=== PATIENT | female | born 1940 | race Caucasian/White ===

== ENCOUNTER → 2017-05-31 09:49 | Outpatient (CLI) | payer MEDICARE, BC, SELFPAY ==
[2017-05-31 12:21] LABS: Absolute Lymphocyte Count 1.14 X10^3/ul (0.83-4.51); Absolute Neutrophil Count 4.5 X10^3/uL (2.0-7.7); Basophil# 0.04 X10^3/uL; Basophil% 0.6 % (0-1); Eosinophils% 1.6 % (0-5); Hematocrit 43.3 % (37-47); Hemoglobin 13.5 g/dl (12.0-15.0); Lymphocyte # 1.14 X10^3/ul (4.0); Lymphocyte % 18.1 % (19-41); Mean Corp Hgb Conc 31.2 g/gl (32-36); Mean Corpuscular Hgb 29.3 pg (27.0-32.0); Mean Corpuscular Volume 93.9 fL (81-99); Mean Platelet Vol. 11.3 fl (6.2-12.0); Monocyte# 0.55 X10^3/uL; Monocyte% 8.7 % (0-10); Neutrophil # 4.47 X10^3/uL (2.7-7.7); Platelet Count 214 K/mm3 (150-450); RBC Distribution Width SD 50.8 fl (35.1-43.9); Red Blood Count 4.61 M/mm3 (4.2-5.4); White Blood Count 6.3 K/mm3 (4.4-11.0)
[2017-05-31 12:23] LABS: POSITIVE COUNT NO; POSITIVE DIFFERENTIAL NO; POSITIVE MORPHOLOGY NO
[2017-05-31 12:27] LABS: ALB/GLOB Ratio 1.2 RATIO (0.9-2.4); AST(SGOT) 18 U/L (15-37); Alanine Aminotransfer ALT/SGPT 10 U/L (13-56); Alkaline Phosphatase 93 U/L (45-117); Anion Gap 8 (5-15); BUN 23 mg/dL (7-18); BUN/Creat Ratio 25.4 RATIO (10-20); Calcium,Total 8.6 mg/dL (8.5-10.1); Chloride 104 mmol/L (98-107); Creatinine, Serum 0.91 mg/dL (0.55-1.02); EST Glomerular Filtration Rate 64 mL/min (>60); Est Glom Filt Rate - Afr Amer 77 mL/min (>60); Globulin 3.2 g/dL (2.2-4.2); Glucose 78 mg/dL (74-106); Potassium 3.5 mmol/L (3.5-5.1); Protein, Total 7.2 g/dL (6.4-8.2); Sodium Level 141 mmol/L (136-145)
== END ==
PROVIDERS: Family Provider Internal Medicine; PCP Internal Medicine; Visit Provider Internal Medicine Rheumatology
DX: M17.0 Bilateral primary osteoarthritis of knee (principal); M81.0 Age-related osteoporosis without current pathological fracture; N18.9 Chronic kidney disease, unspecified; J45.909 Unspecified asthma, uncomplicated
CPT/HCPCS: 36415; 80053; 85025

== ENCOUNTER → 2017-06-21 13:18 | Outpatient (CLI) | payer MEDICARE, BC, SELFPAY ==
--- NOTE | 2017-06-21 13:30 | SP.MBSS_ITS ---
PRIMARY / SECONDARY DIAGNOSIS: dysphagia (R13.10) REFERRING PHYSICIAN: DANA Kraus CURRENT DIET: regular textures, thin liquids DENTITION: WFL MENTAL STATUS: WNL RESPIRATORY STATUS: O2 via room air PREVIOUS MODIFIED BARIUM SWALLOW STUDY: 10/16/2013 MBS revealed swallow function grossly within functional limits REASON FOR REFERRAL: Patient is a 77 year old female referred for a modified barium swallow (MBS) study to objectively assess the Patients oropharyngeal swallow function under fluoroscopy secondary to the diagnosis of Parkinson's disease, with further neurological etiologies (cerebrovascular accident involving the terell, dementia) with known deleterious effects on deglutition. Patients present, reports tachyphagia with occasional substernal burning sensation, both deny any significant coughing episodes, prior knowledge of association between Parkinson' s disease and dysphagia reported following education via medical staff. 2013 MBS revealed swallow function grossly within functional limits 01/27/2017 MRI revealed advanced atrophy and periventricular white matter ischemic changes without evidence for acute infarct; chronic ischemic changes within the terell and cerebellum MEDICAL HISTORY: Parkinsons disease, prior cerebral vascular accident, dementia / Alzheimer's disease, gastroesophageal reflux disease, neuropathic pain, rheumatoid arthritis , osteoarthritis, debility, severe malnutrition, chronic pain, asthma, anxiety and depression, hypokalemia, osteoporosis, pelvic fracture, allergic rhinitis, stage III chronic kidney disease, stage II chronic renal failure, hypertension, history of thrombotic thrombocytopenic purpura, inferior pubic ramus fracture, neurogenic bladder, normochromic normocytic anemia STUDY FINDINGS: Patient participated in a Modified Barium Swallow (MBS) study on 06/21/2017. Dr. Landry was the radiologist present for this evaluation. This study was recorded in the lateral view and images were sent to PACs for storage. The following consistencies were presented to this patient for analysis of oropharyngeal swallow function: thin liquids, pudding, and a regular textured, Paulina Doone cookie. Results of the MBS are as follows: PENETRATION / ASPIRATION SCALE (BAI): 1 = does not enter airway 2 = enters airway/above vocal folds/ejected 3 = enters airway/above vocal folds/not ejected 4 = enters airway/contacts vocal folds/ejected 5 = enters airway/contacts vocal folds/not ejected 6 = enters airway/below vocal folds/ejected 7 = enters airway/below vocal folds/not ejected despite effort 8 = enters airway/below vocal folds/no effort PENETRATION / ASPIRATION SCALE (SCORE): Thin liquid - 5 mL tsp.: 1 Thin liquids via cup (single sip): 1 Thin liquids via cup (single sip): 1 Thin liquids via cup (single sip): 1 Thin liquids via cup (single sip): 1 Pudding via spoon: 1 Regular textured cookie: 1 Thin liquids via straw (single sip): 1 Thin liquids via straw (single sip): 1 IMPRESSION: DIAGNOSIS: mild oral dysphagia (R13.11) ORAL PHASE CHARACTERIZED BY: LABIAL SEAL: no labial escape TONGUE CONTROL DURING BOLUS MANIPULATION: cohesive bolus between tongue to palatal seal BOLUS PREPARATION / MASTICATION: timely and efficient chewing and mashing BOLUS TRANSPORT / LINGUAL MOTION: trace intermittent repetitive/disorganized tongue motion; inconsistent (x1) delayed initiation of tongue motion (3-4 seconds) ORAL RESIDUE: trace residue lining oral structures PHARYNGEAL PHASE CHARACTERIZED BY: INITIATION OF PHARYNGEAL SWALLOW: bolus head in valleculae at first hyoid excursion (improved) SOFT PALATE ELEVATION: no bolus between soft palate and pharyngeal wall LARYNGEAL ELEVATION: complete superior movement of thyroid cartilage with complete approximation of arytenoids cartilage to epiglottic petiole ANTERIOR HYOID EXCURSION: partial anterior movement EPIGLOTTIC MOVEMENT: complete epiglottic inversion LARYNGEAL VESTIBULE CLOSURE AT HEIGHT OF SWALLOW: complete laryngeal vestibule closure with no air/contrast in laryngeal vestibule PHARYNGEAL STRIPPING WAVE: pharyngeal stripping wave present / complete PHARYNGOESOPHAGEAL SEGMENT OPENING: complete distension and complete duration with no obstruction of flow TONGUE BASE RETRACTION: no contrast between tongue base and posterior pharyngeal wall PHARYNGEAL RESIDUE: trace residue within or on pharyngeal structures ESOPHAGEAL PHASE CHARACTERIZED BY: ESOPHAGEAL BOLUS CLEARANCE IN THE UPRIGHT POSITION: minimal intermittent esophageal retention at / below the PES with retrograde flow through PES ( functionally insignificant) EFFECTS OF TREATMENT STRATEGIES ATTEMPTED: Reduced bolus size = effective DIET TEXTURE RECOMMENDATIONS: Will recommend a regular textured, thin liquid diet. COMPENSATORY STRATEGIES RECOMMENDED: Reduced bolus volume, reduced rate of intake, seated upright at 90 degrees during PO intake, remain upright for 30-60 minutes post meal (GERD precaution) INTERPRETATION OF RESULTS: Patient presents with mild oral dysphagia (R13.11) secondary to the diagnosis of Parkinsons disease. Oral phase primarily marked by suboptimal lingual control with noted trace intermittent lingual festinations / lingual rolling pattern; and mild impairment during oral transit attributed to intermittent delayed oral swallow onset (3-4 seconds); neither identified during prior MBS suggesting mild oral phase coordination alterations, though all with minimal impact on deglutition during current study. Family reporting tachyphagia (rapid rate of intake) with occasional substernal burning sensation, symptoms may correlate with each other, with no findings associated with reported symptoms identified throughout study. No aspiration appreciated throughout trials, unable to definitively rule out silent aspiration (though not suspected). RECOMMENDATIONS: Patient able to comprehend and express recommended intake precautions detailed above with sufficient detail to suggest high likelihood of compliance. Provided brief overview of signs and symptoms of aspiration, with recommendations for the Patient to further discuss symptoms with PCP. No further skilled speech- language services warranted at this time targeting dysphagia. 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 Would consider annual repeat objective assessment of the oropharyngeal swallow function under fluoroscopy to identify changes in the oropharyngeal swallow function associated with Parkinsons disease due to the progressive nature of the disease and higher proclivity for silent aspiration. ADDITIONAL COMMENTS/RECOMMENDATIONS: Results and recommendations were discussed with the Patient immediately following MBS completion, with the Patient verbalizing understanding and agreement with all recommendations and education provided. IMAGE COUNT: [id number] G-CODES: SWALLOWING [id number] Current Status: CI SWALLOWING [id number] Goal Status: CI SWALLOWING [id number] Discharge Status: CI
--- NOTE | 2017-06-21 13:50 | RAD_ITS ---
STUDY: SWALLOWING STUDY REASON FOR EXAM: Female, 77 years old. Dysphagia. TECHNIQUE: The examination was performed with Speech Pathology in attendance. Under fluoroscopic observation, the patient ingested thin barium, thick barium, barium pudding, and barium coated cracker. FLUOROSCOPY TIME: 1:24 minutes/seconds. 1380 spot images are obtained. RADIOLOGIST INVOLVEMENT: Radiologist was present and providing direct supervision. COMPARISON: None. FINDINGS: The following was observed during swallowing of the various mixtures of barium: Thin Barium: There was no evidence of aspiration or laryngeal penetration. Barium Pudding: There was no evidence of aspiration or laryngeal penetration. Barium Coated Cracker: There was no evidence of aspiration or laryngeal penetration. RAD/Swallowing Function w/Video IMPRESSION: Normal tailored barium swallow study. No evidence of increased risk for aspiration. The swallow study findings were discussed with the patient by the speech pathologist at the conclusion of the examination. Please see speech pathology report for more information and recommendations. Electronically Signed: Lenny Landry MD at 14:35 EDT Tel [phone], Service support ,
== END ==
PROVIDERS: Family Provider Internal Medicine; PCP Internal Medicine; Visit Provider Nurse Practitioner Acute Care
DX: R13.11 Dysphagia, oral phase (principal); R05 Cough
CPT/HCPCS: 74230; 92611

== ENCOUNTER 2017-07-12 11:30 | Outpatient (RCR) | payer MEDICARE, BC, SELFPAY ==
--- NOTE | 2017-04-26 13:02 | HP.PTEVAL ---
Patient's Visit Information ALESHIA WHEELER is a 77 year old F referred to Physical Therapy by MD YA Eason with a diagnosis of PARKINSON'S DZ, PULOMONARY EMBOLISM, FRACTURE OF SACRUM. Date of Evaluation: 04/26/17 Physical Therapist: Angela Patrick - Visit Plan Frequency: 2-3x /Week Duration: 4-6 Weeks Plan: POSTURE CORRECTION/STRENGTHENING, INSTRUCTION IN APPROPRIATE BODY MECHANICS AND ACTIVITY MODIFICATIONS. DLS STARTING WITH A NEUTRAL SPINE PROGRESSING ROM TOLERATED. RADHA LE ROM, STRETCHING AND STRENGTHENING. HEP INSTRUCTION. GAIT AND BALANCE TRAINING. ENDURANCE TRAINING. - Subjective Subjective: Work/Leisure: RETIRED. Disability: NO. Present symptoms: PATIENT DENIES PAIN CURRENTLY BUT REPORTS SHE HAD A LOT OF PAIN IN HER BACK AND LEGS BACK IN OCT AND NOV AFTER SHE BROKE HER PELVIS. PATIENT REPORTS SHE IS HAVING TROUBLE WALKING AND WITH HER BALANCE. SHE REPORTS THAT SHE WAS NOT USING A WALKER UNTIL OCT 2016. SHE HAD MULTIPLE FALLS OVER A TWO YEAR PERIOD AND SHE IS NOT SURE WHICH FALL BROKE HER PELVIS. SHE ALSO BROKE HER RIGHT FOOT BUT AGAIN DOESN'T HAVE PAIN IN IT NOW. Present since: OCT 2016. Pain Scale: N/A. Currently: N/A. Commenced as a result of: FALLS. Symptoms at onset: LOW BACK PAIN. Recent major surgery: RADHA TKR'S APPROX 2009, PULMONARY EMBOLISM, PARKINSON'S DZ. ON BLOOD THINNER. OTHER: RECENTLY DIAGNOSED WITH PARKINSON'S ABOUT A MONTH AGO. PATIENT REPORTS SHE ENDED UP GOING TO THE HOSPITAL [facility] DUE TO SEVERE BACK AND RIGHT LE PAIN LAST OCTOBER. SHE HAS BEEN PRETTY MUCH IN THE HOSPITAL OR REHAB FOR THE LAST 5 MONTHS OR SO WHICH ENDED WITH HOME PT THE END OF FEBRUARY. REPORTS SHE HAS DONE SOME OF THE HOME EX'S BUT HASN'T REALLY DONE THEM FOR A FEW DAYS. SITTING A LOT AT HOME. NOT ON A WALKING PROGRAM. SHE REPORTS SHE HAD ONE REILLY IN THE HOSPITAL BY DR. HUGHES THAT DIDN'T SEEM TO HELP. SHE EVENTUALLY GOT OVER THE PAIN WITH MEDICINE AND THERAPY. STATES PARKINSON'S MEDICINE HAS MADE A BIG DIFFERENCE. ABLE TO GET UP AND AROUND AT HOME NOW, SHOWER AND DRESS HERSELF WITH SUPERVISION ONLY. *SHE HATES THE NUSTEP* - Objective THIS PATIENT AMBULATES INDEP'LY INTO PT WITH A FWW INDEP'LY. HER IS WITH HER AND HELPFUL WITH HER MEDICAL HISTORY. SHE WALKS WITH INCREASED TRUNK FLEXION, INCREASED RADHA KNEE FLEXION AND SLOW BUT STEADY CADANCE. HER SITTING POSTURE IS POOR. HER STANDING POSTURE IS POOR. SHE DID NOT USE PROPER SAFETY WITH WALKER WHEN TRANSFERING FROM STAND TO SIT. SHE WAS OBSERVED TRANSFERRING INDEP'LY FROM SIT TO DRY KILN OPERATOR THE LOBBY BUT THE CHAIR IS LOWER IN THE TREATMENT ROOM AND SHE REQUIRED +1 MIN TO MOD ASSIST TO TRANSFER OUT OF THE CHAIR. SHE WAS ABLE TO WALK THE ENTIRE WAY BACK TO THE TREATMENT ROOM (ABOUT 300 FEET) AND BACK OUT AGAIN WITHOUT STOPPING TO REST. SHE IS ONLY PARTIALLY ABLE TO CORRECT HER POSTURE WITH CUEING. SHE IS DEPENDENT ON THE WALKER FOR GAIT AND UNABLE TO SLS ON EITHER LE WITHOUT UE ASSIST. SHE DEMONSTRATES WEAKNESS THROUGHT HER UE'S, LE'S AND TRUNK. HER SHOULDER ELEVATION IS LIMITED BY APPROX 30%. SHE HAS TIGHT TRUNK FLEXORS, HIP FLEXORS, HS'S AND GASTROC SOLEUS COMPLEX'S. GROSS STRENGTH IS 3+/5. SHE IS ABLE TO FOLLOW ALL COMMANDS WELL AND IS A GOOD HISTORIAN OVER-ALL. SHE IS PLEASANT AND COOPERATIVE TO WORK WITH. HER SITTING BALANCE IS GOOD BUT HER STANDING STATIC BALANCE IS FAIR MINUS AND DYNAMIC BALANCE WITH THE WALKER IS FAIR MINUS. PATIENT WOULD BENEFIT FROM PT FOR GENERAL STRENGTHEING, ENDURANCE TRAINING AND BALANCE ACTIVITIES ALONG WITH GAIT TRAINING TO TRY TO MEET THE GOAL OF NOT BEING DEPENDENT ON THE WALKER. - Goals Goal 1:: PATIENT WILL HAVE GOOD DYNAMIC BALANCE WITH THE WALKER TO BE A COMMUNITY AMBULATOR. Goal Time Frame: 4-6 Weeks Goal 2:: INDEP AND SAFE GAIT ON ALL SURFACES WITH LEAST AD Goal Time Frame: 4-6 Weeks Goal 3:: INCREASE FUNCTIONAL ROM OF RADHA UE'S, TRUNK AND LE'S TO IMPROVE ADL FUNCTION. Goal Time Frame: 4-6 Weeks Goal 4:: INCREASE FUNCTIONAL STRENGHT FOR RADHA UE'S, TRUNK AND LE'S TO EASE ADL'S. Goal Time Frame: 4-6 Weeks Goal 5:: INDEP WITH HEP WITH WRITTEN INSTRUCTIONS AND THE HELP OF CAREGIVER. Goal Time Frame: 4-6 Weeks - Rehabilitation Potential Rehabilitation Potential: Fair - Anticipated Interventions Patient/Client Instruction: Educate patient on: Condition, Plan of Care, Risk Factors, Benefits of Fitness Program For the Purpose of:: To improve self management Therapeutic Exercise to Include: Strength training, Balance training, Body mechanics, Postural training, Gait and locomotor training, Dynamic Lumbar Stabilization For the Purpose of:: To improve muscle performance and motor function, To improve performance and independence with ADL's, To improve ability of physical actions for home/community/work/leisure, To improve gait and locomotor functions Thank you for the opportunity to evaluate your patient. For Medicare and Medicare HMO plans, please review the plan of care and approve it. It will need to be FAXED BACK to us at [phone] for Medicare purposes. Please let me know if there are questions or concerns regarding this plan of care. Physician Signature: Date:
--- NOTE | 2017-05-17 13:31 | HP.PTREVAL_ITS ---
Bethel Perez MD, It has been my pleasure to treat ALESHIA WHEELER over the last 10 visits for PARKINSON'S DZ, PULOMONARY EMBOLISM, FRACTURE OF SACRUM. Please see the progress note below for an update on the physical therapy plan of care! Subjective: UPON ENTERANCE TO PT PATIENTS REPORTS PATIENT INSISTED ON BRINGING THE CANE INSTEAD OF WALKER TODAY. PATIENT REPORTS SHE IS TIRED OF THE WALKER. PATIENT REPORTS HER WALKING IS BETTER. SHE STATES SHE CAN GO FURTHER WITH THE WALKER NOW AND EVEN GO WITHOUT THE WALKER LIKE TODAY WITH WALKING WITH THE CANE. SHE STATES SHE CAN OPEN JARS, GET POTS AND PANS OUT AND SHE ISN'T AFRAID TO COOK NOW BECAUSE SHE CAN STAND LONGER. SHOWERING IS GOING MUCH BETTER TOO. STATES SHE ISN'T AFRAID OF SHOWERING NOW AND DOES IT ALMOST EVERY DAY. REPORTS HE DOES NOT HAVE TO SUPERVISE HER CLOSELY NOW AND HE EVEN LEFT HER A LONE TO GO OUT. SHE REPORTS SHE STILL WANTS TO BE ABLE TO WALK BETTER. 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 PATIENT IS HAPPY THAT SHE HAS MORE STAMINA TO BE ABLE TO DO HER MAKE UP AFTER SHOWERING WHICH SHE COULDN'T DO BEFORE. SHE REPORTS SHE CAN ONLY DO A LITTLE BIT WITH THE MACHINES BEFORE HER BACK AND LEFT KNEE START BOTHERING HER. SHE REPORTS SHE FEELS THE THERAPY IS VERY BENEFICIAL AND SHE WANTS TO KEEP COMING FOR PT AT LEAST UNTIL SHE CAN EXERCISE MORE ON HER OWN. Objective/Function: PATIENT IS MAKING PROGRESS TOWARD ALL PT GOALS. UPON EXAM, SHE DEMONSTRATES INDEP SIT TO STAND WITH UE ASSIST. SHE DEOMONSTRATED INDEP GAIT WITH A STRAIGHT CANE BACK TO PT X APPROX 350 FEET WITH MINOR LOSS'S OF BALANCE WITH BALANCE REGAINED INDEP'LY. SHE IS NOT SAFE INDEP'LY WITH THE CANE. SHE IS UNABLE TO SLS ON EITHER LEG MORE THAN A SECOND OR TWO WITHOUT UE ASSIST. HER GROSS STRENGTH HAS IMPROVED TO 4-/5 IN HER RADHA UE'S AND LE'S WITH MMT'ING. SHE IS REPORTING IMPROVED STAMINA AND FUNCTION AT HOME AND HER IS REPORTING SHE IS MORE INDEP. I WOULD RECOMMEND CONTINUED PT AT THIS TIME WORKING TOWARD SAME GOALS DUE TO FURTHER ROOM FOR IMPROVEMENT. Plan Plan: CONT PT 3 TIMES A WEEK X 10 VISITS FOR *WRITTEN HEP ADVANCES*, POSTURE CORRECTION/STRENGTHENING, INSTRUCTION IN APPROPRIATE BODY MECHANICS AND ACTIVITY MODIFICATIONS. DLS STARTING WITH A NEUTRAL SPINE PROGRESSING ROM TOLERATED. RADHA LE ROM, STRETCHING AND STRENGTHENING. HEP INSTRUCTION. GAIT AND BALANCE TRAINING. ENDURANCE TRAINING. THE PATIENT AND HER ARE AGREEABLE TO THIS POC. Goals Goal 1:: PATIENT WILL HAVE GOOD DYNAMIC BALANCE WITH THE WALKER TO BE A COMMUNITY AMBULATOR. Goal Time Frame: 4-6 Weeks Goal Progress: Progressing Goal 2:: INDEP AND SAFE GAIT ON ALL SURFACES WITH LEAST AD Goal Time Frame: 4-6 Weeks Goal Progress: Progressing Goal 3:: INCREASE FUNCTIONAL ROM OF RADHA UE'S, TRUNK AND LE'S TO IMPROVE ADL FUNCTION. Goal Time Frame: 4-6 Weeks Goal Progress: Progressing Goal 4:: INCREASE FUNCTIONAL STRENGHT FOR RADHA UE'S, TRUNK AND LE'S TO EASE ADL' S. Goal Time Frame: 4-6 Weeks Goal Progress: Progressing Goal 5:: INDEP WITH HEP WITH WRITTEN INSTRUCTIONS AND THE HELP OF CAREGIVER. Goal Time Frame: 4-6 Weeks Goal Progress: Progressing Anticipated Interventions Patient/Client Instruction: Educate patient on: Condition, Plan of Care, Risk Factors, Benefits of Fitness Program For the Purpose of:: To improve self management Therapeutic Exercise to Include: Strength training, Balance training, Body mechanics, Postural training, Gait and locomotor training, Dynamic Lumbar Stabilization For the Purpose of:: To improve muscle performance and motor function, To improve performance and independence with ADL's, To improve ability of physical actions for home/community/work/leisure, To improve gait and locomotor functions Please do not hesitate to contact me at [phone] by phone or Fax: if you have questions or concerns regarding this new plan of care! Sincerely, Angela Patrick
--- NOTE | 2017-06-05 12:56 | HP.PTREVAL ---
Bethel Perez MD, It has been my pleasure to treat ALESHIA WHEELER over the last 18 visits for PARKINSON'S DZ, PULOMONARY EMBOLISM, FRACTURE OF SACRUM. Please see the progress note below for an update on the physical therapy plan of care! 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 PATIENT REPORTS SHE DID OK AFTER TRYING SOME OF THE MACHINES AGAIN LAST VISIT. PATIENT REPORTS SHE HAS A LOT MORE CONFIDENCE IN HER WALKING, GETTING DRESSED, BATHING AND GETTING IN AND OUT OF THE CAR. FOLLOW UP WITH DR. PORTER TOMORROW. PATIENT REPORTS SHE HAS NOT FALLEN FOR QUITE AWHILE NOW BUT SHE IS STILL AFRAID OF FALLING. PATIENT REPORTS SHE PLANS TO GET A MEMBERSHIP HERE TO CONTINUE EXERCISINIG WHEN PT IS OVER. ALSO CONSIDERING TRYING TREADMILL AT HOME. STATES SHE HAS ONLY DONE HER EX'S IN LYING A COUPLE OF TIMES BECAUSE SHE IS NOT LYING DOWN DURING THE DAY DISCUSSED. STATES SHE FEELS LIKE SHE COULD CONTINUE ON HER OWN AT THIS POINT WITH A CLASS IF SHE NEEDS TO. PATIENT REPORTS SHE LIKES IT HERE. Objective/Function: RECOMMEND CONTINUED PT BASED ON TESTING TODAY. PATIENT IS AGREEABLE. WOULD RECOMMEND TAPERING THERAPY SHE SLOWLY TRANSITIONS TO [facility]&W MEMBERSHIP. PATIENT IS MAKING PROGRESS TOWARD ALL PT GOALS. UPON EXAM, SHE DEMONSTRATES INDEP SIT TO STAND WITH UE ASSIST EASILY TODAY BUT SHE IS UNABLE TO TRANSITION TO STAND WITHOUT UE'S. SHE IS ABLE TO AMBULATE SAFELY WITH A STRAIGHT CANE NOW ON LEVEL SURFACES BUT ONLY WITH SUPERVISION AND CUEING. SHE IS NOT SAFE INDEP'LY WITH THE CANE. SHE TENDS TO PLANTAR FLEX AND INVERT BOTH FEET RIGHT > LEFT BUT ABLE TO DORIFLEX TO NEUTRAL AND HAS GOOD STRENGTH IN THE AVAILABLE ROM. SHE TENDS TO SHUFFLE HER GAIT WITHOUT CUEING AND WITH FATIGUE. SHE IS NOW ABLE TO SLS ON EACH LEG X APPROX 4-5 SECONDS WITHOUT UE ASSIST. STATIC STANDING BALANCE IS GOOD AND ABLE TO MAINTAIN BALANCE WITH PERTEBATIONS FROM ALL FOUR DIRECTIONS HOWEVER HER DYNAMIC BALANCE IS UNSAFE INDEP'LY WITHOUT THE WALKER. HER GROSS STRENGTH HAS IMPROVED TO 4/5 IN HER RADHA UE'S AND LE'S WITH MMT'ING. SHE IS STARTING TO LEARN A HEP AND HAS STARTED TO BECOME CONSISTENT WITH SOME OF THE EX'S. NEEDS ENCOURAGEMENT WITH HOME EX'S. SHE IS REPORTING IMPROVED STAMINA AND FUNCTION AT HOME AND HER IS REPORTING SHE IS MORE INDEP. HER LEFS SCORE HAS IMPROVED FROM 20 TO 35. I WOULD RECOMMEND CONTINUED PT AT THIS TIME WORKING TOWARD SAME GOALS DUE TO FURTHER ROOM FOR IMPROVEMENT. THE PATIENT AND HER COMMUNICATED A GOOD UNDERSTANDING OF INSTRUCTIONS AND RECOMMENDATIONS AFTER GIVEN TODAY. Plan Plan: CONTINUE PT 3 TIMES A WEEK X 2 WEEKS DECREASING TO 2X'S A WEEK X 2 WEEKS PATIENT BEGINS TO TRANSITION TO H&W CLASSES INDICATED. *WRITTEN HEP ADVANCES*, POSTURE CORRECTION/STRENGTHENING, INSTRUCTION IN APPROPRIATE BODY MECHANICS AND ACTIVITY MODIFICATIONS. DLS PROGRESSING ROM TOLERATED. RADHA LE ROM, STRETCHING AND STRENGTHENING. GAIT AND BALANCE TRAINING. ENDURANCE TRAINING. GAIT TRAINING IN CLINIC WITH CANE APPROPRIATE. THE PATIENT AND HER ARE AGREEABLE WITH THIS POC. Goals Goal 1:: PATIENT WILL HAVE GOOD DYNAMIC BALANCE WITH THE WALKER TO BE A COMMUNITY AMBULATOR. Goal Time Frame: 4-6 Weeks Goal Progress: Progressing Goal 2:: INDEP AND SAFE GAIT ON ALL SURFACES WITH LEAST AD Goal Time Frame: 4-6 Weeks Goal Progress: Progressing Goal 3:: INCREASE FUNCTIONAL ROM OF RADHA UE'S, TRUNK AND LE'S TO IMPROVE ADL FUNCTION. Goal Time Frame: 4-6 Weeks Goal Progress: Progressing Goal 4:: INCREASE FUNCTIONAL STRENGHT FOR RADHA UE'S, TRUNK AND LE'S TO EASE ADL'S. Goal Time Frame: 4-6 Weeks Goal Progress: Progressing Goal 5:: INDEP WITH HEP WITH WRITTEN INSTRUCTIONS AND THE HELP OF CAREGIVER. Goal Time Frame: 4-6 Weeks Goal Progress: Progressing Anticipated Interventions Patient/Client Instruction: Educate patient on: Condition, Plan of Care, Risk Factors, Benefits of Fitness Program For the Purpose of:: To improve self management Therapeutic Exercise to Include: Strength training, Balance training, Body mechanics, Postural training, Gait and locomotor training, Dynamic Lumbar Stabilization For the Purpose of:: To improve muscle performance and motor function, To improve performance and independence with ADL's, To improve ability of physical actions for home/community/work/leisure, To improve gait and locomotor functions Please do not hesitate to contact me at [phone] by phone or if you have questions or concerns regarding this new plan of care! Sincerely, Angela Patrick
--- NOTE | 2017-07-12 13:36 | HP.PTDCSUM_ITS ---
HP - PT D/C Summary It has been my pleasure to treat ALESHIA WHEELER under orders from Bethel Perez MD, for the diagnosis of PARKINSON'S DZ, PULOMONARY EMBOLISM, FRACTURE OF SACRUM for a total of 27 visit(s). Discharge Date: 07/12/17 Please see the following information for a summary of their discharge status. - Subjective Subjective: PATIENT REPORTS SHE IS DOING GOOD. STATES SHE IS GETTING OVER BEING SICK AND REALLY HATED TO MISS HER EX SESSIONS. STILL PLANNING TO JOIN [facility] TO CONTINUE INDEP EX. STATES SHE MOSTLY USES THE WALKER INSTEAD OF THE CANE BECAUSE THAT IS WHAT SHE IS COMFORTABLE WITH. - Pain BLAT knee Pain Intensity (Out of 10): N/A - Overall Improvement % Improvement: 80 - Objective Objective/Function: THIS PATIENT AMUBLATES INDEP'LY INTO PT WITH A FWW WITH GOOD ARCHIE AND BALANCE AND VERY MINIMAL DEPENDENCE ON WALKER. SHE IS NOW ABLE TO INDEP'LY TRANSFER FROM SIT TO STAND WITHOUT UE ASSIST BUT IT IS DIFFICULT FOR HER. THIS IS A BIG ACCOMPLISHMENT FOR HER. SHE KNOWS HOW TO USE HER CANE BUT PREFERS THE WALKER. RECOMMENDED ROLLATOR AND DISCUSSED POSSIBLE BENEFITS. PATIENT AND HER CONCUR AND PLAN TO PURSUE. RADHA LE STRENGTH IS 5/5 WITH MMT'ING EXCEPT HIPS GRADED 4/5. LEFS HAS IMPROVED FROM 35 TO 48. SHE IS STILL ONLY ABLE TO SLS ON EACH LEG FOR A FEW SECONDS EACH WITHOUT UE ASSIST. SHE IS INDEP WITH A HOME EX PROGRAM AND A GYM EX PROGRAM. - Goals Goal 1:: PATIENT WILL HAVE GOOD DYNAMIC BALANCE WITH THE WALKER TO BE A COMMUNITY AMBULATOR. Goal Progress: Goal Met Goal 2:: INDEP AND SAFE GAIT ON ALL SURFACES WITH LEAST AD Goal Progress: Goal Met Goal 3:: INCREASE FUNCTIONAL ROM OF RADHA UE'S, TRUNK AND LE'S TO IMPROVE ADL FUNCTION. Goal Progress: Goal Met Goal 4:: INCREASE FUNCTIONAL STRENGHT FOR RADHA UE'S, TRUNK AND LE'S TO EASE ADL' S. Goal Progress: Goal Met Goal 5:: INDEP WITH HEP WITH WRITTEN INSTRUCTIONS AND THE HELP OF CAREGIVER. Goal Progress: Goal Met - Plan Plan: D/C TO INDEP EX. PATIENT IS AGREEABLE TO D/C. - D/C Information If there are questions or concerns regarding this patient's physical therapy, please feel free to call me at [phone]. Thank you for the referral of this patient. Sincerely, Angela Patrick
== END 2017-07-12 19:00 | disposition home or self-care (01) ==
LOC: PT 11:30
PROVIDERS: Family Provider Internal Medicine; PCP Internal Medicine; Visit Provider Psychiatry & Neurology Neurology
DX: G20 Parkinson's disease (principal); Z86.711 Personal history of pulmonary embolism; S32.10XD Unspecified fracture of sacrum, subsequent encounter for fracture with routine healing; M17.0 Bilateral primary osteoarthritis of knee; M81.0 Age-related osteoporosis without current pathological fracture; N18.9 Chronic kidney disease, unspecified; J45.909 Unspecified asthma, uncomplicated; R49.9 Unspecified voice and resonance disorder
CPT/HCPCS: 36415; 74230; 80053; 85025; 92611; 97110; 97116; 97162; 97164; 97530; G8996; G8997; G8998

== ENCOUNTER → 2017-11-20 16:20 | Outpatient (CLI) | payer MEDICARE, BC, SELFPAY ==
[2017-11-20 18:01] LABS: ALB/GLOB Ratio 1.2 RATIO (0.9-2.4); AST(SGOT) 27 U/L (15-37); Alanine Aminotransfer ALT/SGPT 14 U/L (13-56); Albumin, Serum 3.8 g/dL (3.2-5.0); Alkaline Phosphatase 65 U/L (45-117); Anion Gap 11 (5-15); BUN 35 mg/dL (7-18); BUN/Creat Ratio 29.2 RATIO (10-20); Calcium,Total 8.9 mg/dL (8.5-10.1); Chloride 101 mmol/L (98-107); EST Glomerular Filtration Rate 46 mL/min (>60); Est Glom Filt Rate - Afr Amer 56 mL/min (>60); Globulin 3.1 g/dL (2.2-4.2); Glucose 84 mg/dL (74-106); Potassium 3.4 mmol/L (3.5-5.1); Protein, Total 6.9 g/dL (6.4-8.2); Sodium Level 141 mmol/L (136-145)
[2017-11-20 19:39] LABS: Absolute Lymphocyte Count 1.36 X10^3/ul (0.83-4.51); Absolute Neutrophil Count 3.5 X10^3/uL (2.0-7.7); Basophil# 0.04 X10^3/uL; Basophil% 0.7 % (0-1); Eosinophil# 0.22 X10^3/uL; Eosinophils% 3.7 % (0-5); Hematocrit 37.8 % (37-47); Hemoglobin 12.5 g/dl (12.0-15.0); Lymphocyte # 1.36 X10^3/ul (4.0); Lymphocyte % 22.9 % (19-41); Mean Corp Hgb Conc 33.1 g/gl (32-36); Mean Corpuscular Hgb 31.2 pg (27.0-32.0); Mean Corpuscular Volume 94.3 fL (81-99); Mean Platelet Vol. 11.3 fl (6.2-12.0); Monocyte# 0.77 X10^3/uL; Neutrophil # 3.54 X10^3/uL (2.7-7.7); Neutrophil % 59.5 % (47-70); Platelet Count 216 K/mm3 (150-450); RBC Distribution Width CV 13.4 % (11.6-14.6); Red Blood Count 4.01 M/mm3 (4.2-5.4); White Blood Count 5.9 K/mm3 (4.4-11.0)
[2017-11-20 19:49] LABS: POSITIVE COUNT NO; POSITIVE DIFFERENTIAL NO; POSITIVE MORPHOLOGY NO
== END ==
PROVIDERS: Family Provider Internal Medicine; PCP Internal Medicine; Visit Provider Internal Medicine Rheumatology
DX: M17.0 Bilateral primary osteoarthritis of knee (principal); M81.0 Age-related osteoporosis without current pathological fracture; J45.909 Unspecified asthma, uncomplicated; G20 Parkinson's disease; N18.9 Chronic kidney disease, unspecified
CPT/HCPCS: 36415; 80053; 85025

== ENCOUNTER → 2018-05-12 12:27 | Outpatient (CLI) | payer MEDICARE, BC, SELFPAY ==
[2017-02-07 14:18] VITALS: BMI 24.1
[2018-05-12 14:02] LABS: Absolute Lymphocyte Count 1.18 X10^3/ul (0.83-4.51); Absolute Neutrophil Count 4.9 X10^3/uL (2.0-7.7); Basophil# 0.04 X10^3/uL; Basophil% 0.6 % (0-1); Eosinophil# 0.19 X10^3/uL; Eosinophils% 2.7 % (0-5); Hematocrit 39.8 % (37-47); Hemoglobin 12.7 g/dl (12.0-15.0); Lymphocyte # 1.18 X10^3/ul (4.0); Lymphocyte % 16.6 % (19-41); Mean Corp Hgb Conc 31.9 g/gl (32-36); Mean Corpuscular Hgb 28.9 pg (27.0-32.0); Mean Corpuscular Volume 90.7 fL (81-99); Mean Platelet Vol. 11.5 fl (6.2-12.0); Monocyte# 0.77 X10^3/uL; Monocyte% 10.8 % (0-10); Neutrophil # 4.92 X10^3/uL (2.7-7.7); Neutrophil % 69.2 % (47-70); Platelet Count 204 K/mm3 (150-450); RBC Distribution Width CV 15.7 % (11.6-14.6); RBC Distribution Width SD 51.1 fl (35.1-43.9); Red Blood Count 4.39 M/mm3 (4.2-5.4); White Blood Count 7.1 K/mm3 (4.4-11.0)
[2018-05-12 14:03] LABS: POSITIVE COUNT NO; POSITIVE DIFFERENTIAL NO; POSITIVE MORPHOLOGY NO
[2018-05-12 14:13] LABS: ALB/GLOB Ratio 1.1 RATIO (0.9-2.4); AST(SGOT) 30 U/L (15-37); Alanine Aminotransfer ALT/SGPT 19 U/L (13-56); Albumin, Serum 3.9 g/dL (3.2-5.0); Alkaline Phosphatase 74 U/L (45-117); Anion Gap 8 (5-15); BUN 31 mg/dL (7-18); BUN/Creat Ratio 28.4 RATIO (10-20); Calcium,Total 8.5 mg/dL (8.5-10.1); Chloride 105 mmol/L (98-107); Creatinine, Serum 1.09 mg/dL (0.55-1.02); EST Glomerular Filtration Rate 52 mL/min (>60); Est Glom Filt Rate - Afr Amer 62 mL/min (>60); Globulin 3.4 g/dL (2.2-4.2); Glucose 104 mg/dL (74-106); Potassium 3.9 mmol/L (3.5-5.1); Protein, Total 7.3 g/dL (6.4-8.2); Sodium Level 142 mmol/L (136-145)
== END ==
PROVIDERS: Family Provider Internal Medicine; PCP Internal Medicine; Referring Provider Internal Medicine Rheumatology; Visit Provider Internal Medicine Rheumatology
DX: M17.0 Bilateral primary osteoarthritis of knee (principal); M81.0 Age-related osteoporosis without current pathological fracture; N18.9 Chronic kidney disease, unspecified; J45.909 Unspecified asthma, uncomplicated; G30.9 Alzheimer's disease, unspecified; G20 Parkinson's disease; I26.99 Other pulmonary embolism without acute cor pulmonale; I82.509 Chronic embolism and thrombosis of unspecified deep veins of unspecified lower extremity; F41.9 Anxiety disorder, unspecified
CPT/HCPCS: 36415; 80053; 85025

== ENCOUNTER 2018-06-10 10:00 | Outpatient (RCR) | payer MEDICARE, BC, SELFPAY ==
--- NOTE | 2018-05-07 18:13 | HP.PTEVAL ---
Patient's Visit Information ALESHIA WHEELER is a 78 year old F referred to Physical Therapy by DANA Kraus with a diagnosis of PD. Date of Evaluation: 05/07/18 Physical Therapist: MARVA Andujar - Visit Plan Frequency: 2x /Week Duration: 3 Weeks Plan: Test pt on the NeuroCOm. See pt 2X/ week for 3 weeks for LE strengthening, high level balance, and mind/ big movment exercises with HEP - Subjective Findings: Dr wanted pt to have an evaluation to see how she was doing. She was in therapy for about a year.... she was here last spring and then she is doing machines and things in the gym through [employer]. She reports that she is walking along at home ok and she is not lifting anything. SHe wants to be more sure of herself balance sharp. She has not fallen. She only uses the can when she goes out. watches that she does not trip. SHe notices that she is slumping a lot to the L and not standing up as straight as she was... she occ uses a back brace for the last 3-4 months. She likes to read and feels that she leans to the Right with reading. reports that she likes to slouch. No freezing. No stiffness in the morning. 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 Last fall was 2 years ago. No trouble in and out of a car and no trouble in and out of bed and she does it slowly and carfully. She has a stair lift at home and does not do the stairs. Sit to stand.... she has to use her arms. She was sleeping well up until 2 weeks ago....started with nightmares. She was sure that something had fallen onto the bed......but there wasn't. - Objective Gait: Walks with a cane with short strides and leans to the R. Sitting posture: she leans to the R sitting in a chair and neck is SB to the R as well with R shoulders lower than the L. FGA: 13. LE MMT: B hip flex 4/5, B hip abd 4-/5, Pt is able to do 1/2 normal ROM bridge, B knee flex and ext 4/5. Sit to stand: Pt needs ue strength to be able to get out of a chair. Bed mobility: Pt finds it hard to roll to the L than to the R with bed mobility - Balance Scores Functional Gait Assessment Score: 13 % Disability: 56.6700 - Goals Goal 1:: I HEP Goal Time Frame: 4-6 Weeks Goal 2:: Test pt on the Neurocom Goal Time Frame: 4-6 Weeks Goal 3:: Increase LE strength by 1/2 muscle grade ( at time of eval: LE MMT: B hip flex 4/5, B hip abd 4-/5, Pt is able to do 1/2 normal ROM bridge, B knee flex and ext 4/5). Goal Time Frame: 4-6 Weeks - Rehabilitation Potential Rehabilitation Potential: Good - Anticipated Interventions Thank you for the opportunity to evaluate your patient. For Medicare and Medicare HMO plans, please review the plan of care and approve it. It will need to be FAXED BACK to us at [phone] for Medicare purposes. For Medicare only, by signing this I certify the plan of care. Please let me know if there are questions or concerns regarding this plan of care. Physician Signature: Date:
--- NOTE | 2018-06-10 11:40 | HP.PTDCSUM ---
HP - PT D/C Summary It has been my pleasure to treat ALESHIA WHEELER under orders from ROBERTA KrausC, for the diagnosis of PD for a total of 9 visit(s). Discharge Date: 06/10/18 Please see the following information for a summary of their discharge status. - Subjective Subjective: Pt reports that she feels that her walking is better and she is not using the cane all the time. She is back to cooking again. No falls. She feels that she needs to get her legs and back stronger and has a membership here. She is finding Delay the Diseas class challenging. Pt reports that she has been working on her posture at home. - Overall Improvement % Improvement: 50 - Objective Objective/Function: Walks with less lean to the R. LE MMT: B hip flex 4/5, B hip abd 4/5, Pt is able to do 3/4 normal ROM bridge, B knee flex and ext 4/5. Pt needed min A on and off the machines in the gym - Goals Goal 1:: I HEP Goal Progress: Goal Met Goal 2:: Test pt on the Neurocom Goal Progress: Goal Met Goal 3:: Increase LE strength by 1/2 muscle grade ( at time of eval: LE MMT: B hip flex 4/5, B hip abd 4-/5, Pt is able to do 1/2 normal ROM bridge, B knee flex and ext 4/5). Goal Progress: Goal Met Goal 4:: Improve posture to not lean and weight shift to the R as much and more neutral. Goal Progress: Goal Met - Plan Plan: DC PT to HEP and continue with Delay the Disease classes. - D/C Information Discharge Comments: DC PT to HEP and DTD If there are questions or concerns regarding this patient's physical therapy, please feel free to call me at [phone]. Thank you for the referral of this patient. Sincerely, Valencia Maldonado, MPT
--- NOTE | 2018-06-10 11:45 | HP.PTDCSUM_ITS ---
HP - PT D/C Summary It has been my pleasure to treat ALESHIA WHEELER under orders from ROBERTA Kraus C, for the diagnosis of PD for a total of 9 visit(s). Discharge Date: 06/10/18 Please see the following information for a summary of their discharge status. - Subjective Subjective: Pt reports that she feels that her walking is better and she is not using the cane all the time. She is back to cooking again. No falls. She feels that she needs to get her legs and back stronger and has a membership here. She is finding Delay the Diseas class challenging. Pt reports that she has been working on her posture at home. - Overall Improvement % Improvement: 50 - Objective Objective/Function: Walks with less lean to the R. LE MMT: B hip flex 4/5, B hip abd 4/5, Pt is able to do 3/4 normal ROM bridge, B knee flex and ext 4/5. Pt needed min A on and off the machines in the gym - Goals Goal 1:: I HEP Goal Progress: Goal Met Goal 2:: Test pt on the Neurocom Goal Progress: Goal Met Goal 3:: Increase LE strength by 1/2 muscle grade ( at time of eval: LE MMT: B hip flex 4/5, B hip abd 4-/5, Pt is able to do 1/2 normal ROM bridge, B knee flex and ext 4/5). Goal Progress: Goal Met Goal 4:: Improve posture to not lean and weight shift to the R as much and more neutral. Goal Progress: Goal Met - Plan Plan: DC PT to HEP and continue with Delay the Disease classes. - D/C Information Discharge Comments: DC PT to HEP and DTD If there are questions or concerns regarding this patient's physical therapy, please feel free to call me at [phone]. Thank you for the referral of this patient. Sincerely, Valencia Maldonado, MPT
== END 2018-06-10 19:00 | disposition home or self-care (01) ==
LOC: PT 10:00
PROVIDERS: Family Provider Internal Medicine; PCP Internal Medicine; Visit Provider Nurse Practitioner Acute Care
DX: G20 Parkinson's disease (principal)
CPT/HCPCS: 97110; 97161; 97530; 97750

== ENCOUNTER 2018-07-28 09:52 | Emergency (ER) | payer MEDICARE, BC, SELFPAY ==
[2018-07-28 09:52] VITALS: BP 141/78; PULSE 78; RESP 16; TEMP 36.2; O2SAT 93; BMI 23.1
--- NOTE | 2018-07-28 10:10 | CT_ITS ---
STUDY: CT BRAIN WITHOUT CONTRAST REASON FOR EXAM: Female, 78 years old. Head injury following a fall. The patient is on anticoagulants. RADIATION DOSAGE (If Supplied By Facility): CTDIvol = ( 60.81 ) mGy, DLP = ( 1021.47 ) mGycm TECHNIQUE: Transaxial CT imaging of the brain was performed without administration of intravenous contrast material. Individualized dose optimization techniques were used for this CT. COMPARISON: No relevant priors. FINDINGS: Normal soft tissue structures. Normal calvarium. There is mild cerebral atrophy with widening of the extra-axial spaces and ventricular dilatation. There are areas of decreased attenuation within the white matter tracts of the supratentorial brain, consistent with microvascular disease changes. Small lacunae in the left basal ganglion. Normal brainstem. Normal cerebellum. There is no intracranial hemorrhage. There are no findings of an acute ischemic infarction. Atherosclerotic calcification of the cavernous portions of the internal carotid arteries bilaterally. Normal visualized paranasal sinuses. CT/Brain/Head without Contrast IMPRESSION: Chronic involutional changes of the brain. Small lacunar in the left basal ganglion. Electronically Signed: Lenny Landry, at 10:39 EDT , Service support ,
--- NOTE | 2018-07-28 10:22 | ED.DCSUM_ITS ---
History of Present Illness Chief Complaint: Fall Informant: Patient Onset: Days - Injury occurred July 25 Context: Sudden Onset Timing: Continuous Quality: Occipital head pain and tailbone pain Location: head and pelvis Current Severity: Mild Maximum Severity: Moderate Worsened by: Pelvis pain is worse with standing Relieved by: Nothing Associated Symptoms: Nothing other than pain Narrative: Patient is an elderly woman who fell on Saturday. She struck the back of her head. She states she landed on her buttocks and then fell backwards. She is presently taking Eliquis because of multiple pulmonary embolus. She reports headache. She denies double vision, blurred vision loss of vision. She denies neck pain. She has chronic neuropathic pain. There is no new numbness, tingling and she denies weakness of her upper lower externally. She denies cardiac restaurant symptoms. She denies nausea vomiting. She denies black or maroon stool. She denies urinary symptoms. When asked to point where her tailbone hurts she points over the right issue tuberosity. She has no other complaints. Prior similar symptoms: No Recent Illness/Hospitalization: No - Past Medical History (1) Bilateral pulmonary embolism Status: Acute (2) Chronic anticoagulation Status: Acute Comment: started on Eliquis 02/05/17 (3) Cor pulmonale, acute Status: Acute Comment: tensive pulmonary emboli (4) DVT, bilateral lower limbs Status: Acute (5) Paroxysmal SVT (supraventricular tachycardia) Status: Acute (6) Allergic rhinitis Status: Chronic (7) Anxiety and depression Status: Chronic (8) CKD (chronic kidney disease) stage 2, GFR 60-89 ml/min Status: Chronic (9) GERD (gastroesophageal reflux disease) Status: Chronic (10) HTN (hypertension) Status: Chronic (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 BARBARA is negative. She is on no rheumatoid medications. Past Medical History - Allergies and Home Meds Allergies/Adverse Reactions: Allergies amlodipine [From Norvasc] Allergy (Verified 07/28/18 09:55) Unknown amoxicillin Allergy (Verified 07/28/18 09:55) Unknown duloxetine [From Cymbalta] Allergy (Verified 07/28/18 09:55) Unknown iodine Allergy (Verified 07/28/18 09:55) Unknown nabumetone [From Relafen] Allergy (Verified 07/28/18 09:55) Unknown sulfabenzamide Allergy (Verified 07/28/18 09:55) Unknown adhesive tape Adverse Reaction (Verified 07/28/18 09:55) Rash celecoxib [From Celebrex] Adverse Reaction (Verified 07/28/18 09:55) Nausea/Vom/Diarrhea Primary Care Physician: Corbin Bai MD [Primary Care Provider] - Prior records reviewed: Yes Surgical History: noncontributory, total knee arthroplasty - Bilateral., - - Bunionectomy. Lives: Spouse/ Significant Other Smoking Status: Former smoker Alcohol: None - Family History Maternal Family History: Reports: Hypertension Paternal Family History: Reports: Cancer - Lung CA, tobacco user. Sibling Family History: Reports: Cancer Review of Systems General: Denies: Chills, Fever, Sweats Eyes: Denies: Visual changes - bilaterally, Diplopia ENT: Denies: Rhinorrhea, Sore throat Cardiovascular: Denies: Chest pain, Palpitations Respiratory: Denies: Dyspnea, Cough, Dyspnea on exertion Gastrointestinal: Denies: Abdominal pain, Nausea, Vomiting, Diarrhea, Constipation, Melena, Hematochezia, -, - Genitourinary: Denies: Dysuria, Hematuria, Frequency Musculoskeletal: Denies: Back pain, Extremity Pain Skin: Denies: Rash, Wounds Neurological: Reports: Headache. Denies: Weakness, Parasthesia, Numbness, -, - Psych: Reports: Depression, Anxiety Hematologic: Reports: Easy bruising Allergy: Denies: Uticaria, Swelling of the mouth Physical Exam Vital Signs/Narrative: Vital Signs Temp Pulse Resp BP Pulse Ox 07/28/18 09:52 97.1 F L 78 16 141/78 H 93 Inital Vital Signs reviewed: Yes General: Well nourished, Well developed, No Acute Distress Head: Normocephalic, Tenderness - Tenderness over the occiput. No palpable depression. No findings to suggest basilar skull fracture. Eyes: Perrl, EOMI. Negative for: Pale conjunctiva, Scleral icterus, - - Is no subconjunctival hemorrhage noted. ENT: Moist mucous membranes, No rhinorrhea, TM's clear Neck: Supple, Nontender Cardiovascular: Regular rate, Regular rhythm, No murmurs Respiratory: No distress, CTA bilaterally, Chest nontender Abdomen: Soft, Nontender, Nondistended, Normal bowel sounds, No masses Back: Nontender, Normal Inspection, - - His pain outpatient in the proximity of the right issue tuberosity. There is no pain the patient over the pubic symphysis or right and left iliac wing. Extremities: Nontender, No edema Skin: Normal color, No rash Neurological: Alert, Oriented x3, Cranial nerves II-XII grossly intact, Normal Strength, Normal Sensation, Normal DTR, Normal Gait, - - GCS is 15. Psychological: Normal affect, Normal Mood Diagnostic/Tx/Re-eval Chest X-Ray - ED: 1 View, Read by ED Physician, - - View x-ray of the pelvis reveals prior superior and inferior pubic rami fracture. There is no evidence of acute fracture. CT of the head was interpreted by radiologist reviewed by me. There is no evidence of intracranial bleed. Impressions Brain CT 07/28/18 10:10 IMPRESSION: Chronic involutional changes of the brain. Small lacunar in the left basal ganglion. Electronically Signed: Lenny Landry, at 10:39 EDT , Service support , 07/28/18 10:10 Brain/Head without Contrast [CT] Stat 07/28/18 10:28 Pelvis 1 or 2 Views [RAD] Stat - Medical Decision Making Since patient complains of headache and on Eliquis with history of head trauma will obtain CT of the head to rule out intracranial bleed. Because there is pain to the pelvis we will obtain x-ray to evaluate for fracture. Since incident occurred 3 days ago and CAT scan is negative will discharge to home with appropriate analgesia. 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
--- NOTE | 2018-07-28 10:28 | RAD_ITS ---
STUDY: X-RAY - PELVIS REASON FOR EXAM: Female, 78 years old. Posterior pelvic pain following a recent fall. TECHNIQUE: One view of the pelvis was obtained. COMPARISON: Comparison is made with prior examination dated November 19, 2016. FINDINGS: There is a non-specific bowel gas pattern. Normal visualized soft tissue structures. Normal bilateral iliac wings, sacroiliac joints and visualized sacrum. Healed right superior and inferior pubic rami fractures. Normal pubic symphysis. Normal ischial tuberosities. Normal visualized right femoral head. Normal right acetabulum. Normal right hip joint. Normal visualized left femoral head. Normal left acetabulum. Normal left hip joint. RAD/Pelvis 1 or 2 Views IMPRESSION: Healed right superior and inferior pubic rami fractures. No acute abnormality is seen. Electronically Signed: Lenny Landry, at 11:10 EDT , Service support ,
[2018-07-28 11:17] VITALS: BP 131/84
== END 2018-07-28 11:18 | disposition home or self-care (01) ==
PROVIDERS: Emergency Provider Emergency Medicine; Family Provider Internal Medicine; PCP Internal Medicine
DX: S06.0X9A Concussion with loss of consciousness of unspecified duration, initial encounter (principal); S30.0XXA Contusion of lower back and pelvis, initial encounter; W19.XXXA Unspecified fall, initial encounter; Y93.9 Activity, unspecified; Y92.9 Unspecified place or not applicable; I12.9 Hypertensive chronic kidney disease with stage 1 through stage 4 chronic kidney disease, or unspecified chronic kidney disease; N18.2 Chronic kidney disease, stage 2 (mild); I47.1 Supraventricular tachycardia; K21.9 Gastro-esophageal reflux disease without esophagitis; G20 Parkinson's disease; M06.9 Rheumatoid arthritis, unspecified; M19.90 Unspecified osteoarthritis, unspecified site; F32.9 Major depressive disorder, single episode, unspecified; F41.9 Anxiety disorder, unspecified; Z86.718 Personal history of other venous thrombosis and embolism; Z86.711 Personal history of pulmonary embolism; Z79.01 Long term (current) use of anticoagulants; Z79.82 Long term (current) use of aspirin; Z79.899 Other long term (current) drug therapy; Z87.891 Personal history of nicotine dependence
CPT/HCPCS: 70450; 72170; 99282

== ENCOUNTER → 2018-11-10 08:53 | Outpatient (CLI) | payer MEDICARE, BC, SELFPAY ==
[2018-11-10 10:08] LABS: Absolute Lymphocyte Count 0.91 X10^3/uL (0.83-4.51); Absolute Neutrophil Count 3.8 X10^3/uL (2.0-7.7); Basophil# 0.06 X10^3/uL; Basophil% 1.1 % (0-1); Eosinophil# 0.19 X10^3/uL; Eosinophils% 3.5 % (0-5); Hematocrit 38.3 % (37-47); Lymphocyte # 0.91 X10^3/ul (4.0); Lymphocyte % 16.6 % (19-41); Mean Corp Hgb Conc 31.3 g/dL (32-36); Mean Corpuscular Hgb 27.9 pg (27.0-32.0); Mean Corpuscular Volume 89.1 fL (81-99); Mean Platelet Vol. 11.4 fl (6.2-12.0); Monocyte# 0.51 X10^3/uL; Monocyte% 9.3 % (0-10); NRBC Flagged by Analyzer 0 % (0-5); Neutrophil % 69.3 % (47-70); Platelet Count 187 K/mm3 (150-450); RBC Distribution Width CV 15.1 % (11.6-14.6); RBC Distribution Width SD 48.8 fl (35.1-43.9); White Blood Count 5.5 K/mm3 (4.4-11.0)
[2018-11-10 10:32] LABS: ALB/GLOB Ratio 1.1 RATIO (0.9-2.4); AST(SGOT) 17 U/L (15-37); Alanine Aminotransfer ALT/SGPT 10 U/L (13-56); Albumin, Serum 3.6 g/dL (3.2-5.0); Alkaline Phosphatase 60 U/L (45-117); Anion Gap 7 (5-15); BUN 28 mg/dL (7-18); BUN/Creat Ratio 27.5 RATIO (10-20); Calcium,Total 8.3 mg/dL (8.5-10.1); Chloride 107 mmol/L (98-107); Creatinine, Serum 1.02 mg/dL (0.55-1.02); EST Glomerular Filtration Rate 56 mL/min (>60); Est Glom Filt Rate - Afr Amer 67 mL/min (>60); Globulin 3.4 g/dL (2.2-4.2); Glucose 93 mg/dL (74-106); Potassium 3.6 mmol/L (3.5-5.1); Sodium Level 143 mmol/L (136-145)
== END ==
PROVIDERS: Family Provider Internal Medicine; PCP Internal Medicine; Referring Provider Internal Medicine Rheumatology; Visit Provider Internal Medicine Rheumatology
DX: M15.9 Polyosteoarthritis, unspecified (principal); M17.0 Bilateral primary osteoarthritis of knee; M81.0 Age-related osteoporosis without current pathological fracture; N18.9 Chronic kidney disease, unspecified; J45.909 Unspecified asthma, uncomplicated; G20 Parkinson's disease; I26.99 Other pulmonary embolism without acute cor pulmonale; I82.509 Chronic embolism and thrombosis of unspecified deep veins of unspecified lower extremity; G30.9 Alzheimer's disease, unspecified; F41.9 Anxiety disorder, unspecified
CPT/HCPCS: 36415; 80053; 85025

== ENCOUNTER 2019-04-20 10:39 | Day surgery (SDC) | payer MEDICARE, BC, SELFPAY ==
[2019-04-20 11:11] VITALS: BP 153/86; PULSE 76; RESP 18; TEMP 37.6; O2SAT 95; BMI 24.3
[2019-04-20] MEDS: Lactated Ringers 1,000 ML 100 ML IV (11:19)
--- NOTE | 2019-04-20 11:48 | PCM.HP.BLA ---
History and Physical Date of Admission: 04/20/19 Dominique Garza 1940 ? ? REFERRING PHYSICIAN: Ricardo Ulloa DO ? CHIEF COMPLAINT: Consult ? HPI: The patient is a 78 year old female is referred by Dr. Ulloa for consideration of EGD for anemia. Denies melena, denies blood in stools. Had PUD in college. Denies abdominal pain Denies heartburn or acid indigestion Had colonoscopy a few months ago. Has had multiple hospitalizations recently for multiple medical problems. ? ? PAST MEDICAL HISTORY ? Acute, but ill-defined, cerebrovascular disease 08/06/2005 ? TIA; ? Anxiety state 05/28/2006 ? ANXIETY STATE NOS 05/28/2006 ? Arrhythmia ? ? Asthma, moderate persistent, well-controlled 12/04/2013 ? Benign neoplasm of colon ? ? CKD (chronic kidney disease) stage 3, GFR 30-59 ml/min ([facility]) 08/14/2016 ? Closed fracture of right foot 08/05/2015 ? Closed nondisplaced fracture of pelvis ([facility]) 01/14/2017 ? Depressive disorder, not elsewhere classified ? ? Esophageal reflux with hoarseness. 11/10/2011 ? Laryngoscopy by ENT 2011. ? Essential hypertension 12/05/2013 ? Hypertension 12/05/2013 ? Hypokalemia 12/01/2008 ? 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 Dr. Allen Suárez, rheumatology. ? INSOMNIA NOS 05/28/2006 ? Knee pain 10/04/2009 ? NEUTROPENIA NOS 03/01/2006 ? Osteoarthritis 10/04/2009 ? Osteoporosis, unspecified ? ? Parkinson disease (HCC) 03/01/2017 ? Patient diagnosed during hospital admission 03/10/17. Started on Sinemet. Will be managed by Dr. Perez with [facility] neurology. ? Paroxysmal SVT (supraventricular tachycardia) ([facility]) 04/18/2017 ? Personal history of colonic polyps ? ? Pulmonary embolism, bilateral ([facility]) 02/03/2017 ? Stress incontinence in female 06/06/2015 ? Stroke ([facility]) ? ? 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 Unspecified constipation ? ? Urge incontinence 05/03/2010 ? PAST SURGICAL HISTORY ? COLONOSCOP W/ OR W/O [facility] SPEC ? 06/07/2006 ? Colonoscopy ? COLONOSCOP W/ OR W/O [facility] SPEC ? 04/06/10 ? COLONOSCOP W/ OR W/O [facility] SPEC ? 12/17/2017 ? adenomatous polyps, large sessile polyp, tattooed-repeat in 1 year ? COLONOSCOP W/ OR W/O [facility] SPEC ? 12/23/2018 ? Colonoscopy ? EGD W/O OR W/BRUSH/WASH ? 11/19 ? EGD ? TOTAL KNEE REPLACEMENT ? 12/04/09 ? bilateral total ? ? Current Outpatient Medications ? busPIRone (BUSPAR) 5 mg tablet Take 1 tablet by mouth twice daily. ? alendronate (FOSAMAX) 70 mg tablet Take 1 tablet by mouth one time a week. Take with a full glass of water, on an empty stomach; do NOT lie down for 30minutes. ? LORazepam (ATIVAN) 0.5 mg tab Take 1 tablet by mouth twice daily as needed (anxiety). ? mirabegron (MYRBETRIQ) 50 mg Tb24 Take 1 tablet by mouth once daily. ? lansoprazole (PREVACID) 30 mg capsule Take 1 capsule by mouth once daily. For acid indigestion. ? solifenacin (VESICARE) 5 mg tablet TAKE 1 TABLET BY MOUTH ONCE DAILY NEEDED ? triamterene-hydrochlorothiazide (MAXZIDE-25MG) 37.5-25 mg per tablet Take 1 tablet by mouth once daily. ? verapamil SR (CALAN SR, ISOPTIN SR) 120 mg CR tablet Take 1 tablet by mouth daily at bedtime. ? mirtazapine (REMERON) 30 mg tablet Take 1 tablet by mouth daily at bedtime. For appetite and sleep. ? fluticasone (FLOVENT HFA) 220 mcg/actuation inhaler Inhale 1 Puff as instructed twice daily. ? hydroxychloroquine (PLAQUENIL 200 mg tablet Take 200 mg by mouth once daily. ? carbidopa-levodopa (SINEMET) 25-100 mg per tablet Take 1 tablet by mouth three times daily. ? calcium carbonate 600 mg-cholecalciferol 200 units (CALCIUM 600 + D,3,) 600 mg(1,500mg) -200 unit tab Take 1 tablet by mouth twice daily. ? senna-docusate (SENNA LAXATIVE-STOOL SOFTENER) 8.6-50 mg per tablet Take 2 tablets by mouth twice daily. Constipation. ? albuterol HFA (PROVENTIL HFA, VENTOLIN HFA) 90 mcg/actuation inhaler Inhale 2 Puffs as instructed four times daily as needed. FOR WHEEZING AND SOB ? fluticasone (FLONASE) 50 mcg/actuation nasal spray Use 1 [place] in each nostril once daily. ? Biotin 400 mcg ORAL Tab Take 1 tablet by mouth once daily. ? MIRALAX 100 % ORAL POWDER 1 capful in 8 oz fluid daily ? ? ALLERGIES: Amoxicillin; Celebrex [Celecoxib]; Relafen [Nabumetone]; Adhesive Tape (Rosins); Cymbalta [Duloxetine]; Iodine; Norvasc [Amlodipine]; Sulfabenzamide ? PERSONAL HISTORY: Social History ?Tobacco Use ? Smoking status: Former Smoker ? ? Packs/day: 1.00 ? ? Years: 30.00 ? ? Pack years: 30.00 ? ? Types: Cigarettes ? ? Last attempt to quit: 04/09/2005 ? ? Years since quittin.9 ? Smokeless tobacco: Never Used Substance Use Topics ? Alcohol use: Yes ? ? Alcohol/week: 17.5 standard drinks ? ? Types: 7 Glasses of Wine (5oz) per week ? ? Comment: glass of wine daily ? Drug use: No ? FAMILY HISTORY ? other (CHF) Mother ? ? other (Lung Ca) Father ? ? Breast Cancer Maternal Aunt ? ? Breast Cancer Paternal Aunt ? ? Coronary Artery Disease Brother ? ? Cancer Brother ? ? lung ? ? Nursing Notes: Miriam Suero LPN 04/02/2019 2:30 PM Signed REVIEW OF SYSTEMS: General: The patient denies fatigue, denies weight loss, denies weight gain, denies feeling hot, and NOTES feelings of cold. Eyes: The patient denies glaucoma, denies eye injury/surgery, wears glasses or contacts. Ear/Nose/Throat: The patient denies allergies, NOTES hayfever, denies ear infections, and denies bloody noses. Cardiovascular: The patient denies chest pain, denies heart disease, denies high blood pressure,denies cardiac stent, denies prior heart attack, denies irregular heart beat, denies high cholesterol, denies poor circulation, denies heart failure, other cardiac issues, denies claudication, denies cold feet, denies peripheral arterial stent. Respiratory: The patient denies tuberculosis, denies pneumonia, denies frequent cough, NOTES pulmonary embolism, NOTES shortness of breath, and denies coughing up blood. Gastrointestinal: The patient denies difficulty swallowing, NOTES acid reflux, denies ulcers, denies vomiting, denies jaundice/hepatitis, denies gallbladder problems, denies black or tarry stools, denies hemorrhoids, denies bleeding from rectum, denies diverticulitis, NOTES constipation, NOTES diarrhea, NOTES loss of stool control, and denies hernias. Kidney/Bladder: The patient denies kidney stones, NOTES urine infections, and denies bloody urine. Skin: The patient denies a history of skin cancer, denies bleeding/changing moles, and denies a history of skin rash. Neurologic: The patient denies a history of epilepsy/convulsions, denies headaches, denies head/spinal injuries, and NOTES stroke/TIA. Psychiatric: The patient denies psychiatric medications, denies depression, and denies voices, denies substance abuse. Endocrine: The patient denies thyroid disorders, denies diabetes, and denies hormonal problems. Hematologic: The patient denies a history of bruising, denies bleeding, and denies anemia, denies blood clots. Infections: The patient NOTES a history of measles and mumps, denies rheumatic fever, and denies sexually transmitted diseases. Musculoskeletal: The patient denies back pain/injury, denies back problems, denies sciatica, denies knee/foot trouble, NOTES arthritis, or denies gout. ? ? PHYSICAL EXAMINATION: General: The patient is 78 year old female, well nourished, well hydrated in no acute distress. The patient is oriented to time, place, and person. VITALS: Blood pressure 160/76, pulse 92, temperature 36.1 ?C (97 ?F), temperature source Temporal Artery, weight 73 kg (161 lb), SpO2 97 %. Body mass index is 24.48 kg/m?. Head ? Normocephalic. EOM intact with sclera clear and no icterus noted. Mouth with mucus membranes moist. Neck - supple with no jugular venous distention noted. Trachea is midline. Lungs ? clear to auscultation. Normal breath sounds. No rales/rhonchi/wheezing noted. No labored breathing noted, such as retractions. No cough heard. Heart ? normal S1 and S2 auscultated. No rubs/clicks/murmurs noted. Regular rate. Abdomen ? soft and benign. Normal bowel sounds. Extremities ? no calf tenderness noted. No pitting edema noted. Skin ? normal skin integrity. Neurological ? gait normal, no focal deficits noted. Psych ? calm and appropriate ? ? IMPRESSION: anemia ? PLAN: I have discussed the above with the patient and her who is present with her I have offered EGD, possible biopsies I have explained the procedure to the patient. I have counseled the patient as to the risks of the procedure, including but not limited to: infection, bleeding, perforation of the GI tract, injury to any intraabdominal organs such as the liver/spleen, inability to complete the procedure, complications of anesthesia, etc. ? the patient understands. The patient wishes to proceed. I have answered all questions to the patient?s satisfaction and the patient has no further questions. . Diagnoses: (D50.0) Iron deficiency anemia due to chronic blood loss (primary encounter diagnosis) Return to Clinic: The patient is instructed to follow-up with me after the procedure ? Bita Red MD
--- NOTE | 2019-04-20 12:00 | EGD_PTH ---
PATIENT: Boy WHEELER LOC: [facility] U#:[id number] AGE/SX: 79/F ROOM: RE04/20/[address]: Dr. Bita Red MD : 1940 BED: DIS: 04/20/2019 SPEC #: [id number] RECD: 04/20/19 13:13 STATUS: RAY JOHN #: [id number] ANNALEE: 04/20/19 12:[address]: Bita Red DEPT: SURGICAL PATHOLOGY RECD BY: Tyler Coleman ENTERED: 04/20/19 13:37 SP TYPE: EGD BIOPSY OTHR DR: Dr. Corbin Bai MD Tissues: A - Gastric mucous membrane B - Gastric mucous membrane Procedures: Special Stain Group II Surgery Specimen Level IV Alcian Blue/PAS (control) HEADER OPERATION: EGD ([facility]) PRE-OP DIAGNOSIS: Anemia TISSUE SUBMITTED: A - Antrum biopsy for histo and H. pylori, B - GE junction biopsy MICROSCOPIC DIAGNOSIS A. Gastric antrum, biopsy: Minimal chronic inflammation. See comment. B. Gastroesophageal junction, biopsy: Fibrinopurulent material. Rare detached squamoid cells. See comment. AM:alireza 04/21/19 COMMENT A. The results of immunohistochemistry for Helicobacter pylori will be reported separately ([id number]). B. Glandular epithelium is not represented in the biopsy. Clinical correlation is suggested. Alcian blue/PAS stain with matched control supports the above diagnosis. MICROSCOPIC DESCRIPTION Slides are reviewed. GROSS DESCRIPTION A - Received in fixative is one container labeled with the patient's name and designated antrum biopsy. The specimen consists of multiple irregular fragments of light cuevas soft tissue that in aggregate measure 0.3 x 0.3 x 0.1 cm. The specimen is totally submitted in one cassette. B - Received in fixative is one container labeled with the patient's name and designated GE junction biopsy. The specimen consists of one irregular fragment of light cuevas soft tissue that measures 0.2 x 0.2 x 0.1 cm. The specimen is totally submitted in one cassette. / SJ:alireza 04/20/19 TC:2 CPT: 92130 x2, 74686
--- NOTE | 2019-04-20 12:00 | IMM_PTH ---
PATIENT: Boy WHEELER LOC: [facility] U#:[id number] AGE/SX: 79/F ROOM: RE04/20/[address]: Dr. Bita Red MD : 1940 BED: DIS: 04/20/2019 SPEC #: [id number] RECD: 04/20/19 14:36 STATUS: RAY REQ #: [id number] ANNALEE: 04/20/19 12:[address]: Bita Red DEPT: IMMUNOHISTOCHEMISTRY RECD BY: Danika Cihnchilla ENTERED: 04/20/19 14:36 SP TYPE: IMMUNO OTHR DR: Dr. Corbin Bai MD Tissues: A - Stomach, NOS Procedures: H Pylori (initial) PHYSICIAN & INSTITUTION [place] [id number] SPECIMEN INFORMATION: Tissue Source: A - Antrum biopsy Clinical Info: Anemia Specimen Number: [id number] CPT code: 47323 METHODOLOGY: Deparaffinized sections of prefer/formalin-fixed tissue or PAP/DQ stained slides are incubated with monoclonal/polyclonal antibodies/oligonucleotide probes. Localization is made via biotin free immunoperoxidase method. Appropriate controls are performed and reacted as expected. Results on target cell population are indicated in the following table: RESULTS: ANTIBODY / CLONE RESULT Block A H Pylori (polyclonal) negative These tests were developed and their performance characteristics determined by [facility]. They may not have been cleared or approved by the U.S. Food and Drug Administration. The FDA has determined that such clearance or approval is not necessary. INTERPRETATION: A. Antrum biopsy: Negative for Helicobacter pylori organisms. AM:alireza 04/21/19
--- NOTE | 2019-04-20 12:21 | OP.EGD_ITS ---
Patient Name: Boy Garza Procedure Date: 04/20/2019 11:54 AM Date of : 1940 Age: 79 Procedure: Upper GI endoscopy Indications: Iron deficiency anemia Providers: Bita Red MD Referring MD: Bita Red MD Medicines: See the Anesthesia note for documentation of the administered medications Patient Profile: Refer to note in patient chart for documentation of history and physical. Complications: No immediate complications. Procedure: Pre-Anesthesia Assessment: - see anesthesia note After obtaining informed consent, the endoscope was passed under direct vision. Throughout the procedure, the patient's blood pressure, pulse, and oxygen saturations were monitored continuously. The gastroscope was introduced through the mouth, and advanced to the second part of duodenum. The upper GI endoscopy was accomplished without difficulty. The patient tolerated the procedure well. Scope In: 12:08:14 PM Scope Out: 12:14:19 PM Total Procedure Duration Time 0 hours 6 minutes 5 seconds Findings: The first portion of the duodenum and second portion of the duodenum were normal. The entire examined stomach was normal. Biopsies were taken with a cold forceps for histology. Estimated blood loss was minimal. The Z-line was irregular. Biopsies were taken with a cold forceps for histology. Estimated blood loss was minimal. A small hiatal hernia was present. Impression: - Normal first portion of the duodenum and second portion of the duodenum. - Normal stomach. Biopsied. - Z-line irregular. Biopsied. - Small hiatal hernia. Recommendation: - Discharge patient to home (ambulatory). - Resume previous diet. - Continue present medications. - Await pathology results. - My office will telephone with pathology results in 1-2 weeks Procedure Code(s): --- Professional --- 64671, Esophagogastroduodenoscopy, flexible, transoral; with biopsy, single or multiple Diagnosis Code(s): --- Professional --- K22.8, Other specified diseases of esophagus K44.9, Diaphragmatic hernia without obstruction or gangrene D50.9, Iron deficiency anemia, unspecified CPT copyright 2017 [employer]. All rights reserved. The codes documented in this report are preliminary and upon gauger chief delivery review may be revised to meet current compliance requirements. MD Bita Burk MD 04/20/2019 12:20:52 PM This report has been signed electronically. Number of Addenda: 0 Note Initiated On: 04/20/2019 11:54 AM
--- NOTE | 2019-04-20 12:21 | OP.CCLET_ITS ---
04/20/2019 Corbin Bai [address] [place] [address] Re : Upper GI endoscopy procedure for Boy Garza Dear Dr. Bai This procedure was performed on Saturday, April 20, 2019. My impressions and recommendations are as follows: Impressions : - Normal first portion of the duodenum and second portion of the duodenum. - Normal stomach. Biopsied. - Z-line irregular. Biopsied. - Small hiatal hernia. Recommendations : - Discharge patient to home (ambulatory). - Resume previous diet. - Continue present medications. - Await pathology results. - My office will telephone with pathology results in 1-2 weeks My findings are described in the full procedure note, which is enclosed. If I can be of further assistance, please feel free to contact me at Doctor phone number(s): , Work: . Sincerely, MD Bita Burk MD 04/20/2019 12:20:52 PM This report has been signed electronically.
[2019-04-20 12:24] VITALS: BP 114/65; BP 153/86; PULSE 70; RESP 16; TEMP 36.1; O2SAT 94
[2019-04-20 12:30] VITALS: BP 129/71; BP 153/86; PULSE 70; RESP 16; O2SAT 94
[2019-04-20 12:35] VITALS: BP 153/86; BP 155/79; PULSE 71; RESP 16; O2SAT 94
[2019-04-20 12:41] VITALS: BP 153/86; BP 157/75; PULSE 72; RESP 16; TEMP 36.3; O2SAT 94
[2019-04-20 13:09] VITALS: BP 153/86
== END 2019-04-20 13:12 | disposition home or self-care (01) ==
LOC: EN 10:44 → AC 10:44
PROVIDERS: PCP Internal Medicine; Referring Provider Surgery; Visit Provider Surgery
PROC: 0DJ08ZZ Inspection of Upper Intestinal Tract, Via Natural or Artificial Opening Endoscopic (ICD-10-PCS; CPT 43235; principal; 2019-04-20 11:55)
DX: D50.0 Iron deficiency anemia secondary to blood loss (chronic) (principal); J45.40 Moderate persistent asthma, uncomplicated; K44.9 Diaphragmatic hernia without obstruction or gangrene; K22.8 Other specified diseases of esophagus; G20 Parkinson's disease; N39.46 Mixed incontinence; I47.1 Supraventricular tachycardia; I11.0 Hypertensive heart disease with heart failure; N18.3 Chronic kidney disease, stage 3 (moderate); K21.9 Gastro-esophageal reflux disease without esophagitis; F32.9 Major depressive disorder, single episode, unspecified; F41.9 Anxiety disorder, unspecified; Z87.891 Personal history of nicotine dependence; Z79.899 Other long term (current) drug therapy; Z79.01 Long term (current) use of anticoagulants; Z79.82 Long term (current) use of aspirin
CPT/HCPCS: 43239; 88305; 88313; 88342; J7050; J7120

== ENCOUNTER → 2019-05-26 14:31 | Outpatient (CLI) | payer MEDICARE, BC, SELFPAY ==
[2019-05-26 17:42] LABS: Absolute Lymphocyte Count 1.05 X10^3/uL (0.83-4.51); Absolute Neutrophil Count 3.8 X10^3/uL (2.0-7.7); Basophil# 0.04 X10^3/uL; Basophil% 0.7 % (0-1); Eosinophil# 0.16 X10^3/uL; Eosinophils% 2.9 % (0-5); Hematocrit 41.6 % (37-47); Hemoglobin 13.3 g/dL (12.0-15.0); Lymphocyte # 1.05 X10^3/ul (4.0); Lymphocyte % 18.7 % (19-41); Mean Corpuscular Hgb 27.6 pg (27.0-32.0); Mean Corpuscular Volume 86.3 fL (81-99); Mean Platelet Vol. 11.4 fl (6.2-12.0); Monocyte# 0.57 X10^3/uL; Monocyte% 10.2 % (0-10); NRBC Flagged by Analyzer 0 % (0-5); Neutrophil # 3.79 X10^3/uL (2.7-7.7); Neutrophil % 67.5 % (47-70); POSITIVE MORPHOLOGY YES; Platelet Count 174 K/mm3 (150-450); Red Blood Count 4.82 M/mm3 (4.2-5.4); White Blood Count 5.6 K/mm3 (4.4-11.0)
[2019-05-26 17:51] LABS: Differential Indicated SCAN CRITERIA MET
[2019-05-26 18:00] LABS: ALB/GLOB Ratio 1.3 RATIO (0.9-2.4); AST(SGOT) 24 U/L (15-37); Alanine Aminotransfer ALT/SGPT 15 U/L (13-56); Albumin, Serum 3.9 g/dL (3.2-5.0); Alkaline Phosphatase 70 U/L (45-117); Anion Gap 6 (5-15); BUN 26 mg/dL (7-18); BUN/Creat Ratio 25.2 RATIO (10-20); Calcium,Total 8.4 mg/dL (8.5-10.1); Chloride 107 mmol/L (98-107); Creatinine, Serum 1.03 mg/dL (0.55-1.02); EST Glomerular Filtration Rate 55 mL/min (>60); Est Glom Filt Rate - Afr Amer 66 mL/min (>60); Glucose 116 mg/dL (74-106); Potassium 3.7 mmol/L (3.5-5.1); Protein, Total 6.9 g/dL (6.4-8.2); Sodium Level 140 mmol/L (136-145)
[2019-05-26 18:08] LABS: Platelet Estimate ADEQUATE (ADEQ); Red Cell Morphology NORM C+C NORMAL (NORM C&C)
== END ==
PROVIDERS: PCP Internal Medicine; Referring Provider Internal Medicine Rheumatology; Visit Provider Internal Medicine Rheumatology
DX: M15.9 Polyosteoarthritis, unspecified (principal); M17.0 Bilateral primary osteoarthritis of knee; M81.0 Age-related osteoporosis without current pathological fracture; N18.9 Chronic kidney disease, unspecified; J45.909 Unspecified asthma, uncomplicated; G20 Parkinson's disease; I26.99 Other pulmonary embolism without acute cor pulmonale; I82.509 Chronic embolism and thrombosis of unspecified deep veins of unspecified lower extremity; G30.9 Alzheimer's disease, unspecified; F41.9 Anxiety disorder, unspecified
CPT/HCPCS: 36415; 80053; 85025

== ENCOUNTER → 2019-11-24 11:02 | Outpatient (CLI) | payer MEDICARE, BC, SELFPAY ==
[2019-11-24 12:24] LABS: Absolute Lymphocyte Count 1.03 X10^3/uL (0.83-4.51); Absolute Neutrophil Count 3.5 X10^3/uL (2.0-7.7); Basophil# 0.04 X10^3/uL; Basophil% 0.8 % (0-1); Eosinophil# 0.13 X10^3/uL; Eosinophils% 2.5 % (0-5); Hematocrit 42.4 % (37-47); Hemoglobin 14.2 g/dL (12.0-15.0); Lymphocyte # 1.03 X10^3/ul (4.0); Lymphocyte % 19.5 % (19-41); Mean Corp Hgb Conc 33.5 g/dL (32-36); Mean Corpuscular Hgb 32.1 pg (27.0-32.0); Mean Corpuscular Volume 95.9 fL (81-99); Mean Platelet Vol. 11.2 fl (6.2-12.0); Monocyte# 0.56 X10^3/uL; Monocyte% 10.6 % (0-10); NRBC Flagged by Analyzer 0 % (0-5); Neutrophil # 3.51 X10^3/uL (2.7-7.7); Neutrophil % 66.2 % (47-70); Platelet Count 199 K/mm3 (150-450); RBC Distribution Width CV 12.6 % (11.6-14.6); RBC Distribution Width SD 45.1 fl (35.1-43.9); Red Blood Count 4.42 M/mm3 (4.2-5.4); White Blood Count 5.3 K/mm3 (4.4-11.0)
[2019-11-24 12:55] LABS: ALB/GLOB Ratio 1.1 RATIO (0.9-2.4); AST(SGOT) 22 U/L (15-37); Alanine Aminotransfer ALT/SGPT 9 U/L (13-56); Albumin, Serum 3.8 g/dL (3.2-5.0); Alkaline Phosphatase 61 U/L (45-117); Anion Gap 5 (5-15); BUN 33 mg/dL (7-18); Calcium,Total 8.8 mg/dL (8.5-10.1); Chloride 103 mmol/L (98-107); EST Glomerular Filtration Rate 51 mL/min (>60); Est Glom Filt Rate - Afr Amer 61 mL/min (>60); Globulin 3.5 g/dL (2.2-4.2); Glucose 85 mg/dL (74-106); Potassium 3.5 mmol/L (3.5-5.1); Protein, Total 7.3 g/dL (6.4-8.2); Sodium Level 139 mmol/L (136-145)
== END ==
PROVIDERS: PCP Internal Medicine; Referring Provider Internal Medicine Rheumatology; Visit Provider Internal Medicine Rheumatology
DX: M17.0 Bilateral primary osteoarthritis of knee (principal); M81.0 Age-related osteoporosis without current pathological fracture; N18.9 Chronic kidney disease, unspecified; J45.909 Unspecified asthma, uncomplicated; G20 Parkinson's disease; I26.99 Other pulmonary embolism without acute cor pulmonale; I82.509 Chronic embolism and thrombosis of unspecified deep veins of unspecified lower extremity; G30.9 Alzheimer's disease, unspecified; F41.9 Anxiety disorder, unspecified
CPT/HCPCS: 36415; 80053; 85025

== ENCOUNTER → 2020-05-20 09:18 | Outpatient (CLI) | payer MEDICARE, BC, SELFPAY ==
[2020-05-20 12:16] LABS: Absolute Lymphocyte Count 0.74 X10^3/uL (0.83-4.51); Absolute Neutrophil Count 4.3 X10^3/uL (2.0-7.7); Basophil# 0.05 X10^3/uL; Basophil% 0.9 % (0-1); Eosinophil# 0.07 X10^3/uL; Eosinophils% 1.2 % (0-5); Hematocrit 45.2 % (37-47); Hemoglobin 14.5 g/dL (12.0-15.0); Lymphocyte # 0.74 X10^3/ul (4.0); Lymphocyte % 13.1 % (19-41); Mean Corp Hgb Conc 32.1 g/dL (32-36); Mean Corpuscular Volume 93.6 fL (81-99); Mean Platelet Vol. 11.2 fl (6.2-12.0); Monocyte# 0.51 X10^3/uL; NRBC Flagged by Analyzer 0 % (0-5); Neutrophil % 75.8 % (47-70); Platelet Count 188 K/mm3 (150-450); RBC Distribution Width CV 13.2 % (11.6-14.6); RBC Distribution Width SD 45.6 fl (35.1-43.9); Red Blood Count 4.83 M/mm3 (4.2-5.4); White Blood Count 5.7 K/mm3 (4.4-11.0)
[2020-05-20 12:34] LABS: ALB/GLOB Ratio 1.2 RATIO (0.9-2.4); AST(SGOT) 23 U/L (15-37); Alanine Aminotransfer ALT/SGPT 23 U/L (13-56); Albumin, Serum 3.9 g/dL (3.2-5.0); Alkaline Phosphatase 61 U/L (45-117); Anion Gap 6 (5-15); BUN 21 mg/dL (7-18); BUN/Creat Ratio 21.3 RATIO (10-20); Calcium,Total 8.6 mg/dL (8.5-10.1); Chloride 104 mmol/L (98-107); Creatinine, Serum 0.98 mg/dL (0.55-1.02); EST Glomerular Filtration Rate 58 mL/min (>60); Est Glom Filt Rate - Afr Amer 70 mL/min (>60); Globulin 3.2 g/dL (2.2-4.2); Glucose 111 mg/dL (74-106); Potassium 3.6 mmol/L (3.5-5.1); Protein, Total 7.1 g/dL (6.4-8.2); Sodium Level 140 mmol/L (136-145)
== END ==
PROVIDERS: PCP Internal Medicine; Referring Provider Internal Medicine Rheumatology; Visit Provider Internal Medicine Rheumatology
DX: M17.0 Bilateral primary osteoarthritis of knee (principal); M81.0 Age-related osteoporosis without current pathological fracture; N18.9 Chronic kidney disease, unspecified; J45.909 Unspecified asthma, uncomplicated; G20 Parkinson's disease; I26.99 Other pulmonary embolism without acute cor pulmonale; I82.509 Chronic embolism and thrombosis of unspecified deep veins of unspecified lower extremity; G30.9 Alzheimer's disease, unspecified; F41.9 Anxiety disorder, unspecified
CPT/HCPCS: 36415; 80053; 85025

== ENCOUNTER → 2020-06-21 09:31 | Outpatient (CLI) | payer MEDICARE, BC, SELFPAY ==
--- NOTE | 2020-06-21 09:50 | RAD_ITS ---
STUDY: AIR-CONTRAST BARIUM SWALLOW REASON FOR EXAM: Female, 80 years old. ESOPHAGEAL DYSPHAGIA/GERD RADIATION DOSAGE (If Supplied By Facility): CTDIvol = ( ) mGy, DLP = ( ) mGycm. Individualized dose optimization techniques were used for this CT.? FLUOROSCOPY TIME (if supplied): ( 1 minute 9 seconds 6 overhead fluoroscopic films obtained TECHNIQUE: Air-contrast COMPARISON: None. FINDINGS: Swallowing was initiated normally. No nasopharyngeal reflux or aspiration. No Zenker''s diverticulum noted on the lateral view. There is abnormal peristaltic activity throughout the esophagus with mild dilatation of the distal half of the esophagus. There are tertiary contractions with evidence of intraesophageal and GE reflux. There is a small retrocardiac hiatal hernia. No evidence of stricture, mucosal lesion or diverticulum. A 13 mm barium pill passed through the esophagus without difficulty. RAD/Esophagus Dual Contrast IMPRESSION: Presbyesophagus with intraesophageal reflux Patulous GE junction allows significant GE reflux, there is also a small hiatal hernia No nasopharyngeal reflux or aspiration Electronically Signed: Justino Jimenez MD at 10:37 EDT , Service support ,
== END ==
PROVIDERS: PCP Internal Medicine; Referring Provider Nurse Practitioner Adult Health; Visit Provider Nurse Practitioner Adult Health
DX: R13.10 Dysphagia, unspecified (principal); K21.9 Gastro-esophageal reflux disease without esophagitis
CPT/HCPCS: 74220; 74221

== ENCOUNTER → 2020-09-07 11:08 | Outpatient (CLI) | payer MEDICARE, BC, SELFPAY ==
[2020-09-07 12:26] LABS: Absolute Lymphocyte Count 0.99 X10^3/uL (0.83-4.51); Absolute Neutrophil Count 3.6 X10^3/uL (2.0-7.7); Basophil# 0.03 X10^3/uL; Basophil% 0.5 % (0-1); Eosinophils% 3.7 % (0-5); Hematocrit 43.3 % (37-47); Lymphocyte # 0.99 X10^3/ul (0.83-4.51); Lymphocyte % 18.1 % (19-41); Mean Corp Hgb Conc 32.3 g/dL (32-36); Mean Corpuscular Volume 95.8 fL (81-99); Mean Platelet Vol. 11.1 fl (6.2-12.0); Monocyte# 0.64 X10^3/uL; Monocyte% 11.7 % (0-10); NRBC Flagged by Analyzer 0 % (0-5); Neutrophil # 3.59 X10^3/uL (2.7-7.7); Neutrophil % 65.6 % (47-70); Platelet Count 207 K/mm3 (150-450); RBC Distribution Width CV 13.4 % (11.6-14.6); RBC Distribution Width SD 47.8 fl (35.1-43.9); Red Blood Count 4.52 M/mm3 (4.2-5.4); White Blood Count 5.5 K/mm3 (4.4-11.0)
[2020-09-07 13:12] LABS: ALB/GLOB Ratio 1.1 RATIO (0.9-2.4); AST(SGOT) 19 U/L (15-37); Alanine Aminotransfer ALT/SGPT 7 U/L (13-56); Albumin, Serum 3.8 g/dL (3.2-5.0); Alkaline Phosphatase 66 U/L (45-117); Anion Gap 7 (5-15); BUN 30 mg/dL (7-18); BUN/Creat Ratio 27.8 RATIO (10-20); Calcium,Total 8.9 mg/dL (8.5-10.1); Chloride 103 mmol/L (98-107); Creatinine, Serum 1.08 mg/dL (0.55-1.02); EST Glomerular Filtration Rate 52 mL/min (>60); Est Glom Filt Rate - Afr Amer 63 mL/min (>60); Globulin 3.4 g/dL (2.2-4.2); Glucose 80 mg/dL (74-106); Potassium 3.6 mmol/L (3.5-5.1); Protein, Total 7.2 g/dL (6.4-8.2); Sodium Level 141 mmol/L (136-145)
== END ==
PROVIDERS: PCP Internal Medicine; Referring Provider Internal Medicine Rheumatology; Visit Provider Internal Medicine Rheumatology
DX: M17.0 Bilateral primary osteoarthritis of knee (principal); M81.0 Age-related osteoporosis without current pathological fracture; N18.9 Chronic kidney disease, unspecified; J45.909 Unspecified asthma, uncomplicated; G20 Parkinson's disease; I26.99 Other pulmonary embolism without acute cor pulmonale; I82.509 Chronic embolism and thrombosis of unspecified deep veins of unspecified lower extremity; G30.9 Alzheimer's disease, unspecified; F41.9 Anxiety disorder, unspecified
CPT/HCPCS: 36415; 80053; 85025

== ENCOUNTER 2020-11-22 09:30 | Outpatient (RCR) | payer MEDICARE, BC, SELFPAY ==
--- NOTE | 2020-09-22 12:24 | HP.PTEVAL_ITS ---
Patient's Visit Information Boy WHEELER is a 80 year old F referred to Physical Therapy by Dr. Yuli Suárez MD with a diagnosis of PD. Date of Evaluation: 09/22/20 Physical Therapist: Aldo Morrell, DPT, OCS, CSCS - Visit Plan Frequency: 2x /Week Duration: 2 Months Plan: 2x/week for 4-8 weeks for. 1. Teach gym based strength and progress to I for core and LE. 2. Teach Parkinsons Big movement ex for weight hsift and balance and progress to I. 3. Teach stretch of HS and hip flexors adn progress to I. - Subjective Balance is bad again and knees are bad again and I am out of shape. I haven't been doing much lately. Don't have much to do. Has Parkinson's and it makes problems, no med changes lately. Sees neurologist next week. Uses cane nearly all the time and has for a couple years. Getting harder. Has wh walker that she keeps out if she needs it. No recent falls. Activity is ow, does not reach for things, times visits to basement with washer and dryer and uses stairlift. Has neuropathy in feet. No spinning. No regular exercises. Spends day reading and cooking.Enjoys hooking rugs. Dresses,bathes and showers I, Has walk in shower and does not use it. Not employed. Sees Dr. Knox for arthritis and she is on plaquenil. Has grab bars all over in the shower. Uses walker for paved walk around house but has not felt safe doign that recently. Has chairlift to get to lower level of raised [place]. - Objective Walks with cane mod I on firm flat surface. Is safe but slow without cane. Avoids FW weight shift and very short steps. Trasnfers I chair with UE, bed I. Steps require two railings and pulling with UE and reciprocal. No freezing noted today. reflexes patella and achilles 2/3. Sensation LE grossly diminished in feet and ankles to gross lgiht touch B. Strength LE 3+/5 in ankles and aknees and 3 in hip abd and ext, 3+ hip flexion. Mod tight in HS and hip flexors. coordination to reciprocal toe and heel tap is at mod deficit. aROM LE WFL to gross movements but rotations of B hips ext rotation 30 and IR 10 and very tight. - Balance Scores Functional Gait Assessment Score: 17 % Disability: 43.3400 - Goals Goal 1:: FGA to limit fall risk. 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 Rehabilitation Potential: Fair - Anticipated Interventions Patient/Client Instruction: Educate patient on: Condition, Plan of Care For the Purpose of:: To improve muscle performance and motor function, To i ncrease tolerance to activity/condition/position, To improve health of tissue, To improve balance, To improve safety with gait Therapeutic Exercise to Include: Strength training, Balance training, Postural training, Flexibilty training, Gait and locomotor training, Neuromotor development For the Purpose of:: To improve gait and locomotor functions, To improve health of tissue, To improve balance, To improve safety with gait Thank you for the opportunity to evaluate your patient. For Medicare and Medicare HMO plans, please review the plan of care and approve it. It will need to be FAXED BACK to us at [phone] for Medicare purposes. For Medicare only, by signing this I certify the plan of care. Please let me know if there are questions or concerns regarding this plan of care. Physician Signature: Date:
--- NOTE | 2020-10-25 11:32 | HP.PTREVAL ---
Dr. Yuli Suáerz MD, It has been my pleasure to treat Boy WHEELER over the last 9 visits for PD. Please see the progress note below for an update on the physical therapy plan of care! Subjective: Walking better with bigger steps. Taking the rollator to walk with bigger steps when she gets out. Not as much as shuufling. Using cane to get around most places. Muscle soreness after last visit. Ready to try machines in gym . L leg weaker than R. Objective/Function: FGA is +4 from initial and pt feeling 40% better. 15 point improved LEFFS. Steps with railing reciprocally weaker on L. Hesitant with SLS in stepping over and weight shifting FW at steps and walking. Better step length than a montha go but still room to improve. Overall slow improvement and appropriate to continue therapy n conjunctionw tih I gym progra,(with ). Fair prognosis. Plan Plan: 2x/week for 4 weeks, pt to join and do I gym with . Please focus in therapy on BIG movement ex, weight shifts, gait training steps, turns, bends, step over adn progress to I program for these ex as safety allows. recommended continue use of cane and walker. Balance/Gait/Functional tests - Balance/Special Test Scores Functional Gait Assessment Score: 21 % Disability: 30.0000 Lower Extremity Functional Score: 33 Goals Goal 1:: FGA to limit fall risk. Goal Time Frame: 4-6 Weeks Goal Progress: Progressing approp Goal 2:: I approp gym based ex for strength, balance and stretching Goal Time Frame: 4-6 Weeks Goal Progress: gym, needs balance Goal 3:: Pt feel 50% more active and easy with activities of ADL Goal Time Frame: 4-6 Weeks Goal Progress: 40%,a ppropirate Goal 4:: Patient start walking program on path at home safely Goal Time Frame: 6-8 Weeks Goal Progress: not consistently. Anticipated Interventions Patient/Client Instruction: Educate patient on: Condition, Plan of Care For the Purpose of:: To improve muscle performance and motor function, To increase tolerance to activity/condition/position, To improve health of tissue, To improve balance, To improve safety with gait Therapeutic Exercise to Include: Strength training, Balance training, Postural training, Flexibilty training, Gait and locomotor training, Neuromotor development For the Purpose of:: To improve gait and locomotor functions, To improve health of tissue, To improve balance, To improve safety with gait Please do not hesitate to contact me at [phone] by phone or if you have questions or concerns regarding this new plan of care! Sincerely, Aldo Morrell, DPT, OCS, CSCS
--- NOTE | 2020-11-22 10:27 | HP.PTDCSUM ---
It has been my pleasure to treat Boy WHEELER referred by Dr. Yuli Suárez MD, with the diagnosis of PD for a total of 17 visit(s). Discharge Date: 11/22/20 Please see the following information for a summary of their discharge status. Subjective: Getting better. Getting stronger. Using cane much of time at home but goes some places without it. No falls lately. Feels like balance is slowly better. Sleeps well. No pain outside of estephanie horse in left leg. Activities pretty normal at home incluing quicking and basic ADLs on her own. R knee Pain Intensity (Out of 10): 0 % Improvement: 50 Objective/Function: FGA is -1 and seems to have plateaud in its progress. Pt uses cane mod I in and out of PT. Trasnfers to stand without UE but poor confidence with large steps, steps and weight shifting. Seems to have plateaud in progress and is I in HEP/gym ex and will continue on her own. Goal 1:: FGA to limit fall risk. Goal Progress: Not Progressing Goal 2:: I approp gym based ex for strength, balance and stretching Goal Progress: Goal Met Goal 3:: Pt feel 50% more active and easy with activities of ADL Goal Progress: Goal Met Goal 4:: Patient start walking program on path at home safely Goal Progress: not consistently. Plan: d/c to HEP Discharge Comments: d/c to HEP. If there are questions or concerns regarding this patient's physical therapy, please feel free to call me at [phone]. Thank you for the referral of this patient. Sincerely, Aldo Morrell, DPT, OCS, CSCS Balance/Gait/Functional tests - Balance/Special Test Scores Functional Gait Assessment Score: 20 % Disability: 33.3400 Lower Extremity Functional Score: 33
== END 2020-11-22 10:44 | disposition home or self-care (01) ==
LOC: PT 09:30
PROVIDERS: PCP Internal Medicine; Referring Provider Internal Medicine Rheumatology; Visit Provider Internal Medicine Rheumatology
DX: M15.9 Polyosteoarthritis, unspecified (principal); M17.0 Bilateral primary osteoarthritis of knee; M81.0 Age-related osteoporosis without current pathological fracture; N18.9 Chronic kidney disease, unspecified; J45.909 Unspecified asthma, uncomplicated; G20 Parkinson's disease; Z86.711 Personal history of pulmonary embolism; Z86.718 Personal history of other venous thrombosis and embolism; G30.9 Alzheimer's disease, unspecified; F41.9 Anxiety disorder, unspecified; H35.3190 Nonexudative age-related macular degeneration, unspecified eye, stage unspecified
CPT/HCPCS: 97110; 97163; 97164

== ENCOUNTER 2021-11-02 16:28 | Emergency (ER) | payer MEDICARE, BC, SELFPAY ==
[2021-11-02 16:30] VITALS: BP 133/79; PULSE 81; RESP 16; TEMP 36.6; O2SAT 94; BMI 24.3
[2021-11-02 16:36] VITALS: BP 133/79; PULSE 81; RESP 16; TEMP 36.6; O2SAT 94
--- NOTE | 2021-11-02 17:15 | EKG12_ITS ---
Test Reason : STROKE Blood Pressure : / mmHG Vent. Rate : 073 BPM Atrial Rate : 073 BPM P-R Int : 112 ms QRS Dur : 118 ms QT Int : 440 ms P-R-T Axes : 095 -46 006 degrees QTc Int : 484 ms Normal sinus rhythm Right bundle branch block Left anterior fascicular block Bifascicular block Possible Inferior infarct , age undetermined Abnormal ECG Confirmed by BRIT ALBA, NICKIE ([id number]), state editor ZAHEER WAYNE ([id number]) on 11/03/2021 9:46:32 AM Referred By: RONINE Confirmed By:NCIKIE PEREA MD
--- NOTE | 2021-11-02 17:15 | CT_ITS ---
INDICATION: vertigo EXAMINATION: CT BRAIN - CT Head or Brain W/O Contrast Injection TECHNIQUE: Multiple axial images were obtained of the head without intravenous contrast. A radiation dose optimization technique was used for this scan. IV Contrast dosage and agent: None. RADIATION DOSAGE (If Supplied By Facility): CTDIvol = ( 44.99 ) mGy, DLP = ( 829.85 ) mGycm COMPARISON: 07/28/2018 FINDINGS: HEMISPHERES: 1. The cerebral parenchyma, ventricular system and gyral pattern have normal configuration. There is an area of encephalomalacic change, volume loss, and mild dilatation of the LEFT lateral ventricle the level of the LEFT parietal lobe. Findings are stable. Chronic deep white matter disease is present.. 2. No intraparenchymal mass, hemorrhage, or acute territorial infarct. CEREBELLUM - BRAINSTEM: The cerebellum, brainstem, basilar and suprasellar cisterns have normal appearance. No Chiari malformation. PITUITARY: Infundibulum and pituitary have normal configuration. Midline structures appear normal. CSF SPACES: Appropriate for age. No hydrocephalus. Basal cisterns are patent. VESSELS: 1. Moderate calcifications noted at the cavernous carotid vessels. 2. No hyperdense vascular signs noted.. ORBITS AND PARANASAL SINUSES: 1. Normal appearance of the bony orbits. Normal appearance of the globes and retrobulbar soft tissues.. 2. Paranasal sinuses are clear. BONY ELEMENTS: Bony elements of the cranial vault, facial skeleton and skull base have normal appearance. SCALP AND SOFT TISSUES: Normal appearance of the soft tissues of the scalp and the visualized face OTHER: None ASPECTS Score for Acute Strokes: 10 CT/Brain/Head without Contrast IMPRESSION: 1. Stable exam. 2. Mild involutional change, moderate chronic microvascular deep white matter disease and stable area of encephalomalacic in volume loss in the LEFT parietal lobe. 3. No intracranial mass, hemorrhage or acute territorial infarct. 4. No radiographically significant sinus disease.. Electronically Signed: Rick Baez MD at 18:12 EDT ,
--- NOTE | 2021-11-02 17:16 | EDS_ITS ---
HPI History of Present Illness Chief Complaint: Dizziness Informant: patient and spouse/S.O. Narrative Narrative: Presents with spouse progressive dizzy sensation with spinning since awakening this morning. Also states off balance. Worsening around noon. No headache or visual changes no speech changes no hemiparesis no paresthesias. No history of similar. Reported had a stroke over 20 years ago when she was hospitalized for TTP. History of Parkinson's. She is on Eliquis for history of pulmonary emboli. No dysrhythmia history. Symptoms are currently well sitting. However currently asymptomatic. Denies urinary symptoms. Denies recent vomiting or diarrhea. Denies cough. Prior similar symptoms: No PFSH PFSH Medical History Alcohol abuse Anxiety Asthma Former smoker Parkinson's disease Seizures Stroke/cerebrovascular accident Home Medications Fluticasone 220 Mcg [Flovent 220 Mcg] 1 puff inhalation BID PRN Asthma 07/28/18 [History Last Taken Unknown] albuterol sulfate 90 mcg/actuation aerosol inhaler (ProAir HFA) 2 puff inhalation Q4H PRN PRN SOB/COUGH 07/28/18 [History Last Taken Unknown] alendronate 70 mg tablet (Fosamax) 70 mg PO QWEEK 07/28/18 [History Last Taken Unknown] apixaban 5 mg tablet (Eliquis) 5 mg PO BID 07/28/18 [History Last Taken 04/07/19] aspirin 81 mg tablet,delayed release 81 mg PO DAILY@0800 07/28/18 [History Last Taken 04/07/19] biotin 800 mcg tablet 5,000 mcg PO DAILY 07/28/18 [History Last Taken Unknown] buspirone 5 mg tablet 5 mg PO BID anxiety 07/28/18 [History Last Taken Unknown] calcium carbonate 600 mg-vitamin D3 5 mcg (200 unit) tablet 1 ea PO BID 07/28/18 [History Last Taken Unknown] carbidopa 25 mg-levodopa 100 mg tablet 1 tab PO TIDAC parkinsons 07/28/18 [History Last Taken 04/20/19 08:45] escitalopram oxalate 20 mg tablet 20 mg PO DAILY 07/28/18 [History Last Taken Unknown] hydroxychloroquine 200 mg tablet 200 mg PO DAILYCM arthritis 07/28/18 [History Last Taken Unknown] lansoprazole 30 mg capsule,delayed release (Prevacid) 30 mg PO DAILY 07/28/18 [History Last Taken 04/20/19 08:45] mirabegron 50 mg tablet,extended release 24 hr (Myrbetriq) 50 mg PO DAILY PRN Bladder Spasm 07/28/18 [History Last Taken 04/20/19 08:45] mirtazapine 30 mg tablet 30 mg PO QHS 07/28/18 [History Last Taken Unknown] polyethylene glycol 3350 17 gram oral powder packet 17 g PO DAILY 07/28/18 [History Last Taken Unknown] triamterene 37.5 mg-hydrochlorothiazide 25 mg tablet (Maxzide-25mg) 1 tab PO DAILY 07/28/18 [History Last Taken Unknown] Allergy/AdvReac Type Severity Reaction Status Date / Time amlodipine [From Norvasc] Allergy Unknown Verified 04/20/19 11:04 amoxicillin Allergy Unknown Verified 04/20/19 11:04 duloxetine [From Cymbalta] Allergy Unknown Verified 04/20/19 11:04 iodine Allergy Unknown Verified 04/20/19 11:04 nabumetone [From Relafen] Allergy Unknown Verified 04/20/19 11:04 sulfabenzamide Allergy Unknown Verified 04/20/19 11:04 adhesive tape AdvReac Rash Verified 04/20/19 11:04 celecoxib [From Celebrex] AdvReac Nausea/Vom/ Verified 04/20/19 11:04 Diarrhea Surgical History History of bilateral knee replacement Social History Smoking Status: Former smoker ROS ROS ED Constitutional Constitutional ED: Denies chills, fever(s) or sweats Eyes Eyes: Denies change in vision ENT ENT ED: Denies dysphagia or sore throat Cardiovascular Cardiovascular: Denies chest pain, leg edema, palpitations or racing heartbeat Respiratory/Chest Respiratory/Chest: Denies cough, dyspnea or dyspnea on exertion Gastrointestinal Gastrointestinal: Denies abdominal pain, diarrhea, nausea or vomiting Genitourinary Genitourinary ED: Denies dysuria, hematuria or urinary frequency Musculoskeletal Musculoskeletal: Denies back pain, extremity pain or neck pain Integumentary Denies rash or wounds Neurologic Neurologic: Reports other Details: dizzy ; Denies headache(s), paresthesias or weakness EXAM Physical Exam Const Vital Signs: 11/02/21 16:30 11/02/21 16:36 11/02/21 16:41 Temperature 97.9 F 97.9 F Temperature Source Temporal Temporal Pulse Rate 81 81 Respiratory Rate 16 16 Respiratory Pattern Normal Blood Pressure 133/79 H 133/79 H Blood Pressure Mean 97 97 Pulse Ox 94 94 Oxygen Delivery Method Room Air Room Air 11/02/21 17:46 11/02/21 18:16 11/02/21 19:02 Temperature Temperature Source Pulse Rate 71 72 70 Respiratory Rate 17 16 Respiratory Pattern Blood Pressure 111/73 138/84 H 121/91 H Blood Pressure Mean 85 102 Pulse Ox 94 96 98 Oxygen Delivery Method Room Air Room Air Positive well nourished and well developed General Appearance ED: well developed and NAD HEENT Reports moist mucous membranes normocephalic and atraumatic Eyes PERRL, EOMs intact bilaterally and conjunctivae normal Eyes Narrative: No nystagmus. General Eye ED: Yes normal appearance of both eyes Neck no lymphadenopathy and supple General: Negative for tenderness Chest Wall Chest: Negative for tenderness Resp normal respiratory effort and normal air movement Effort and Inspection: symmetric chest movement; Negative for respiratory distress Cardio regular rate, regular rhythm and no murmurs Peripheral Pulses: pulses 2+ throughout GI normal to inspection, nondistended, normoactive bowel sounds and non-tender Palpation: Negative for guarding or rebound tenderness present Back/Spine no CVA tenderness and no thoracic nor lumbar tenderness Extremity normal to inspection General Extremety ED: Negative for edema or tenderness General Extremity: Negative for edema Neuro oriented x3, CN's II-XII intact bilaterally and no sensory deficits noted Neuro Narrative: NIH = 0. ma[place]-hallpike neg bilaterally. Sensorium / Orientation: awake and alert Skin no rashes or lesions noted and no wounds MDM MDM MDM Narrative Medical decision making narrative: Patient presents with transient dizziness. NIH is 0. Normal cerebellar testing. [place]-Hallpike negative. No focal deficits. CT brain negative, stable changes from previous. Labs stable with slight renal insufficiency creatinine 1.3. Last creatinine in August 2020 was 1.08 she declined any recent vomiting or diarrhea. Order for fluids in urine, she is unable to urinate and wished to go home. She ambulated to the restroom with no return of symptoms. She is unable to provide urine at that time. She is drinking oral fluids at home she will follow with her PCP to recheck labs. Return precautions. All questions were answered. Lab Data Attestation: I reviewed the patient's lab results. Labs: Laboratory Results - last 24 hr 11/02/21 11/02/21 11/02/21 16:49 16:49 16:49 WBC 7.2 RBC 4.21 Hgb 13.1 Hct 39.5 MCV 93.8 MCH 31.1 MCHC 33.2 RDW Std Deviation 46.6 H RDW Coeff of Yodit 13.5 Plt Count 176 MPV 10.9 Immature Gran % (Auto) 0.400 Neut % (Auto) 72.4 H Lymph % (Auto) 14.2 L [place] % (Auto) 9.2 Eos % (Auto) 3.1 Baso % (Auto) 0.7 Absolute Neuts (auto) 5.2 Absolute Lymphs (auto) 1.02 Nucleated RBC % 0 PT 14.2 INR 1.1 APTT 30.1 Sodium 140 Potassium 3.5 Chloride 106 Carbon Dioxide 27.0 Anion Gap 7 BUN 31 H Creatinine 1.30 H Estim Creat Clear Calc 33.66 Est GFR (MDRD) Af Amer 50 L Est GFR (MDRD) Non-Af 42 L BUN/Creatinine Ratio 23.8 H Glucose 110 H Calcium 8.3 L Radiography Diagnostic Testing: Clinical Impression(s) from Imaging Studies Brain CT 11/02/21 17:15 IMPRESSION: 1. Stable exam. 2. Mild involutional change, moderate chronic microvascular deep white matter disease and stable area of encephalomalacic in volume loss in the LEFT parietal lobe. 3. No intracranial mass, hemorrhage or acute territorial infarct. 4. No radiographically significant sinus disease.. Electronically Signed: Rick Baez MD at 18:12 EDT , EKG Initial EKG: Attestation: I personally reviewed and interpreted this EKG as follows: Comments: Sinus rate of 73, right bundle branch block with left anterior fascicular block. No ST or T wave changes. Discharge Plan Triage Chief Complaint: Dizziness ED Provider: Le,Pramod Dx/Rx/DC Orders Clinical Impression: Dizziness, Parkinson disease, Alzheimers disease, Acute renal insufficiency Instructions: ED Dizziness, Uncertain Cause, ED Renal Insufficiency Prescriptions: No Action buspirone 5 MG tablet 5 mg PO BID biotin 800 MCG tablet 5,000 mcg PO DAILY polyethylene glycol 3350 17 GM Packet 17 g PO DAILY alendronate [Fosamax] 70 MG tablet 70 mg PO QWEEK calcium carbonate-vitamin D3 1 EACH tablet 1 ea PO BID aspirin 81 MG tablet 81 mg PO DAILY@0800 Label Comments: stopped for procedure mirtazapine 30 MG tablet 30 mg PO QHS lansoprazole [Prevacid] 30 MG capsule 30 mg PO DAILY triamterene-hydrochlorothiazid [Maxzide-25mg] 1 EACH tablet 1 tab PO DAILY hydroxychloroquine 200 MG tablet 200 mg PO DAILYCM albuterol sulfate [ProAir HFA] 1 PUFF inhaler 2 puff inhalation Q4H PRN PRN (Reason: SOB/COUGH) carbidopa-levodopa 1 TABLET tablet 1 tab PO TIDAC escitalopram oxalate 20 MG tablet 20 mg PO DAILY mirabegron [Myrbetriq] 50 MG Tab.Er.24h 50 mg PO DAILY PRN (Reason: Bladder Spasm) apixaban [Eliquis] 5 MG tablet 5 mg PO BID Label Comments: stopped for procedure Fluticasone 220 Mcg [Flovent 220 Mcg] 1 INHALER inhaler 1 puff inhalation BID PRN (Reason: Asthma) Primary Care Provider: Corbin Bai Referrals: Corbin Bai MD [Primary Care Provider] - 3-5 Days Activity Restrictions/Additional Instructions: Your CT brain negative. Your symptoms resolved. Your creatinine 1.3 up from 1.08 from a year ago. Drink fluids at home. Follow-up with your doctor for recheck labs as outpatient. Disposition Disposition: Home, Self Care Discharge Date/Time: 11/02/21 19:02
[2021-11-02 17:26] LABS: Absolute Lymphocyte Count 1.02 X10^3/uL (0.83-4.51); Absolute Neutrophil Count 5.2 X10^3/uL (2.0-7.7); Basophil# 0.05 X10^3/uL; Basophil% 0.7 % (0-1); Eosinophil# 0.22 X10^3/uL; Eosinophils% 3.1 % (0-5); Hematocrit 39.5 % (37-47); Hemoglobin 13.1 g/dL (12.0-15.0); Lymphocyte # 1.02 X10^3/ul (0.83-4.51); Lymphocyte % 14.2 % (19-41); Mean Corp Hgb Conc 33.2 g/dL (32-36); Mean Corpuscular Hgb 31.1 pg (27.0-32.0); Mean Corpuscular Volume 93.8 fL (81-99); Mean Platelet Vol. 10.9 fl (6.2-12.0); Monocyte# 0.66 X10^3/uL; Monocyte% 9.2 % (0-10); NRBC Flagged by Analyzer 0 % (0-5); Neutrophil # 5.22 X10^3/uL (2.7-7.7); Neutrophil % 72.4 % (47-70); Platelet Count 176 K/mm3 (150-450); RBC Distribution Width CV 13.5 % (11.6-14.6); RBC Distribution Width SD 46.6 fl (35.1-43.9); Red Blood Count 4.21 M/mm3 (4.2-5.4); White Blood Count 7.2 K/mm3 (4.4-11.0)
[2021-11-02 17:43] LABS: Anion Gap 7 (5-15); BUN 31 mg/dL (7-18); BUN/Creat Ratio 23.8 RATIO (10-20); Calcium,Total 8.3 mg/dL (8.5-10.1); Chloride 106 mmol/L (98-107); EST Glomerular Filtration Rate 42 mL/min (>60); Est Glom Filt Rate - Afr Amer 50 mL/min (>60); Estimated Creatinine Clearance 33.66 ml/min; Glucose 110 mg/dL (74-106); Potassium 3.5 mmol/L (3.5-5.1); Sodium Level 140 mmol/L (136-145)
[2021-11-02 17:46] VITALS: BP 111/73; PULSE 71; RESP 17; O2SAT 94
[2021-11-02 17:50] LABS: International Normalized Ratio 1.1; Prothrombin Time (Protime)PT. 14.2 SECONDS (11.7-14.9)
[2021-11-02 17:51] LABS: Partial Thromboplast Time 30.1 Seconds (24.1-36.2)
[2021-11-02 18:16] VITALS: BP 138/84; PULSE 72; RESP 16; O2SAT 96
[2021-11-02 19:02] VITALS: BP 121/91; PULSE 70; O2SAT 98
== END 2021-11-02 19:02 | disposition home or self-care (01) ==
PROVIDERS: Emergency Provider Emergency Medicine; PCP Internal Medicine; Visit Provider Emergency Medicine
DX: R42 Dizziness and giddiness (principal); G20 Parkinson's disease; G30.9 Alzheimer's disease, unspecified; F02.80 Dementia in other diseases classified elsewhere, unspecified severity, without behavioral disturbance, psychotic disturbance, mood disturbance, and anxiety; F32.A Depression, unspecified; F41.9 Anxiety disorder, unspecified; N28.9 Disorder of kidney and ureter, unspecified; J45.909 Unspecified asthma, uncomplicated; Z87.891 Personal history of nicotine dependence; Z86.711 Personal history of pulmonary embolism; Z79.01 Long term (current) use of anticoagulants; Z86.73 Personal history of transient ischemic attack (TIA), and cerebral infarction without residual deficits; Z79.82 Long term (current) use of aspirin; Z79.899 Other long term (current) drug therapy
CPT/HCPCS: 70450; 80048; 85025; 85610; 85730; 93005; 99285; A4216

== ENCOUNTER 2022-12-24 13:00 | Outpatient (RCR) | payer MEDICARE, BC, SELFPAY ==
--- NOTE | 2022-07-23 09:55 | HP.PTEVAL_ITS ---
Patient's Visit Information Boy WHEELER is a 82 year old F referred to Physical Therapy by Dr. Danilo Guido MD with a diagnosis of PD. Date of Evaluation: 07/23/22 Physical Therapist: MARVA Andujar - Visit Plan Frequency: 2x /Week Duration: 2 Months Plan: 2X/ week for 8 weeks for balance (both dynamic and static), dual tasking, Gait training (taking bigger steps to clear opposite foot), functional strength, endurance with HEP. Suggested pt use her rollator to work on her endurance when walking at home. - Subjective Pt reports that Dr Guido thinks that the pt needed PT. She is struggling with walking and balance. She uses the cane almost all the time. She has had no falls. She is not having any freezing episodes. She has to use the arms of the chair to get up. She has stairs at home but she uses a stair lift. They do have hand rails on B sides of the stairs. She would like to be able be steadier when she is walking and more sure footed when walking. She does not feel like her legs are weak. She is not able to stand for long periods of time.. showering makes her feel weak. - Objective Gait: walks with decrease stride length (swing foot does not pass the stance leg). walks with straight cane with flexed trunk. LE MMT: R hip flex 9.4 and L 9.1. R knee ext 23.3 and L 16.5. R knee flex 12.1 and L 11.4. Standing heel and toe raises: able to heel and toe raise approx 1/2 normal ROM using B hands for balance support. Sit to stand: able to get up but does so slowly with the use of B arms. TU:31. FGA: 9. Dual tasking: Sitting opp arm and leg... able to do X 20 in a row. Standing: opp arm and leg X 4 on each side and then has LOB. Pt is SOB with walking or doing too much standing activities. - Balance/Special Test Scores Functional Gait Assessment Score: 9 % Disability: 70.0000 Lower Extremity Functional Score: 36 - Goals Goal 1:: I HEP Goal Time Frame: 6-8 Weeks Goal 2:: Be able to walk 360 feet with a straight cane with longer strides with CGA and min SOB Goal Time Frame: 6-8 Weeks Goal 3:: Increase balance by increasing FGA score (score at eval was a 9) Goal Time Frame: 6-8 Weeks Goal 4:: Be able to complete X 20 standing opp arm and leg without LOB or fatigue or messing up. Goal Time Frame: 6-8 Weeks - Rehabilitation Potential Rehabilitation Potential: Good - Anticipated Interventions Patient/Client Instruction: Educate patient on: Condition, Plan of Care For the Purpose of:: To improve nutrient delivery to tissue, To improve muscle performance and motor function, To improve ability to perform ADL's, To increase tolerance to activity/condition/position, To improve performance and independence with ADL's, To decrease level of supervision to perform tasks, To improve ability of physical actions for home/community/work/leisure, To improve gait and locomotor functions, To improve health of tissue, To decrease soft tissue restriction, To increase flexibility/ROM, To improve endurance, To improve balance, To improve safety with gait Therapeutic Exercise to Include: Strength training, Endurance training, Balance training, Postural training, Flexibilty training, Gait and locomotor training, Neuromotor development For the Purpose of:: To improve muscle performance and motor function, To improve ability to perform ADL's, To increase tolerance to activity/condition/position, To improve performance and independence with ADL's, To decrease level of supervision to perform tasks, To improve ability of physical actions for home/community/work/leisure, To improve gait and locomotor functions, To improve health of tissue, To decrease soft tissue restriction, To increase flexibility/ROM, To improve endurance, To improve balance, To improve safety with gait Functional Training to Include: Gait training For the Purpose of:: To improve gait and locomotor functions, To improve safety with gait Thank you for the opportunity to evaluate your patient. For Medicare and Medicare HMO plans, please review the plan of care and approve it. It will need to be FAXED BACK to us at [phone] for Medicare purposes. For Medicare only, by signing this I certify the plan of care. Please let me know if there are questions or concerns regarding this plan of care. Physician Signature: Date:
--- NOTE | 2022-08-22 12:37 | HP.PTREVAL ---
Dr. Danilo Guido MD, It has been my pleasure to treat Boy WHEELER over the last 9 visits for PD. Please see the progress note below for an update on the physical therapy plan of care! Subjective: Pt wanting to know where we go from here. She feels not as stiff and she feels that walking from room to room she is less stiff. Her balance is bad. Her back is bad and she is wearing a back brace and that helps her back and help her stand up straighter. She is doing Objective/Function: Pt is able to take longer more fluent steps on cue but does revert back to smaller steps when not sure or therapist not there. Pt very fatigued. Pt unable to do more than 4 opp arm and leg in a row and then she reverts back to same side. Discussed using a rollator for now due to her fatigue to help with balance and endurance Plan Plan: HOLD PT as pt is very weak from gastro issues and is waiting for a gastro appt. She feels that this is contributing to her not having energy to walk or for PT. Pt to go to Dr office today and see when she can see a gastro Dr. Pt will walk with rollator to keep endurance up and do HEP. 2X/ week for 8 weeks for balance (both dynamic and static), dual tasking, Gait training (taking bigger steps to clear opposite foot), functional strength, endurance with HEP. Suggested pt use her rollator to work on her endurance when walking at home. Balance/Gait/Functional tests - Balance/Special Test Scores Functional Gait Assessment Score: 9 % Disability: 70.0000 Lower Extremity Functional Score: 31 Goals Goal 1:: I HEP Goal Time Frame: 6-8 Weeks Goal Progress: Goal Met Goal 2:: Be able to walk 360 feet with a straight cane with longer strides with CGA and min SOB Goal Time Frame: 6-8 Weeks Goal Progress: Progressing Goal 3:: Increase balance by increasing FGA score (score at eval was a 9) Goal Time Frame: 6-8 Weeks Goal 4:: Be able to complete X 20 standing opp arm and leg without LOB or fatigue or messing up. Goal Time Frame: 6-8 Weeks Goal Progress: Progressing Anticipated Interventions Patient/Client Instruction: Educate patient on: Condition, Plan of Care For the Purpose of:: To improve nutrient delivery to tissue, To improve muscle performance and motor function, To improve ability to perform ADL's, To increase tolerance to activity/condition/position, To improve performance and independence with ADL's, To decrease level of supervision to perform tasks, To improve ability of physical actions for home/community/work/leisure, To improve gait and locomotor functions, To improve health of tissue, To decrease soft tissue restriction, To increase flexibility/ROM, To improve endurance, To improve balance, To improve safety with gait Therapeutic Exercise to Include: Strength training, Endurance training, Balance training, Postural training, Flexibilty training, Gait and locomotor training, Neuromotor development For the Purpose of:: To improve muscle performance and motor function, To improve ability to perform ADL's, To increase tolerance to activity/condition/position, To improve performance and independence with ADL's, To decrease level of supervision to perform tasks, To improve ability of physical actions for home/community/work/leisure, To improve gait and locomotor functions, To improve health of tissue, To decrease soft tissue restriction, To increase flexibility/ROM, To improve endurance, To improve balance, To improve safety with gait Functional Training to Include: Gait training For the Purpose of:: To improve gait and locomotor functions, To improve safety with gait Please do not hesitate to contact me at [phone] by phone or if you have questions or concerns regarding this new plan of care! Sincerely, MARVA Andujar
--- NOTE | 2022-10-23 10:44 | HP.PTREVAL ---
Re-Evaluation Intro: Dr. Danilo Guido MD, It has been my pleasure to treat Boy WHEELER over the last 10 visits for PD. Please see the progress note below for an update on the physical therapy plan of care! Subjective Subjective: Gastro issues are better. She does not have any energy. She reports no falls but her balance is about the same. Not sleeping well. Her Dr knows about that. SOB still. Pt has not been doing much at home as far as exercises. Dr thinks that she is walking better than last time she saw him...this was Dr Guido. He said to go back to PT. Objective Objective/Function: FGA: 9 Standing opp arm and leg: Pt was able to do X4 in a row very slowly prior to reverting back to same hand same side leg. Plan Plan Plan: 2X/ week for 8 weeks for balance (both dynamic and static), dual tasking, Gait training (taking bigger steps to clear opposite foot), functional strength, endurance with HEP. Pt is thinking about doing a PD class/gym membership Suggested pt use her rollator to work on her endurance when walking at home X 5 min a day and do X 20 seated opp arm and leg in the chair daily. Balance/Gait/Functional tests Balance/Special Test Scores Functional Gait Assessment Score: 9 % Disability: 70.0000 Lower Extremity Functional Score: 31 Goals Goals Goal 1:: I HEP Goal Time Frame: 6-8 Weeks Goal Progress: Goal Met Goal 2:: Be able to walk 360 feet with a straight cane with longer strides with CGA and min SOB Goal Time Frame: 6-8 Weeks Goal Progress: Progressing Goal 3:: Increase balance by increasing FGA score (score at eval was a 9) Goal Time Frame: 6-8 Weeks Goal 4:: Be able to complete X 20 standing opp arm and leg without LOB or fatigue or messing up. Goal Time Frame: 6-8 Weeks Goal Progress: Progressing Anticipated Interventions Anticipated Interventions Patient/Client Instruction: Educate patient on: Condition and Plan of Care For the Purpose of:: To improve nutrient delivery to tissue, To improve muscle performance and motor function, To improve ability to perform ADL's, To increase tolerance to activity/condition/position, To improve performance and independence with ADL's, To decrease level of supervision to perform tasks, To improve ability of physical actions for home/community/work/leisure, To improve gait and locomotor functions, To improve health of tissue, To decrease soft tissue restriction, To increase flexibility/ROM, To improve endurance, To improve balance and To improve safety with gait Therapeutic Exercise to Include: Strength training, Endurance training, Balance training, Postural training, Flexibilty training, Gait and locomotor training and Neuromotor development For the Purpose of:: To improve muscle performance and motor function, To improve ability to perform ADL's, To increase tolerance to activity/condition/position, To improve performance and independence with ADL's, To decrease level of supervision to perform tasks, To improve ability of physical actions for home/community/work/leisure, To improve gait and locomotor functions, To improve health of tissue, To decrease soft tissue restriction, To increase flexibility/ROM, To improve endurance, To improve balance and To improve safety with gait Functional Training to Include: Gait training For the Purpose of:: To improve gait and locomotor functions and To improve safety with gait Re-Evaluation Ending Re-evaluation ending: Please do not hesitate to contact me at [phone] by phone or if you have questions or concerns regarding this new plan of care! Sincerely, Valencia Maldonado MPT
--- NOTE | 2022-12-03 14:30 | HP.PTREVAL ---
Re-Evaluation Intro: Dr. Danilo Guido MD, It has been my pleasure to treat Boy WHEELER over the last 20 visits for PD. Please see the progress note below for an update on the physical therapy plan of care! Subjective Subjective: Pt reports that she is tired today. Her back really hurts today Objective Objective/Function: Standing opp arm and leg.. pt is not able to do more than 2 in a row in standing.... Did step ups alternating feet today to add some brainwork and pt struggled with that Plan Plan Plan: 2X/ week for 8 weeks for balance (both dynamic and static), dual tasking, Gait training (taking bigger steps to clear opposite foot), functional strength, endurance with HEP. Pt is thinking about doing a PD class/gym membership Suggested pt use her rollator to work on her endurance when walking at home X 5 min a day and do X 20 seated opp arm and leg in the chair daily. Balance/Gait/Functional tests Balance/Special Test Scores Functional Gait Assessment Score: 9 % Disability: 70.0000 Lower Extremity Functional Score: 40 Goals Goals Goal 1:: I HEP Goal Time Frame: 6-8 Weeks Goal Progress: Goal Met Goal 2:: Be able to walk 360 feet with a straight cane with longer strides with CGA and min SOB Goal Time Frame: 6-8 Weeks Goal Progress: Progressing Goal 3:: Increase balance by increasing FGA score (score at eval was a 9) Goal Time Frame: 6-8 Weeks Goal 4:: Be able to complete X 20 standing opp arm and leg without LOB or fatigue or messing up. Goal Time Frame: 6-8 Weeks Goal Progress: Progressing Goal 5:: Increased walking endurance: Gait with rollator 2 laps around the entire [facility] and [facility] area/PT dept.... (Time on second attempt was 2minutes :58 seconds) Walking with straight cane: 3 min and 16 seconds same distance from [place] through [facility] and back to [facility] with straight cane. Pt was more SOB and tired and back started to hurt a little bit. Goal Time Frame: 2-4 Weeks Anticipated Interventions Anticipated Interventions Patient/Client Instruction: Educate patient on: Condition and Plan of Care For the Purpose of:: To improve nutrient delivery to tissue, To improve muscle performance and motor function, To improve ability to perform ADL's, To increase tolerance to activity/condition/position, To improve performance and independence with ADL's, To decrease level of supervision to perform tasks, To improve ability of physical actions for home/community/work/leisure, To improve gait and locomotor functions, To improve health of tissue, To decrease soft tissue restriction, To increase flexibility/ROM, To improve endurance, To improve balance and To improve safety with gait Therapeutic Exercise to Include: Strength training, Endurance training, Balance training, Postural training, Flexibilty training, Gait and locomotor training and Neuromotor development For the Purpose of:: To improve muscle performance and motor function, To improve ability to perform ADL's, To increase tolerance to activity/condition/position, To improve performance and independence with ADL's, To decrease level of supervision to perform tasks, To improve ability of physical actions for home/community/work/leisure, To improve gait and locomotor functions, To improve health of tissue, To decrease soft tissue restriction, To increase flexibility/ROM, To improve endurance, To improve balance and To improve safety with gait Functional Training to Include: Gait training For the Purpose of:: To improve gait and locomotor functions and To improve safety with gait Re-Evaluation Ending Re-evaluation ending: Please do not hesitate to contact me at [phone] by phone or if you have questions or concerns regarding this new plan of care! Sincerely, Valencia Maldonado MPT
--- NOTE | 2022-12-24 13:39 | HP.PTDCSUM_ITS ---
Discharge Summary D/C summary: It has been my pleasure to treat Boy WHEELER referred by Dr. Danilo Guido MD, with the diagnosis of PD for a total of 26 visit(s). Discharge Date: 12/24/22 Please see the following information for a summary of their discharge status. Subjective Subjective: She has no fallen. Still SOB. Still uses the can for the times when she is unsteady. Pain back: Pain Intensity (Out of 10): 0 Overall Improvement % Improvement: 45 Objective Objective/Function: Walking with rollator 4:06...SOB Still struggles with standing opp arm and leg...gets to about 13 and reverts back to same side at a slow pace FGA:9 Goals Goal 1:: I HEP Goal Progress: Goal Met Goal 2:: Be able to walk 360 feet with a straight cane with longer strides with CGA and min SOB Goal Progress: Progressing Goal 3:: Increase balance by increasing FGA score (score at eval was a 9) Goal Progress: Not Progressing Goal 4:: Be able to complete X 20 standing opp arm and leg without LOB or fatigue or messing up. Goal Progress: Progressing Goal 5:: Increased walking endurance: Gait with rollator 2 laps around the entire [facility] and [facility] area/PT dept.... (Time on second attempt was 2minutes :58 seconds) Walking with straight cane: 3 min and 16 seconds same distance from [place] through [facility] and back to [facility] with straight cane. Pt was more SOB and tired and back started to hurt a little bit. Goal Progress: Not Progressing Plan Plan: DC PT to [facility] gym routine and PD class D/C Information Discharge Comments: DC PT to HEP d/c sentence: If there are questions or concerns regarding this patient's physical therapy, please feel free to call me at [phone]. Thank you for the referral of this patient. Sincerely, Valencia Maldonado, MPT Balance/Gait/Functional tests Balance/Special Test Scores Functional Gait Assessment Score: 9 % Disability: 70.0000 Lower Extremity Functional Score: 31 Improvement % Improvement: 45
== END 2022-12-24 19:00 | disposition home or self-care (01) ==
LOC: PT 13:00
PROVIDERS: PCP Internal Medicine; Referring Provider Psychiatry & Neurology Sleep Medicine; Visit Provider Psychiatry & Neurology Sleep Medicine
DX: G20 Parkinson's disease (principal); R26.81 Unsteadiness on feet
CPT/HCPCS: 97110; 97161; 97530

== ENCOUNTER 2023-03-12 10:21 | Inpatient (IN) | payer MEDICARE, BC, SELFPAY ==
[2023-03-12] VITALS (25 sets, daily range): BP systolic 111–153; BP diastolic 67–94; PULSE 77–92; RESP 16–27; TEMP 36.3–38.5; O2SAT 90–99; BMI 23.1; BMI 22.8
--- NOTE | 2023-03-12 10:45 | EKG12_ITS ---
Test Reason : DYSPNEA Blood Pressure : / mmHG Vent. Rate : 084 BPM Atrial Rate : 084 BPM P-R Int : 108 ms QRS Dur : 120 ms QT Int : 424 ms P-R-T Axes : 065 -32 013 degrees QTc Int : 501 ms Sinus rhythm with short GA with Premature atrial complexes Left axis deviation Right bundle branch block Abnormal ECG Confirmed by HERMILA LABA, CHRIS ([id number]), photographic editor JOHN MAJOR ([id number]) on 03/19/2023 8:15:19 AM Referred By: GAURANG Confirmed By:CHRIS CLEANING MD
--- NOTE | 2023-03-12 10:51 | EX.ED.DYSGE1 ---
HPI History of Present Illness Chief Complaint: Shortness of Breath Informant: patient and spouse/S.O. Onset/Context/Timing Onset: Days Context: Gradual Onset Narrative Narrative: Patient presents with 5 to 6-day history of shortness of breath and leg swelling. Patient states she cannot walk, but this is more so because she is too weak as opposed to her legs being too swollen. states her temperature was 99.6 on Saturday but no fever since. [facility] Medical History (Updated 03/12/23 @ 14:[address] Tierney Simon MD) Alcohol abuse Alzheimers disease Anxiety Asthma Bilateral pulmonary embolism Chronic anticoagulation DVT, bilateral lower limbs Former smoker GERD (gastroesophageal reflux disease) HTN (hypertension) Parkinson's disease Rheumatoid arthritis Seizures Stroke/cerebrovascular accident SVT (supraventricular tachycardia) Home Medications Fluticasone 220 Mcg [Flovent 220 Mcg] 1 puff inhalation BID PRN Asthma 07/28/18 [History Last Taken Unknown] albuterol sulfate 90 mcg/actuation aerosol inhaler (ProAir HFA) 2 puff inhalation Q4H PRN PRN SOB/COUGH 07/28/18 [History Last Taken Unknown] alendronate 70 mg tablet (Fosamax) 70 mg PO QWEEK 07/28/18 [History Last Taken Unknown] apixaban 5 mg tablet (Eliquis) 5 mg PO BID 07/28/18 [History Last Taken 04/07/19] aspirin 81 mg tablet,delayed release 81 mg PO DAILY@0800 07/28/18 [History Last Taken 04/07/19] biotin 800 mcg tablet 5,000 mcg PO DAILY 07/28/18 [History Last Taken Unknown] buspirone 5 mg tablet 5 mg PO BID anxiety 07/28/18 [History Last Taken Unknown] calcium carbonate 600 mg-vitamin D3 5 mcg (200 unit) tablet 1 ea PO BID 07/28/18 [History Last Taken Unknown] carbidopa 25 mg-levodopa 100 mg tablet 1 tab PO TIDAC parkinsons 07/28/18 [History Last Taken 04/20/19 08:45] escitalopram oxalate 20 mg tablet 20 mg PO DAILY 07/28/18 [History Last Taken Unknown] hydroxychloroquine 200 mg tablet 200 mg PO DAILYCM arthritis 07/28/18 [History Last Taken Unknown] lansoprazole 30 mg capsule,delayed release (Prevacid) 30 mg PO DAILY 07/28/18 [History Last Taken 04/20/19 08:45] mirabegron 50 mg tablet,extended release 24 hr (Myrbetriq) 50 mg PO DAILY PRN Bladder Spasm 07/28/18 [History Last Taken 04/20/19 08:45] mirtazapine 30 mg tablet 30 mg PO QHS 07/28/18 [History Last Taken Unknown] polyethylene glycol 3350 17 gram oral powder packet 17 g PO DAILY 07/28/18 [History Last Taken Unknown] triamterene 37.5 mg-hydrochlorothiazide 25 mg tablet (Maxzide-25mg) 1 tab PO DAILY 07/28/18 [History Last Taken Unknown] Allergy/AdvReac Type Severity Reaction Status Date / Time amlodipine [From Norvasc] Allergy Unknown Verified 03/12/23 10:22 amoxicillin Allergy Unknown Verified 03/12/23 10:22 duloxetine [From Cymbalta] Allergy Unknown Verified 03/12/23 10:22 iodine Allergy Unknown Verified 03/12/23 10:22 nabumetone [From Relafen] Allergy Unknown Verified 03/12/23 10:22 sulfabenzamide Allergy Unknown Verified 03/12/23 10:22 adhesive tape AdvReac Rash Verified 03/12/23 10:22 celecoxib [From Celebrex] AdvReac Nausea/Vom/ Verified 03/12/23 10:22 Diarrhea Surgical History History of bilateral knee replacement Social History Smoking Status: Former smoker ROS ROS ED Constitutional Constitutional ED: Denies chills or fever(s) Eyes Eyes: Denies change in vision or discharge from eye(s) ENT ENT ED: Denies discharge from eye(s), rhinorrhea or sore throat Cardiovascular Cardiovascular: Denies chest pain or palpitations Respiratory/Chest Respiratory/Chest: Reports cough and dyspnea Gastrointestinal Gastrointestinal: Denies abdominal pain, diarrhea, nausea or vomiting Genitourinary Genitourinary ED: Denies dysuria Musculoskeletal Musculoskeletal: Denies back pain or extremity pain Integumentary Denies Abrasions or rash Neurologic Neurologic: Reports weakness; Denies headache(s) Psychiatric Psychiatric: Denies anxiety or depression Allergic/Immunologic Allergic/Immunologic ED: Denies lip swelling or urticaria EXAM Physical Exam Const Vital Signs: 03/12/23 10:22 03/12/23 10:46 03/12/23 10:47 Temperature 97.3 F L 98.4 F 98.6 F Temperature Source Temporal Oral Oral Pulse Rate 85 84 84 Respiratory Rate 18 18 24 H Respiratory Effort Respiratory Depth Respiratory Pattern Blood Pressure 132/67 H 131/68 H 131/68 H Blood Pressure Mean 88 89 89 Blood Pressure Source Blood Pressure Position Blood Pressure Location Pulse Ox 98 92 98 Oxygen Delivery Method Room Air Room Air Room Air 03/12/23 10:59 03/12/23 11:56 03/12/23 12:46 Temperature 98.6 F 98.4 F Temperature Source Oral Oral Pulse Rate 82 84 Respiratory Rate 23 H 21 H Respiratory Effort Short of Breath Respiratory Depth Normal Respiratory Pattern Normal Blood Pressure 111/70 136/85 H Blood Pressure Mean 83 102 Blood Pressure Source Monitor Blood Pressure Position Semi-Fowlers Blood Pressure Location Right Arm Pulse Ox 96 90 Oxygen Delivery Method Room Air Room Air Room Air 03/12/23 13:01 03/12/23 14:01 03/12/23 14:02 Temperature 99.8 F H 98.8 F 98.8 F Temperature Source Oral Oral Oral Pulse Rate 81 80 80 Respiratory Rate 24 H 20 H 23 H Respiratory Effort Respiratory Depth Respiratory Pattern Blood Pressure 141/73 H 133/75 H 133/75 H Blood Pressure Mean 95 94 94 Blood Pressure Source Monitor Monitor Blood Pressure Position Semi-Fowlers Semi-Fowlers Blood Pressure Location Right Arm Right Arm Pulse Ox 93 96 93 Oxygen Delivery Method Room Air Room Air Room Air 03/12/23 14:02 Temperature 98.8 F Temperature Source Oral Pulse Rate 86 Respiratory Rate 23 H Respiratory Effort Respiratory Depth Respiratory Pattern Blood Pressure 133/75 H Blood Pressure Mean 94 Blood Pressure Source Blood Pressure Position Blood Pressure Location Pulse Ox 93 Oxygen Delivery Method Room Air Positive well nourished and well developed General Appearance ED: well developed HEENT Reports moist mucous membranes HEENT Narrative: Chronic left facial droop from prior stroke. Eyes EOMs intact bilaterally Chest Wall inspection of chest normal and palpation of chest normal Resp normal respiratory effort and clear to auscultation bilaterally Cardio regular rate and regular rhythm GI non-tender Palpation: soft Extremity Extremity Narrative: Minimal lower extremity edema. Good distal pulses. No calf tenderness. Neuro oriented x3 Psych mental status grossly normal Skin no rashes or lesions noted MDM MDM MDM Narrative Medical decision making narrative: Patient placed on monitoring and evaluation advisor. IV line established. EKG obtained to evaluate for cardiac arrhythmia/ischemia. Chest x-ray obtained to evaluate for acute lung pathology, cardiac size, or mediastinal abnormality. Labwork obtained to evaluate for leukocytosis, anemia, and electrolyte derangement. Swab for COVID and influenza obtained. History & Record Review Discussion w/independent historian: Patient and Significant other Additional record(s) reviewed:: Prior labs Lab Data Attestation: I reviewed the patient's lab results. Labs: Laboratory Results - last 24 hr 03/12/23 03/12/23 10:45 11:20 WBC 6.2 RBC 3.03 L Hgb 5.1 L* Hct 19.6 L MCV 64.7 L MCH 16.8 L MCHC 26.0 L RDW Std Deviation 47.9 H RDW Coeff of Yodit 20.8 H Plt Count 231 MPV 10.2 Immature Gran % (Auto) 0.300 Neut % (Auto) 73.7 H Lymph % (Auto) 9.3 L Bland % (Auto) 15.9 H Eos % (Auto) 0.3 Baso % (Auto) 0.5 Absolute Neuts (auto) 4.6 Absolute Lymphs (auto) 0.58 L Nucleated RBC % 0.5 Differential Comment SCANNED Diff Path Review May foll Hypochromasia 1+ Anisocytosis 2+ Microcytosis 2+ D-Dimer Quant (PE/DVT) 0.50 H Sodium 139 Potassium 3.0 L Chloride 104 Carbon Dioxide 28.0 Anion Gap 7 BUN 22 H Creatinine 1.34 H Estim Creat Clear Calc 32.09 Est GFR (MDRD) Af Amer 49 L Est GFR (MDRD) Non-Af 40 L BUN/Creatinine Ratio 16.4 Glucose 108 H Calcium 8.9 Troponin I High Sens 13 B-Natriuretic Peptide 172.1 H Blood Type A POSITIVE Antibody Screen NEGATIVE Crossmatch See Detail Radiography Chest X-Ray - ED: 1 View, Read by ED Physician, Chronic Changes and Right Infiltrate (Questionable early right-sided infiltrate.) Diagnostic Testing: Clinical Impression(s) from Imaging Studies Chest X-Ray 03/12/23 11:00 IMPRESSION: Vague opacity within the right midlung may be secondary to pneumonia, and sitter chest CT for further characterization or short interval follow-up chest radiograph in 8-10 weeks to assess for resolution. COPD. Cardiomegaly. Electronically Signed: Danii Bauman MD at 11:29 EST , EKG Initial EKG: Attestation: I personally reviewed and interpreted this EKG as follows: Interpretation: Sinus Rhythm (Sinus 84 with no acute ischemia.) Treatment and Re-Evaluation :: CBC was normal white count 6.2 with a hemoglobin of 5.1. 16 months ago her hemoglobin was 13.1. Chemistry studies significant for potassium of 3.0. This is replaced IV. BUN is 22 and creatinine is 1.34. This is near her baseline. Troponin is normal at 13 and BNP is slightly elevated at 172. Portable chest x-ray per my interpretation was chronic changes with questionable early right-sided infiltrate. Influenza test is negative but COVID test is positive. Patient was typed and crossed and ordered for 3 units of packed RBCs has been placed. Patient does state that she is been having dark stools for the past several months. She thinks she went to a doctor and may have been scoped. She does have some underlying dementia and is not sure of the history. I was able to find records in the computer that the patient did have a colonoscopy and an upper scope in July of this year. She had some polyps removed from the colon and many small and large mouth diverticula were noted in the colon. The EGD revealed mildly severe esophagitis with no bleeding. It does not appear on [facility] that the patient had any repeat labs obtained since May. On May 17 her hemoglobin was 11.8. Her stool wet today does return positive. I will speak with both GI as well as hospitalist for admission. Discharge Plan Triage Chief Complaint: Shortness of Breath ED Provider: Tierney Simon Dx/Rx/DC Orders Clinical Impression: COVID-19, GI bleed, Anemia Prescriptions: No Action buspirone 5 MG tablet 5 mg PO BID biotin 800 MCG tablet 5,000 mcg PO DAILY polyethylene glycol 3350 17 GM powder in packet 17 g PO DAILY alendronate [Fosamax] 70 MG tablet 70 mg PO QWEEK calcium carbonate-vitamin D3 1 EACH tablet 1 ea PO BID aspirin 81 MG tablet 81 mg PO DAILY@0800 Patient Comments: stopped for procedure mirtazapine 30 MG tablet 30 mg PO QHS lansoprazole [Prevacid] 30 MG capsule 30 mg PO DAILY triamterene-hydrochlorothiazid [Maxzide-25mg] 1 EACH tablet 1 tab PO DAILY hydroxychloroquine 200 MG tablet 200 mg PO DAILYCM albuterol sulfate [ProAir HFA] 1 PUFF inhaler 2 puff inhalation Q4H PRN PRN (Reason: SOB/COUGH) carbidopa-levodopa 1 TABLET tablet 1 tab PO TIDAC escitalopram oxalate 20 MG tablet 20 mg PO DAILY mirabegron [Myrbetriq] 50 MG tablet extended release 24 hr 50 mg PO DAILY PRN (Reason: Bladder Spasm) apixaban [Eliquis] 5 MG tablet 5 mg PO BID Patient Comments: stopped for procedure Fluticasone 220 Mcg [Flovent 220 Mcg] 1 INHALER inhaler 1 puff inhalation BID PRN (Reason: Asthma) Primary Care Provider: Corbin Bai Referrals: Corbin Bai MD [Primary Care Provider] - Disposition Disposition: Acute Care Hospital [facility]
--- NOTE | 2023-03-12 11:00 | RAD_ITS ---
INDICATION: Shortness of breath EXAMINATION/TECHNIQUE: X-RAY - XR Chest 1 View COMPARISON: January 24, 2017 FINDINGS: LINES/DEVICES: None. LUNGS: The lungs are hyperinflated. There is a vague opacity within the right mid lung. No pneumothorax. MEDIASTINUM AND CARDIOVASCULAR STRUCTURES: There is cardiomegaly. Central airways and mediastinal contour are unremarkable. BONES AND SOFT TISSUES: Unremarkable. RAD/Chest 1 View (Portable) IMPRESSION: Vague opacity within the right midlung may be secondary to pneumonia, and sitter chest CT for further characterization or short interval follow-up chest radiograph in 8-10 weeks to assess for resolution. COPD. Cardiomegaly. Electronically Signed: Danii Bauman MD at 11:29 EST ,
[2023-03-12 11:11] LABS: Absolute Lymphocyte Count 0.58 X10^3/uL (0.83-4.51); Absolute Neutrophil Count 4.6 X10^3/uL (2.0-7.7); Basophil# 0.03 X10^3/uL; Basophil% 0.5 % (0-1); Eosinophil# 0.02 X10^3/uL; Eosinophils% 0.3 % (0-5); Hematocrit 19.6 % (37-47); Lymphocyte # 0.58 X10^3/ul (0.83-4.51); Lymphocyte % 9.3 % (19-41); Mean Corpuscular Hgb 16.8 pg (27.0-32.0); Mean Corpuscular Volume 64.7 fL (81-99); Mean Platelet Vol. 10.2 fl (6.2-12.0); Monocyte# 0.99 X10^3/uL; Monocyte% 15.9 % (0-10); NRBC Flagged by Analyzer 0.5 % (0-5); Neutrophil # 4.57 X10^3/uL (2.7-7.7); Neutrophil % 73.7 % (47-70); POSITIVE COUNT YES; POSITIVE DIFFERENTIAL YES; POSITIVE MORPHOLOGY YES; Platelet Count 231 K/mm3 (150-450); RBC Distribution Width CV 20.8 % (11.6-14.6); RBC Distribution Width SD 47.9 fl (35.1-43.9); Red Blood Count 3.03 M/mm3 (4.2-5.4); White Blood Count 6.2 K/mm3 (4.4-11.0)
[2023-03-12 11:13] LABS: Differential Indicated SCAN CRITERIA MET; Hemoglobin 5.1 g/dL (12.0-15.0)
[2023-03-12 11:23] LABS: Anion Gap 7 (5-15); BUN 22 mg/dL (7-18); BUN/Creat Ratio 16.4 RATIO (10-20); Calcium,Total 8.9 mg/dL (8.5-10.1); Chloride 104 mmol/L (98-107); Creatinine, Serum 1.34 mg/dL (0.55-1.02); EST Glomerular Filtration Rate 40 mL/min (>60); Est Glom Filt Rate - Afr Amer 49 mL/min (>60); Estimated Creatinine Clearance 32.09 ml/min; Glucose 108 mg/dL (74-106); Sodium Level 139 mmol/L (136-145); Troponin-I HS 13 pg/mL (3.0-54.0)
[2023-03-12 11:31] LABS: Anisocytosis 2+; Differential Comment SCANNED; Hypochromasia 1+; Microcytosis 2+
[2023-03-12 11:35] LABS: BNP,B-Type NATRIURETIC PEPTIDE 172.1 pg/mL (0-100)
[2023-03-12] MEDS: Potassium Chloride 10mEq/100mL 10 MEQ/100 ML IV.SOLN. 100 MEQ IV BOLUS ×4 (11:53→15:31)
--- NOTE | 2023-03-12 15:13 | PCM.HP.STD ---
HPI - General General Date of Admission: 03/12/23 Date of Service: 03/12/23 Chief Complaint: Fatigue and shortness of breath HPI Narrative Boy WHEELER, is a 82 F who presented to [facility] ED on 03/12/2023 with worsening fatigue and shortness of breath. Patient seen at bedside in the ED, present. Patient was resting comfortably in bed, conversing normally, no acute distress. Patient does appear pale on exam and appears moderately fatigued. Patient states that she has had worsening fatigue over the last few months, and particularly worse over the past few weeks. She then developed shortness of breath exertion over the past several days. Patient reports intermittent dark stools over the last several months. She notably had an EGD and colonoscopy done in July 2022, was found to have esophagitis without any noted source of bleeding, as well as multiple colonic diverticuli noted. She has been taking her home Eliquis as prescribed for history of DVT. Patient denies any recent fevers or chills, chest pain, abdominal pain or distention. Denies any acid reflux recently. Patient lives at home with her , previously had no issues with doing things around the home for self. No other acute concerns this time. [facility] Medical History (Updated 03/12/23 @ 16:[address] Garcia Friend, DO) Alcohol abuse Alzheimers disease Anxiety Asthma Bilateral pulmonary embolism Chronic anticoagulation DVT, bilateral lower limbs Former smoker GERD (gastroesophageal reflux disease) HTN (hypertension) Parkinson's disease Rheumatoid arthritis Seizures Stroke/cerebrovascular accident SVT (supraventricular tachycardia) Home Medications Fluticasone 220 Mcg [Flovent 220 Mcg] 1 puff inhalation BID PRN Asthma 07/28/18 [History Last Taken Unknown] albuterol sulfate 90 mcg/actuation aerosol inhaler (ProAir HFA) 2 puff inhalation Q4H PRN PRN SOB/COUGH 07/28/18 [History Last Taken Unknown] alendronate 70 mg tablet (Fosamax) 70 mg PO QWEEK bones 07/28/18 [History Last Taken Unknown] apixaban 5 mg tablet (Eliquis) 5 mg PO DAILY thinner 07/28/18 [History Last Taken 04/07/19] aspirin 81 mg tablet,delayed release 81 mg PO DAILY@0800 supplement 07/28/18 [History Last Taken 04/07/19] biotin 800 mcg tablet 5,000 mcg PO DAILY supplement 07/28/18 [History Last Taken Unknown] buspirone 5 mg tablet 5 mg PO BID anxiety 07/28/18 [History Last Taken Unknown] calcium carbonate 600 mg-vitamin D3 5 mcg (200 unit) tablet 1 ea PO BID supp 07/28/18 [History Last Taken Unknown] carbidopa 25 mg-levodopa 100 mg tablet 2 tab PO TIDAC parkinsons 07/28/18 [History Last Taken 04/20/19 08:45] escitalopram oxalate 20 mg tablet 20 mg PO DAILY depression 07/28/18 [History Last Taken Unknown] hydroxychloroquine 200 mg tablet 200 mg PO DAILYCM arthritis 07/28/18 [History Last Taken Unknown] lansoprazole 30 mg capsule,delayed release (Prevacid) 30 mg PO DAILY gerd 07/28/18 [History Last Taken 04/20/19 08:45] mirabegron 50 mg tablet,extended release 24 hr (Myrbetriq) 50 mg PO DAILY PRN Bladder Spasm 07/28/18 [History Last Taken 04/20/19 08:45] mirtazapine 30 mg tablet 30 mg PO QHS bladde 07/28/18 [History Last Taken Unknown] polyethylene glycol 3350 17 gram oral powder packet 17 g PO DAILY constipation 07/28/18 [History Last Taken Unknown] triamterene 37.5 mg-hydrochlorothiazide 25 mg tablet (Maxzide-25mg) 1 tab PO DAILY bp 07/28/18 [History Last Taken Unknown] Allergy/AdvReac Type Severity Reaction Status Date / Time amlodipine [From Norvasc] Allergy Unknown Verified 03/12/23 10:22 amoxicillin Allergy Unknown Verified 03/12/23 10:22 duloxetine [From Cymbalta] Allergy Unknown Verified 03/12/23 10:22 iodine Allergy Unknown Verified 03/12/23 10:22 nabumetone [From Relafen] Allergy Unknown Verified 03/12/23 10:22 sulfabenzamide Allergy Unknown Verified 03/12/23 10:22 adhesive tape AdvReac Rash Verified 03/12/23 10:22 celecoxib [From Celebrex] AdvReac Nausea/Vom/ Verified 03/12/23 10:22 Diarrhea Surgical History History of bilateral knee replacement Social History Smoking Status: Former smoker ROS Constitutional Constitutional: Reports fatigue, malaise and weakness; Denies chills or fever(s) Eyes Eyes: Denies change in vision Cardiovascular Cardiovascular: Reports dyspnea on exertion and edema; Denies chest pain, lightheadedness, orthopnea, rapid heart rate or syncope Respiratory/Chest Respiratory/Chest: Denies cough, shortness of breath at rest or wheezing Gastrointestinal Gastrointestinal: Reports melena; Denies abdominal pain, constipation, diarrhea, nausea or vomiting Genitourinary Genitourinary: Denies dysuria Musculoskeletal Musculoskeletal: Denies arthralgias or back pain Neurologic Neurologic: Denies dizziness, focal weakness or headache(s) Vital Signs Vital Signs Vital Signs: 03/12/23 10:22 03/12/23 10:46 03/12/23 10:47 Temperature 97.3 F L 98.4 F 98.6 F Temperature Source Temporal Oral Oral Pulse Rate 85 84 84 Respiratory Rate 18 18 24 H Respiratory Effort Respiratory Depth Respiratory Pattern Blood Pressure 132/67 H 131/68 H 131/68 H Blood Pressure Mean 88 89 89 Blood Pressure Source Blood Pressure Position Blood Pressure Location Pulse Ox 98 92 98 Oxygen Delivery Method Room Air Room Air Room Air 03/12/23 10:59 03/12/23 11:56 03/12/23 12:46 Temperature 98.6 F 98.4 F Temperature Source Oral Oral Pulse Rate 82 84 Respiratory Rate 23 H 21 H Respiratory Effort Short of Breath Respiratory Depth Normal Respiratory Pattern Normal Blood Pressure 111/70 136/85 H Blood Pressure Mean 83 102 Blood Pressure Source Monitor Blood Pressure Position Semi-Fowlers Blood Pressure Location Right Arm Pulse Ox 96 90 Oxygen Delivery Method Room Air Room Air Room Air 03/12/23 13:01 03/12/23 14:01 03/12/23 14:02 Temperature 99.8 F H 98.8 F 98.8 F Temperature Source Oral Oral Oral Pulse Rate 81 80 80 Respiratory Rate 24 H 20 H 23 H Respiratory Effort Respiratory Depth Respiratory Pattern Blood Pressure 141/73 H 133/75 H 133/75 H Blood Pressure Mean 95 94 94 Blood Pressure Source Monitor Monitor Blood Pressure Position Semi-Fowlers Semi-Fowlers Blood Pressure Location Right Arm Right Arm Pulse Ox 93 96 93 Oxygen Delivery Method Room Air Room Air Room Air 03/12/23 14:02 Temperature 98.8 F Temperature Source Oral Pulse Rate 86 Respiratory Rate 23 H Respiratory Effort Respiratory Depth Respiratory Pattern Blood Pressure 133/75 H Blood Pressure Mean 94 Blood Pressure Source Blood Pressure Position Blood Pressure Location Pulse Ox 93 Oxygen Delivery Method Room Air Weight Weight: 68.8 kg Body Mass Index (BMI) 23.1 Physical Exam Const alert, oriented x3 and no apparent distress Constitutional Narrative: Pleasant elderly female, pale and fatigued appearing, otherwise laying comfortably in bed, conversing normally, no acute distress. General Appearance: cooperative and comfortable HEENT normocephalic, head/scalp atraumatic, hearing grossly normal bilaterally, nasal mucous membranes and turbinates normal and moist oral mucous membranes Eyes PERRL, EOMs intact bilaterally and conjunctivae normal Neck full ROM, no lymphadenopathy and supple Lymph Lymphatic: no lymphadenopathy noted Chest inspection of chest normal Resp normal respiratory effort, normal air movement, no use of accessory muscles and clear to auscultation bilaterally Cardio regular rate, regular rhythm, no murmurs and peripheral pulses 2+ throughout GI normal to inspection, nondistended, normoactive bowel sounds, soft to palpation, non-tender and non-distended Back/Spine normal ROM Extremity normal to inspection, full ROM and no pedal edema Skin no rashes or lesions noted Neuro moves all extremities and no focal motor deficits Speech: speech normal Psych mental status grossly normal Results Lab / Micro Data 03/12/23 10:45 03/12/23 10:45 Labs: Laboratory Results - last 24 hr 03/12/23 10:45: WBC 6.2, RBC 3.03 L, Hgb 5.1 L*, Hct 19.6 L, MCV 64.7 L, MCH 16.8 L, MCHC 26.0 L, RDW Std Deviation 47.9 H, RDW Coeff of Yodit 20.8 H, Plt Count 231, MPV 10.2, Immature Gran % (Auto) 0.300, Neut % (Auto) 73.7 H, Lymph % (Auto) 9.3 L, [place] % (Auto) 15.9 H, Eos % (Auto) 0.3, Baso % (Auto) 0.5, Absolute Neuts (auto) 4.6, Absolute Lymphs (auto) 0.58 L, Nucleated RBC % 0.5, Differential Comment SCANNED, Diff Path Review May foll, Hypochromasia 1+, Anisocytosis 2+, Microcytosis 2+, D-Dimer Quant (PE/DVT) 0.50 H, Sodium 139, Potassium 3.0 L, Chloride 104, Carbon Dioxide 28.0, Anion Gap 7, BUN 22 H, Creatinine 1.34 H, Estim Creat Clear Calc 32.09, Est GFR (MDRD) Af Amer 49 L, Est GFR (MDRD) Non-Af 40 L, BUN/Creatinine Ratio 16.4, Glucose 108 H, Calcium 8.9, Troponin I High Sens 13, B-Natriuretic Peptide 172.1 H 03/12/23 11:20: Blood Type A POSITIVE, Antibody Screen NEGATIVE, Crossmatch See Detail Micro: Microbiology 03/12/23 14:20 Stool Stool Occult Blood (ALANA) - Final Occult Blood Positive 03/12/23 11:04 Nasal Secretion SARS-CoV-2 & FLU Antigen (Rapid) - Final SARS-CoV-2 (COVID 19) Imagaing Radiology Impression Chest X-Ray 03/12/23 11:00 IMPRESSION: Vague opacity within the right midlung may be secondary to pneumonia, and sitter chest CT for further characterization or short interval follow-up chest radiograph in 8-10 weeks to assess for resolution. COPD. Cardiomegaly. Electronically Signed: Danii Bauman MD at 11:29 EST , Assessment & Plan Assessment/Plan (1) Anemia: QUALIFIERS: Anemia type: iron deficiency Iron deficiency anemia type: other iron deficiency Qualified Code(s): D50.8 - Other iron deficiency anemias (2) GI bleed: QUALIFIERS: GI bleed type/associated pathology: unspecified gastrointestinal hemorrhage type Qualified Code(s): K92.2 - Gastrointestinal hemorrhage, unspecified (3) COVID-19: PLAN: Plan Patient is an 82-year-old female who presented to [facility] ED on 03/12/2023 with worsening shortness of breath and fatigue. 1. Acute microcytic anemia, suspected GI bleed Hemoglobin 5.1, MCV 64 on admit. Hemoglobin was 11 about 6 months ago. Suspect most likely secondary to slow upper GI bleed. Notably had EGD and colonoscopy in July 2022, EGD showed severe esophagitis, colonoscopy showed multiple sigmoid diverticuli. Reports compliance with home PPI. ? Admit under inpatient status to PCU. GI consulted. S/p 3 units of packed red blood cells on admission, repeat hemoglobin pending. Iron studies, B12 and folate pending. N.p.o. at midnight with plan for EGD tomorrow. IV PPI twice daily for now. 2. Weakness ? Likely secondary to anemia with COVID infection possibly contributing. PT/OT/case management consulted. 3. COVID-19 infection ? COVID-positive in the ED. Chest x-ray with vague opacity noted in right midlung possibly concerning for pneumonia, COPD changes, cardiomegaly. Patient satting in mid 90s on room air. Isolation precautions placed. Will hold on COVID-specific treatments as patient is stable on room air. Sputum culture ordered. 4. Hypokalemia ? Potassium 3.0 on admit, repleted in the ED. Magnesium level pending. Follow-up daily BMP, replete potassium as needed. 5. History of DVT/bilateral PE ? Patient hospitalized in 2017 for bilateral lower extremity DVT with bilateral PE. Unclear on suspected etiology for these clots. Patient is on home Eliquis, was told in the past that she would be on lifelong anticoagulation. Holding Eliquis for now, will need to discuss risks/benefits of restarting anticoagulation prior to discharge. 6. History of CAD ? Holding home aspirin for now. Chronic medical conditions: ? Hypertension: Continue home triamterene?hydrochlorothiazide, as pressure has been moderately elevated since admission. ? Anxiety/depression: Continue home BuSpar, escitalopram, mirtazapine at night. ? Parkinson disease: Continue home Sinemet. ? Rheumatoid arthritis: Continue home hydroxychloroquine. ? Mild cognitive impairment DVT prophylaxis: SCDs CODE STATUS: DNR CCA, DO NOT INTUBATE. Confirmed with patient and on admission. Expected disposition: Home, 2 to 3 days Total clinical time spent by myself addressing the patient's medical issues, reviewing all the data, and collaborating with patient's care team: 55 minutes. Charges/Coding Visit Charges Inpatient E&M: 42828 Init Hosp L2
--- NOTE | 2023-03-12 15:27 | NURSING ---
PCU SOFIA GI BLEED, ANEMIA, COVID
[2023-03-12] MEDS: Benzonatate 100 MG Capsule 200 MG PO (15:35)
--- NOTE | 2023-03-12 15:59 | CON.PCM.GI_ITS ---
HPI Consult Data Date of Consult: 03/12/23 HPI Narrative Reason for Consultation: GI bleed HPI Narrative: Boy WHEELER, is a 82 F who presents with 5 to 6-day history of shortness of breath and leg swelling. Patient states she cannot walk, but this is more so because she is too weak as opposed to her legs being too swollen. Her states her temperature was 99.6 on Saturday but no fever since. She has a history of iron deficiency anemia from unknown cause. She also has a history of multiple bilateral pulmonary embolisms and is on Eliquis. She also has a history of coronary artery disease and takes aspirin 81 mg on daily basis. She had EGD and colonoscopy in July 2022. Her upper endoscopy displayed severe esophagitis. She is on Prevacid 30 mg a day. Her colonoscopy had a fair prep and it displayed multiple sigmoid diverticuli. 6 months ago her hemoglobin was 11 at that time ). Iron studies , B12, folate are pending. However by her lab work she has a very low MCV consistent with a microcytic anemia. [facility] Medical History (Updated 03/12/23 @ 16:[address] Garcia Friend, DO) Alcohol abuse Alzheimers disease Anxiety Asthma Bilateral pulmonary embolism Chronic anticoagulation DVT, bilateral lower limbs Former smoker GERD (gastroesophageal reflux disease) HTN (hypertension) Parkinson's disease Rheumatoid arthritis Seizures Stroke/cerebrovascular accident SVT (supraventricular tachycardia) Home Medications Fluticasone 220 Mcg [Flovent 220 Mcg] 1 puff inhalation BID PRN Asthma 07/28/18 [History Last Taken Unknown] albuterol sulfate 90 mcg/actuation aerosol inhaler (ProAir HFA) 2 puff inhalation Q4H PRN PRN SOB/COUGH 07/28/18 [History Last Taken Unknown] alendronate 70 mg tablet (Fosamax) 70 mg PO QWEEK 07/28/18 [History Last Taken Unknown] apixaban 5 mg tablet (Eliquis) 5 mg PO BID 07/28/18 [History Last Taken 04/07/19] aspirin 81 mg tablet,delayed release 81 mg PO DAILY@0800 07/28/18 [History Last Taken 04/07/19] biotin 800 mcg tablet 5,000 mcg PO DAILY 07/28/18 [History Last Taken Unknown] buspirone 5 mg tablet 5 mg PO BID anxiety 07/28/18 [History Last Taken Unknown] calcium carbonate 600 mg-vitamin D3 5 mcg (200 unit) tablet 1 ea PO BID 07/28/18 [History Last Taken Unknown] carbidopa 25 mg-levodopa 100 mg tablet 1 tab PO TIDAC parkinsons 07/28/18 [History Last Taken 04/20/19 08:45] escitalopram oxalate 20 mg tablet 20 mg PO DAILY 07/28/18 [History Last Taken Unknown] hydroxychloroquine 200 mg tablet 200 mg PO DAILYCM arthritis 07/28/18 [History Last Taken Unknown] lansoprazole 30 mg capsule,delayed release (Prevacid) 30 mg PO DAILY 07/28/18 [History Last Taken 04/20/19 08:45] mirabegron 50 mg tablet,extended release 24 hr (Myrbetriq) 50 mg PO DAILY PRN Bladder Spasm 07/28/18 [History Last Taken 04/20/19 08:45] mirtazapine 30 mg tablet 30 mg PO QHS 07/28/18 [History Last Taken Unknown] polyethylene glycol 3350 17 gram oral powder packet 17 g PO DAILY 07/28/18 [History Last Taken Unknown] triamterene 37.5 mg-hydrochlorothiazide 25 mg tablet (Maxzide-25mg) 1 tab PO DAILY 07/28/18 [History Last Taken Unknown] Allergy/AdvReac Type Severity Reaction Status Date / Time amlodipine [From Norvasc] Allergy Unknown Verified 03/12/23 10:22 amoxicillin Allergy Unknown Verified 03/12/23 10:22 duloxetine [From Cymbalta] Allergy Unknown Verified 03/12/23 10:22 iodine Allergy Unknown Verified 03/12/23 10:22 nabumetone [From Relafen] Allergy Unknown Verified 03/12/23 10:22 sulfabenzamide Allergy Unknown Verified 03/12/23 10:22 adhesive tape AdvReac Rash Verified 03/12/23 10:22 celecoxib [From Celebrex] AdvReac Nausea/Vom/ Verified 03/12/23 10:22 Diarrhea Surgical History History of bilateral knee replacement Social History Smoking Status: Former smoker ROS Review of Systems ROS Unobtainable: other Constitutional Constitutional: Denies fatigue, fever(s), poor appetite, weight gain or weight loss ENT HEENT: Denies mouth lesions Cardiovascular Cardiovascular: Denies abdominal bloating, abdominal edema or abdominal pain Respiratory/Chest Respiratory/Chest: Denies change in mental status, change in phlegm color, chest congestion or chest tightness Gastrointestinal Gastrointestinal: Denies belching, bloating, change in bowel habits, change in stool character, chewing difficulty, coffee ground emesis, constipation, cramping, diarrhea, dyspepsia, dysphagia, early satiety, excessive flatus, fecal incontinence, heartburn, hematemesis, hematochezia, hemorrhoids, loose stools, melena, nausea, odynophagia, rectal bleeding, tenesmus, vomiting or weight changes Genitourinary Genitourinary: Denies abdominal discomfort, burning urination or itching Musculoskeletal Musculoskeletal: Reports as per HPI; Denies muscle weakness or myalgias Integumentary Integumentary: Denies jaundice Neurologic Neurologic: Denies lack of coordination or weakness Psychiatric Psychiatric: Denies confusion, depression, memory loss, mood swings, paranoia or suicidal ideation Endocrine Endocrinology: Denies systems reviewed and no addt'l complaints, except as documented Hematologic/Lymphatic Hematologic/Lymphatic: Denies anemia, easy bleeding, easy bruising or lymphadenopathy Allergic/Immunologic Allergic/Immunologic: Denies systems reviewed and no addt'l complaints, except as documented Physical Exam Const alert General Appearance: cooperative Orientation / Consciousness: oriented to person HEENT hearing grossly normal bilaterally Head and Scalp: normal to inspection Face and Sinus: face symmetric Nose: external nose normal Mouth: oral and palatal mucosa normal Eyes conjunctivae normal General Eye: normal appearance of both eyes Neck full ROM General: normal visual inspection Lymph Lymphatic: no lymphadenopathy noted Chest inspection of chest normal and palpation of chest normal Chest: symmetrical chest wall rise Resp normal respiratory effort Effort and Inspection: able to speak in complete sentences Cardio regular rate GI non-distended Percussion: normal to percussion Rectal Exam: deferred Neuro Speech: speech normal Gait (Neuro): normal gait Lab / Micro Data 03/12/23 10:45 03/12/23 10:45 Labs: Laboratory Results - last 24 hr 03/12/23 10:45: WBC 6.2, RBC 3.03 L, Hgb 5.1 L*, Hct 19.6 L, MCV 64.7 L, MCH 16.8 L, MCHC 26.0 L, RDW Std Deviation 47.9 H, RDW Coeff of Yodit 20.8 H, Plt Count 231, MPV 10.2, Immature Gran % (Auto) 0.300, Neut % (Auto) 73.7 H, Lymph % (Auto) 9.3 L, [place] % (Auto) 15.9 H, Eos % (Auto) 0.3, Baso % (Auto) 0.5, Absolute Neuts (auto) 4.6, Absolute Lymphs (auto) 0.58 L, Nucleated RBC % 0.5, Differential Comment SCANNED, Diff Path Review May foll, Hypochromasia 1+, Anisocytosis 2+, Microcytosis 2+, D-Dimer Quant (PE/DVT) 0.50 H, Sodium 139, Potassium 3.0 L, Chloride 104, Carbon Dioxide 28.0, Anion Gap 7, BUN 22 H, Cr eatinine 1.34 H, Estim Creat Clear Calc 32.09, Est GFR (MDRD) Af Amer 49 L, Est GFR (MDRD) Non-Af 40 L, BUN/Creatinine Ratio 16.4, Glucose 108 H, Calcium 8.9, Troponin I High Sens 13, B-Natriuretic Peptide 172.1 H 03/12/23 11:20: Blood Type A POSITIVE, Antibody Screen NEGATIVE, Crossmatch See Detail Micro: Microbiology 03/12/23 14:20 Stool Stool Occult Blood (ALANA) - Final Occult Blood Positive 03/12/23 11:04 Nasal Secretion SARS-CoV-2 & FLU Antigen (Rapid) - Final SARS-CoV-2 (COVID 19) Imagaing Radiology Impression Chest X-Ray 03/12/23 11:00 IMPRESSION: Vague opacity within the right midlung may be secondary to pneumonia, and sitter chest CT for further characterization or short interval follow-up chest radiograph in 8-10 weeks to assess for resolution. COPD. Cardiomegaly. Electronically Signed: Danii Bauman MD at 11:29 EST , Assessment & Plan Assessment/Plan (1) Anemia: QUALIFIERS: Anemia type: iron deficiency Iron deficiency anemia type: other iron deficiency Qualified Code(s): D50.8 - Other iron deficiency anemias (2) GI bleed: QUALIFIERS: GI bleed type/associated pathology: unspecified gastrointestinal hemorrhage type Qualified Code(s): K92.2 - Gastrointestinal hemorrhage, unspecified PLAN: Plan Differential diagnosis for severe anemia in the setting of elderly patient would be atrophic gastritis (resulting in iron deficiency anemia), unhealed erosive esophagitis secondary to alendronate therapy, H. pylori associated gastritis, celiac disease, angiodysplasia, gastric antral vascular ectasia, Enrique's erosions. She will undergo an upper endoscopy. She may need a capsule endoscopy and possibly repeat colonoscopy. She was explained and her and explained alternatives, risk, benefits including outstanding bleeding, infection, sepsis, perforation, need for emergent urgent . She will have an ASA of 3. Charges/Coding Visit Charges Inpatient E&M: 58735 Init Hosp L3
[2023-03-12 16:58] LABS: Ferritin 5 ng/mL (8-252); Iron 8 ug/dL (50-170); Iron Binding Capacity,Total 388 ug/dL (250-450); PERCENT IRON SATURATION 2.1 % (15.0-55.0)
[2023-03-12] MEDS: Carbidopa/Levodopa 25/100 Tablet PO (18:47)
[2023-03-12 21:24] LABS: Vitamin B12 834 pg/mL (211-911)
[2023-03-12] MEDS: busPIRone 5 MG Tablet PO (21:31)
[2023-03-12] MEDS: Mirtazapine 30 MG Tablet PO (21:31)
[2023-03-12] MEDS: Pantoprazole Sodium 40 MG in 0.9% Normal Saline (100mL MB+) 100 ML 330 MG IV (21:31)
[2023-03-12] MEDS: Acetaminophen 325 MG Tablet 650 MG PO (21:48)
[2023-03-13] VITALS (11 sets, daily range): BP systolic 117–147; BP diastolic 66–83; PULSE 70–90; RESP 15–18; TEMP 36.5–37.3; O2SAT 94–100; BMI 22.8
--- NOTE | 2023-03-13 00:55 | NURSING ---
attempted to educated pt on importance of IS and pep, pt refused stating I dont need a lecture. educated as well.
[2023-03-13 05:16] LABS: Hematocrit 26.3 % (37-47); Hemoglobin 7.6 g/dL (12.0-15.0); Mean Corp Hgb Conc 28.9 g/dL (32-36); Mean Corpuscular Volume 72.7 fL (81-99); Mean Platelet Vol. 10.3 fl (6.2-12.0); POSITIVE MORPHOLOGY YES; Platelet Count 174 K/mm3 (150-450); RBC Distribution Width CV 25.4 % (11.6-14.6); RBC Distribution Width SD 65.9 fl (35.1-43.9); Red Blood Count 3.62 M/mm3 (4.2-5.4); White Blood Count 4.3 K/mm3 (4.4-11.0)
[2023-03-13 05:32] LABS: International Normalized Ratio 1.5; Partial Thromboplast Time 35.9 Seconds (24.1-36.2); Prothrombin Time (Protime)PT. 17.8 SECONDS (11.7-14.9)
[2023-03-13] MEDS: Acetaminophen 325 MG Tablet 650 MG PO (05:37)
[2023-03-13 05:58] LABS: Scan Indicated on CBC? Y/N YES- FLAGS NOTED
[2023-03-13 06:08] LABS: Anion Gap 7 (5-15); BUN 18 mg/dL (7-18); BUN/Creat Ratio 22.2 RATIO (10-20); Calcium,Total 7.6 mg/dL (8.5-10.1); Chloride 110 mmol/L (98-107); Creatinine, Serum 0.81 mg/dL (0.55-1.02); EST Glomerular Filtration Rate 72 mL/min (>60); Est Glom Filt Rate - Afr Amer 87 mL/min (>60); Estimated Creatinine Clearance 53.09 ml/min; Glucose 94 mg/dL (74-106); Potassium 3.4 mmol/L (3.5-5.1); Sodium Level 142 mmol/L (136-145)
[2023-03-13] MEDS: Carbidopa/Levodopa 25/100 Tablet PO ×3 (08:27→17:13)
[2023-03-13] MEDS: Pantoprazole Sodium 40 MG in 0.9% Normal Saline (100mL MB+) 100 ML 330 MG IV ×2 (08:28→21:20)
--- NOTE | 2023-03-13 12:53 | OP.EGD_ITS ---
Patient Name: Boy Garza Procedure Date: 03/13/2023 12:15 PM Date of : 1940 Age: 82 Procedure: Upper GI endoscopy Indications: Iron deficiency anemia, Melena Providers: Jose Eaton DO Medicines: Monitored Anesthesia Care Patient Profile: This is an 82 year old female. Refer to note in patient chart for documentation of history and physical. Patient has symptoms of acute nausea. Complications: No immediate complications. Procedure: Pre-Anesthesia Assessment: - Prior to the procedure, a History and Physical was performed, and patient medications and allergies were reviewed. The patient is competent. The risks and benefits of the procedure and the sedation options and risks were discussed with the patient. All questions were answered and informed consent was obtained. Patient identification and proposed procedure were verified by the physician in the pre-procedure area. Mental Status Examination: alert and oriented. Airway Examination: normal oropharyngeal airway and neck mobility. Respiratory Examination: clear to auscultation. CV Examination: normal. Prophylactic Antibiotics: The patient does not require prophylactic antibiotics. Prior Anticoagulants: The patient has taken no anticoagulant or antiplatelet agents. ASA Grade Assessment: III - A patient with severe systemic disease. After reviewing the risks and benefits, the patient was deemed in satisfactory condition to undergo the procedure. The anesthesia plan was to use monitored anesthesia care (MAC). Immediately prior to administration of medications, the patient was re-assessed for adequacy to receive sedatives. The heart rate, respiratory rate, oxygen saturations, blood pressure, adequacy of pulmonary ventilation, and response to care were monitored throughout the procedure. The physical status of the patient was re-assessed after the procedure. After obtaining informed consent, the endoscope was passed under direct vision. Throughout the procedure, the patient's blood pressure, pulse, and oxygen saturations were monitored continuously. The Colonoscope was introduced through the mouth, and advanced to the second part of duodenum. The upper GI endoscopy was accomplished without difficulty. The patient tolerated the procedure well. Scope In: 12:26:57 PM Scope Out: 12:44:47 PM Total Procedure Duration Time 0 hours 17 minutes 50 seconds Findings: LA Grade A (one or more mucosal breaks less than 5 mm, not extending between tops of 2 mucosal folds) esophagitis with no bleeding was found 35 to 38 cm from the incisors. A medium-sized hiatal hernia was present. A few 5 mm hyperplastic polyps with no bleeding and no stigmata of recent bleeding were found in the gastric fundus. No gross lesions were noted in the fourth portion of the duodenum. Two 8 mm angioectasias with bleeding were found in the jejunum. Area was successfully injected with 5 mL of a 0.1 mg/mL solution of epinephrine for drug delivery. To prevent bleeding post-maneuver, three hemostatic clips were successfully placed. Clip fire regulator: [employer]. There was no bleeding at the end of the procedure. Coagulation for hemostasis using heater probe was successful. Estimated blood loss was minimal. Impression: - LA Grade A chronic esophagitis with no bleeding. - Medium-sized hiatal hernia. - A few gastric polyps. - No gross lesions in the fourth portion of the duodenum. 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 Injected. Clips were placed. Clip fire regulator: [employer]. Treated with a heater probe. - No specimens collected. Recommendation: - Return patient to [facility] for [facility] care. - Resume previous diet. - Continue present medications. Procedure Code(s): --- Professional --- 30550, Esophagogastroduodenoscopy, flexible, transoral; with control of bleeding, any method 95326, 59, Esophagogastroduodenoscopy, flexible, transoral; with directed submucosal injection(s), any substance CPT copyright 202 [employer]. All rights reserved. The codes documented in this report are preliminary and upon lamps tester and inspector review may be revised to meet current compliance requirements. Jose Eaton DO 03/13/2023 12:52:45 PM This report has been signed electronically. Number of Addenda: 0 Note Initiated On: 03/13/2023 12:15 PM
--- NOTE | 2023-03-13 12:53 | OP.CCLET_ITS ---
03/13/2023 Corbin Bai [address] [place] [address] Re : Upper GI endoscopy procedure for Boy Garza Dear Dr. Bai This procedure was performed on Monday, March 13, 2023. My impressions and recommendations are as follows: Impressions : - LA Grade A chronic esophagitis with no bleeding. - Medium-sized hiatal hernia. - A few gastric polyps. - No gross lesions in the fourth portion of the duodenum. 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 Injected. Clips were placed. Clip wait staff: [employer]. Treated with a heater probe. - No specimens collected. Recommendations : - Return patient to [facility] for ongoing care. - Resume previous diet. - Continue present medications. My findings are described in the full procedure note, which is enclosed. If I can be of further assistance, please feel free to contact me at . Sincerely, Jose Friend, 03/13/2023 12:52:45 PM This report has been signed electronically.
--- NOTE | 2023-03-13 13:00 | CASEMGMT ---
RN CM NOTE: RN CM to room to complete initial RN CM assessment. Pt out of room at this time. RN CM to attempt at a later time. Angel BSN RN CM
[2023-03-13 13:22] LABS: Pathologist Review Reviewed
[2023-03-13] MEDS: Escitalopram Oxalate 20 MG Tablet PO (14:01)
[2023-03-13] MEDS: guaiFENesin/D-Methorphan TAB.SR.12H 1 TABLET PO ×2 (14:01→21:20)
[2023-03-13] MEDS: busPIRone 5 MG Tablet PO ×2 (14:01→21:20)
[2023-03-13 16:04] LABS: Hematocrit 29.8 % (37-47); Hemoglobin 8.6 g/dL (12.0-15.0)
--- NOTE | 2023-03-13 16:29 | PCM.PN.HOSP ---
Subjective Subjective Had her EGD today which demonstrated 2 AVMs in the jejunum that were treated Objective Data Objective Data Vital Signs: Vital Signs Temp Pulse Resp BP Pulse Ox O2 Del Method O2 Flow Rate 99.1 F 84 18 143/75 H 96 Room Air 2 03/13/23 14:35 03/13/23 14:35 03/13/23 14:35 03/13/23 14:35 03/13/23 14:35 03/13/23 14:35 03/13/23 14:32 Oxygen Flow Rate (L/min) 2 Oxygen Delivery Method Room Air Weight: 149 lb 14.629 oz Body Mass Index (BMI) 22.8 Intake & Output: Intake and Output for Last 24 Hours 03/12/23 03/13/23 03/14/23 03:59 03:59 03:59 Intake Total 563 / 563 170 / 170 Output Total 250 / 250 450 / 450 Balance 313 / 313 -280 / -280 Lab / Micro Data 03/13/23 15:48 03/13/23 05:10 Labs: Laboratory Results - last 24 hr 03/12/23 10:45: Diff Path Review Reviewed, Iron 8 L, TIBC 388, Iron Saturation 2.1 L, Ferritin 5 L, Folate 49.10 03/12/23 11:20: Crossmatch See Detail 03/12/23 17:09: Vitamin B12 834 03/13/23 05:10: WBC 4.3 L, RBC 3.62 L, Hgb 7.6 L, Hct 26.3 L, MCV 72.7 L D, MCH 21.0 L, MCHC 28.9 L D, RDW Std Deviation 65.9 H, RDW Coeff of Yodit 25.4 H, Plt Count 174, MPV 10.3, PT 17.8 H, INR 1.5, APTT 35.9, Sodium 142, Potassium 3.4 L, Chloride 110 H, Carbon Dioxide 25.0, Anion Gap 7, BUN 18, Creatinine 0.81, Estim Creat Clear Calc 53.09, Est GFR (MDRD) Af Amer 87, Est GFR (MDRD) Non-Af 72, BUN/Creatinine Ratio 22.2 H, Glucose 94, Calcium 7.6 L, Magnesium 2.0 03/13/23 15:48: Hgb 8.6 L, Hct 29.8 L Micro: Microbiology 03/12/23 14:20 Stool Stool Occult Blood (ALANA) - Final Occult Blood Positive 03/12/23 11:04 Nasal Secretion SARS-CoV-2 & FLU Antigen (Rapid) - Final SARS-CoV-2 (COVID 19) Physical Exam Narrative General: Alert, Oriented x3, Cooperative, tearful HEENT: Atraumatic, PERRLA, EOMI, Normocephalic Oral: Moist Mucosa Neck: Supple, No JVD Lungs: Diminished, Normal air movement, No rhonchi, No wheeze, No rales Cardiovascular: Regular rate, Regular Rhythm, Normal S1, Normal S2, No murmurs Abdomen: Soft, Non Tender, Non-Distended, No Hepato-splenomegaly Extremities: No edema, Capillary Refill Less than 3 Seconds Skin: No rashes, No breakdown Musculoskeletal: No Tenderness to Palpation of Joints or Extremities Neurological: Cranial nerves II-XII grossly intact, Motor Exam 5/5 strength throughout, Sensory exam intact to light touch and pain Psych/Mental Status: Anxious Assessment & Plan Assessment/Plan (1) Anemia: QUALIFIERS: Anemia type: iron deficiency Iron deficiency anemia type: other iron deficiency Qualified Code(s): D50.8 - Other iron deficiency anemias (2) GI bleed: QUALIFIERS: GI bleed type/associated pathology: unspecified gastrointestinal hemorrhage type Qualified Code(s): K92.2 - Gastrointestinal hemorrhage, unspecified (3) COVID-19: PLAN: Plan 1. Acute blood loss anemia secondary to GI bleed/history of DVT and PE ? She received 3 units of blood and corrected from 5.1-7.6 this morning will check another H&H this afternoon ? 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 She has significant anxiety about being in the hospital so we will give her as needed Xanax to help cope she is extremely hopeful about being discharged tomorrow morning if possible ? Continue with PPI ? Appreciate gastroenterology's assistance 2. COVID-19 ? Asymptomatic with no cough or hypoxia ? We will hold off on treatment ? This does appear to be an incidental finding 3. HTN/CAD ? Can resume her home blood pressure medications ? Will hold her home aspirin given the GI bleed ? We will monitor make adjustments as necessary 4. Parkinson's disease/anxiety/depression/mild cognitive impairment ? Stable ? Can resume her home medications 5. Rheumatoid arthritis ? Stable ? Continue with hydroxychloroquine DVT: SCDs Charges/Coding Visit Charges Inpatient E&M: 99913 Subs Hosp L2
--- NOTE | 2023-03-13 17:59 | CASEMGMT ---
Addendum entered by Miky Abraham 03/14/23 10:13: LENNY PICKENS spoke w/pt who was willing to complete remainder of CM assessment at this time. DME: Pt has a cane, walker, and stair lift. No home O2 and no pulse ox. Inquired about what DME co is her preference, should she need O2. Pt would not give preference, stating, I'm not going to need oxygen. I don't even need it now, they just keep putting it on me . HHC/SNF: Pt has been to [facility] in the past and has had [facility] in the past. Discussed discharge planning. She states she has only been OOB once and was so weak at home this past month that she has been having to use a walker instead of a cane. Pt states, though, that she does not want to go to a SNF, she wishes to discharge home and would like HHC and states [facility] is her first choice. Pt states her would be able to assist her if needed. LENYN PICKENS made her aware therapy would be working w/her today. CM to f/u with pt once evals are completed. PLAN: TBD. PT/OT evals pending. Angel CONCEPCIONN LENNY PICKENS Original Note: RN?CM?PNEUMATIC DEICER INSPECTOR?CM?spoke with patient for initial transition planning/care coordination?assessment.?RN?CM?introduced self and role at [facility].? Pt voices understanding and consents to?assessment?at this time.? Pt is A/O at this time and answers some of the questions, but then stated, That's enough. I'm not answering any more questions tonight. I don't think this is necessary . Pt did tell this LENNY PICKENS that I could talk w/her again tomorrow morning for any further information needed. PCP: Dr Bai Specialists: Dr Guido-neurology [facility]acy[facility] Insurance: Lennox VILLAFUERTE Prescription Benefit:?Yes LNOK: , [place] Living Arrangements: Lives w/her in [place] w/stair lift to enter. Independent w/bathing/dressing self. manages her medication. Pt did not want to answer further questions. LENNY CM to f/u tomorrow morning for remainder of assessment, per pt request to not complete tonight. PLAN:??YINKAD Angel BSN?RN?CM
--- OUTSIDE RECORDS SUMMARY | 2023-03-13 19:55 | XMS RPT_ITS | CCD ---
Author Name Unknown Address [address] [place] [address] Organization [facility] Care Team Providers Care Software Development Leader Name Role Phone Richardson ALBA, Corbin Alonzo Primary Care Provider CORBIN BAI Primary Care Unavailable TIERNEY IGLESIAS Referring Unavailable BAI, CORBIN Alonzo Primary Care Unavailable TESTRAKE, GABRIEL Referring Unavailable TESTRAKE, GABRIEL Attending Unavailable RICHARDSON, CORBIN Alonzo Primary Care Unavailable RICHARDSON, CORBIN Alonzo Attending Unavailable RICHARDSON, CORBIN Alonzo Primary Care Unavailable BAI, CORBIN Alonzo Referring Unavailable BAI, CORBIN Alonzo Primary Care Unavailable TESTRAKE, GABRIEL Attending Unavailable RICHARDSON, CORBIN Alonzo Primary Care Unavailable ROSITA PAREDES Attending Unavailable RICHARDSON, CORBIN Alonzo Primary Care Unavailable TIERNEY IGLESIAS Attending Unavailable RICHARDSON, CORBIN Alonzo Primary Care Unavailable BAI, CORBIN Alonzo Referring Unavailable BAI, CORBIN Alonzo Primary Care Unavailable MAGGIE GODDARD Referring Unavailable MAGGIE GODDARD Attending Unavailable RICHARDSON, CORBIN Alonzo Primary Care Unavailable TESTRAKE, GABRIEL Referring Unavailable TESTRAKE, GABRIEL Attending Unavailable RICHARDSON, CORBIN Alonzo Primary Care Unavailable TIERNEY IGLESIAS Referring Unavailable RICHARDSON, CORBIN Alonzo Primary Care Unavailable , ANETA Referring Unavailable Isabel Londono Attending Unavailable RICHARDSON, CORBIN Alonzo Primary Care Unavailable OLDERROSITA Referring Unavailable ANETA JORDAN Attending Unavailable RICHARDSON, CORBIN Alonzo Primary Care Unavailable BAI, CORBIN Alonzo Attending Unavailable BAI, CORBIN Alonzo Primary Care Unavailable , ANETA Attending Unavailable BAI, CORBIN Alonzo Primary Care Unavailable BAI, CORBIN Alonzo Primary Care Unavailable BAI, CORBIN Alonzo Primary Care Unavailable NIKKI, ANETA Referring Unavailable VI OSUNA Attending Unavailable CORBIN BAI Primary Care Unavailable DANILO GUIDO JR Attending Unavailable CORBIN BAI Primary Care Unavailable DANILO GUIDO JR Attending Unavailable CORBIN BAI Primary Care Unavailable CORBIN BAI Primary Care Unavailable TIERNEY IGLESIAS Attending Unavailable Allergies Allergy Classification Reported Allergen(s) Allergy Type Date of Onset Reaction(s) Facility (20 sources) Adhesive Tape; Translations: [ADHESIVE TAPE (ROSINS)] Propensity to adverse reactions [address] [facility] Work Phone: (20 sources) amLODIPine; Translations: [AMLODIPINE] Drug Allergy 5 Other: See Comments [facility] (20 sources) Amoxicillin; Translations: [AMOXICILLIN] Drug Allergy [address] [facility] Work Phone: (20 sources) celecoxib; Translations: [CELECOXIB] Drug Allergy [address] [facility] Work Phone: (20 sources) DULoxetine; Translations: [DULOXETINE] Drug Allergy 7 Mental Status Change [facility] Work Phone: (20 sources) Iodine; Translations: [IODINE] Drug Allergy [address] [facility] Work Phone: (20 sources) nabumetone; Translations: [NABUMETONE] Drug Allergy [address] [facility] Work Phone: (20 sources) sulfabenzamide; Translations: [SULFABENZAMIDE ] Drug Allergy [address] [facility] Work Phone: Medications Current Medications Medication Drug Class(es) Dates Sig (Normalized) Sig (Original) carbidopa 25 mg / levodopa 100 mg oral tablet (20 sources) Aromatic Amino Acid Decarboxylation Inhibitor, Aromatic Amino Acid Start: 06-18-2022 End: 06-18-2023 take 2 tablets by mouth three times daily at breakfast carbidopa-levodop a (SINEMET 25-100) 25-100 mg per tablet Indications: Parkinson disease , Abnormality of gait Take 2 tablets by mouth three times daily. (breakfast or waking; lunch or noon; and dinner or about 5PM). 540 tablet 3 06/18/2022 06/18/2023 Active Completed/Discontinued Medications Medication Drug Class(es) Dates Sig (Normalized) Sig (Original) [id number] 200 actuat albuterol 0.09 mg/actuat metered dose inhaler (20 sources) beta2-Adrenergic Agonist Start: 07-27-2015 take 2 puff(s) by inhalation four times daily as needed for wheezing albuterol HFA (PROVENTIL HFA, VENTOLIN HFA) 90 mcg/actuation inhaler Indications: Asthma, moderate persistent, well-controlled Inhale 2 Puffs as instructed four times daily as needed. FOR WHEEZING AND SHORTNESS OF BREATH. 1 Inhaler 6 07/27/2015 Active Problems Active Problems Problem Classification Problem Date Documented Da te Episodic/Chronic Anxiety disorders (20 sources) Anxiety state; Translations: [Generalized anxiety disorder] Onset: 7 Chronic Asthma (20 sources) Moderate persistent asthma controlled; Translations: [Moderate persistent asthma, uncomplicated] Onset: 4 08-14-2016 Chronic Chronic kidney disease (20 sources) Chronic kidney disease stage 3; Translations: [CKD (chronic kidney disease) stage 3, GFR 30-59 ml/min] Onset: 7 2017 Chronic Diverticulosis and diverticulitis (2 sources) Diverticular disease; Translations: [Diverticulosis of intestine, part unspecified, without perforation or abscess without bleeding] Onset: 3 Chronic Esophageal disorders (20 sources) Gastroesophageal reflux disease; Translations: [Gastro-esophageal reflux disease without esophagitis] Onset: 2 03-13-2021 Chronic Essential hypertension (20 sources) Essential hypertension; Translations: [Essential (primary) hypertension] Onset: 4 10-24-2017 Chronic Genitourinary symptoms and ill-defined conditions (20 sources) Mixed urinary incontinence; Translations: [Mixed incontinence] Onset: 1 11-09-2020 Chronic Gout and other crystal arthropathies (2 sources) Calcium pyrophosphate deposition disease; Translations: [Other chondrocalcinosis, unspecified site] Chronic Headache; including migraine (1 source) Headache; Translations: [Headache, unspecified headache type] Episodic Immunizations and screening for infectious disease (2 sources) Contact with or exposure to other viral diseases; Translations: [Exposure to COVID-19 virus] Episodic Mood disorders (20 sources) Depressive disorder; Translations: [Depression] 08-14-2016 Chronic Mycoses (5 sources) Onychomycosis; Translations: [Tinea unguium] Episodic Nutritional deficiencies (20 sources) Vitamin D deficiency; Translations: [Vitamin D deficiency, unspecified] Onset: 4 08-14-2016 Chronic Osteoarthritis (20 sources) Osteoarthritis; Translations: [Unspecified osteoarthritis, unspecified site] Onset: 0 08-14-2016 Chronic Osteoporosis (20 sources) Osteoporosis; Translations: [Age-related osteoporosis without current pathological fracture] 02-06-2019 Chronic Other aftercare (1 source) Drug therapy finding; Translations: [jail (current) use of anticoagulants] Episodic Other and unspecified benign neoplasm (1 source) History of polyp of colon; Translations: [Personal history of colonic polyps] Episodic Other and unspecified benign neoplasm (1 source) Tubular adenoma ; Translations: [Benign neoplasm, unspecified site] Episodic Other connective tissue disease (5 sources) Pain of toe of right foot; Translations: [Pain in right toe(s)] Episodic Other connective tissue disease (5 sources) Pain of toe of left foot; Translations: [Pain in left toe(s)] Episodic Other connective tissue disease (1 source) History of osteoporosis; Translations: [Personal history of other diseases of the musculoskeletal system and connective tissue] Episodic Other connective tissue disease (1 source) Weakness of face muscles; Translations: [Facial weakness] Episodic Other diseases of kidney and ureters (1 source) Acquired complex renal cyst; Translations: [Cyst of kidney, acquired] Episodic Other gastrointestinal disorders (1 source) Occult blood in stools; Translations: [Other fecal abnormalities] Episodic Other infections; including parasitic (3 sources) Personal history of other infectious and parasitic diseases; Translations: [History of COVID-19] Episodic Other lower respiratory disease (1 source) Cough; Translations: [Other cough] Episodic Other lower respiratory disease (1 source) Dyspnea; Translations: [Dyspnea, unspecified] Episodic Other nervous system disorders (20 sources) Neuropathy; Translations: [Polyneuropathy, unspecified] Onset: 4 08-14-2016 Chronic Other non-traumatic joint disorders (1 source) Joint pain; Translations: [Pain in unspecified joint] Episodic Other non-traumatic joint disorders (1 source) Multiple joint pain; Translations: [Pain in unspecified joint] Episodic Other non-traumatic joint disorders (2 sources) Bilateral wrist pain; Translations: [Pain in right wrist] Episodic Other non-traumatic joint disorders (2 sources) Finger joint painful on movement; Translations: [Pain in joints of unspecified hand] Episodic Other non-traumatic joint disorders (1 source) Swelling of joint of right wrist; Translations: [Effusion, right wrist] Episodic Other screening for suspected conditions (not mental disorders or infectious disease) (1 source) Thyroid function tests abnormal; Translations: [Abnormal results of thyroid function studies] Episodic Other upper respiratory disease (1 source) Nasal discharge; Translations: [Other specified disorders of nose and nasal sinuses] Episodic Parkinson`s disease (20 sources) Parkinson's disease; Translations: [Parkinson's disease] Onset: 7 11-09-2020 Chronic Peripheral and visceral atherosclerosis (20 sources) Peripheral vascular disease, unspecified; Translations: [Peripheral vascular disease, unspecified] Onset: 0 10-20-2019 Chronic Pulmonary heart disease (20 sources) Pulmonary hypertension; Translations: [Pulmonary hypertension, unspecified] Onset: 9 04-25-2018 Chronic Residual codes; unclassified (4 sources) Bilateral lower limb edema; Translations: [Localized edema] Onset: 3 01-15-2023 Episodic Screening and history of mental health and substance abuse codes (2 sources) Tobacco use and exposure - finding; Translations: [Personal history of nicotine dependence] Episodic Past or Other Problems Problem Classification Problem Date Documented Da te Episodic/Chronic Gastrointestinal hemorrhage (3 sources) Feces color: tarry; Translations: [Melena] Onset: 05-17-2022 Episodic Other and unspecified benign neoplasm (20 sources) Benign neoplasm of colon; Translations: [Benign neoplasm of colon, unspecified] Onset: 06-07-2006 08-14-2016 Episodic Other and unspecified benign neoplasm (1 source) Benign neoplasm, unspecified site; Translations: [Tubular adenoma] Onset: 07-24-2022 Episodic Other and unspecified benign neoplasm (1 source) Benign neoplasm of colon, unspecified; Translations: [Benign neoplasm of colon, unspecified part of colon] Onset: 08-14-2016 Episodic Other connective tissue disease (20 sources) Muscle weakness; Translations: [Muscle weakness (generalized)] Onset: 11-24-2018 11-24-2018 Episodic Other gastrointestinal disorders (20 sources) Constipation; Translations: [Constipation, unspecified] Onset: 06-07-2006 01-14-2017 Episodic Other gastrointestinal disorders (2 sources) Other fecal abnormalities; Translations: [Dark stools] Onset: 06-11-2022 Episodic Other lower respiratory disease (1 source) Dyspnea, unspecified; Translations: [Dyspnea and respiratory abnormalities] Onset: 09-06-2022 Episodic Other lower respiratory disease (1 source) Other abnormalities of breathing; Translations: [Dyspnea and respiratory abnormalities] Onset: 09-06-2022 Episodic Other nervous system disorders (20 sources) Abnormal gait; Translations: [Unsteadiness on feet] Onset: 01-26-2016 08-14-2016 Episodic Pulmonary heart disease (20 sources) H/O: pulmonary embolus; Translations: [Personal history of pulmonary embolism] Onset: 02-03-2017 08-06-2018 Episodic Residual codes; unclassified (20 sources) Insomnia; Translations: [Insomnia, unspecified] Onset: 05-28-2006 01-14-2017 Episodic Varicose veins of lower extremity (20 sources) Varicose veins of lower extremity; Translations: [Asymptomatic varicose veins of unspecified lower extremity] Onset: 06-02-2013 08-14-2016 Episodic Results Test Name Value Interpretation Reference Range Facil ity Vital Signs Date Time Vital Sign Value Performing Clinician Faci liteamon 01-03-2023 09:11-0400 Diastolic blood pressure 70 mm[Hg] Tierney Iglesias PA-C Work Phone: [facility] 01-03-2023 09:11-0400 Heart rate 81 /min Tierney Iglesias PA-C Work Phone: [facility] 01-03-2023 09:11-0400 Respiratory rate 17 /min Tierney Iglesias PA-C Work Phone: [facility] 01-03-2023 09:11-0400 SaO2% (BldA) [Mass fraction] 96 % Tierney Sofiya PA-C Work Phone: [facility] 01-03-2023 09:11-0400 Systolic blood pressure 120 mm[Hg] Tierney Sofiya PA-C Work Phone: [facility] 09-03-2022 12:58-0400 Body weight 69.4 kg Tierney Sofiya PA-C Work Phone: [facility] 07-24-2022 13:56-0400 Body height 167.6 cm Aneta Guymon PA-C Work Phone: [facility] 07-24-2022 13:56-0400 Body temperature 97.81 [degF] Aneta Nikki PA-C Work Phone: [facility] 07-24-2022 13:56-0400 Body weight 68.49 kg Aneta Guymon PA-C Work Phone: [facility] 07-24-2022 13:56-0400 Diastolic blood pressure 88 mm[Hg] Aneta Guymon PA-C Work Phone: [facility] 07-24-2022 13:56-0400 Heart rate 82 /min Aneta Nikki PA-C Work Phone: [facility] 07-24-2022 13:56-0400 SaO2% (BldA) [Mass fraction] 94 % Aneta Nikki PA-C Work Phone: [facility] 07-24-2022 13:56-0400 Systolic blood pressure 130 mm[Hg] Aneta Nikki PA-C Work Phone: [facility] 07-15-2022 10:51-0400 Body temperature 97.59 [degF] Sherin Bentley APRN.STEELSCOPE OPERATOR Work Phone: [facility] 07-15-2022 10:51-0400 Body weight 70.94 kg Sherin Bentley APRN.STEELSCOPE OPERATOR Work Phone: [facility] 07-15-2022 10:51-0400 Diastolic blood pressure 76 mm[Hg] Sherin Sheree SERVICE DELIVERY ANALYST.STEELSCOPE OPERATOR Work Phone: [facility] 07-15-2022 10:51-0400 Heart rate 77 /min Sherin Bentley SERVICE DELIVERY ANALYST.STEELSCOPE OPERATOR Work Phone: [facility] 07-15-2022 10:51-0400 Respiratory rate 18 /min Sherin Bentley SERVICE DELIVERY ANALYST.STEELSCOPE OPERATOR Work Phone: [facility] 07-15-2022 10:51-0400 SaO2% (BldA) [Mass fraction] 98 % Sherin Bentley SERVICE DELIVERY ANALYST.STEELSCOPE OPERATOR Work Phone: [facility] 07-15-2022 10:51-0400 Systolic blood pressure 128 mm[Hg] Sherin Bentley SERVICE DELIVERY ANALYST.STEELSCOPE OPERATOR Work Phone: [facility] 06-25-2022 11:01-0400 Body height 168.9 cm Rosita Older SERVICE DELIVERY ANALYST.STEELSCOPE OPERATOR Work Phone: [facility] 06-25-2022 11:01-0400 Body weight 68.95 kg Rosita Older SERVICE DELIVERY ANALYST.STEELSCOPE OPERATOR Work Phone: [facility] 06-25-2022 11:01-0400 Diastolic blood pressure 76 mm[Hg] Rosita Older SERVICE DELIVERY ANALYST.STEELSCOPE OPERATOR Work Phone: [facility] 06-25-2022 11:01-0400 Heart rate 69 /min Rosita Older SERVICE DELIVERY ANALYST.STEELSCOPE OPERATOR Work Phone: [facility] 06-25-2022 11:01-0400 Respiratory rate 16 /min Rosita Older SERVICE DELIVERY ANALYST.STEELSCOPE OPERATOR Work Phone: [facility] 06-25-2022 11:01-0400 Systolic blood pressure 128 mm[Hg] Rosita Older SERVICE DELIVERY ANALYST.STEELSCOPE OPERATOR Work Phone: [facility] 06-18-2022 15:53-0400 Body temperature 98.4 [degF] Danilo Guido Jr., MD Work Phone: [facility] 06-18-2022 15:53-0400 Body weight 68.22 kg Danilo Guido Jr., MD Work Phone: [facility] 06-18-2022 15:53-0400 Diastolic blood pressure 79 mm[Hg] Danilo Guido Jr., MD Work Phone: [facility] 06-18-2022 15:53-0400 Heart rate 83 /min Danilo Guido Jr., MD Work Phone: [facility] 06-18-2022 15:53-0400 Respiratory rate 16 /min Danilo Guido Jr., MD Work Phone: [facility] 06-18-2022 15:53-0400 SaO2% (BldA) [Mass fraction] 95 % Danilo Guido Jr., MD Work Phone: [facility] 06-18-2022 15:53-0400 Systolic blood pressure 151 mm[Hg] Danilo Guido Jr., MD Work Phone: [facility] 06-11-2022 09:24-0400 Body height 172.7 cm Aneta Guymon PA-C Work Phone: [facility] 06-11-2022 09:24-0400 Body temperature 96.8 [degF] Aneta Nikki PA-C Work Phone: [facility] 06-11-2022 09:24-0400 Body weight 68.95 kg Aneta Guymon PA-C Work Phone: [facility] 06-11-2022 09:24-0400 Diastolic blood pressure 72 mm[Hg] Aneta Nikki PA-C Work Phone: [facility] 06-11-2022 09:24-0400 Heart rate 82 /min Aneta Guymon PA-C Work Phone: [facility] 06-11-2022 09:24-0400 SaO2% (BldA) [Mass fraction] 97 % Aneta Guymon PA-C Work Phone: [facility] 06-11-2022 09:24-0400 Systolic blood pressure 110 mm[Hg] Aneta Nikki PA-C Work Phone: [facility] 03-05-2022 10:14-0500 Body height 171.5 cm Pulm Wstr Work Phone: [facility] 03-05-2022 10:14-0500 Body weight 67.13 kg Pulm Wstr Work Phone: [facility] 03-05-2022 10:14-0500 Diastolic blood pressure 76 mm[Hg] Maggie Goddard MD Work Phone: [facility] 03-05-2022 10:14-0500 Heart rate 72 /min Pulm Wstr Work Phone: [facility] 03-05-2022 10:14-0500 Respiratory rate 12 /min Pulm Wstr Work Phone: [facility] 03-05-2022 10:14-0500 SaO2% (BldA) [Mass fraction] 96 % Pulm Wstr Work Phone: [facility] 03-05-2022 10:14-0500 Systolic blood pressure 140 mm[Hg] Maggie Goddard MD Work Phone: [facility] 12-22-2021 10:19-0400 Body temperature 98.6 [degF] Jenny Cali SERVICE DELIVERY ANALYST.STEELSCOPE OPERATOR Work Phone: [facility] 12-22-2021 10:19-0400 Diastolic blood pressure 70 mm[Hg] Jenny Cali SERVICE DELIVERY ANALYST.STEELSCOPE OPERATOR Work Phone: [facility] 12-22-2021 10:19-0400 Heart rate 76 /min Jenny Cali SERVICE DELIVERY ANALYST.STEELSCOPE OPERATOR Work Phone: [facility] 12-22-2021 10:19-0400 Respiratory rate 18 /min Jenny Cali SERVICE DELIVERY ANALYST.STEELSCOPE OPERATOR Work Phone: [facility] 12-22-2021 10:19-0400 SaO2% (BldA) [Mass fraction] 96 % Jenny Cali SERVICE DELIVERY ANALYST.STEELSCOPE OPERATOR Work Phone: [facility] 12-22-2021 10:19-0400 Systolic blood pressure 124 mm[Hg] Jenny Cali SERVICE DELIVERY ANALYST.STEELSCOPE OPERATOR Work Phone: [facility] 11-27-2021 09:13-0400 Body weight 68.04 kg Tierney Iglesias PA-C Work Phone: [facility] 10-17-2021 12:57-0400 Body height 172.7 cm Rafaela Danis DO Work Phone: [facility] 10-17-2021 12:57-0400 Body temperature 98.2 [degF] Rafaela Danis DO Work Phone: [facility] 10-17-2021 12:57-0400 Body weight 69.4 kg Rafaela Danis DO Work Phone: [facility] 10-17-2021 12:57-0400 Diastolic blood pressure 85 mm[Hg] Rafaela Danis DO Work Phone: [facility] 10-17-2021 12:57-0400 Heart rate 68 /min Rafaela Danis DO Work Phone: [facility] 10-17-2021 12:57-0400 Systolic blood pressure 139 mm[Hg] Rafaela Danis DO Work Phone: [facility] 09-21-2021 11:12-0400 Body temperature 97.11 [degF] Corbin Bai MD Work Phone: [facility] 09-21-2021 11:12-0400 Body weight 70.49 kg Corbin Bai MD Work Phone: [facility] 09-21-2021 11:12-0400 Diastolic blood pressure 70 mm[Hg] Corbin Bai MD Work Phone: [facility] 09-21-2021 11:12-0400 Heart rate 72 /min Corbin Bai MD Work Phone: [facility] 09-21-2021 11:12-0400 Respiratory rate 18 /min Corbin Bai MD Work Phone: [facility] 09-21-2021 11:12-0400 Systolic blood pressure 134 mm[Hg] Corbin Bai MD Work Phone: [facility] 09-13-2021 10:54-0400 Body temperature 97.5 [degF] [facility] SERVICE DELIVERY ANALYST.STEELSCOPE OPERATOR Work Phone: [facility] 09-13-2021 10:54-0400 Body weight 70.31 kg [facility] SERVICE DELIVERY ANALYST.STEELSCOPE OPERATOR Work Phone: [facility] 09-13-2021 10:54-0400 Diastolic blood pressure 78 mm[Hg] [facility] SERVICE DELIVERY ANALYST.STEELSCOPE OPERATOR Work Phone: [facility] 09-13-2021 10:54-0400 Heart rate 76 /min [facility] SERVICE DELIVERY ANALYST.STEELSCOPE OPERATOR Work Phone: [facility] 09-13-2021 10:54-0400 Respiratory rate 16 /min [facility] SERVICE DELIVERY ANALYST.STEELSCOPE OPERATOR Work Phone: [facility] 09-13-2021 10:54-0400 SaO2% (BldA) [Mass fraction] 94 % [facility] SERVICE DELIVERY ANALYST.STEELSCOPE OPERATOR Work Phone: [facility] 09-13-2021 10:54-0400 Systolic blood pressure 132 mm[Hg] [facility] SERVICE DELIVERY ANALYST.STEELSCOPE OPERATOR Work Phone: [facility] Encounters Encounter Date Encounter Type Care Provider Facility Start: 01-30-2023 Telephone encounter Tierney Iglesias PA-C Work Phone: Pulmonary Medicine Procedures Date Procedure Procedure Detail Performing Clinician Start: 12-21-2022 INFLUENZA VACCINE, P RSV FREE, AGE 65+ YR, HIGH DOSE, QUADRIVALENT (FLUZONE HIGH-DOSE) Jessy Skinner MD Work Phone: Start: 07-17-2022 Colonoscopy Danilo dooley Jr., MD Work Phone: Start: 03-28-2022 PFIZER-BIONTDizzion COVI D-19 BIVALENT BOOSTER VACCINE, AGE 12+ YR Corbin Bai MD Work Phone: Start: 03-05-2022 Spmtry w/vc expirato ry sarah w/wo mxml vol vntj Tierney Iglesias PA-C Work Phone: Start: 10-17-2021 Radex hand minimum 3 views Rafaela Moscoso DO Work Phone: Start: 12-23-2018 Colonoscopy Aneta shepherd PA-C Work Phone: Plan of Treatment Date Care Activity Detail Author Start: 07-17-2025 Colonoscopy [address] [facility] Start: 07-17-2025 COLORECTAL CANCER SCREENING COLORECTAL CANCER SCREENING [facility] Start: 05-17-2025 DIABETES SCREEN DIABETES SCREEN [facility] Start: 05-17-2025 Diabetes Screening Diabetes Screening [facility] Start: 05-05-2024 DIABETES SCREEN DIABETES SCREEN [facility] Start: 07-18-2023 Colonoscopy COLONOSCOPY [facility] Start: 07-18-2023 COLORECTAL CANCER SCREENING COLORECTAL CANCER SCREENING [facility] Start: 07-16-2023 End: 10-15-2023 CBC panel - Blood by Automated count CBC Lab Routine Essential hypertension Expected: 07/16/2023, Expires: 10/15/2023 [facility] Work Phone: Immunizations Immunization Date Immunization Notes Care Provider Maged knight 12-21-2022 influenza (HD-IIV4) vaccine, age 65+ yr, high dose, quadrivalent, PF (FLUZONE HIGH-DOSE) Immunization Jose Work Phone: [facility] Work Phone: 03-28-2022 COVID-19 booster vaccine, age 12+ yr, bivalent (PFIZER-BIONTDizzion) Mi Nurse Work Phone: [facility] Work Phone: 01-15-2022 influenza, high-dose , quadrivalent vaccine (FLUZONE HIGH DOSE QUADRIVALENT) Corbin Bai MD Work Phone: [facility] Work Phone: 01-15-2022 influenza virus vaccine, unspecified formulation Corbin Bai MD Work Phone: [facility] 01-05-2021 influenza, high-dose , quadrivalent vaccine (FLUZONE HIGH DOSE QUADRIVALENT) Corbin Bai MD Work Phone: [facility] 05-11-2020 COVID-19 vaccine, ag e 12+ yr (PFIZER-BIONTECH - PURPLE TOP) Corbin Bai MD Work Phone: [facility] Work Phone: 04-10-2020 COVID-19 vaccine, ag e 12+ yr (PFIZER-BIONTECH - PURPLE TOP) Corbin Bai MD Work Phone: [facility] 12-31-2019 zoster vaccine recombinant Corbin Bai MD Work Phone: [facility] 12-25-2019 influenza, high-dose , quadrivalent vaccine (FLUZONE HIGH DOSE QUADRIVALENT) Corbin Bai MD Work Phone: [facility] 11-02-2019 zoster vaccine recombinant Corbin Bai MD Work Phone: [facility] 12-23-2018 influenza, high dose seasonal, preservative-free Corbin Bai MD Work Phone: [facility] 12-14-2017 influenza, high dose seasonal, preservative-free Corbin Bai MD Work Phone: [facility] 12-12-2016 influenza, high dose seasonal, preservative-free Corbin Bai MD Work Phone: [facility] Work Phone: 12-12-2016 influenza, seasonal, injectable, preservative free Corbin Bai MD Work Phone: [facility] Work Phone: 01-19-2016 pneumococcal polysaccharide vaccine, 23 valent Corbin Bai MD Work Phone: [facility] Work Phone: 01-16-2016 influenza, high dose seasonal, preservative-free Corbin Bai MD Work Phone: [facility] 07-06-2015 pneumococcal conjuga te vaccine, 13 valent Corbin Bai MD Work Phone: [facility] 12-16-2014 influenza, high dose seasonal, preservative-free Corbin Bai MD Work Phone: [facility] Work Phone: 01-14-2014 influenza, seasonal, injectable Corbin Bai MD Work Phone: [facility] Work Phone: 01-24-2013 influenza virus vaccine, unspecified formulation Corbin Bai MD Work Phone: [facility] 01-21-2012 influenza virus vaccine, unspecified formulation Corbin Bai MD Work Phone: [facility] Work Phone: 01-06-2011 influenza virus vaccine, unspecified formulation Corbin Bai MD Work Phone: [facility] Work Phone: 05-03-2010 tetanus and diphther ia toxoids, adsorbed, preservative free, for adult use (2 Lf of tetanus toxoid and 2 Lf of diphtheria toxoid) Corbin Bai MD Work Phone: [facility] Work Phone: 12-16-2009 influenza virus vaccine, unspecified formulation Corbin Bai MD Work Phone: [facility] Work Phone: 12-28-2008 influenza virus vaccine, unspecified formulation Corbin Bai MD Work Phone: [facility] Work Phone: 01-29-2008 influenza virus vaccine, unspecified formulation Corbin Bai MD Work Phone: [facility] Work Phone: 01-18-2006 influenza virus vaccine, unspecified formulation Corbin Bai MD Work Phone: [facility] 01-18-2006 pneumococcal polysaccharide vaccine, 23 valent Corbin Bai MD Work Phone: [facility] Payers Date Payer Category Payer Medicare [id number] 2016 Unknown LARISA GORDON DICARE SUPPLEMENT [id number] 2016-Present [phone] [address] [place] [address] Indemnity [id number] 2016 Unknown LARISA GORDON DICARE SUPPLEMENT [id number] 2016-Present [phone] [address] [place] [address] Indemnity [id number] 2004 Medicare MEDICARE MEDICAR E A AND B [id number] 2004-Present [phone] [address] [place] [id number] Medicare [id number] 2004 Medicare MEDICARE MEDICAR E A AND B [id number] 2004-Present [phone] [address] [place] [id number] Medicare [id number] 2004 Medicare [id number] Social History Date Type Detail Facility Start: 06-01-2021 End: 03-05-2022 Tobacco smoking status NHIS Ex-smoker [facility] End: 04-09-2005 History of tobacco use Current smoker [facility] End: 04-09-2005 History of tobacco use Cigarette Smoker [facility] Start: 06-09-2021 End: 01-15-2023 Alcohol intake Current drinker of alcohol (finding) [facility] Start: 06-09-2021 End: 04-02-2022 Alcohol intake [facility] Work Phone: Start: 12-17-2017 History SDOH Alcohol Comment glass of wine daily [facility] Start: 06-01-2021 End: 11-27-2021 Tobacco Comment No hoousehold ETS. [facility] Start: 1940 Sex Assigned At Not on file [facility] Start: 05-30-2021 End: 01-15-2022 Exposure to SARS-CoV-2 (event) Not sure [facility] Start: 08-12-2021 End: 08-22-2021 Exposure to SARS-CoV-2 (event) Unable to assess [facility] Work Phone: Start: 06-01-2021 End: 03-05-2022 Tobacco use and exposure Smokeless tobacco non-user [facility] Work Phone: Start: 01-15-2022 History SDOH Alcohol Frequency [address] [facility] Start: 01-15-2022 History SDOH Alcohol Std Drinks [address] [facility] Start: 01-15-2022 Alcohol Comment 2 glass of wine daily [facility] Start: 01-15-2022 End: 04-02-2022 Alcohol Use Disorder Identification Test - Consumption [AUDIT-C] [facility] Work Phone: How often to you hav e a drink containing alcohol? 4 or more times a week [facility] Work Phone: How many standard dr inks containing alcohol do you have on a typical day? 1 or [address] [facility] Work Phone: How often do you hav e 6 or more drinks on 1 occasion? Never [facility] Work Phone: Adult Depression Scr eening Assessment [address] [facility] Clinical Notes 04-02-2019 to 01-30-2023 Addendum Note - Corbin Bai MD - 01/30/2023 1:06 PM ESTTelephone Encounter - Corbin Bai MD - 01/30/2023 1:05 PM ESTPatient InstructionsTestmistyGabriel - 11/16/2022 9:19 AM EDT Note Date & Type Note Facility 01-30-2023 Miscellaneous Notes Addended by: CORBIN BAI on: 01/30/2023 01:06 PM Modules accepted: Orders Patient's request for medication is as follows Requested Prescriptions Signed Prescriptions Disp Refills furosemide (LASIX) 20 mg tablet 12 tablet 1 Sig: Take 1 tablet by mouth once daily as needed (Take for 3 days as needed.). Authorizing Provider: CORBIN BAI Order entered - please phone pharmacy and notify patient. Corbin Bai MD Would like PCP to address. Routed to [facility]. Martha Allen LPN I did a 3 day script back in August 2022. Patient is on triamterene-HCTZ per PCP. Please have her reach out to PCP if she is needing additional diuretic use. Aleida Patient's called in regards to medication listed below: furosemide (LASIX) 20 mg tablet (Discontinued) Spouse stated medication worked well for patient and only had 3 refills for this medication. Patient would like another prescription sent for this medication to [facility]. Please advise patient and spouse. Rosalie Goddard LPN documented in this encounter [facility] 01-15-2023 Note HNO ID: [id number] Author: Corbin Bai MD Service: ? Author Type: Physician Type: Progress Notes Filed: 01/16/2023 8:45 AM Note Text: Dominique Garza is a 82 year old female here for a Medicare wellness visit. Medicare Health Risk Assessment General Health Fair Exercise: Minutes/Day 30 Exercise: Days/Week 3 Alcohol: Daily Use Yes. Alcohol: Drinks/Day 2 glasses. Alcohol: 6 or more drinks No. Feel off balance Yes. Concerns: Teeth/Dentures No. Concerns: Sexual function No. Troubled by feelings No. Frequency: Eating healthy diet Most days. ADLs requiring help No. Safety precautions in home/vehicle Yes. Smoke, vape, chews tobacco No. Difficulty hearing No. Difficulty seeing No. Current Providers Specialists: I have reviewed specialist-related care of the patient in the medical record. Current care team: Patient Care Team: Corbin Bai MD as PCP - General (Internal Medicine) Dr. Danilo Guido, Neurology. Leon Tidwell, optometry. Dr. Baljeet Brady, retinal specialist. [facility] pulmonary, Dr. Lauren Goddard. Dr. Jules, DPM. Medical/Family history review Reviewed and updated problem list, medical/surgical/family/social history, medications, and allergies. Opioid use review Opioid Medications (last 90 days) Some values may be hidden. Unless noted otherwise, only the newest values recorded on each date are displayed. Opioid Medications No data to display. Depression screening Depression Screening PHQ-2 Score ASHLEY-2 Total Score 07/23/2017 0 - Depression screening tool completed and reviewed. Based on score and interview, patient is already diagnosed with depression. Screening tool discussed with patient, and I recommended no further intervention at this time. Time spent in depression screening and assessment: < 5 minutes. Cognitive screening The Mini Cog(c): Word recall=1/3 + Clock drawing=1/2=2/5. (<3 is positive). Functional Observation Was the patient's timed Up AND Go test unsteady or ? 12 seconds? No Advance Care Planning Patient did not wish or was not able to name a surrogate decision maker or provide an advance care plan Measurements BP (P) 130/78 (BP Site: Left Arm, BP Position: Sitting, BP Cuff Size: Large Adult) Pulse (P) 72 Resp (P) 16 Wt (P) 66.2 kg (146 lb) BMI (P) 23.57 kg/m? Additional screenings: No results found. Assessment/Plan Medicare annual wellness visit, subsequent (Z00.00) - Counseled on healthy diet and regular exercise - Fall avoidance information provided - Personalized prevention plan provided [facility] 01-15-2023 Note HNO ID: [id number] Author: Corbin Bai MD Service: ? Author Type: Physician Type: Progress Notes Filed: 01/16/2023 8:45 AM Note Text: This note was created using [employer]. Subjective Dominique Garza is a 82 year old female here with Barber. She was doing reasonably well. Mood was controlled. Asthma, hypertension, Parkinson's were stable. Review of Systems Constitutional: Negative for chills, fever and unexpected weight change. HENT: Negative for congestion. Respiratory: Negative for cough and shortness of breath. Cardiovascular: Negative for chest pain, palpitations and leg swelling. Neurological: Negative for dizziness and headaches. ACTIVE PROBLEM LIST Osteoporosis Depression Esophageal reflux with hoarseness. 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 Parkinson Disease Pulmonary Hypertension ([facility]) Muscle Weakness Pad (Peripheral Artery Disease) ([facility]) Severe Malnutrition ([facility]) Current Outpatient Medications Medication Sig apixaban (ELIQUIS) 5 mg tab(s) Take 1 tablet by mouth two times a day. fluticasone (FLOVENT HFA) 220 mcg/actuation inhaler Inhale 1 Puff as instructed two times a day. LORazepam (ATIVAN) 0.5 mg Take 1 tablet by mouth twice daily as needed (anxiety) for up to 90 days. alendronate (FOSAMAX) 70 mg tablet Take 1 tablet by mouth one time a week. Take with a full glass of water, on an empty stomach; do NOT lie down for 30minutes. busPIRone (BUSPAR) 5 mg tablet Take 1 tablet by mouth twice daily. montelukast (SINGULAIR) 10 mg tablet Take 1 tablet by mouth daily at bedtime. escitalopram oxalate (LEXAPRO) 20 mg tablet Take 1 tablet by mouth once daily. gentamicin (GENTAK) 0.3 % ophthalmic solution verapamil SR (CALAN SR) 120 mg CR tablet Take 1 tablet by mouth daily at bedtime. donepezil (ARICEPT) 10 mg tablet Take 10 mg by mouth once daily. carbidopa-levodopa (SINEMET 25-100) 25-100 mg per tablet Take 2 tablets by mouth three times daily. (breakfast or waking; lunch or noon; and dinner or about 5PM). mirtazapine (REMERON) 30 mg tablet Take 1 tablet by mouth daily at bedtime. For appetite and sleep. lansoprazole (PREVACID) 30 mg capsule Take 1 capsule by mouth once daily. For acid indigestion. fluticasone (FLONASE) 50 mcg/actuation nasal spray Use 1 [place] in each nostril once daily. mirabegron (MYRBETRIQ) 50 mg Tb24 Take 1 tablet by mouth once daily as needed. triamterene-hydroCHLOROthiazide (MAXZIDE-25MG) 37.5-25 mg per tablet Take 1 tablet by mouth once daily. aspirin, enteric coated (ASPIRIN, ENTERIC COATED) 81 mg EC tablet Take 81 mg by mouth once daily. albuterol HFA (PROVENTIL HFA, VENTOLIN HFA) 90 mcg/actuation inhaler Inhale 2 Puffs as instructed four times daily as needed. FOR WHEEZING AND SHORTNESS OF BREATH. Biotin 400 mcg ORAL Tab Take 1 tablet by mouth once daily. MIRALAX 100 % ORAL POWDER 1 capful in 8 oz fluid daily senna-docusate (SENNA-S) 8.6-50 mg per tablet Take 2 tablets by mouth twice daily. Constipation. Current Facility-Administered Medications Medication Dose Route Frequency perflutren lipid microspheres 1.3 mL in NaCl (PF) 0.9% 10 mL injection (DEFINITY) INTRAVENOUS DIRECTED PRN sodium chloride 0.9 % (flush) 10 mL (BD POSIFLUSH) 10 mL INTRAVENOUS DIRECTED PRN Objective BP (P) 130/78 (BP Site: Left Arm, BP Position: Sitting, BP Cuff Size: Large Adult) Pulse (P) 72 Resp (P) 16 Wt (P) 66.2 kg (146 lb) BMI (P) 23.57 kg/m? Physical Exam Constitutional: General: She is not in acute distress. HENT: Head: Normocephalic. Cardiovascular: Rate and Rhythm: Normal rate and regular rhythm. Heart sounds: No murmur heard. No gallop. Pulmonary: Effort: Pulmonary effort is normal. Breath sounds: Normal breath sounds. Musculoskeletal: Right lower leg: No edema. Left lower leg: No edema. Neurological: General: No focal deficit present. Mental Status: She is alert. Mental status is at baseline. Comments: Ambulatory with cane. Psychiatric: Mood and Affect: Mood normal. Assessment and Plan 1. Medicare annual wellness visit, subsequent - ICD9: V70.0, ICD10: Z00.00 (primary diagnosis) See wellness note. 2. Asthma, moderate persistent, well-controlled - ICD9: 493.90, ICD10: J45.40 - Mild intermittent asthma stable - Continue current medications - FLUTICASONE PROPIONATE 50 MCG/ACTUATION NASAL SPRAY,SUSPENSION 3. Mixed stress and urge urinary incontinence - ICD9: 788.33, ICD10: N39.46 - Controlled. - MIRABEGRON ER 50 MG TABLET,EXTENDED RELEASE 24 HR 4. Edema of both legs - I (more content not included)... [facility] 01-15-2023 Instructions Corbin Bai MD - 01/15/2023 11:24 AM EDT Have you ever planned for future healthcare decisions with a power of sample clerk, living will, or advance directives? Yes. Have you shared those records with your doctor? No and No. Please bring a copy to your next appointment or email to Get RSV vaccine from pharmacy. documented in this encounter [facility] 01-15-2023 History of Presen t illness Narrative Dominique Garza is a 82 year old female here for a Medicare wellness visit. Medicare Health Risk Assessment General Health Fair Exercise: Minutes/Day 30 Exercise: Days/Week 3 Alcohol: Daily Use Yes. Alcohol: Drinks/Day 2 glasses. Alcohol: 6 or more drinks No. Feel off balance Yes. Concerns: Teeth/Dentures No. Concerns: Sexual function No. Troubled by feelings No. Frequency: Eating healthy diet Most days. ADLs requiring help No. Safety precautions in home/vehicle Yes. Smoke, vape, chews tobacco No. Difficulty hearing No. Difficulty seeing No. Current Providers Specialists: I have reviewed specialist-related care of the patient in the medical record. Current care team: Patient Care Team: Corbin Bai MD as PCP - General (Internal Medicine) Dr. Danilo Guido Neurology. Leon Tidwell, optometry. Dr. Baljeet Brady, retinal specialist. [facility] pulmonary, Dr. Lauren Goddard. Dr. Jules, DPM. Medical/Family history review Reviewed and updated problem list, medical/surgical/family/social history, medications, and allergies. Opioid use review Opioid Medications (last 90 days) Some values may be hidden. Unless noted otherwise, only the newest values recorded on each date are displayed. Opioid Medications No data to display. Depression screening Depression Screening PHQ-2 Score ASHLEY-2 Total Score 07/23/2017 0 - Depression screening tool completed and reviewed. Based on score and interview, patient is already diagnosed with depression. Screening tool discussed with patient, and I recommended no further intervention at this time. Time spent in depression screening and assessment: < 5 minutes. Cognitive screening The Mini Cog(c): Word recall=1/3 + Clock drawing=1/2=2/5. (<3 is positive). Functional Observation Was the patient's timed Up & Go test unsteady or ? 12 seconds? No Advance Care Planning Patient did not wish or was not able to name a surrogate decision maker or provide an advance care plan Measurements BP (P) 130/78 (BP Site: Left Arm, BP Position: Sitting, BP Cuff Size: Large Adult) Pulse (P) 72 Resp (P) 16 Wt (P) 66.2 kg (146 lb) BMI (P) 23.57 kg/m Additional screenings: No results found. Assessment/Plan Medicare annual wellness visit, subsequent (Z00.00) - Counseled on healthy diet and regular exercise - Fall avoidance information provided - Personalized prevention plan provided This note was created using [employer]. Subjective Dominique Garza is a 82 year old female here with Barber. She was doing reasonably well. Mood was controlled. Asthma, hypertension, Parkinson's were stable. Review of Systems Constitutional: Negative for chills, fever and unexpected weight change. HENT: Negative for congestion. Respiratory: Negative for cough and shortness of breath. Cardiovascular: Negative for chest pain, palpitations and leg swelling. Neurological: Negative for dizziness and headaches. ACTIVE PROBLEM LIST Osteoporosis Depression Esophageal reflux with hoarseness. 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 Parkinson Disease Pulmonary Hypertension ([facility]) Muscle Weakness Pad (Peripheral Artery Disease) ([facility]) Severe Malnutrition ([facility]) Current Outpatient Medications Medication Sig apixaban (ELIQUIS) 5 mg tab(s) Take 1 tablet by mouth two times a day. fluticasone (FLOVENT HFA) 220 mcg/actuation inhaler Inhale 1 Puff as instructed two times a day. LORazepam (ATIVAN) 0.5 mg Take 1 tablet by mouth twice daily as needed (anxiety) for up to 90 days. alendronate (FOSAMAX) 70 mg tablet Take 1 tablet by mouth one time a week. Take with a full glass of water, on an empty stomach; do NOT lie down for 30minutes. busPIRone (BUSPAR) 5 mg tablet Take 1 tablet by mouth twice daily. montelukast (SINGULAIR) 10 mg tablet Take 1 tablet by mouth daily at bedtime. escitalopram oxalate (LEXAPRO) 20 mg tablet Take 1 tablet by mouth once daily. gentamicin (GENTAK) 0.3 % ophthalmic solution verapamil SR (CALAN SR) 120 mg CR tablet Take 1 tablet by mouth daily at bedtime. donepezil (ARICEPT) 10 mg tablet Take 10 mg by mouth once daily. carbidopa-levodopa (SINEMET 25-100) 25-100 mg per tablet Take 2 tablets by mouth three times daily. (breakfast or waking; lunch or noon; and dinner or about 5PM). mirtazapine (REMERON) 30 mg tablet Take 1 tablet by mouth daily at bedtime. For appetite and sleep. lansoprazole (PREVACID) 30 mg capsule Take 1 capsule by mouth once daily. For acid indigestion. fluticasone (FLONASE) 50 mcg/actuation nasal spray Use 1 [place] in each nostril once daily. mirabegron (MYRBETRIQ) 50 mg Tb24 Take 1 tablet by mouth once daily as needed. triamterene-hydroCHLOROthiazide (MAXZIDE-25MG) 37.5-25 mg per tablet Take 1 tablet by mouth once daily. aspirin, enteric coated (ASPIRIN, ENTERIC COATED) 81 mg EC tablet Take 81 mg by mouth once daily. albuterol HFA (PROVENTIL HFA, VENTOLIN HFA) 90 mcg/actuation inhaler Inhale 2 Puffs as instructed four times daily as needed. FOR WHEEZING AND SHORTNESS OF BREATH. Biotin 400 mcg ORAL Tab Take 1 tablet by mouth once daily. MIRALAX 100 % ORAL POWDER 1 capful in 8 oz fluid daily senna-docusate (SENNA-S) 8.6-50 mg per tablet Take 2 tablets by mouth twice daily. Constipation. Current Facility-Administered Medications Medication Dose Route Frequency perflutren lipid microspheres 1.3 mL in NaCl (PF) 0.9% 10 mL injection (DEFINITY) INTRAVENOUS DIRECTED PRN sodium chloride 0.9 % (flush) 10 mL (BD POSIFLUSH) 10 mL INTRAVENOUS DIRECTED PRN Objective BP (P) 130/78 (BP Site: Left Arm, BP Position: Sitting, BP Cuff Size: Large Adult) Pulse (P) 72 Resp (P) 16 Wt (P) 66.2 kg (146 lb) BMI (P) 23.57 kg/m Physical Exam Constitutional: General: She is not in acute distress. HENT: Head: Normocephalic. Cardiovascular: Rate and Rhythm: Normal rate and regular rhythm. Heart sounds: No murmur heard. No gallop. Pulmonary: Effort: Pulmonary effort is normal. Breath sounds: Normal breath sounds. Musculoskeletal: Right lower leg: No edema. Left lower leg: No edema. Neurological: General: No focal deficit present. Mental Status: She is alert. Mental status is at baseline. Comments: Ambulatory with cane. Psychiatric: Mood and Affect: Mood normal. Assessment and Plan 1. Medicare annual wellness visit, subsequent - ICD9: V70.0, ICD10: Z00.00 (primary diagnosis) See wellness note. 2. Asthma, moderate persistent, well-controlled - ICD9: 493.90, ICD10: J45.40 - Mild intermittent asthma stable - Continue current medications - FLUTICASONE PROPIONATE 50 MCG/ACTUATION NASAL SPRAY,SUSPENSION 3. Mixed stress and urge urinary incontinence - ICD9: 788.33, ICD10: N39.46 - Controlled. - MIRABEGRON ER 50 MG TABLET,EXTENDED RELEASE 24 HR 4. Edema of both legs - ICD9: 782.3, ICD10: R60.0 - Controlled. - TRIAMTERENE 37.5 MG-HYDROCHLOROTHIAZIDE 25 MG TABLET 5. Essential hypertension - ICD9: 401.9, ICD10: I10 - Controlled - Continue current medications - TRIAMTERENE 37.5 MG-HYDROCHLOROTHIAZIDE 25 MG TABLET - CBC - COMP METABOLIC PANEL 6. Depression, unspecified depression type - ICD9: 311, ICD10: F32.A - Controlled. - Continue medications. Corbin Bai MD documented in this encounter [facility] 01-08-2023 Miscellaneous Notes Patient has been identified by name and date of : Yes Requested Prescriptions Pending Prescriptions Disp Refills apixaban (ELIQUIS) 5 mg tab(s) 60 tablet 5 Sig: Take 1 tablet by mouth two times a day. RX INSTRUCTIONS: Patient aware RX will be sent to pharmacy. No need to notify patient. Melinda Ramsey documented in this encounter [facility] 01-03-2023 Note HNO ID: [id number] Author: Tierney Iglesias PA-C Service: ? Author Type: Physician Clinical Services Assistant Type: Progress Notes Filed: 01/03/2023 9:49 AM Note Text: Patient: Dominique Garza PCP: Corbin Bai MD CC: follow up HPI: Dominique Garza 82 year old female former 30 pack year smoker, quitting in 2005 with PMH significant for anxiety, CKD, GERD, HTN, CVA, PE, Parkinson's disease, osteoporosis, and asthma. Current therapy consists of Flovent, Singulair and as needed albuterol. Today, patient and spouse report that patient has been using Flovent as needed. Daily cough, non-productive. State she uses a lot of cough drops . No hemoptysis. No wheezing. Exertional dyspnea seems a little worse than 6 months ago. She continues to walk at [employer]. She does become SOB during her walk. Some lower extremity edema at the end of the day. PAST MEDICAL HISTORY Diagnosis Date Acute, but ill-defined, cerebrovascular disease 08/06/2005 TIA; Anemia, unspecified 04/2019 Anxiety state 05/28/2006 ANXIETY STATE NOS 05/28/2006 Arrhythmia Asthma, moderate persistent, well-controlled 12/04/2013 Benign neoplasm of colon CKD (chronic kidney disease) stage 3, GFR 30-59 ml/min ([facility]) 08/14/2016 Closed fracture of right foot 08/05/2015 Closed nondisplaced fracture of pelvis ([facility]) 01/14/2017 Depressive disorder, not elsewhere classified Esophageal reflux with hoarseness. 11/10/2011 Laryngoscopy by ENT 2011. 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 Allen Suárez, rheumatology. 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 End 2021. Parkinson disease ([facility]) 03/01/2017 Patient diagnosed during hospital admission 03/10/17. Started on Sinemet. Will be managed by Dr. Perez with [facility] neurology. 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 Sulfabenzamide Intolerance Comment:Pt does not remember why she's been told to put on allergy list LORazepam (ATIVAN) 0.5 mgTake 1 tablet by mouth twice daily as needed (anxiety) for up to 90 days.Disp: 60 tabletRfl: 2 alendronate (FOSAMAX) 70 mg tabletTake 1 tablet by mouth one time a week. Take with a full glass of water, on an empty stomach; do NOT lie down for 30minutes.Disp: 12 tabletRfl: 3 busPIRone (BUSPAR) 5 mg tabletTake 1 tablet by mouth twice daily.Disp: 180 tabletRfl: 1 montelukast (SINGULAIR) 10 mg tabletTake 1 tablet by mouth daily at bedtime.Disp: 30 tabletRfl: 11 escitalopram oxalate (LEXAPRO) 20 mg tabletTake 1 tablet by mouth once daily.Disp: 90 tabletRfl: 3 gentamicin (GENTAK) 0.3 % ophthalmic solutionDisp: Rfl: furosemide (LASIX) 20 mg tabletTake 1 tablet by mouth once daily.Disp: 3 tabletRfl: 0 verapamil SR (CALAN SR) 120 mg CR tabletTake 1 tablet by mouth daily at bedtime.Disp: 90 tabletRfl: 3 apixaban (ELIQUIS) 5 mg tab(s)Take 1 tablet by mouth twice daily.Disp: 60 tabletRfl: 5 donepezil (ARICEPT) 10 mg tabletTake 10 mg by mouth once daily.Disp: Rfl: carbidopa-levodopa (SINEMET 25-100) 25-100 mg per tabletTake 2 tablets by mouth three times daily. (breakfast or waking; lunch or noon; and dinner or about 5PM).Disp: 540 tabletRfl: 3 mirtazapine (REMERON) 30 mg tabletTake 1 tablet by mouth daily at bedtime. For appetite and sleep.Disp: 90 tabletRfl: 3 lansoprazole (PREVACID) 30 mg capsuleTake 1 capsule by mouth once daily. For acid indigestion.Disp: 30 capsuleRfl: 11 fluticasone (FLONASE) 50 mcg/actuation nasal sprayUse 1 [place] in each nostril once daily.Disp: 1 EachRfl: 5 mirabegron (MYRBETRIQ) 50 mg [id number] 1 tablet by mouth once daily as needed.Disp: 90 tabletRfl: 1 triamterene-hydroCHLOROthiazide (MAXZIDE-25MG) 37.5-25 mg per tabletTake 1 tablet by mouth once daily.Disp: 90 tabletRfl: 1 fluticasone (FLOVENT HFA) 220 mcg/actuation inhalerInhale 1 Puff as instructed twice daily.Disp: 1 EachRfl: 5 (Patient taking differently: Inhale 1 Puff as instructed twice daily. Using as needed/flare ups) aspirin, enteric coated (ASPIRIN, ENTERIC COATED) 81 mg EC tabletTake 81 mg by mouth once daily.Disp: Rfl: senna-docusate (SENNA-S) 8.6-50 mg per tabletTake 2 tablet (more content not included)... [facility] 01-03-2023 History of Presen t illness Narrative Images from the original note were not included. Patient: Dominique Garza PCP: Corbin Bai MD CC: follow up HPI: Dominique Garza 82 year old female former 30 pack year smoker, quitting in 2005 with PMH significant for anxiety, CKD, GERD, HTN, CVA, PE, Parkinson's disease, osteoporosis, and asthma. Current therapy consists of Flovent, Singulair and as needed albuterol. Today, patient and spouse report that patient has been using Flovent as needed. Daily cough, non-productive. State she uses a lot of cough drops . No hemoptysis. No wheezing. Exertional dyspnea seems a little worse than 6 months ago. She continues to walk at [employer]. She does become SOB during her walk. Some lower extremity edema at the end of the day. PAST MEDICAL HISTORY Diagnosis Date Acute, but ill-defined, cerebrovascular disease 08/06/2005 TIA; Anemia, unspecified 04/2019 Anxiety state 05/28/2006 ANXIETY STATE NOS 05/28/2006 Arrhythmia Asthma, moderate persistent, well-controlled 12/04/2013 Benign neoplasm of colon CKD (chronic kidney disease) stage 3, GFR 30-59 ml/min ([facility]) 08/14/2016 Closed fracture of right foot 08/05/2015 Closed nondisplaced fracture of pelvis ([facility]) 01/14/2017 Depressive disorder, not elsewhere classified Esophageal reflux with hoarseness. 11/10/2011 Laryngoscopy by ENT 2011. 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 Allen Suárez, rheumatology. 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 End 2021. Parkinson disease ([facility]) 03/01/2017 Patient diagnosed during hospital admission 03/10/17. Started on Sinemet. Will be managed by Dr. Perez with [facility] neurology. 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 Sulfabenzamide Intolerance Comment:Pt does not remember why she's been told to put on allergy list LORazepam (ATIVAN) 0.5 mg^Take 1 tablet by mouth twice daily as needed (anxiety) for up to 90 days.^Disp: 60 tablet^Rfl: 2 alendronate (FOSAMAX) 70 mg tablet^Take 1 tablet by mouth one time a week. Take with a full glass of water, on an empty stomach; do NOT lie down for 30minutes.^Disp: 12 tablet^Rfl: 3 busPIRone (BUSPAR) 5 mg tablet^Take 1 tablet by mouth twice daily.^Disp: 180 tablet^Rfl: 1 montelukast (SINGULAIR) 10 mg tablet^Take 1 tablet by mouth daily at bedtime.^Disp: 30 tablet^Rfl: 11 escitalopram oxalate (LEXAPRO) 20 mg tablet^Take 1 tablet by mouth once daily.^Disp: 90 tablet^Rfl: 3 gentamicin (GENTAK) 0.3 % ophthalmic solution^^Disp: ^Rfl: furosemide (LASIX) 20 mg tablet^Take 1 tablet by mouth once daily.^Disp: 3 tablet^Rfl: 0 verapamil SR (CALAN SR) 120 mg CR tablet^Take 1 tablet by mouth daily at bedtime.^Disp: 90 tablet^Rfl: 3 apixaban (ELIQUIS) 5 mg tab(s)^Take 1 tablet by mouth twice daily.^Disp: 60 tablet^Rfl: 5 donepezil (ARICEPT) 10 mg tablet^Take 10 mg by mouth once daily.^Disp: ^Rfl: carbidopa-levodopa (SINEMET 25-100) 25-100 mg per tablet^Take 2 tablets by mouth three times daily. (breakfast or waking; lunch or noon; and dinner or about 5PM).^Disp: 540 tablet^Rfl: 3 mirtazapine (REMERON) 30 mg tablet^Take 1 tablet by mouth daily at bedtime. For appetite and sleep.^Disp: 90 tablet^Rfl: 3 lansoprazole (PREVACID) 30 mg capsule^Take 1 capsule by mouth once daily. For acid indigestion.^Disp: 30 capsule^Rfl: 11 fluticasone (FLONASE) 50 mcg/actuation nasal spray^Use 1 [place]oca in each nostril once daily.^Disp: 1 Each^Rfl: 5 mirabegron (MYRBETRIQ) 50 mg Tb24^Take 1 tablet by mouth once daily as needed.^Disp: 90 tablet^Rfl: 1 triamterene-hydroCHLOROthiazide (MAXZIDE-25MG) 37.5-25 mg per tablet^Take 1 tablet by mouth once daily.^Disp: 90 tablet^Rfl: 1 fluticasone (FLOVENT HFA) 220 mcg/actuation inhaler^Inhale 1 Puff as instructed twice daily.^Disp: 1 Each^Rfl: 5 (Patient taking differently: Inhale 1 Puff as instructed twice daily. Using as needed/flare ups) aspirin, enteric coated (ASPIRIN, ENTERIC COATED) 81 mg EC tablet^Take 81 mg by mouth once daily.^Disp: ^Rfl: senna-docusate (SENNA-S) 8.6-50 mg per tablet^Take 2 tablets by mouth twice daily. Constipation.^Disp: ^Rfl: albuterol HFA (PROVENTIL HFA, VENTOLIN HFA) 90 mcg/actuation inhaler^Inhale 2 Puffs as instructed four times daily as needed. FOR WHEEZING AND SHORTNESS OF BREATH.^Disp: 1 Inhaler^Rfl: 6 Biotin 400 mcg ORAL Tab^Take 1 tablet by mouth once daily.^Disp: ^Rfl: MIRALAX 100 % ORAL POWDER^1 capful in 8 oz fluid daily^Disp: 527 gm^Rfl: 3 Social History Tobacco Use Smoking status: Former Packs/day: 1.00 Years: 30.00 Additional pack years: 0.00 Total pack years: 30.00 Types: Cigarettes Quit date: 04/09/2005 Years since quittin.7 Smokeless tobacco: Never Vaping Use Vaping Use: Never used Substance Use Topics Alcohol use: Yes Alcohol/week: 14.0 standard drinks of alcohol Types: 14 Glasses of Wine (5oz) per week Comment: 2 glass of wine daily Drug use: No Family History Problem Relation Age of Onset other (CHF) Mother other (Lung Ca) Father Coronary Artery Disease Brother Cancer Brother lung Breast Cancer Maternal Aunt Breast Cancer Paternal Aunt Colon Cancer No Family History PAST SURGICAL HISTORY Procedure Laterality Date ARTHRP KNE CONDYLE&PLATU MEDIAL&LAT COMPARTMENTS 12/04/2009 bilateral total COLONOSCOPY 07/17/2022 COLONOSCOPY FLX DX W/COLLJ SPEC WHEN PFRMD 06/07/2006 Colonoscopy COLONOSCOPY FLX DX W/COLLJ SPEC WHEN PFRMD 04/06/2010 COLONOSCOPY FLX DX W/COLLJ SPEC WHEN PFRMD 12/17/2017 adenomatous polyps, large sessile polyp, tattooed-repeat in 1 year COLONOSCOPY FLX DX W/COLLJ SPEC WHEN PFRMD 12/23/2018 Colonoscopy EGD 07/17/2022 EGD TRANSORAL BIOPSY SINGLE/MULTIPLE 04/20/2019 ESOPHAGOGASTRODUODENOSCOPY TRANSORAL DIAGNOSTIC 11/2003 EGD I reviewed the past medical history, family history, social history and surgical history with changes noted above and updated in EMR. IMMUNIZATIONS Prevnar - 06/2015 Pneumovax 01/2016 Influenza - 12/21/2022 COVID-19 - most recent 03/2022 ROS: General: No fevers or chills. No unintended weight loss. Night sweats. Eyes, Ears, nose, throat: No post nasal drip, rhinorrhea, purulent nasal discharge, epistaxis. No hoarseness. Vision stable. Cardiac: No angina, chest pain, orthopnea. Resp: See HPI. GI: No heartburn, dysphagia. Musculoskeletal: No pain. Neuro: No headache, focal weakness. Skin: No new skin changes or rash. Otherwise negative. PHYSICAL EXAMINATION: BP 120/70 Pulse 81 Resp 17 SpO2 96% Gen: No acute distress. Cooperative with examination. HEENT: Normocephalic. Sclera, conjunctiva clear. Oral hygeine and dentition good. No thrush. Resp: No stridor, accessory respiratory muscle use, supra-sternal or intercostal retractions. No wheezes, crackles. CV: Regular rythm. Heart tones normal. Radial pulses normal. MSK: No kyphoscoliosis. Ext: Warm and well perfused. No clubbing, cyanosis, edema. Skin: No rash, ecchymoses. Neuro: Mental status normal. Affect normal. No tremor. DATA: PFT 02/2022: PFTs show mild obstruction SERVICE DATE: 06/01/2021 SERVICE TIME: 2:19 PM Oral Exhaled Nitric Oxide measurement: 14.0 (ppb) Echocardiogram, 08/2022 CONCLUSIONS: - Exam indication: Routine surveillance of mild valvular regurgitation (>3yrs) - The left ventricle is normal in size. Left ventricular systolic function is normal. EF = 59 5% (2D biplane) Grade I left ventricular diastolic dysfunction. - The right ventricle is normal in size. Right ventricular systolic function is normal. - There is 1-2+ AI. - Exam was compared with the prior echocardiographic exam performed on 04/25/2018, no significant change. SSMENT/PLAN: 1. Mild persistent asthma, unspecified whether complicated - ICD9: 493.90, ICD10: J45.30 (primary diagnosis) Encouraged patient to use Flovent twice daily to help with her daily cough and SOB. Rinse mouth after each use to help prevent oral thrush. Albuterol HFA inhaler, 2 inhalations 10-15 minutes prior to activities associated with shortness of breath, and as needed for rescue relief of shortness of breath or wheezing, up to 4 times daily. Continue Singulair nightly. - FLUTICASONE PROPIONATE 220 MCG/ACTUATION HFA AEROSOL INHALER 2. History of COVID-19 - ICD9: V12.09, ICD10: Z86.16 Portions of this documentation were copied and pasted from previous office visit notes in order to provide a cohesive continuity of the history. The note has been reviewed and edited and updated as necessary. Tierney Iglesias PA-C documented in this encounter [facility] 12-10-2022 Miscellaneous Notes Faxed signed PT Rx to [facility] 12/10/2022 . Order scanned into chart. Brigitte Leyva LPN documented in this encounter [facility] 12-10-2022 Miscellaneous Notes Last office visit: 06/25/22 Next appointment scheduled: 01/15/23 Patient has been identified by name and date of : Yes Requested Prescriptions Pending Prescriptions Disp Refills LORazepam (ATIVAN) 0.5 mg 60 tablet 2 Sig: Take 1 tablet by mouth twice daily as needed (anxiety) for up to 90 days. RX INSTRUCTIONS: Patient aware RX will be sent to pharmacy. No need to nofity patient. Controlled medication - must be call in. Aretha Constantino Pss documented in this encounter [facility] 11-16-2022 Note HNO ID: [id number] Author: Gabriel Jules Service: ? Author Type: Physician Type: Progress Notes Filed: 11/17/2022 6:49 AM Note Text: Subjective: Patient presents to clinic c/o painful toenails. They state that the nails are especially painful with shoe gear and pressure. Patient states that nails 1-5 b/l are painful. No other pedal complaints at this time. Patient states no change in medications or medical history since last visit. Objective: Patient presents to clinic ambulating in sneakers Vasc: DP and PT pulses are palpable bilateral. CFT is less than 5 seconds bilateral. Skin temperature is warm to cool proximal to distal bilateral. There is no edema or varicosities noted. Neuro: Protective sensation is intact to the foot and toes when tested with the 5.07 SWM bilateral. Vibratory sensation is decreased at the hallux IPJ bilateral. The hallux is downgoing bilateral. Derm: Nails 1-5 b/l are discolored-yellow, thick, crumbly, dystrophic and with subungal debris. Skin is of normal turgor, texture and hair growth is present bilateral. There are no hyperkeratosis, ulcerations, scars, verruca or other lesions noted. Ortho: Muscle strength is 5/5 for all pedal groups tested. Ankle joint DF is full with the knee extended with no pain or crepitus noted. 1st MPJ ROM is full bilateral. Assessment: (M79.674) Pain in toe of right foot (M79.675) Pain in toe of left foot (I73.9) PAD (peripheral artery disease) ([facility]) Plan: Patient was seen and evaluated. Nails 1-5 bilateral were debrided in length and thickness. Patient is to RTC in 3-4 months. Gabriel Jules DPM [facility] 11-16-2022 Note HNO ID: [id number] Author: Nina Long LPN Service: ? Author Type: LICENSED NURSE Type: Progress Notes Filed: 11/17/2022 6:49 AM Note Text: AMB ROOMING INTAKE FLOWSHEET DATA Patient presents with: Left Foot - Established Patient, nail care Right Foot - Established Patient, nail care Nina Long LPN [facility] 11-16-2022 History of Presen t illness Narrative Subjective: Patient presents to clinic c/o painful toenails. They state that the nails are especially painful with shoe gear and pressure. Patient states that nails 1-5 b/l are painful. No other pedal complaints at this time. Patient states no change in medications or medical history since last visit. Objective: Patient presents to clinic ambulating in sneakers Vasc: DP and PT pulses are palpable bilateral. CFT is less than 5 seconds bilateral. Skin temperature is warm to cool proximal to distal bilateral. There is no edema or varicosities noted. Neuro: Protective sensation is intact to the foot and toes when tested with the 5.07 SWM bilateral. Vibratory sensation is decreased at the hallux IPJ bilateral. The hallux is downgoing bilateral. Derm: Nails 1-5 b/l are discolored-yellow, thick, crumbly, dystrophic and with subungal debris. Skin is of normal turgor, texture and hair growth is present bilateral. There are no hyperkeratosis, ulcerations, scars, verruca or other lesions noted. Ortho: Muscle strength is 5/5 for all pedal groups tested. Ankle joint DF is full with the knee extended with no pain or crepitus noted. 1st MPJ ROM is full bilateral. Assessment: (M79.674) Pain in toe of right foot (M79.675) Pain in toe of left foot (I73.9) PAD (peripheral artery disease) ([facility]) Plan: Patient was seen and evaluated. Nails 1-5 bilateral were debrided in length and thickness. Patient is to RTC in 3-4 months. Gabriel Jules DPM AMB ROOMING INTAKE FLOWSHEET DATA Patient presents with: Left Foot - Established Patient, nail care Right Foot - Established Patient, nail care Nina Long LPN documented in this encounter [facility] 11-12-2022 Miscellaneous Notes Last seen DIRECTOR OF TESTING 06/25/22. Next appt with pcp 01/15/23. Patient has been identified by name and date of : Yes Requested Prescriptions Pending Prescriptions Disp Refills alendronate (FOSAMAX) 70 mg tablet 12 tablet 3 Sig: Take 1 tablet by mouth one time a week. Take with a full glass of water, on an empty stomach; do NOT lie down for 30minutes. busPIRone (BUSPAR) 5 mg tablet 180 tablet 1 Sig: Take 1 tablet by mouth twice daily. RX INSTRUCTIONS: Patient aware RX will be sent to pharmacy. No need to notify patient. Manda Reyes documented in this encounter [facility] 11-05-2022 Miscellaneous Notes Prescribed by pulmonology Rosita Paredes APRN.[employer] Patient has been identified by name and date of : Yes Patient phones for refill(s): Requested Prescriptions Pending Prescriptions Disp Refills montelukast (SINGULAIR) 10 mg tablet 30 tablet 0 Sig: Take 1 tablet by mouth daily at bedtime. Date of last office visit in primary care: 06/25/2022 8 month follow-up: 01/15/2023 Last 2 Encounter Wt Readings: Date: Wt: 09/21/2022 70.6 kg (155 lb 9.6 oz) 09/10/2022 70.5 kg (155 lb 6.4 oz) Previous labs/tests for medication: Not applicable Please advise. Thank you. Rose Rothman LPN Pharmacy verified in [facility] Patient has been identified by name and date of : Yes Patient aware RX will be sent to pharmacy. No need to notify patient. Spouse phones for refill(s): Requested Prescriptions Pending Prescriptions Disp Refills montelukast (SINGULAIR) 10 mg tablet 30 tablet 0 Sig: Take 1 tablet by mouth daily at bedtime. Date of last office visit : 06/25/2022 Date of next office visit : 01/15/2023 Last 2 Encounter Wt Readings: Date: Wt: 09/21/2022 70.6 kg (155 lb 9.6 oz) 09/10/2022 70.5 kg (155 lb 6.4 oz) Please advise. Tierney Sarabia Pss documented in this encounter [facility] 10-29-2022 Miscellaneous Notes Patient has been identified by name and date of : Yes, Patient phones for refill(s): Requested Prescriptions Pending Prescriptions Disp Refills escitalopram oxalate (LEXAPRO) 20 mg tablet 90 tablet 1 Sig: Take 1 tablet by mouth once daily. Date of last office visit in primary care: 06/25/2022 8 month follow-up: 01/15/2023 Last 2 Encounter Wt Readings: Date: Wt: 09/21/2022 70.6 kg (155 lb 9.6 oz) 09/10/2022 70.5 kg (155 lb 6.4 oz) Previous labs/tests for medication: Not applicable Please advise. Thank you. Rose Rothman LPN Patient has been identified by name and date of : Yes Last office visit in this department: 06/25/2022 RX INSTRUCTIONS: Patient aware RX will be sent to pharmacy. No need to notify patient. Patient phones requesting refills as follows: Requested Prescriptions Pending Prescriptions Disp Refills escitalopram oxalate (LEXAPRO) 20 mg tablet 90 tablet 1 Sig: Take 1 tablet by mouth once daily. Please review and advise. Toma Reyes documented in this encounter [facility] 09-21-2022 Note HNO ID: [id number] Author: Danilo Guido Jr., MD Service: ? Author Type: Physician Type: Progress Notes Filed: 09/21/2022 12:27 PM Note Text: ESTABLISHED PATIENT VISIT CHIEF COMPLAINT: Follow Up HISTORY OF PRESENT ILLNESS: Dominique Garza is a 82 year old female, BMI 25.11 kg/m2 with a PMH significant for and per last office visit of 06/18/22: 1. Parkinson disease (HCC) - ICD9: 332.0, ICD10: G20 (primary diagnosis) 2. Abnormality of gait - ICD9: 781.2, ICD10: R26.9 Patient with prior dx of PD, now here to establish care closer to home. Noted deficits as above on exam. but baseline unknown with pt already on Sinemet. Will request prior records be sent to us for review including reported MRI brain that per pt was unremarkable. As for current meds, I do feel she is taking evening dose of Sinemet too late, with it essentially only being used for about 1 hour before going to bed. I have asked her to move this dose up to dinner time (5PM). Otherwise, will continue Sinemet as taking above. I strongly encouraged exercise and placed a consult to [facility] per pt and her 's request for stop the disease program. PT will likely have more influence on retropulsion and difficulties rising from chair than increases in medications (side effects likely > benefits). Pt will follow up in 3 months or sooner prn. 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 Pt and her agree with plan. Dx, etiology, physiology, treatment and prognosis d/w pt and her in detail. Doing pretty well. Taking Sinemet 25/100mg TID with meals and earlier last dose than before (takes at 5PM and going to bed about 930PM). No falls. Some difficulties sleeping at night. States having a lot of anxiety at night. Gives example of stress of brother coming over for dinner keeping her up for 2 nights. On Lexapro, Buspar, and Remeron. No on-off effect of Sinemet and symptoms unchanged at night. Memory stable - on Donepezil. reports no subjective deficits. Sharp most of the time and when does not remember something states he is not surprised. No RBD symptoms. Does use reminders like post its or alarms. REVIEW OF SYSTEMS GENERAL:No weight loss, malaise or fevers. HEENT:Negative for frequent or significant headaches, No changes in hearing or vision, no nose bleeds or other nasal problems NECK:Negative for lumps, goiter, pain and significant neck swelling RESPIRATORY: Negative for cough, wheezing or shortness of breath. CARDIOVASCULAR: Negative for chest pain, leg swelling or palpitations. GASTROINTESTINAL: Negative for abdominal discomfort, blood in stools or black stools or change in bowel habits GENITOURINARY: No history of dysuria, frequency or incontinence MUSCULOSKELETAL: Negative for joint pain or swelling, back pain or muscle pain. NEUROLOGIC:Negative for focal numbness or weakness, headaches and dizziness or syncope, vision changes, speech/languag changes - EXCEPT that as per HPI above. SKIN:Negative for lesions, rash, and itching. HEMATOLOGIC/LYMPHATIC/IMMUNOLOGI C:Negative for prolonged bleeding, bruising easily or swollen nodes. ENDOCRINE: Negative for cold or heat intolerance, polyuria, polydipsia and goiter. The remainder of the ROS was reviewed and is negative. LAB/IMAGING: Those performed since patient's last visit have been reviewed. WBC (k/uL) Date Value 05/17/2022 7.03 RBC (m/uL) Date Value 05/17/2022 3.88 (L) Hemoglobin (g/dL) Date Value 05/17/2022 11.8 Hematocrit (%) Date Value 05/17/2022 36.3 MCV (fL) Date Value 05/17/2022 93.6 MCH (pg) Date Value 05/17/2022 30.4 MCHC (g/dL) Date Value 05/17/2022 32.5 RDW-CV (%) Date Value 05/17/2022 13.4 Platelet Count (k/uL) Date Value 05/17/2022 219 MPV (fL) Date Value 05/17/2022 11.1 Glucose (mg/dL) Date Value 05/17/2022 99 BUN (mg/dL) Date Value 05/17/2022 23 (H) Creatinine (mg/dL) Date Value 05/17/2022 0.92 Sodium (mmol/L) Date Value 05/17/2022 139 Potassium (mmol/L) Date Value 05/17/2022 3.9 Chloride (mmol/L) Date Value 05/17/2022 100 CO2 (mmol/L) Date Value 05/17/2022 29 Protein, Total (g/dL) Date Value 05/17/2022 6.8 Albumin (g/dL) Date Value 05/17/2022 4.2 Calcium, Total (mg/dL) Date Value 05/17/2022 8.9 Alkaline Phosphatase (U/L) Date Value 05/17/2022 69 Bilirubin, Total (mg/dL) Date Value 05/17/2022 0.4 AST (U/L) Date Value 05/17/2022 25 ALT (U/L) Date Value 05/17/2022 8 BARBARA (no units) Date Value 10/17/2021 Positive (A) SSA Antibody IgG (AI) Date Value 10/17/2021 <0.2 SSB Antibody (AI) Date Value 10/17/2021 <0.2 Rheumatoid Factor (IU/mL) Date Value 10/17/2021 <10 MEDICATIONS: montelukast (SINGULAIR) 10 mg tabletTAKE 1 TABLET BY MOUTH ONCE DAILY AT BEDTIMEDisp: 30 (more content not included)... [facility] 09-19-2022 Miscellaneous Notes Reviewed Tierney Iglesias's note 09/03/12: Current therapy consists of Flovent, Singulair and as needed albuterol Patient phones requesting refills as follows: ALESIA: 09/03/22 Requested Prescriptions Pending Prescriptions Disp Refills montelukast (SINGULAIR) 10 mg tablet [Pharmacy Med Name: Montelukast Sodium 10 MG Oral Tablet] 30 tablet 0 Sig: TAKE 1 TABLET BY MOUTH ONCE DAILY AT BEDTIME Please review and advise. Martha Allen LPN documented in this encounter [facility] 09-10-2022 Note HNO ID: [id number] Author: Isabel Londono PA-C Service: ? Author Type: Physician Clinical Services Assistant Type: Progress Notes Filed: 09/10/2022 12:30 PM Note Text: CHIEF COMPLAINT: Patient presents with: Dark Stools : Colonoscopy 07/17/22 and she developed diarrhea after that This consult was requested by Aneta Jordan PA-C for an opinion regarding dark stools. My final recommendations will be communicated to the requesting health care provider by way of the shared medical record for internal providers or letter via the [employer] for external providers. HPI: Dominique Garza is a 82 year old female who presents for Dark Stools (Colonoscopy 07/17/22 and she developed diarrhea after that ). PMHx of neuropathy, Parkinson's disease, HTN, PAD, GERD, CKD, depression, osteoporosis is present. Patient tells me that she developed black stools after her scopes. Last black stool was about 5 days ago, stool was loose and sticky. Has chronic constipation, taking an OTC stool softener as needed. Taking Miralax PRN as well. Did have a normal stool this AM. No red blood in stool. Some abdominal pain, worse with constipation. Notes regular heartburn, on Prevacid. Unsure of when her reflux is worse. Rare nausea. No vomiting. Appetite is good. Weight is stable. Denies PO Iron or Pepto-Bismol. EGD 07/17/2022: Impression: - Normal examined jejunum. - Normal examined duodenum. - Normal stomach. Biopsied. - Mildly severe reflux esophagitis with no bleeding. Rule out Bertrand's esophagus. Biopsied. Recommendation: - Discharge patient to home. - Resume previous diet. - Continue present medications. - Return to physician assistant printer floor covering in 1 week. Colonoscopy 07/17/2022: Impression: - Three small polyps in the proximal transverse colon and in the cecum, removed with a cold snare. Resected and retrieved. - Two diminutive polyps in the sigmoid colon, removed with a cold biopsy forceps. Resected and retrieved. - Diverticulosis in the entire examined colon. - A tattoo was seen in the recto-sigmoid colon. The tattoo site appeared normal. Recommendation: - Discharge patient to home. - Resume previous diet. - Continue present medications. - Repeat colonoscopy for surveillance based on pathology results. - Return to physician assistant printer floor covering in 1 week. - Resume Eliquis (apixaban) today at prior dose. - Patient has a contact number available for emergencies. The signs and symptoms of potential delayed complications were discussed with the patient. Return to normal activities tomorrow. Written discharge instructions were provided to the patient. FINAL DIAGNOSIS A. Stomach, biopsy: - Antral mucosa with no significant pathologic changes. - No evidence of H. pylori. B. Esophagus, biopsy: - Reactive squamous mucosa. - No evidence of intestinal metaplasia or dysplasia. C. Cecum, polypectomy: - Fragments of tubular adenoma. D. Transverse colon, polypectomy: - Tubular adenoma. E. Sigmoid colon, polypectomy: - Tubular adenoma. - Hyperplastic polyp. Record Review: [facility] / Outside records reviewed. PAST MEDICAL HISTORY Diagnosis Date Acute, but ill-defined, cerebrovascular disease 08/06/2005 TIA; Anemia, unspecified 04/2019 Anxiety state 05/28/2006 ANXIETY STATE NOS 05/28/2006 Arrhythmia Asthma, moderate persistent, well-controlled 12/04/2013 Benign neoplasm of colon CKD (chronic kidney disease) stage 3, GFR 30-59 ml/min ([facility]) 08/14/2016 Closed fracture of right foot 08/05/2015 Closed nondisplaced fracture of pelvis ([facility]) 01/14/2017 Depressive disorder, not elsewhere classified Esophageal reflux with hoarseness. 11/10/2011 Laryngoscopy by ENT 2011. 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 Allen Suárez, rheumatology. 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 End 2021. Parkinson disease ([facility]) 03/01/2017 Patient diagnosed during hospital admission 03/10/17. Started on Sinemet. Will be managed by Dr. Perez with [facility] neurology. 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 [facility] 09-03-2022 Note HNO ID: [id number] Author: Tierney Iglesias PA-C Service: ? Author Type: Physician Clinical Services Assistant Type: Progress Notes Filed: 09/03/2022 1:56 PM Note Text: Patient: Dominique Garza PCP: Corbin Bai MD CC: Asthma HPI: Dominique Garza 82 year old female former 30 pack year smoker, quitting in 2005 with PMH significant for anxiety, CKD, GERD, HTN, CVA, PE, Parkinson's disease, osteoporosis, and asthma. Current therapy consists of Flovent, Singulair and as needed albuterol. Today, patient states that she is not taking Flovent on a daily basis. Daily cough that wakes her in the deckhand hours. Non-productive. No hemoptysis. Frequent wheezing. Exertional dyspnea with minimal effort. She feels it is progressively worse. Reports lower extremity edema. PAST MEDICAL HISTORY Diagnosis Date Acute, but ill-defined, cerebrovascular disease 08/06/2005 TIA; Anemia, unspecified 04/2019 Anxiety state 05/28/2006 ANXIETY STATE NOS 05/28/2006 Arrhythmia Asthma, moderate persistent, well-controlled 12/04/2013 Benign neoplasm of colon CKD (chronic kidney disease) stage 3, GFR 30-59 ml/min ([facility]) 08/14/2016 Closed fracture of right foot 08/05/2015 Closed nondisplaced fracture of pelvis ([facility]) 01/14/2017 Depressive disorder, not elsewhere classified Esophageal reflux with hoarseness. 11/10/2011 Laryngoscopy by ENT 2011. 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 Allen Suárez, rheumatology. 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 End 2021. Parkinson disease ([facility]) 03/01/2017 Patient diagnosed during hospital admission 03/10/17. Started on Sinemet. Will be managed by Dr. Perez with [facility] neurology. 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 Sulfabenzamide Intolerance Comment:Pt does not remember why she's been told to put on allergy list verapamil SR (CALAN SR) 120 mg CR tablet Take 1 tablet by mouth daily at bedtime. apixaban (ELIQUIS) 5 mg tab(s) Take 1 tablet by mouth twice daily. donepezil (ARICEPT) 10 mg tablet Take 10 mg by mouth once daily. carbidopa-levodopa (SINEMET 25-100) 25-100 mg per tablet Take 2 tablets by mouth three times daily. (breakfast or waking; lunch or noon; and dinner or about 5PM). busPIRone (BUSPAR) 5 mg tablet Take 1 tablet by mouth twice daily. LORazepam (ATIVAN) 0.5 mg Take 1 tablet by mouth twice daily as needed (anxiety) for up to 90 days. mirtazapine (REMERON) 30 mg tablet Take 1 tablet by mouth daily at bedtime. For appetite and sleep. lansoprazole (PREVACID) 30 mg capsule Take 1 capsule by mouth once daily. For acid indigestion. escitalopram oxalate (LEXAPRO) 20 mg tablet Take 1 tablet by mouth once daily. montelukast (SINGULAIR) 10 mg tablet Take 1 tablet by mouth daily at bedtime. fluticasone (FLONASE) 50 mcg/actuation nasal spray Use 1 [place] in each nostril once daily. mirabegron (MYRBETRIQ) 50 mg Tb24 Take 1 tablet by mouth once daily as needed. triamterene-hydroCHLOROthiazide (MAXZIDE-25MG) 37.5-25 mg per tablet Take 1 tablet by mouth once daily. alendronate (FOSAMAX) 70 mg tablet Take 1 tablet by mouth one time a week. Take with a full glass of water, on an empty stomach; do NOT lie down for 30minutes. fluticasone (FLOVENT HFA) 220 mcg/actuation inhaler Inhale 1 Puff as instructed twice daily. (Patient taking differently: Inhale 1 Puff as instructed twice daily. Using as needed/flare ups) aspirin, enteric coated (ASPIRIN, ENTERIC COATED) 81 mg EC tablet Take 81 mg by mouth once daily. senna-docusate (SENNA-S) 8.6-50 mg per tablet Take 2 tablets by mouth twice daily. Constipation. albuterol HFA (PROVENTIL HFA, VENTOLIN HFA) 90 mcg/actuation inhaler Inhale 2 Puffs as instructed four times daily as needed. FOR WHEEZING AND SHORTNESS OF BREATH. Biotin 400 mcg ORAL Tab Take 1 tablet by mouth once daily. MIRALAX 100 % ORAL POWDER 1 capful in 8 oz fluid daily Social History Tobacco Use Smoking status: Former Packs/day: 1.00 Years: 30.00 Pack years: 30.00 Types: Cigarettes Quit date: 04/09/2005 Years since quittin.4 Smokeless tobacco: Nev (more content not included)... [facility] 09-03-2022 History of Presen t illness Narrative Images from the original note were not included. Patient: Dominique Garza PCP: Corbin Bai MD CC: Asthma HPI: Dominique Garza 82 year old female former 30 pack year smoker, quitting in 2005 with PMH significant for anxiety, CKD, GERD, HTN, CVA, PE, Parkinson's disease, osteoporosis, and asthma. Current therapy consists of Flovent, Singulair and as needed albuterol. Today, patient states that she is not taking Flovent on a daily basis. Daily cough that wakes her in the deckhand hours. Non-productive. No hemoptysis. Frequent wheezing. Exertional dyspnea with minimal effort. She feels it is progressively worse. Reports lower extremity edema. PAST MEDICAL HISTORY Diagnosis Date Acute, but ill-defined, cerebrovascular disease 08/06/2005 TIA; Anemia, unspecified 04/2019 Anxiety state 05/28/2006 ANXIETY STATE NOS 05/28/2006 Arrhythmia Asthma, moderate persistent, well-controlled 12/04/2013 Benign neoplasm of colon CKD (chronic kidney disease) stage 3, GFR 30-59 ml/min ([facility]) 08/14/2016 Closed fracture of right foot 08/05/2015 Closed nondisplaced fracture of pelvis ([facility]) 01/14/2017 Depressive disorder, not elsewhere classified Esophageal reflux with hoarseness. 11/10/2011 Laryngoscopy by ENT 2011. 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 Allen Suárez, rheumatology. 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 End 2021. Parkinson disease ([facility]) 03/01/2017 Patient diagnosed during hospital admission 03/10/17. Started on Sinemet. Will be managed by Dr. Perez with [facility] neurology. 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 Sulfabenzamide Intolerance Comment:Pt does not remember why she's been told to put on allergy list verapamil SR (CALAN SR) 120 mg CR tablet Take 1 tablet by mouth daily at bedtime. apixaban (ELIQUIS) 5 mg tab(s) Take 1 tablet by mouth twice daily. donepezil (ARICEPT) 10 mg tablet Take 10 mg by mouth once daily. carbidopa-levodopa (SINEMET 25-100) 25-100 mg per tablet Take 2 tablets by mouth three times daily. (breakfast or waking; lunch or noon; and dinner or about 5PM). busPIRone (BUSPAR) 5 mg tablet Take 1 tablet by mouth twice daily. LORazepam (ATIVAN) 0.5 mg Take 1 tablet by mouth twice daily as needed (anxiety) for up to 90 days. mirtazapine (REMERON) 30 mg tablet Take 1 tablet by mouth daily at bedtime. For appetite and sleep. lansoprazole (PREVACID) 30 mg capsule Take 1 capsule by mouth once daily. For acid indigestion. escitalopram oxalate (LEXAPRO) 20 mg tablet Take 1 tablet by mouth once daily. montelukast (SINGULAIR) 10 mg tablet Take 1 tablet by mouth daily at bedtime. fluticasone (FLONASE) 50 mcg/actuation nasal spray Use 1 [place] in each nostril once daily. mirabegron (MYRBETRIQ) 50 mg Tb24 Take 1 tablet by mouth once daily as needed. triamterene-hydroCHLOROthiazide (MAXZIDE-25MG) 37.5-25 mg per tablet Take 1 tablet by mouth once daily. alendronate (FOSAMAX) 70 mg tablet Take 1 tablet by mouth one time a week. Take with a full glass of water, on an empty stomach; do NOT lie down for 30minutes. fluticasone (FLOVENT HFA) 220 mcg/actuation inhaler Inhale 1 Puff as instructed twice daily. (Patient taking differently: Inhale 1 Puff as instructed twice daily. Using as needed/flare ups) aspirin, enteric coated (ASPIRIN, ENTERIC COATED) 81 mg EC tablet Take 81 mg by mouth once daily. senna-docusate (SENNA-S) 8.6-50 mg per tablet Take 2 tablets by mouth twice daily. Constipation. albuterol HFA (PROVENTIL HFA, VENTOLIN HFA) 90 mcg/actuation inhaler Inhale 2 Puffs as instructed four times daily as needed. FOR WHEEZING AND SHORTNESS OF BREATH. Biotin 400 mcg ORAL Tab Take 1 tablet by mouth once daily. MIRALAX 100 % ORAL POWDER 1 capful in 8 oz fluid daily Social History Tobacco Use Smoking status: Former Packs/day: 1.00 Years: 30.00 Pack years: 30.00 Types: Cigarettes Quit date: 04/09/2005 Years since quittin.4 Smokeless tobacco: Never Vaping Use Vaping Use: Never used Substance Use Topics Alcohol use: Yes Alcohol/week: 14.0 standard drinks Types: 14 Glasses of Wine (5oz) per week Comment: 2 glass of wine daily Drug use: No Family History Problem Relation Age of Onset other (CHF) Mother other (Lung Ca) Father Coronary Artery Disease Brother Cancer Brother lung Breast Cancer Maternal Aunt Breast Cancer Paternal Aunt PAST SURGICAL HISTORY Procedure Laterality Date ARTHRP KNE CONDYLE&PLATU MEDIAL&LAT COMPARTMENTS 12/04/2009 bilateral total COLONOSCOPY 07/17/2022 COLONOSCOPY FLX DX W/COLLJ SPEC WHEN PFRMD 06/07/2006 Colonoscopy COLONOSCOPY FLX DX W/COLLJ SPEC WHEN PFRMD 04/06/2010 COLONOSCOPY FLX DX W/COLLJ SPEC WHEN PFRMD 12/17/2017 adenomatous polyps, large sessile polyp, tattooed-repeat in 1 year COLONOSCOPY FLX DX W/COLLJ SPEC WHEN PFRMD 12/23/2018 Colonoscopy EGD 07/17/2022 EGD TRANSORAL BIOPSY SINGLE/MULTIPLE 04/20/2019 ESOPHAGOGASTRODUODENOSCOPY TRANSORAL DIAGNOSTIC 11/2003 EGD I reviewed the past medical history, family history, social history and surgical history with changes noted above and updated in EMR. IMMUNIZATIONS Prevnar 13 - 07/06/2015 Pneumovax 23 - 01/19/2016, 01/18/2006 Influenza - 01/15/2022 COVID-19 - 03/28/2022, 07/15/2021, 12/20/2020, 05/11/2020, 04/10/2020 ROS: General: No fevers, chills or night sweats. No unintended weight loss. Eyes, Ears, nose, throat: No post nasal drip, rhinorrhea, purulent nasal discharge, epistaxis. No hoarseness. Vision stable. Cardiac: No angina, chest pain, orthopnea. Resp: See HPI. GI: No heartburn, dysphagia. Musculoskeletal: No pain. Neuro: No headache, focal weakness. Skin: No rash. Otherwise negative. PHYSICAL EXAMINATION: BP (P) 122/70 Pulse (P) 60 Resp (P) 17 Wt 69.4 kg (153 lb) SpO2 (P) 99% BMI 24.69 kg/m Gen: No acute distress. Cooperative with examination. HEENT: Normocephalic. Sclera, conjunctiva clear. Oral hygeine and dentition good. No thrush. Resp: No stridor, accessory respiratory muscle use, supra-sternal or intercostal retractions. No wheezes, crackles. CV: Regular rythm. Heart tones normal. Radial pulses normal. Abd: Non distended. MSK: No kyphoscoliosis. Ext: Warm and well perfused. No clubbing, cyanosis. Trace bilateral lower extremity edema. Skin: No rash, ecchymoses. Neuro: Mental status normal. Affect normal. No tremor. DATA: PFT 02/2022: PFTs show mild obstruction SERVICE DATE: 06/01/2021 SERVICE TIME: 2:19 PM Oral Exhaled Nitric Oxide measurement: 14.0 (ppb) ASSESSMENT/PLAN: 1. Mild intermittent asthma without complication - ICD9: 493.90, ICD10: J45.20 (primary diagnosis) Recommend Flovent twice daily to help with symptom control. As needed albuterol. 2. Dyspnea and respiratory abnormalities - ICD9: 786.09, ICD10: R06.00, R06.89 Lasix for 3 days. Will obtain updated echocardiogram. - FUROSEMIDE 20 MG TABLET - ECHO - PERFLUTREN LIPID MICROSPHERES 1.1 MG/ML INJECTION IN NS 10 ML - SODIUM CHLORIDE 0.9 % (FLUSH) INJECTION SYRINGE 3. Pulmonary hypertension (HCC) - ICD9: 416.8, ICD10: I27.20 See #2. - FUROSEMIDE 20 MG TABLET - ECHO - PERFLUTREN LIPID MICROSPHERES 1.1 MG/ML INJECTION IN NS 10 ML - SODIUM CHLORIDE 0.9 % (FLUSH) INJECTION SYRINGE 4. History of tobacco use - ICD9: V15.82, ICD10: Z87.891 Patient does not qualify for lung cancer screening. 5. History of COVID-19 - ICD9: V12.09, ICD10: Z86.16 Portions of this documentation were copied and pasted from previous office visit notes in order to provide a cohesive continuity of the history. The note has been reviewed and edited and updated as necessary. Tierney Iglesias PA-C documented in this encounter [facility] 08-28-2022 Miscellaneous Notes Patient's , Froilan, called in stating that the patient started having dark stools again today and states that he is very concerned. Froilan denies noticing any other symptoms of blood loss at this time. Asking if she would be able to get an earlier appointment with Dr. Kuo or be seen in [place]. Currently scheduled in [place] [address]/10/23. Magui Edmondson RN documented in this encounter [facility] 07-31-2022 Note HNO ID: [id number] Author: Gabriel Jules Service: ? Author Type: Physician Type: Progress Notes Filed: 07/31/2022 8:28 AM Note Text: Subjective: Patient presents to clinic c/o painful toenails. They state that the nails are especially painful with shoe gear and pressure. Patient states that nails 1-5 b/l are painful. No other pedal complaints at this time. Patient states no change in medications or medical history since last visit. Objective: Patient presents to [facility] Vasc: DP and PT pulses are nonpalpable bilateral. CFT is less than 5 seconds bilateral. Skin temperature is warm to cool proximal to distal bilateral. There is mild edema or varicosities noted. Neuro: Protective sensation is decreased to the foot and toes when tested with the 5.07 SWM bilateral. Vibratory sensation is absent at the hallux IPJ bilateral. The hallux is downgoing bilateral. Derm: Nails 1-5 b/l are painful, discolored-yellow, thick, crumbly, dystrophic and with subungal debris. Skin is cool, dry and pallor and hair growth is absent bilateral. There are no hyperkeratosis, ulcerations, scars, verruca or other lesions noted. Ortho: Muscle strength is 5/5 for all pedal groups tested. Ankle joint DF is decreased with the knee extended with no pain or crepitus noted. 1st MPJ ROM is decreased bilateral. Assessment: (B35.1) Onychomycosis (primary encounter diagnosis) (M79.674) Pain in toe of right foot (M79.675) Pain in toe of left foot (I73.9) PAD (peripheral artery disease) ([facility]) Plan: Patient was seen and evaluated. Nails 1-5 bilateral were debrided in length and thickness. Patient is to RTC in 3-4 months. Gabriel Jules DPM [facility] 07-31-2022 Note HNO ID: [id number] Author: Gypsy Linares RN Service: ? Author Type: ? Type: Progress Notes Filed: 07/31/2022 8:28 AM Note Text: Patient presents with: Left Foot - Established Patient, Debridement of Nail Right Foot - Established Patient, Debridement of Nail [facility] 07-31-2022 History of Presen t illness Narrative Subjective: Patient presents to clinic c/o painful toenails. They state that the nails are especially painful with shoe gear and pressure. Patient states that nails 1-5 b/l are painful. No other pedal complaints at this time. Patient states no change in medications or medical history since last visit. Objective: Patient presents to clinic ambulating in sneakers Vasc: DP and PT pulses are nonpalpable bilateral. CFT is less than 5 seconds bilateral. Skin temperature is warm to cool proximal to distal bilateral. There is mild edema or varicosities noted. Neuro: Protective sensation is decreased to the foot and toes when tested with the 5.07 SWM bilateral. Vibratory sensation is absent at the hallux IPJ bilateral. The hallux is downgoing bilateral. Derm: Nails 1-5 b/l are painful, discolored-yellow, thick, crumbly, dystrophic and with subungal debris. Skin is cool, dry and pallor and hair growth is absent bilateral. There are no hyperkeratosis, ulcerations, scars, verruca or other lesions noted. Ortho: Muscle strength is 5/5 for all pedal groups tested. Ankle joint DF is decreased with the knee extended with no pain or crepitus noted. 1st MPJ ROM is decreased bilateral. Assessment: (B35.1) Onychomycosis (primary encounter diagnosis) (M79.674) Pain in toe of right foot (M79.675) Pain in toe of left foot (I73.9) PAD (peripheral artery disease) ([facility]) Plan: Patient was seen and evaluated. Nails 1-5 bilateral were debrided in length and thickness. Patient is to RTC in 3-4 months. Gabriel Jules DPM Patient presents with: Left Foot - Established Patient, Debridement of Nail Right Foot - Established Patient, Debridement of Nail documented in this encounter [facility] 07-27-2022 Miscellaneous Notes Orders signed and faxed back as requested below. Also scanned into patients chart. JULIEN Santana Patient has been identified by name and date of : Yes Type of form: Physical Therapy Orders Form received via: Fax When form is completed, fax form to fax number provided. Form has been forwarded to: Provider's desk. Provider name: JULIEN Cm documented in this encounter [facility] 07-24-2022 Note HNO ID: [id number] Author: Aneta Jordan PA-C Service: ? Author Type: Physician Clinical Services Assistant Type: Progress Notes Filed: 07/30/2022 12:05 AM Note Text: FOLLOW UP VISIT - ENDOSCOPY NAME: Dominique Garza [facility] NO.: [id number] DATE OF SERVICE: 07/24/2022 : 1940 REFERRING PHYSICIAN: Corbin Bai MD Dominique is a patient I am following with Dr. Osuna for dark stools. Dr. Osuna performed upper and lower endoscopy on 07/17/22. The patient was found to have esophagitis, normal appearing stomach and normal examined duodenum and jejunum. Colonoscopy showed multiple polyps, and was as diverticulosis. Pathology demonstrated: FINAL DIAGNOSIS A. Stomach, biopsy: - Antral mucosa with no significant pathologic changes. - No evidence of H. pylori. B. Esophagus, biopsy: - Reactive squamous mucosa. - No evidence of intestinal metaplasia or dysplasia. C. Cecum, polypectomy: - Fragments of tubular adenoma. D. Transverse colon, polypectomy: - Tubular adenoma. E. Sigmoid colon, polypectomy: - Tubular adenoma. - Hyperplastic polyp. The patient notes no complaints since the procedure. VITALS: Blood pressure 130/88, pulse 82, temperature 36.6 ?C (97.8 ?F), height 167.6 cm (5' 6 ), weight 68.5 kg (151 lb), SpO2 94 %. General: patient is alert, cooperative, pleasant and in no acute distress On examination, the abdomen is benign. Assessment IMPRESSION: esophagitis. Multiple adenomatous colon polyps, diverticula PLAN: The operative findings and pathology report were reviewed with the patient, and the patient has had the opportunity to ask questions and have questions answered. If the patient notes any problems or changes in bowel function, the patient should contact me immediately. Otherwise I recommend follow up endoscopy in 3 years. HM updated and recall letter generated. Patient verbalized understanding of all above and agreed with the plan Diagnoses: (D36.9) Tubular adenoma (primary encounter diagnosis) (K57.90) Diverticulosis I spent a total of 23 minutes on the date of the service which included preparing to see the patient, [id number] patient care, completing clinical documentation, obtaining and/or reviewing separately obtained history, counseling and educating the patient/family/caregiver, independently interpreting results (not separately reported), and communicating results to the patient/family/caregiver. Aneta Jordan PA-C [facility] 07-24-2022 Instructions Aneta Jordan PA-C - 07/24/2022 2:29 PM EDT The following instructions are important for you related to your office visit today with the [facility] General Surgeons. INSTRUCTIONS FOLLOWING A POLYP FOUND AT COLONOSCOPY You were found to have adenomatous colon polyps. I recommend you undergo repeat endoscopy in 3 years. If you note bleeding, change in bowel habits, or other suspicious colon related symptoms before that time, those symptoms should be evaluated as necessary. If you have any difficulties or concerns, you should contact our office immediately. INSTRUCTIONS FOR DIVERTICULA I recommend that you continue on a high-fiber diet. Avoidance of seeds is not necessary in general. Recent studies have demonstrated that seeds do not increase you risk of developing diverticulitis. If specific foods tend to cause discomfort, those should be avoided. Signs of diverticulitis (inflammation of diverticulosis) include - abdominal distention, fever, abdominal pain typically in the left lower quadrant, and changes of bowel habits. If these symptoms appear, you are instructed to contact our office immediately. If you note any additional difficulties or concerns, you should contact our office immediately. If you note any additional difficulties, questions, or concerns, you should contact our office immediately @ [phone] and ask to be transferred to the General Surgery department. documented in this encounter [facility] 07-24-2022 History of Presen t illness Narrative FOLLOW UP VISIT - ENDOSCOPY NAME: Dominique Garza [facility] NO.: [id number] DATE OF SERVICE: 07/24/2022 : 1940 REFERRING PHYSICIAN: Corbin Bai MD Dominique is a patient I am following with Dr. Osuna for dark stools. Dr. Osuna performed upper and lower endoscopy on 07/17/22. The patient was found to have esophagitis, normal appearing stomach and normal examined duodenum and jejunum. Colonoscopy showed multiple polyps, and was as diverticulosis. Pathology demonstrated: FINAL DIAGNOSIS A. Stomach, biopsy: - Antral mucosa with no significant pathologic changes. - No evidence of H. pylori. B. Esophagus, biopsy: - Reactive squamous mucosa. - No evidence of intestinal metaplasia or dysplasia. C. Cecum, polypectomy: - Fragments of tubular adenoma. D. Transverse colon, polypectomy: - Tubular adenoma. E. Sigmoid colon, polypectomy: - Tubular adenoma. - Hyperplastic polyp. The patient notes no complaints since the procedure. VITALS: Blood pressure 130/88, pulse 82, temperature 36.6 C (97.8 F), height 167.6 cm (5' 6 ), weight 68.5 kg (151 lb), SpO2 94 %. General: patient is alert, cooperative, pleasant and in no acute distress On examination, the abdomen is benign. Assessment IMPRESSION: esophagitis. Multiple adenomatous colon polyps, diverticula PLAN: The operative findings and pathology report were reviewed with the patient, and the patient has had the opportunity to ask questions and have questions answered. If the patient notes any problems or changes in bowel function, the patient should contact me immediately. Otherwise I recommend follow up endoscopy in 3 years. HM updated and recall letter generated. Patient verbalized understanding of all above and agreed with the plan Diagnoses: (D36.9) Tubular adenoma (primary encounter diagnosis) (K57.90) Diverticulosis I spent a total of 23 minutes on the date of the service which included preparing to see the patient, [id number] patient care, completing clinical documentation, obtaining and/or reviewing separately obtained history, counseling and educating the patient/family/caregiver, independently interpreting results (not separately reported), and communicating results to the patient/family/caregiver. Aneta Jordan PA-C documented in this encounter [facility] 07-16-2022 Miscellaneous Notes Patient's calling asking about COVID results. notified that patient is negative for Covid. voiced understanding. Isabel Garza RN documented in this encounter [facility] 07-15-2022 Note HNO ID: [id number] Author: Sherin Bentley APRN.STEELSCOPE OPERATOR Service: ? Author Type: Nurse Practitioner Type: Progress Notes Filed: 07/15/2022 11:10 AM Note Text: Subjective The history is provided by the patient and the spouse. No speech and language clinician was used. ROGER Garza is a 82 year old female who presents today for CC of nasal drainage and headache for 4 days. She has used tylenol once. She denies any known exposure to anyone who is ill. She is scheduled for a colonoscopy on Saturday. She denies any facial assymmetry, slurred speech, muscle weakness or change in balance. BP 128/76 Pulse 77 Temp 36.4 ?C (97.6 ?F) Resp 18 Wt 70.9 kg (156 lb 6.4 oz) SpO2 98% BMI 24.87 kg/m? Social History Tobacco Use Smoking status: Former Packs/day: 1.00 Years: 30.00 Pack years: 30.00 Types: Cigarettes Quit date: 04/09/2005 Years since quittin.2 Smokeless tobacco: Never Vaping Use Vaping Use: Never used Substance Use Topics Alcohol use: Yes Alcohol/week: 14.0 standard drinks Types: 14 Glasses of Wine (5oz) per week Comment: 2 glass of wine daily Drug use: No PAST MEDICAL HISTORY Diagnosis Date Acute, but ill-defined, cerebrovascular disease 08/06/2005 TIA; Anemia, unspecified 04/2019 Anxiety state 05/28/2006 ANXIETY STATE NOS 05/28/2006 Arrhythmia Asthma, moderate persistent, well-controlled 12/04/2013 Benign neoplasm of colon CKD (chronic kidney disease) stage 3, GFR 30-59 ml/min ([facility]) 08/14/2016 Closed fracture of right foot 08/05/2015 Closed nondisplaced fracture of pelvis ([facility]) 01/14/2017 Depressive disorder, not elsewhere classified Esophageal reflux with hoarseness. 11/10/2011 Laryngoscopy by ENT 2011. 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 Allen Suárez, rheumatology. 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 End 2021. Parkinson disease ([facility]) 03/01/2017 Patient diagnosed during hospital admission 03/10/17. Started on Sinemet. Will be managed by Dr. Perez with [facility] neurology. 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 HENT: Positive for congestion. Negative for ear pain, sinus pain and sore throat. Respiratory: Negative for cough, sputum production, shortness of breath and wheezing. Cardiovascular: Negative for chest pain. Musculoskeletal: Negative for myalgias. Neurological: Positive for headaches (sinus). Objective Physical Exam Vitals and nursing note reviewed. HENT: Head: Normocephalic and atraumatic. Right Ear: Tympanic membrane, ear canal and external ear normal. Left Ear: Tympanic membrane, ear canal and external ear normal. Nose: Congestion and rhinorrhea (clear) present. No mucosal edema. Right Sinus: Maxillary sinus tenderness present. No frontal sinus tenderness. Left Sinus: Maxillary sinus tenderness present. No frontal sinus tenderness. Mouth/Throat: Pharynx: Uvula midline. No oropharyngeal exudate or posterior oropharyngeal erythema. Cardiovascular: Rate and Rhythm: Normal rate and regular rhythm. Heart sounds: Normal heart sounds. Pulmonary: Effort: Pulmonary effort is normal. Breath sounds: Normal breath sounds. Lymphadenopathy: Head: Right side of head: No submental, submandibular or tonsillar adenopathy. Left side of head: No submental, submandibular or tonsillar adenopathy. Cervical: No cervical adenopathy. Skin: General: Skin is warm and dry. Neurological: Mental Status: She is alert. Psychiatric: Mood and Affect: Affect normal. Suspect viral illness ASSESSMENT/PLAN: 1. Headache, unspecified headache type - ICD9: 784.0, ICD10: R51.9 (primary diagnosis) Tylenol, zyrtec Home isolation Testing ordered Comfort measures discussed - see patient instructions. When to seek higher level of care Notified in 12-24 hours with results, available on mychart - 2019 CORONAVIRUS 2. Nasal drainage - ICD9: 478.19, ICD10: J34.89 - suspect viral Flonase, zyrtec Follow up with PCP as needed - 2019 CORONAVIRUS Diagnosis and treatment plan were discussed and questions were answered to the patient's satisfaction. Pt acknowledged understanding of concepts and follow up plan. Specific signs and symptoms that would indicate the need for higher level of care were discussed in detail warranting prompt ER ev (more content not included)... [facility] 07-15-2022 Instructions Sherin Bentley APRN.BOUBACAR - 07/15/2022 11:02 AM EDT Tylenol (generic acetaminophen) 500 mg-2 tabs every 8 hrs. as needed for fever and aches Zyrtec 10 mg By mouth daily at bedtime covid test ordered You will be notified in 12-24 hours, Home isolation until results are back Rest, increase water intake Tylenol as needed for fever or pain. Salt water gargles, chloraseptic spray or lozenges as needed for sore throat. Warm beverages, honey. Nasal saline spray as needed Cool mist humidifier at night Warm Compresses to face, heating pad on back of neck * Seek medical care immediately, call 911, go to ER if you have chest pain, difficulty breathing, shortness of breath, inability to swallow. documented in this encounter [facility] 07-15-2022 History of Presen t illness Narrative Subjective The history is provided by the patient and the spouse. No speech and language clinician was used. HPI Dominique Garza is a 82 year old female who presents today for CC of nasal drainage and headache for 4 days. She has used tylenol once. She denies any known exposure to anyone who is ill. She is scheduled for a colonoscopy on Saturday. She denies any facial assymmetry, slurred speech, muscle weakness or change in balance. BP 128/76 Pulse 77 Temp 36.4 C (97.6 F) Resp 18 Wt 70.9 kg (156 lb 6.4 oz) SpO2 98% BMI 24.87 kg/m Social History Tobacco Use Smoking status: Former Packs/day: 1.00 Years: 30.00 Pack years: 30.00 Types: Cigarettes Quit date: 04/09/2005 Years since quittin.2 Smokeless tobacco: Never Vaping Use Vaping Use: Never used Substance Use Topics Alcohol use: Yes Alcohol/week: 14.0 standard drinks Types: 14 Glasses of Wine (5oz) per week Comment: 2 glass of wine daily Drug use: No PAST MEDICAL HISTORY Diagnosis Date Acute, but ill-defined, cerebrovascular disease 08/06/2005 TIA; Anemia, unspecified 04/2019 Anxiety state 05/28/2006 ANXIETY STATE NOS 05/28/2006 Arrhythmia Asthma, moderate persistent, well-controlled 12/04/2013 Benign neoplasm of colon CKD (chronic kidney disease) stage 3, GFR 30-59 ml/min ([facility]) 08/14/2016 Closed fracture of right foot 08/05/2015 Closed nondisplaced fracture of pelvis ([facility]) 01/14/2017 Depressive disorder, not elsewhere classified Esophageal reflux with hoarseness. 11/10/2011 Laryngoscopy by ENT 2011. 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 Allen Suárez, rheumatology. 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 End 2021. Parkinson disease (HCC) 03/01/2017 Patient diagnosed during hospital admission 03/10/17. Started on Sinemet. Will be managed by Dr. Perez with [facility] neurology. 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 HENT: Positive for congestion. Negative for ear pain, sinus pain and sore throat. Respiratory: Negative for cough, sputum production, shortness of breath and wheezing. Cardiovascular: Negative for chest pain. Musculoskeletal: Negative for myalgias. Neurological: Positive for headaches (sinus). Objective Physical Exam Vitals and nursing note reviewed. HENT: Head: Normocephalic and atraumatic. Right Ear: Tympanic membrane, ear canal and external ear normal. Left Ear: Tympanic membrane, ear canal and external ear normal. Nose: Congestion and rhinorrhea (clear) present. No mucosal edema. Right Sinus: Maxillary sinus tenderness present. No frontal sinus tenderness. Left Sinus: Maxillary sinus tenderness present. No frontal sinus tenderness. Mouth/Throat: Pharynx: Uvula midline. No oropharyngeal exudate or posterior oropharyngeal erythema. Cardiovascular: Rate and Rhythm: Normal rate and regular rhythm. Heart sounds: Normal heart sounds. Pulmonary: Effort: Pulmonary effort is normal. Breath sounds: Normal breath sounds. Lymphadenopathy: Head: Right side of head: No submental, submandibular or tonsillar adenopathy. Left side of head: No submental, submandibular or tonsillar adenopathy. Cervical: No cervical adenopathy. Skin: General: Skin is warm and dry. Neurological: Mental Status: She is alert. Psychiatric: Mood and Affect: Affect normal. Suspect viral illness ASSESSMENT/PLAN: 1. Headache, unspecified headache type - ICD9: 784.0, ICD10: R51.9 (primary diagnosis) Tylenol, zyrtec Home isolation Testing ordered Comfort measures discussed - see patient instructions. When to seek higher level of care Notified in 12-24 hours with results, available on mychart - 2019 CORONAVIRUS 2. Nasal drainage - ICD9: 478.19, ICD10: J34.89 - suspect viral Flonase, zyrtec Follow up with PCP as needed - 2019 CORONAVIRUS Diagnosis and treatment plan were discussed and questions were answered to the patient's satisfaction. Pt acknowledged understanding of concepts and follow up plan. Specific signs and symptoms that would indicate the need for higher level of care were discussed in detail warranting prompt ER evaluation. Sherin Bentley APRN.BOUBACAR documented in this encounter [facility] 06-25-2022 Note HNO ID: [id number] Author: Rosita Paredes APRN.BOUBACAR Service: ? Author Type: Nurse Practitioner Type: Progress Notes Filed: 06/25/2022 11:36 AM Note Text: CC: Patient presents with: Follow Up HPI Dominique Garza is a 82 year old female who presents today for above. Parkinson disease (HCC) Recently transferred care to Dr. Guido. Taking sinemet as prescribed, denies side effects. Gait is unsteady, ambulates with walker. She will be starting PT at [facility] soon. Essential hypertension Medication changes:No Taking all medications as prescribed: Yes Side effects: No Home BP's: No Denies: headache, chest pain, palpitations, dyspnea and peripheral edema. Last 3 Encounter BP Readings: Date: BP: 06/25/2022 128/76 06/18/2022 151/79 06/11/2022 110/72 Asthma, moderate persistent, well-controlled Symptoms: wheezing, chest tightness and cough. Nocturnal Symptoms: No. Asthma is not limiting daily activities or exercise. Current pulmonary medications are montelukast (Singulair) 4 mg daily and Flovent. Frequency of albuterol use is less than once a month. Depression Treated with Lexapro and Remeron. Medications are very effective. She also takes Ativan as needed for anxiety REVIEW OF SYSTEMS See HPI PAST MEDICAL HISTORY Diagnosis Date Acute, but ill-defined, cerebrovascular disease 08/06/2005 TIA; Anemia, unspecified 04/2019 Anxiety state 05/28/2006 ANXIETY STATE NOS 05/28/2006 Arrhythmia Asthma, moderate persistent, well-controlled 12/04/2013 Benign neoplasm of colon CKD (chronic kidney disease) stage 3, GFR 30-59 ml/min ([facility]) 08/14/2016 Closed fracture of right foot 08/05/2015 Closed nondisplaced fracture of pelvis ([facility]) 01/14/2017 Depressive disorder, not elsewhere classified Esophageal reflux with hoarseness. 11/10/2011 Laryngoscopy by ENT 2011. 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 Allen Suárez, rheumatology. 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 End 2021. Parkinson disease ([facility]) 03/01/2017 Patient diagnosed during hospital admission 03/10/17. Started on Sinemet. Will be managed by Dr. Peerz with [facility] neurology. 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 Unspecified constipation Urge incontinence 05/03/2010 PAST SURGICAL HISTORY Procedure Laterality Date ARTHRP KNE CONDYLEANDPLATU MEDIALANDLAT COMPARTMENTS 12/04/09 bilateral total COLONOSCOPY FLX DX W/COLLJ SPEC WHEN PFRMD 06/07/2006 Colonoscopy COLONOSCOPY FLX DX W/COLLJ SPEC WHEN PFRMD 04/06/10 COLONOSCOPY FLX DX W/COLLJ SPEC WHEN PFRMD 12/17/2017 adenomatous polyps, large sessile polyp, tattooed-repeat in 1 year COLONOSCOPY FLX DX W/COLLJ SPEC WHEN PFRMD 12/23/2018 Colonoscopy EGD TRANSORAL BIOPSY SINGLE/MULTIPLE 04/20/2019 ESOPHAGOGASTRODUODENOSCOPY TRANSORAL DIAGNOSTIC 11/19 EGD ALLERGIES Amoxicillin, Celebrex [Celecoxib], Relafen [Nabumetone], Adhesive Tape (Rosins), Cymbalta [Duloxetine], Iodine, Norvasc [Amlodipine], and Sulfabenzamide MEDICATIONS carbidopa-levodopa (SINEMET 25-100) 25-100 mg per tablet Take 2 tablets by mouth three times daily. (breakfast or waking; lunch or noon; and dinner or about 5PM). busPIRone (BUSPAR) 5 mg tablet Take 1 tablet by mouth twice daily. LORazepam (ATIVAN) 0.5 mg Take 1 tablet by mouth twice daily as needed (anxiety) for up to 90 days. mirtazapine (REMERON) 30 mg tablet Take 1 tablet by mouth daily at bedtime. For appetite and sleep. lansoprazole (PREVACID) 30 mg capsule Take 1 capsule by mouth once daily. For acid indigestion. escitalopram oxalate (LEXAPRO) 20 mg tablet Take 1 tablet by mouth once daily. montelukast (SINGULAIR) 10 mg tablet Take 1 tablet by mouth daily at bedtime. apixaban (ELIQUIS) 5 mg tab(s) Take 1 tablet by mouth twice daily. fluticasone (FLONASE) 50 mcg/actuation nasal spray Use 1 [place] in each nostril once daily. mirabegron (MYRBETRIQ) 50 mg Tb24 Take 1 tablet by mouth once daily as needed. triamterene-hydroCHLOROthiazide (MAXZIDE-25MG) 37.5-25 mg per tablet Take 1 tablet by mouth once daily. alendronate (FOSAMAX) 70 mg tablet Take 1 tablet by mouth one time a week. Take with a full glass of water, on an empty stomach; do NOT lie down for 30minutes. verapamil SR (CALAN SR, ISOPTIN SR) 120 mg CR tablet Take 1 tablet by mouth daily at bedtime. aspirin, enteric coated (ASPIRIN, ENTERIC COATED) 81 mg EC tablet Take 81 mg by mouth once daily. senna-docusate (SENNA-S) 8.6-50 mg per tablet Take 2 (more content not included)... [facility] 06-25-2022 Instructions Rosita Paredes APRN.STEELSCOPE OPERATOR - 06/25/2022 11:10 AM EDT WHAT YOU CAN DO TO PREVENT FALLS Many falls can be prevented. By making some changes, you can lower your chances of falling. Four things YOU can do to prevent falls for you* and your caregiver 1. Begin a regular exercise program Exercise is one of the most important ways to lower your chances of falling. It makes you stronger and helps you feel better. Exercises that improve balance and coordination (like Jose Chi) are the most helpful. Lack of exercise leads to weakness and increases your chances of falling. Ask your doctor or health care provider about the best type of exercise program for you. 2. Have your health care provider review your medicines Have your doctor or pharmacist review all the medicines you take, even [id number] medicines. As you get older, the way medicines work in your body can change. Some medicines, or combinations of medicines, can make you sleepy or dizzy and can cause you to fall. 3. Have your vision checked Have your eyes checked by an eye doctor at least once a year. You may be wearing the wrong glasses or have a condition like glaucoma or cataracts that limits your vision. Poor vision can increase your chances of falling. 4. Make your home safer About half of all falls happen at home. To make your home safer: Remove things you can trip over (like papers, books, clothes, and shoes) from stairs and places where you walk. Remove small throw rugs or use double-sided tape to keep the rugs from slipping. Keep items you use often in cabinets you can reach easily without using a step stool. Have grab bars put in next to your toilet and in the tub or shower. Use non-slip mats in the bathtub and on shower floors. Improve the lighting in your home. As you get older, you need brighter lights to see well. Hang light-weight curtains or shades to reduce glare. Have handrails and lights put in on all staircases. Wear shoes both inside and outside the house. Avoid going barefoot or wearing slippers. For more information, contact: Centers for Disease Control and Prevention www.cdc.gov/injury * This information may not apply if you have certain medical conditions. documented in this encounter [facility] 06-25-2022 History of Presen t illness Narrative CC: Patient presents with: Follow Up HPI Dominique Garza is a 82 year old female who presents today for above. Parkinson disease ([facility]) Recently transferred care to Dr. Guido. Taking sinemet as prescribed, denies side effects. Gait is unsteady, ambulates with walker. She will be starting PT at [facility] soon. Essential hypertension Medication changes:No Taking all medications as prescribed: Yes Side effects: No Home BP's: No Denies: headache, chest pain, palpitations, dyspnea and peripheral edema. Last 3 Encounter BP Readings: Date: BP: 06/25/2022 128/76 06/18/2022 151/79 06/11/2022 110/72 Asthma, moderate persistent, well-controlled Symptoms: wheezing, chest tightness and cough. Nocturnal Symptoms: No. Asthma is not limiting daily activities or exercise. Current pulmonary medications are montelukast (Singulair) 4 mg daily and Flovent. Frequency of albuterol use is less than once a month. Depression Treated with Lexapro and Remeron. Medications are very effective. She also takes Ativan as needed for anxiety REVIEW OF SYSTEMS See HPI PAST MEDICAL HISTORY Diagnosis Date Acute, but ill-defined, cerebrovascular disease 08/06/2005 TIA; Anemia, unspecified 04/2019 Anxiety state 05/28/2006 ANXIETY STATE NOS 05/28/2006 Arrhythmia Asthma, moderate persistent, well-controlled 12/04/2013 Benign neoplasm of colon CKD (chronic kidney disease) stage 3, GFR 30-59 ml/min ([facility]) 08/14/2016 Closed fracture of right foot 08/05/2015 Closed nondisplaced fracture of pelvis ([facility]) 01/14/2017 Depressive disorder, not elsewhere classified Esophageal reflux with hoarseness. 11/10/2011 Laryngoscopy by ENT 2011. 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 Allen Suárez, rheumatology. 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 End 2021. Parkinson disease ([facility]) 03/01/2017 Patient diagnosed during hospital admission 03/10/17. Started on Sinemet. Will be managed by Dr. Perez with [facility] neurology. 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 Unspecified constipation Urge incontinence 05/03/2010 PAST SURGICAL HISTORY Procedure Laterality Date ARTHRP KNE CONDYLE&PLATU MEDIAL&LAT COMPARTMENTS 12/04/09 bilateral total COLONOSCOPY FLX DX W/COLLJ SPEC WHEN PFRMD 06/07/2006 Colonoscopy COLONOSCOPY FLX DX W/COLLJ SPEC WHEN PFRMD 04/06/10 COLONOSCOPY FLX DX W/COLLJ SPEC WHEN PFRMD 12/17/2017 adenomatous polyps, large sessile polyp, tattooed-repeat in 1 year COLONOSCOPY FLX DX W/COLLJ SPEC WHEN PFRMD 12/23/2018 Colonoscopy EGD TRANSORAL BIOPSY SINGLE/MULTIPLE 04/20/2019 ESOPHAGOGASTRODUODENOSCOPY TRANSORAL DIAGNOSTIC 11/19 EGD ALLERGIES Amoxicillin, Celebrex [Celecoxib], Relafen [Nabumetone], Adhesive Tape (Rosins), Cymbalta [Duloxetine], Iodine, Norvasc [Amlodipine], and Sulfabenzamide MEDICATIONS carbidopa-levodopa (SINEMET 25-100) 25-100 mg per tablet Take 2 tablets by mouth three times daily. (breakfast or waking; lunch or noon; and dinner or about 5PM). busPIRone (BUSPAR) 5 mg tablet Take 1 tablet by mouth twice daily. LORazepam (ATIVAN) 0.5 mg Take 1 tablet by mouth twice daily as needed (anxiety) for up to 90 days. mirtazapine (REMERON) 30 mg tablet Take 1 tablet by mouth daily at bedtime. For appetite and sleep. lansoprazole (PREVACID) 30 mg capsule Take 1 capsule by mouth once daily. For acid indigestion. escitalopram oxalate (LEXAPRO) 20 mg tablet Take 1 tablet by mouth once daily. montelukast (SINGULAIR) 10 mg tablet Take 1 tablet by mouth daily at bedtime. apixaban (ELIQUIS) 5 mg tab(s) Take 1 tablet by mouth twice daily. fluticasone (FLONASE) 50 mcg/actuation nasal spray Use 1 [place] in each nostril once daily. mirabegron (MYRBETRIQ) 50 mg Tb24 Take 1 tablet by mouth once daily as needed. triamterene-hydroCHLOROthiazide (MAXZIDE-25MG) 37.5-25 mg per tablet Take 1 tablet by mouth once daily. alendronate (FOSAMAX) 70 mg tablet Take 1 tablet by mouth one time a week. Take with a full glass of water, on an empty stomach; do NOT lie down for 30minutes. verapamil SR (CALAN SR, ISOPTIN SR) 120 mg CR tablet Take 1 tablet by mouth daily at bedtime. aspirin, enteric coated (ASPIRIN, ENTERIC COATED) 81 mg EC tablet Take 81 mg by mouth once daily. senna-docusate (SENNA-S) 8.6-50 mg per tablet Take 2 tablets by mouth twice daily. Constipation. albuterol HFA (PROVENTIL HFA, VENTOLIN HFA) 90 mcg/actuation inhaler Inhale 2 Puffs as instructed four times daily as needed. FOR WHEEZING AND SHORTNESS OF BREATH. Biotin 400 mcg ORAL Tab Take 1 tablet by mouth once daily. MIRALAX 100 % ORAL POWDER 1 capful in 8 oz fluid daily donepezil (ARICEPT) 10 mg tablet Take 10 mg by mouth once daily. benzonatate (TESSALON PERLE) 100 mg capsule Take 2 capsules by mouth three times daily as needed. (Patient not taking: Reported on 06/25/2022) fluticasone (FLOVENT HFA) 220 mcg/actuation inhaler Inhale 1 Puff as instructed twice daily. (Patient taking differently: Inhale 1 Puff as instructed twice daily. Using as needed/flare ups) FAMILY HISTORY Problem Relation Age of Onset other (CHF) Mother other (Lung Ca) Father Coronary Artery Disease Brother Cancer Brother lung Breast Cancer Maternal Aunt Breast Cancer Paternal Aunt Social History Tobacco Use Smoking status: Former Packs/day: 1.00 Years: 30.00 Pack years: 30.00 Types: Cigarettes Quit date: 04/09/2005 Years since quittin.2 Smokeless tobacco: Never Vaping Use Vaping Use: Never used Substance Use Topics Alcohol use: Yes Alcohol/week: 14.0 standard drinks Types: 14 Glasses of Wine (5oz) per week Comment: 2 glass of wine daily Drug use: No PHYSICAL EXAM BP 128/76 Pulse 69 Resp 16 Ht 168.9 cm (5' 6.5 ) Wt 68.9 kg (152 lb) BMI 24.17 kg/m General Appearance: well appearing, in no acute distress, alert Pysch: mood and affect broad and appropriate Lungs: Lungs clear to auscultation. No wheezing, rhonchi, rales. Heart: RRR without murmur, gallop, or rubs. No ectopy Health maintenance reviewed with patient: ADVANCE DIRECTIVE DISCUSSION due on 03/18/2022 COLORECTAL CANCER SCREENING due on 05/19/2022 DTAP,TDAP,TD(1 - Tdap) due on 06/26/2023 DIABETES SCREEN due on 05/17/2025 BONE DENSITY Completed SPIROMETRY Completed INFLUENZA Completed SHINGRIX VACCINE Completed COVID-19 VACCINE Completed PNEUMOCOCCAL: 65+ Completed DATA REVIEWED: Most recent labs ASSESSMENT/PLAN: 1. Essential hypertension - ICD9: 401.9, ICD10: I10 (primary diagnosis) - good control - Continue current medication(s) - Recommended regular aerobic exercise. - Recommend home blood pressure monitoring, to bring results in on next visit - Goal of BP <130/80 2. Asthma, moderate persistent, well-controlled - ICD9: 493.90, ICD10: J45.40 Stable 3. Depression, unspecified depression type - ICD9: 311, ICD10: F32.A Stable 4. Parkinson disease (HCC) - ICD9: 332.0, ICD10: G20 Meds and monitoring per neurology 5. Unsteady gait - ICD9: 781.2, ICD10: R26.81 Starting PT at [facility] 6. Stage 3a chronic kidney disease (HCC) - ICD9: 585.3, ICD10: N18.31 Stable Prescription instructions reviewed with patient as applicable. Potential red flag symptoms discussed with the patient. Reviewed appropriate action plan to take if red flag symptoms occur. Patient agreeable to treatment plan. Rosita Paredes APRN.BOUBACAR documented in this encounter [facility] 06-18-2022 Note HNO ID: [id number] Author: Danilo Guido Jr., MD Service: ? Author Type: Physician Type: Progress Notes Filed: 06/18/2022 5:29 PM Note Text: NEW PATIENT (CONSULT) HISTORY AND PHYSICAL EXAM PRIMARY CARE PHYSICIAN: Corbin Bai MD REASON FOR CONSULT: Parkinson's REFERRING PHYSICIAN: No ref. provider found CHIEF COMPLAINT: Needs to follow somewhere closer to home. HISTORY OF PRESENT ILLNESS: Dominique Gazra is a 82 year old female, with a PMH significant for PD followed by outside neurologists - attempts made to get those records, but unsuccessful (listed in CareEverywhere). States I have PD, and they have followed me, but I am not having problems now. was seen by [facility] in 2017 at [facility] and told after she fell it was due to PD. States that sometimes had to crawl but since on PD meds falls went away immediately and gait improved. Currently on Sinemet 25/100mg 2 tabs at 6AM, Noon and then again at 6PM with bedtime of about 830PM. Denies on-off effect. States reason she was increased from 1 tab to 2 tabs TID, was due to freezing. No family history of PD. No tremors. No RBD symptoms. Describes changes to handwriting but difficult for her to describe. Some difficulties getting out of chairs and uses cane constantly. No issues moving around during the late night. When asked, dinner is about 5PM. No loss of smell or taste. No side effects on higher dose of Sinemet (6 tabs per day). REVIEW OF SYSTEMS GENERAL:No weight loss, malaise or fevers. HEENT:Negative for frequent or significant headaches, No changes in hearing or vision, no nose bleeds or other nasal problems NECK:Negative for lumps, goiter, pain and significant neck swelling RESPIRATORY: Negative for cough, wheezing or shortness of breath. CARDIOVASCULAR: Negative for chest pain, leg swelling or palpitations. GASTROINTESTINAL: Negative for abdominal discomfort, blood in stools or black stools or change in bowel habits GENITOURINARY: No history of dysuria, frequency or incontinence MUSCULOSKELETAL: Negative for joint pain or swelling, back pain or muscle pain. NEUROLOGIC:See HPI. SKIN:Negative for lesions, rash, and itching. HEMATOLOGIC/LYMPHATIC/IMMUNOLOGI C:Negative for prolonged bleeding, bruising easily or swollen nodes. ENDOCRINE: Negative for cold or heat intolerance, polyuria, polydipsia and goiter. The remainder of the ROS was reviewed and is negative. LAB/IMAGING: Reviewed and include: WBC (k/uL) Date Value 05/17/2022 7.03 RBC (m/uL) Date Value 05/17/2022 3.88 (L) Hemoglobin (g/dL) Date Value 05/17/2022 11.8 Hematocrit (%) Date Value 05/17/2022 36.3 MCV (fL) Date Value 05/17/2022 93.6 MCH (pg) Date Value 05/17/2022 30.4 MCHC (g/dL) Date Value 05/17/2022 32.5 RDW-CV (%) Date Value 05/17/2022 13.4 Platelet Count (k/uL) Date Value 05/17/2022 219 MPV (fL) Date Value 05/17/2022 11.1 Glucose (mg/dL) Date Value 05/17/2022 99 BUN (mg/dL) Date Value 05/17/2022 23 (H) Creatinine (mg/dL) Date Value 05/17/2022 0.92 Sodium (mmol/L) Date Value 05/17/2022 139 Potassium (mmol/L) Date Value 05/17/2022 3.9 Chloride (mmol/L) Date Value 05/17/2022 100 CO2 (mmol/L) Date Value 05/17/2022 29 Protein, Total (g/dL) Date Value 05/17/2022 6.8 Albumin (g/dL) Date Value 05/17/2022 4.2 Calcium, Total (mg/dL) Date Value 05/17/2022 8.9 Alkaline Phosphatase (U/L) Date Value 05/17/2022 69 Bilirubin, Total (mg/dL) Date Value 05/17/2022 0.4 AST (U/L) Date Value 05/17/2022 25 ALT (U/L) Date Value 05/17/2022 8 BARBARA (no units) Date Value 10/17/2021 Positive (A) SSA Antibody IgG (AI) Date Value 10/17/2021 <0.2 SSB Antibody (AI) Date Value 10/17/2021 <0.2 Rheumatoid Factor (IU/mL) Date Value 10/17/2021 <10 MEDICATIONS: busPIRone (BUSPAR) 5 mg tablet Take 1 tablet by mouth twice daily. LORazepam (ATIVAN) 0.5 mg Take 1 tablet by mouth twice daily as needed (anxiety) for up to 90 days. mirtazapine (REMERON) 30 mg tablet Take 1 tablet by mouth daily at bedtime. For appetite and sleep. lansoprazole (PREVACID) 30 mg capsule Take 1 capsule by mouth once daily. For acid indigestion. escitalopram oxalate (LEXAPRO) 20 mg tablet Take 1 tablet by mouth once daily. montelukast (SINGULAIR) 10 mg tablet Take 1 tablet by mouth daily at bedtime. apixaban (ELIQUIS) 5 mg tab(s) Take 1 tablet by mouth twice daily. fluticasone (FLONASE) 50 mcg/actuation nasal spray Use 1 [place] in each nostril once daily. benzonatate (TESSALON PERLE) 100 mg capsule Take 2 capsules by mouth three times daily as needed. mirabegron (MYRBETRIQ) 50 mg Tb24 Take 1 tablet by mouth once daily as needed. triamterene-hydroCHLOROthiazide (MAXZIDE-25MG) 37.5-25 mg per tablet Take 1 tablet by mouth once daily. alendronate (FOSAMAX) 70 mg tablet Take 1 tablet by mouth one time a week. Take with a full glass of bel (more content not included)... [facility] 06-18-2022 History of Presen t illness Narrative NEW PATIENT (CONSULT) HISTORY AND PHYSICAL EXAM PRIMARY CARE PHYSICIAN: Corbin Bai MD REASON FOR CONSULT: Parkinson's REFERRING PHYSICIAN: No ref. provider found CHIEF COMPLAINT: Needs to follow somewhere closer to home. HISTORY OF PRESENT ILLNESS: Dominique Garza is a 82 year old female, with a PMH significant for PD followed by outside neurologists - attempts made to get those records, but unsuccessful (listed in [facility]where). States I have PD, and they have followed me, but I am not having problems now. States was seen by [facility] in 2017 at [facility] and told after she fell it was due to PD. States that sometimes had to crawl but since on PD meds falls went away immediately and gait improved. Currently on Sinemet 25/100mg 2 tabs at 6AM, Noon and then again at 6PM with bedtime of about 830PM. Denies on-off effect. States reason she was increased from 1 tab to 2 tabs TID, was due to freezing. No family history of PD. No tremors. No RBD symptoms. Describes changes to handwriting but difficult for her to describe. Some difficulties getting out of chairs and uses cane constantly. No issues moving around during the late night. When asked, dinner is about 5PM. No loss of smell or taste. No side effects on higher dose of Sinemet (6 tabs per day). REVIEW OF SYSTEMS GENERAL:No weight loss, malaise or fevers. HEENT:Negative for frequent or significant headaches, No changes in hearing or vision, no nose bleeds or other nasal problems NECK:Negative for lumps, goiter, pain and significant neck swelling RESPIRATORY: Negative for cough, wheezing or shortness of breath. CARDIOVASCULAR: Negative for chest pain, leg swelling or palpitations. GASTROINTESTINAL: Negative for abdominal discomfort, blood in stools or black stools or change in bowel habits GENITOURINARY: No history of dysuria, frequency or incontinence MUSCULOSKELETAL: Negative for joint pain or swelling, back pain or muscle pain. NEUROLOGIC:See HPI. SKIN:Negative for lesions, rash, and itching. HEMATOLOGIC/LYMPHATIC/IMMUNOLOGI C:Negative for prolonged bleeding, bruising easily or swollen nodes. ENDOCRINE: Negative for cold or heat intolerance, polyuria, polydipsia and goiter. The remainder of the ROS was reviewed and is negative. LAB/IMAGING: Reviewed and include: WBC (k/uL) Date Value 05/17/2022 7.03 RBC (m/uL) Date Value 05/17/2022 3.88 (L) Hemoglobin (g/dL) Date Value 05/17/2022 11.8 Hematocrit (%) Date Value 05/17/2022 36.3 MCV (fL) Date Value 05/17/2022 93.6 MCH (pg) Date Value 05/17/2022 30.4 MCHC (g/dL) Date Value 05/17/2022 32.5 RDW-CV (%) Date Value 05/17/2022 13.4 Platelet Count (k/uL) Date Value 05/17/2022 219 MPV (fL) Date Value 05/17/2022 11.1 Glucose (mg/dL) Date Value 05/17/2022 99 BUN (mg/dL) Date Value 05/17/2022 23 (H) Creatinine (mg/dL) Date Value 05/17/2022 0.92 Sodium (mmol/L) Date Value 05/17/2022 139 Potassium (mmol/L) Date Value 05/17/2022 3.9 Chloride (mmol/L) Date Value 05/17/2022 100 CO2 (mmol/L) Date Value 05/17/2022 29 Protein, Total (g/dL) Date Value 05/17/2022 6.8 Albumin (g/dL) Date Value 05/17/2022 4.2 Calcium, Total (mg/dL) Date Value 05/17/2022 8.9 Alkaline Phosphatase (U/L) Date Value 05/17/2022 69 Bilirubin, Total (mg/dL) Date Value 05/17/2022 0.4 AST (U/L) Date Value 05/17/2022 25 ALT (U/L) Date Value 05/17/2022 8 BARBARA (no units) Date Value 10/17/2021 Positive (A) SSA Antibody IgG (AI) Date Value 10/17/2021 <0.2 SSB Antibody (AI) Date Value 10/17/2021 <0.2 Rheumatoid Factor (IU/mL) Date Value 10/17/2021 <10 MEDICATIONS: busPIRone (BUSPAR) 5 mg tablet Take 1 tablet by mouth twice daily. LORazepam (ATIVAN) 0.5 mg Take 1 tablet by mouth twice daily as needed (anxiety) for up to 90 days. mirtazapine (REMERON) 30 mg tablet Take 1 tablet by mouth daily at bedtime. For appetite and sleep. lansoprazole (PREVACID) 30 mg capsule Take 1 capsule by mouth once daily. For acid indigestion. escitalopram oxalate (LEXAPRO) 20 mg tablet Take 1 tablet by mouth once daily. montelukast (SINGULAIR) 10 mg tablet Take 1 tablet by mouth daily at bedtime. apixaban (ELIQUIS) 5 mg tab(s) Take 1 tablet by mouth twice daily. fluticasone (FLONASE) 50 mcg/actuation nasal spray Use 1 [place] in each nostril once daily. benzonatate (TESSALON PERLE) 100 mg capsule Take 2 capsules by mouth three times daily as needed. mirabegron (MYRBETRIQ) 50 mg Tb24 Take 1 tablet by mouth once daily as needed. triamterene-hydroCHLOROthiazide (MAXZIDE-25MG) 37.5-25 mg per tablet Take 1 tablet by mouth once daily. alendronate (FOSAMAX) 70 mg tablet Take 1 tablet by mouth one time a week. Take with a full glass of water, on an empty stomach; do NOT lie down for 30minutes. fluticasone (FLOVENT HFA) 220 mcg/actuation inhaler Inhale 1 Puff as instructed twice daily. (Patient taking differently: Inhale 1 Puff as instructed twice daily. Using as needed/flare ups) verapamil SR (CALAN SR, ISOPTIN SR) 120 mg CR tablet Take 1 tablet by mouth daily at bedtime. aspirin, enteric coated (ASPIRIN, ENTERIC COATED) 81 mg EC tablet Take 81 mg by mouth once daily. carbidopa-levodopa (SINEMET 25-100) 25-100 mg per tablet Take 1 tablet by mouth three times daily. senna-docusate (SENNA-S) 8.6-50 mg per tablet Take 2 tablets by mouth twice daily. Constipation. albuterol HFA (PROVENTIL HFA, VENTOLIN HFA) 90 mcg/actuation inhaler Inhale 2 Puffs as instructed four times daily as needed. FOR WHEEZING AND SHORTNESS OF BREATH. Biotin 400 mcg ORAL Tab Take 1 tablet by mouth once daily. MIRALAX 100 % ORAL POWDER 1 capful in 8 oz fluid daily HISTORIES PAST MEDICAL HISTORY Diagnosis Date Acute, but ill-defined, cerebrovascular disease 08/06/2005 TIA; Anemia, unspecified 04/2019 Anxiety state 05/28/2006 ANXIETY STATE NOS 05/28/2006 Arrhythmia Asthma, moderate persistent, well-controlled 12/04/2013 Benign neoplasm of colon CKD (chronic kidney disease) stage 3, GFR 30-59 ml/min ([facility]) 08/14/2016 Closed fracture of right foot 08/05/2015 Closed nondisplaced fracture of pelvis ([facility]) 01/14/2017 Depressive disorder, not elsewhere classified Esophageal reflux with hoarseness. 11/10/2011 Laryngoscopy by ENT 2011. 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 Allen Suárez, rheumatology. 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 End 2021. Parkinson disease ([facility]) 03/01/2017 Patient diagnosed during hospital admission 03/10/17. Started on Sinemet. Will be managed by Dr. Perez with [facility] neurology. 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 Unspecified constipation Urge incontinence 05/03/2010 FAMILY HISTORY Problem Relation Age of Onset other (CHF) Mother other (Lung Ca) Father Coronary Artery Disease Brother Cancer Brother lung Breast Cancer Maternal Aunt Breast Cancer Paternal Aunt SOCIAL HISTORY Social History Tobacco Use Smoking status: Former Packs/day: 1.00 Years: 30.00 Pack years: 30.00 Types: Cigarettes Quit date: 04/09/2005 Years since quittin.2 Smokeless tobacco: Never Vaping Use Vaping Use: Never used Substance Use Topics Alcohol use: Yes Alcohol/week: 14.0 standard drinks Types: 14 Glasses of Wine (5oz) per week Comment: 2 glass of wine daily Drug use: No PHYSICAL EXAMINATION Blood pressure 151/79, pulse 83, temperature 36.9 C (98.4 F), resp. rate 16, weight 68.2 kg (150 lb 6.4 oz), SpO2 95 %. (Last Sinemet 4.5 hours ago) GENERAL EXAM: General appearance: NAD, pleasant. HEENT: NC/AT, nasal congestion absent, no oral lesions, membranes moist. NECK: ROM nml. Lungs: CTA bilaterally. CV: RRR nl S1, S2. No carotid bruits. Extr: No cyanosis, clubbing or edema. Skin: Cool to touch. NEUROLOGICAL EXAM: General: Awake, alert, oriented x3 (person,place,time), speech fluent, no dysarthria; comprehension, naming, repetition intact. Fund of knowledge grossly normal. CN: PERRL, EOMI and without nystagmus, VFF to confrontation, facial sensation and strength are normal and symmetric, hearing is intact to finger rub bilaterally, palate and tongue movements are intact and symmetric. SCM and trapezius strength normal. Motor: Normal tone, bulk and strength (5/5) bilaterally (throughout extremities x4). Coordination: FNF, ZURI, HTS intact. No tremors. Sensation: Light touch, vibration, temperature intact throughout. No evidence of neglect. Gait: Narrow based and stable with cane, but takes 6 steps to trun 180 degrees and decreased arm swing on left. Nomberg normal. +Retropulsion on pull testing. Assessment and Plan: ASSESSMENT/PLAN: 1. Parkinson disease (HCC) - ICD9: 332.0, ICD10: G20 (primary diagnosis) 2. Abnormality of gait - ICD9: 781.2, ICD10: R26.9 Patient with prior dx of PD, now here to establish care closer to home. Noted deficits as above on exam. but baseline unknown with pt already on Sinemet. Will request prior records be sent to us for review including reported MRI brain that per pt was unremarkable. As for current meds, I do feel she is taking evening dose of Sinemet too late, with it essentially only being used for about 1 hour before going to bed. I have asked her to move this dose up to dinner time (5PM). Otherwise, will continue Sinemet as taking above. I strongly encouraged exercise and placed a consult to [facility] per pt and her 's request for stop the disease program. PT will likely have more influence on retropulsion and difficulties rising from chair than increases in medications (side effects likely > benefits). Pt will follow up in 3 months or sooner prn. 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 Pt and her agree with plan. Dx, etiology, physiology, treatment and prognosis d/w pt and her in detail. Danilo Guido MD I spent a total of 45+ minutes on the date of the service which included preparing to see the patient, [id number] patient care, completing clinical documentation, obtaining and/or reviewing separately obtained history, performing a medically appropriate examination, counseling and educating the patient/family/caregiver, ordering medications, tests, or procedures, independently interpreting results (not separately reported), and communicating results to the patient/family/caregiver. documented in this encounter [facility] 06-11-2022 Note HNO ID: [id number] Author: Aneta Jordan PA-C Service: ? Author Type: Physician Clinical Services Assistant Type: Progress Notes Filed: 06/11/2022 12:07 PM Note Text: HISTORY AND PHYSICAL Dominique Garza 1940 REFERRING PHYSICIAN: Rosita Paredes APRN.CNP CHIEF COMPLAINT: Consult (Black tarry stool, positive occult ) HPI: The patient is a 82 year old female referred for endoscopy. Dominique notes a history of dark stools with onset 1 month ago. Patient notes long-term issues with constipation but denies any acute change in bowel habits, weight changes, visible red blood in stools, abdominal pain. Had fecal occult blood test done through primary care which was positive. No anemia noted on recent labs. Patient has a history of multiple colon polyps. Most recent colonoscopy 12/23/[address] Osuna in the [facility] under conscious sedation, with removal of multiple polyps at that time. She had adenomas removed during colonoscopies in both 2018 and 2019. Patient states received letter after last colonoscopy saying she did not require further colonoscopies, although office documentation from 12/27/18 states repeat colonoscopy was recommended in 2-3 years. Recommendation was not reflected in patient's Health Maintenance-this was updated at today's visit. The patient notes a history of GERD for which she has been maintained on a PPI long-term. 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 Patient denies chest pain, shortness of breath or recent hospitalizations. Denies problems with sedation in the past. PAST MEDICAL HISTORY Diagnosis Date Acute, but ill-defined, cerebrovascular disease 08/06/2005 TIA; Anemia, unspecified 04/2019 Anxiety state 05/28/2006 ANXIETY STATE NOS 05/28/2006 Arrhythmia Asthma, moderate persistent, well-controlled 12/04/2013 Benign neoplasm of colon CKD (chronic kidney disease) stage 3, GFR 30-59 ml/min ([facility]) 08/14/2016 Closed fracture of right foot 08/05/2015 Closed nondisplaced fracture of pelvis ([facility]) 01/14/2017 Depressive disorder, not elsewhere classified Esophageal reflux with hoarseness. 11/10/2011 Laryngoscopy by ENT 2011. 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 Allen Suárez, rheumatology. 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 End 2021. Parkinson disease ([facility]) 03/01/2017 Patient diagnosed during hospital admission 03/10/17. Started on Sinemet. Will be managed by Dr. Perez with [facility] neurology. 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 Unspecified constipation Urge incontinence 05/03/2010 PAST SURGICAL HISTORY Procedure Laterality Date ARTHRP KNE CONDYLEANDPLATU MEDIALANDLAT COMPARTMENTS 12/04/09 bilateral total COLONOSCOPY FLX DX W/COLLJ SPEC WHEN PFRMD 06/07/2006 Colonoscopy COLONOSCOPY FLX DX W/COLLJ SPEC WHEN PFRMD 04/06/10 COLONOSCOPY FLX DX W/COLLJ SPEC WHEN PFRMD 12/17/2017 adenomatous polyps, large sessile polyp, tattooed-repeat in 1 year COLONOSCOPY FLX DX W/COLLJ SPEC WHEN PFRMD 12/23/2018 Colonoscopy EGD TRANSORAL BIOPSY SINGLE/MULTIPLE 04/20/2019 ESOPHAGOGASTRODUODENOSCOPY TRANSORAL DIAGNOSTIC 11/19 EGD Current Outpatient Medications Medication Sig busPIRone (BUSPAR) 5 mg tablet Take 1 tablet by mouth twice daily. LORazepam (ATIVAN) 0.5 mg Take 1 tablet by mouth twice daily as needed (anxiety) for up to 90 days. mirtazapine (REMERON) 30 mg tablet Take 1 tablet by mouth daily at bedtime. For appetite and sleep. lansoprazole (PREVACID) 30 mg capsule Take 1 capsule by mouth once daily. For acid indigestion. escitalopram oxalate (LEXAPRO) 20 mg tablet Take 1 tablet by mouth once daily. montelukast (SINGULAIR) 10 mg tablet Take 1 tablet by mouth daily at bedtime. apixaban (ELIQUIS) 5 mg tab(s) Take 1 tablet by mouth twice daily. fluticasone (FLONASE) 50 mcg/actuation nasal spray Use 1 [place] in each nostril once daily. benzonatate (TESSALON PERLE) 100 mg capsule Take 2 capsules by mouth three times daily as needed. mirabegron (MYRBETRIQ) 50 mg Tb24 Take 1 tablet by mouth once daily as needed. triamterene-hydroCHLOROthiazide (MAXZIDE-25MG) 37.5-25 mg per tablet Take 1 tablet by mouth once daily. alendronate (FOSAMAX) 70 mg tablet Take 1 tablet by mouth one time a week. Take with a full glass of water, on an empty stomach; do NOT lie down for 30minutes. fluticasone (FLOVENT HFA) 220 mcg/actuation inhaler Inhale 1 Puff as instructed twice daily. (Patient (more content not included)... [facility] 06-11-2022 History of Presen t illness Narrative HISTORY AND PHYSICAL Dominique Garza 1940 REFERRING PHYSICIAN: Rosita Paredes APRN.STEELSCOPE OPERATOR CHIEF COMPLAINT: Consult (Black tarry stool, positive occult ) HPI: The patient is a 82 year old female referred for endoscopy. Dominique notes a history of dark stools with onset 1 month ago. Patient notes long-term issues with constipation but denies any acute change in bowel habits, weight changes, visible red blood in stools, abdominal pain. Had fecal occult blood test done through primary care which was positive. No anemia noted on recent labs. Patient has a history of multiple colon polyps. Most recent colonoscopy 12/23/[address] Osuna in the [facility] under conscious sedation, with removal of multiple polyps at that time. She had adenomas removed during colonoscopies in both 2018 and 2019. Patient states received letter after last colonoscopy saying she did not require further colonoscopies, although office documentation from 12/27/18 states repeat colonoscopy was recommended in 2-3 years. Recommendation was not reflected in patient's Health Maintenance-this was updated at today's visit. The patient notes a history of GERD for which she has been maintained on a PPI long-term. 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 Patient denies chest pain, shortness of breath or recent hospitalizations. Denies problems with sedation in the past. PAST MEDICAL HISTORY Diagnosis Date Acute, but ill-defined, cerebrovascular disease 08/06/2005 TIA; Anemia, unspecified 04/2019 Anxiety state 05/28/2006 ANXIETY STATE NOS 05/28/2006 Arrhythmia Asthma, moderate persistent, well-controlled 12/04/2013 Benign neoplasm of colon CKD (chronic kidney disease) stage 3, GFR 30-59 ml/min ([facility]) 08/14/2016 Closed fracture of right foot 08/05/2015 Closed nondisplaced fracture of pelvis ([facility]) 01/14/2017 Depressive disorder, not elsewhere classified Esophageal reflux with hoarseness. 11/10/2011 Laryngoscopy by ENT 2011. 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 Allen Suárez, rheumatology. 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 End 2021. Parkinson disease ([facility]) 03/01/2017 Patient diagnosed during hospital admission 03/10/17. Started on Sinemet. Will be managed by Dr. Perez with [facility] neurology. 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 Unspecified constipation Urge incontinence 05/03/2010 PAST SURGICAL HISTORY Procedure Laterality Date ARTHRP KNE CONDYLE&PLATU MEDIAL&LAT COMPARTMENTS 12/04/09 bilateral total COLONOSCOPY FLX DX W/COLLJ SPEC WHEN PFRMD 06/07/2006 Colonoscopy COLONOSCOPY FLX DX W/COLLJ SPEC WHEN PFRMD 04/06/10 COLONOSCOPY FLX DX W/COLLJ SPEC WHEN PFRMD 12/17/2017 adenomatous polyps, large sessile polyp, tattooed-repeat in 1 year COLONOSCOPY FLX DX W/COLLJ SPEC WHEN PFRMD 12/23/2018 Colonoscopy EGD TRANSORAL BIOPSY SINGLE/MULTIPLE 04/20/2019 ESOPHAGOGASTRODUODENOSCOPY TRANSORAL DIAGNOSTIC 11/19 EGD Current Outpatient Medications Medication Sig busPIRone (BUSPAR) 5 mg tablet Take 1 tablet by mouth twice daily. LORazepam (ATIVAN) 0.5 mg Take 1 tablet by mouth twice daily as needed (anxiety) for up to 90 days. mirtazapine (REMERON) 30 mg tablet Take 1 tablet by mouth daily at bedtime. For appetite and sleep. lansoprazole (PREVACID) 30 mg capsule Take 1 capsule by mouth once daily. For acid indigestion. escitalopram oxalate (LEXAPRO) 20 mg tablet Take 1 tablet by mouth once daily. montelukast (SINGULAIR) 10 mg tablet Take 1 tablet by mouth daily at bedtime. apixaban (ELIQUIS) 5 mg tab(s) Take 1 tablet by mouth twice daily. fluticasone (FLONASE) 50 mcg/actuation nasal spray Use 1 [place] in each nostril once daily. benzonatate (TESSALON PERLE) 100 mg capsule Take 2 capsules by mouth three times daily as needed. mirabegron (MYRBETRIQ) 50 mg Tb24 Take 1 tablet by mouth once daily as needed. triamterene-hydroCHLOROthiazide (MAXZIDE-25MG) 37.5-25 mg per tablet Take 1 tablet by mouth once daily. alendronate (FOSAMAX) 70 mg tablet Take 1 tablet by mouth one time a week. Take with a full glass of water, on an empty stomach; do NOT lie down for 30minutes. fluticasone (FLOVENT HFA) 220 mcg/actuation inhaler Inhale 1 Puff as instructed twice daily. (Patient taking differently: Inhale 1 Puff as instructed twice daily. Using as needed/flare ups) verapamil SR (CALAN SR, ISOPTIN SR) 120 mg CR tablet Take 1 tablet by mouth daily at bedtime. aspirin, enteric coated (ASPIRIN, ENTERIC COATED) 81 mg EC tablet Take 81 mg by mouth once daily. carbidopa-levodopa (SINEMET 25-100) 25-100 mg per tablet Take 1 tablet by mouth three times daily. senna-docusate (SENNA-S) 8.6-50 mg per tablet Take 2 tablets by mouth twice daily. Constipation. albuterol HFA (PROVENTIL HFA, VENTOLIN HFA) 90 mcg/actuation inhaler Inhale 2 Puffs as instructed four times daily as needed. FOR WHEEZING AND SHORTNESS OF BREATH. Biotin 400 mcg ORAL Tab Take 1 tablet by mouth once daily. MIRALAX 100 % ORAL POWDER 1 capful in 8 oz fluid daily No current facility-administered medications for this visit. ALLERGIES: Amoxicillin, Celebrex [Celecoxib], Relafen [Nabumetone], Adhesive Tape (Rosins), Cymbalta [Duloxetine], Iodine, Norvasc [Amlodipine], and Sulfabenzamide PERSONAL HISTORY: Social History Tobacco Use Smoking status: Former Packs/day: 1.00 Years: 30.00 Pack years: 30.00 Types: Cigarettes Quit date: 04/09/2005 Years since quittin.1 Smokeless tobacco: Never Vaping Use Vaping Use: Never used Substance Use Topics Alcohol use: Yes Alcohol/week: 14.0 standard drinks Types: 14 Glasses of Wine (5oz) per week Comment: 2 glass of wine daily Drug use: No FAMILY HISTORY: FAMILY HISTORY Problem Relation Age of Onset other (CHF) Mother other (Lung Ca) Father Coronary Artery Disease Brother Cancer Brother lung Breast Cancer Maternal Aunt Breast Cancer Paternal Aunt REVIEW OF SYMPTOMS: The review of systems data was entered by the nurse and reviewed by va Nursing Notes: Mirtha Burton LPN 06/11/2022 9:27 AM Signed REVIEW OF SYSTEMS: General: The patient denies fatigue, denies weight loss, denies weight gain, denies feeling hot, and denies feelings of cold. Eyes: The patient denies glaucoma, denies eye injury/surgery, wears glasses or contacts. Ear/Nose/Throat: The patient denies allergies, denies hayfever, denies ear infections, and denies bloody noses. Cardiovascular: The patient denies chest pain, denies heart disease, notes high blood pressure,denies cardiac stent, denies prior heart attack, denies irregular heart beat, denies high cholesterol, denies poor circulation, denies heart failure, other cardiac issues, notes claudication, denies cold feet, denies peripheral arterial stent. Respiratory: The patient denies tuberculosis, denies pneumonia, denies frequent cough, denies pulmonary embolism, denies shortness of breath, and denies coughing up blood. Gastrointestinal: The patient denies difficulty swallowing, notes acid reflux, denies ulcers, denies vomiting, denies jaundice/hepatitis, denies gallbladder problems, notes black or tarry stools, denies hemorrhoids, denies bleeding from rectum, denies diverticulitis, notes constipation, denies diarrhea, notes loss of stool control, and denies hernias. Kidney/Bladder: The patient denies kidney stones, notes urine infections, and denies bloody urine. Skin: The patient denies a history of skin cancer, denies bleeding/changing moles, and denies a history of skin rash. Neurologic: The patient denies a history of epilepsy/convulsions, denies headaches, denies head/spinal injuries, and denies stroke/TIA. Psychiatric: The patient denies psychiatric medications, denies depression, and denies voices, denies substance abuse. Endocrine: The patient denies thyroid disorders, denies diabetes, and denies hormonal problems. Hematologic: The patient denies a history of bruising, denies bleeding, and denies anemia, notes blood clots. Infections: The patient notes a history of measles and mumps, denies rheumatic fever, and denies sexually transmitted diseases. Musculoskeletal: The patient denies back pain/injury, denies back problems, denies sciatica, denies knee/foot trouble, denies arthritis, or notes gout. When was patient's last Mammogram screening? 2018 Last Colonoscopy: 2019 Mirtha Burton LPN I have confirmed and edited as necessary, the PFSH and ROS obtained by others. Aneta Jordan PA-C PHYSICAL EXAMINATION: General: The patient is 82 year old female, well nourished, well hydrated in no acute distress. The patient is oriented to time, place, and person. VITALS: Blood pressure 110/72, pulse 82, temperature 36 C (96.8 F), height 172.7 cm (5' 8 ), weight 68.9 kg (152 lb), SpO2 97 %. Body mass index is 23.11 kg/m . HEENT: Normal cephalic, ataumatic, pupils are equally round, sclera are anicteric, mucous membranes are moist, oropharynx is clear. Neck has no masses, asymmetry or lymphadenopathy. Respiratory: Clear to auscultation and percussion. Normal respiratory excursion and pattern. Cardiac: Examination is regular rate and rhythm. Normal S1/S2 Abdominal exam: Soft, nontender, with no palpable masses. No hepatosplenomegaly. No palpable hernias. Extremities: no clubbing, cyanosis or edema. No adenopathy. LABORATORY VALUES: As Noted RADIOLOGIC STUDIES: As Noted Assessment IMPRESSION: dark stools, positive fecal occult blood, history of GERD and multiple adenomatous colon polyps PLAN: Will plan for lower endoscopy. We discussed the risks and benefits of the planned endoscopy. I have informed the patient that complications can occur including failure to complete the endoscopy and perforation. The patient had the opportunity to ask questions concerning the planned endoscopy. My staff has also explained the procedure to the patient in understandable terms and has given the patient printed material concerning the procedure. The patient freely consents to surgery. The patient was offered a surgery/procedure at a [facility] facility. I have counseled the patient regarding the risk of exposure to and/or potential harm posed by the COVID-19 virus with having a surgery/procedure at this time versus the risk of delaying the surgery/procedure. It is not possible to know either the risk of delaying the surgery or procedure or chance of getting an infection with perfect accuracy, but a joint decision was made between the patient and myself to proceed at this time with endoscopy. I plan to use Golytely bowel preparation. Reviewed importance of excellent hydration with bowel prep Chart forwarded to surgeon for review regarding sedation preference Diagnoses: (Z79.01) On continuous oral anticoagulation (primary encounter diagnosis) (K92.1) Black tarry stools (R19.5) Occult blood positive stool (Z86.010) History of colonic polyps Consultation requested by Rosita Paredes CNP for an opinion regarding dark stools. My final recommendations will be communicated back to the requesting physician by way of shared Medical record or letter to requesting physician via [place] mail. Aneta Jordan PA-C documented in this encounter [facility] 06-11-2022 Nurse Note REVIEW OF SYSTEMS: General: The patient denies fatigue, denies weight loss, denies weight gain, denies feeling hot, and denies feelings of cold. Eyes: The patient denies glaucoma, denies eye injury/surgery, wears glasses or contacts. Ear/Nose/Throat: The patient denies allergies, denies hayfever, denies ear infections, and denies bloody noses. Cardiovascular: The patient denies chest pain, denies heart disease, notes high blood pressure,denies cardiac stent, denies prior heart attack, denies irregular heart beat, denies high cholesterol, denies poor circulation, denies heart failure, other cardiac issues, notes claudication, denies cold feet, denies peripheral arterial stent. Respiratory: The patient denies tuberculosis, denies pneumonia, denies frequent cough, denies pulmonary embolism, denies shortness of breath, and denies coughing up blood. Gastrointestinal: The patient denies difficulty swallowing, notes acid reflux, denies ulcers, denies vomiting, denies jaundice/hepatitis, denies gallbladder problems, notes black or tarry stools, denies hemorrhoids, denies bleeding from rectum, denies diverticulitis, notes constipation, denies diarrhea, notes loss of stool control, and denies hernias. Kidney/Bladder: The patient denies kidney stones, notes urine infections, and denies bloody urine. Skin: The patient denies a history of skin cancer, denies bleeding/changing moles, and denies a history of skin rash. Neurologic: The patient denies a history of epilepsy/convulsions, denies headaches, denies head/spinal injuries, and denies stroke/TIA. Psychiatric: The patient denies psychiatric medications, denies depression, and denies voices, denies substance abuse. Endocrine: The patient denies thyroid disorders, denies diabetes, and denies hormonal problems. Hematologic: The patient denies a history of bruising, denies bleeding, and denies anemia, notes blood clots. Infections: The patient notes a history of measles and mumps, denies rheumatic fever, and denies sexually transmitted diseases. Musculoskeletal: The patient denies back pain/injury, denies back problems, denies sciatica, denies knee/foot trouble, denies arthritis, or notes gout. When was patient's last Mammogram screening? 2018 Last Colonoscopy: 2019 Mirtha Burton LPN documented in this encounter [facility] 05-28-2022 Miscellaneous Notes Patient notified. Rose Rothman LPN ----- Message from Corbin Bai MD sent at 05/26/2022 7:54 PM EST ----- Test results are okay. documented in this encounter [facility] 05-17-2022 Note HNO ID: [id number] Author: Corbin Bai MD Service: ? Author Type: Physician Type: Progress Notes Filed: 05/17/2022 10:34 AM Note Text: This note was created using Agency Spotter[employer]. Subjective Dominique Gazra is a 82 year old female. She was having dysuria for a few days, and took a left over antibiotic she could not recall, one dose with improvement. She was unable to give a urine specimen today. She also noted black loose stools lately. She took imodium and had no bowel movements the past 2 days. She denied abdominal pain. Review of Systems Constitutional: Positive for fever. Negative for chills and diaphoresis. Respiratory: Negative for shortness of breath and wheezing. Cardiovascular: Negative for chest pain, palpitations and leg swelling. Gastrointestinal: Negative for abdominal distention, abdominal pain, nausea and vomiting. Genitourinary: Positive for difficulty urinating and dysuria. Psychiatric/Behavioral: Negative. ACTIVE PROBLEM LIST Osteoporosis Depression Esophageal reflux with hoarseness. 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 Parkinson Disease (Hcc) Pulmonary Hypertension (Hcc) Muscle Weakness Pad (Peripheral Artery Disease) ([facility]) Social History Tobacco Use Smoking status: Former Packs/day: 1.00 Years: 30.00 Pack years: 30.00 Types: Cigarettes Quit date: 04/09/2005 Years since quittin.1 Smokeless tobacco: Never Vaping Use Vaping Use: Never used Substance Use Topics Alcohol use: Yes Alcohol/week: 14.0 standard drinks Types: 14 Glasses of Wine (5oz) per week Comment: 2 glass of wine daily Drug use: No Current Outpatient Medications Medication Sig busPIRone (BUSPAR) 5 mg tablet Take 1 tablet by mouth twice daily. escitalopram oxalate (LEXAPRO) 20 mg tablet Take 1 tablet by mouth once daily. montelukast (SINGULAIR) 10 mg tablet Take 1 tablet by mouth daily at bedtime. apixaban (ELIQUIS) 5 mg tab(s) Take 1 tablet by mouth twice daily. fluticasone (FLONASE) 50 mcg/actuation nasal spray Use 1 [place] in each nostril once daily. benzonatate (TESSALON PERLE) 100 mg capsule Take 2 capsules by mouth three times daily as needed. mirabegron (MYRBETRIQ) 50 mg Tb24 Take 1 tablet by mouth once daily as needed. LORazepam (ATIVAN) 0.5 mg Take 1 tablet by mouth twice daily as needed (anxiety) for up to 90 days. Do not start before January 31, 2022. triamterene-hydroCHLOROthiazide (MAXZIDE-25MG) 37.5-25 mg per tablet Take 1 tablet by mouth once daily. alendronate (FOSAMAX) 70 mg tablet Take 1 tablet by mouth one time a week. Take with a full glass of water, on an empty stomach; do NOT lie down for 30minutes. fluticasone (FLOVENT HFA) 220 mcg/actuation inhaler Inhale 1 Puff as instructed twice daily. (Patient taking differently: Inhale 1 Puff as instructed twice daily. Using as needed/flare ups) verapamil SR (CALAN SR, ISOPTIN SR) 120 mg CR tablet Take 1 tablet by mouth daily at bedtime. mirtazapine (REMERON) 30 mg tablet Take 1 tablet by mouth daily at bedtime. For appetite and sleep. lansoprazole (PREVACID) 30 mg capsule Take 1 capsule by mouth once daily. For acid indigestion. aspirin, enteric coated (ASPIRIN, ENTERIC COATED) 81 mg EC tablet Take 81 mg by mouth once daily. carbidopa-levodopa (SINEMET 25-100) 25-100 mg per tablet Take 1 tablet by mouth three times daily. senna-docusate (SENNA-S) 8.6-50 mg per tablet Take 2 tablets by mouth twice daily. Constipation. albuterol HFA (PROVENTIL HFA, VENTOLIN HFA) 90 mcg/actuation inhaler Inhale 2 Puffs as instructed four times daily as needed. FOR WHEEZING AND SHORTNESS OF BREATH. Biotin 400 mcg ORAL Tab Take 1 tablet by mouth once daily. MIRALAX 100 % ORAL POWDER 1 capful in 8 oz fluid daily No current facility-administered medications for this visit. Objective BP 124/80 (BP Site: Left Arm, BP Position: Sitting, BP Cuff Size: Large Adult) Pulse 68 Temp 36.5 ?C (97.7 ?F) (Temporal) Resp 16 Wt 67.6 kg (149 lb) BMI 22.99 kg/m? Physical Exam Constitutional: General: She is not in acute distress. Appearance: She is not ill-appearing. Cardiovascular: Rate and Rhythm: Normal rate and regular rhythm. Heart sounds: No murmur heard. No gallop. Pulmonary: Effort: No respiratory distress. Breath sounds: Normal breath sounds. No wheezing or rales. Abdominal: General: There is no distension. Palpations: Abdomen is soft. There is no mass. Tenderness: There is no abdominal tenderness. Musculoskeletal: Right lower leg: No edema. Left lower leg: No edema. Neurolog (more content not included)... [facility] 04-25-2022 Miscellaneous Notes Spoke w/el Mcgovern scheduled w/Dr. Bai, 04/26/2022 for follow-up, review medications. Patients to bring meds they are taking. Rose Rothman LPN Recommend either in office med review or virtual visit, phone call is also acceptable. Schedule both the patient and the for this. Make sure they have all of their bottles of medications with them Rosita Paredes APRN.BOUBACAR Called Pts son and he states that he can go over his fathers medications as he can get into his MyChart, but his mother does not want to allow him access. Son Barney would like providers office to call Pts and go over medication list as he thinks they are getting confused over what they should be taking. carbidopa-levodopa (SINEMET 25-100) 25-100 mg per tablet Take 1 tablet by mouth three times daily. It does not show when it was last prescribed or who prescribed it. There was a note from 05/12/21 that Pt was taking medication 5 times a day. Once this medication is cleared up if we could call the Pts and go over medication list to make sure they know what medication she should be taking that would be appreciated. Patient should be on the medication mirtazapine 30 mg at bedtime. This has not been discontinued. Patient son Abebe Garza calling he found bottle of generic Remeron 30 mg for his mother, his father said he is not giving the medication to her. Father can not remember why or when it changed. Son is asking if PCP could go through mother medication list to see what she is to be taking and have a nurse call and go over the medications with his parents please. He is not POA for healthcare for her his father is, but having issues trying to see about having that changed. Please advise documented in this encounter [facility] 04-23-2022 Miscellaneous Notes Spoke with pt and information listed below given. Pt verbalizes understanding. Apt booked. Farhana Leyva LPN Patient due for follow-up in June Rosita Paredes APRN.STEELSCOPE OPERATOR Patient has been identified by name and date of : Yes, Patient phones for refill(s): Requested Prescriptions Pending Prescriptions Disp Refills escitalopram oxalate (LEXAPRO) 20 mg tablet 90 tablet 2 Sig: Take 1 tablet by mouth once daily. Date of last office visit in primary care: 01/15/2022 No future appt scheduled. Last 2 Encounter Wt Readings: Date: Wt: 03/05/2022 67.1 kg (148 lb) 03/05/2022 67.1 kg (148 lb) Previous labs/tests for medication: Not applicable Please advise. Thank you. Rose Rothman LPN Patient has been identified by name and date of : Yes Requested Prescriptions Pending Prescriptions Disp Refills escitalopram oxalate (LEXAPRO) 20 mg tablet 90 tablet 2 Sig: Take 1 tablet by mouth once daily. RX INSTRUCTIONS: Patient aware RX will be sent to pharmacy. No need to notify patient. Yamel Leyva Pss documented in this encounter [facility] 03-28-2022 Note HNO ID: [id number] Author: Terri Francis LPN Service: ? Author Type: ? Type: Progress Notes Filed: 03/28/2022 9:35 AM Note Text: Patient presents for COVID vaccine. Denies any problems at this time. Tolerated injection well. Terri Francis LPN [facility] 03-28-2022 History of Presen t illness Narrative Patient presents for COVID vaccine. Denies any problems at this time. Tolerated injection well. Terri Francis LPN documented in this encounter [facility] 03-23-2022 Note HNO ID: [id number] Author: Gabriel Jules Service: ? Author Type: Physician Type: Progress Notes Filed: 03/25/2022 8:19 AM Note Text: Subjective: Patient presents to clinic c/o painful toenails. They state that the nails are especially painful with shoe gear and pressure. No other pedal complaints at this time. Patient states no change in medications or medical history since last visit. Objective: Patient presents to clinic ambulating in sneakers Vasc: DP and PT pulses are palpable bilateral. CFT is less than 5 seconds bilateral. Skin temperature is warm to cool proximal to distal bilateral. There is no edema or varicosities noted. Neuro: Protective sensation is intact to the foot and toes when tested with the 5.07 SWM bilateral. Vibratory sensation is decreased at the hallux IPJ bilateral. The hallux is downgoing bilateral. Derm: Nails 1-5 bl are painful, discolored-yellow, thick, crumbly, dystrophic and with subungal debris. Skin is of normal turgor, texture and hair growth is decreased bilateral. There are no hyperkeratosis, ulcerations, scars, verruca or other lesions noted. Ortho: Muscle strength is 5/5 for all pedal groups tested. Ankle joint DF is full with the knee extended with no pain or crepitus noted. 1st MPJ ROM is decreasd bilateral. Assessment: (B35.1) Onychomycosis (primary encounter diagnosis) (M79.674) Pain in toe of right foot (M79.675) Pain in toe of left foot (I73.9) PAD (peripheral artery disease) ([facility]) Plan: Patient was seen and evaluated. Nails 1-5 bilateral were debrided in length and thickness. Patient is to RTC in 3-4 months. Gabriel Jules DPM [facility] 03-23-2022 Note HNO ID: [id number] Author: Gypsy Linares RN Service: ? Author Type: ? Type: Progress Notes Filed: 03/25/2022 8:19 AM Note Text: AMB ROOMING INTAKE FLOWSHEET DATA Risk Screening Do you have concerns about personal safety or safety in the home?: No Patient presents with: Left Foot - Established Patient, Debridement of Nail Right Foot - Established Patient, Debridement of Nail [facility] 03-23-2022 History of Presen t illness Narrative Subjective: Patient presents to clinic c/o painful toenails. They state that the nails are especially painful with shoe gear and pressure. No other pedal complaints at this time. Patient states no change in medications or medical history since last visit. Objective: [facility] Vasc: DP and PT pulses are palpable bilateral. CFT is less than 5 seconds bilateral. Skin temperature is warm to cool proximal to distal bilateral. There is no edema or varicosities noted. Neuro: Protective sensation is intact to the foot and toes when tested with the 5.07 SWM bilateral. Vibratory sensation is decreased at the hallux IPJ bilateral. The hallux is downgoing bilateral. Derm: Nails 1-5 bl are painful, discolored-yellow, thick, crumbly, dystrophic and with subungal debris. Skin is of normal turgor, texture and hair growth is decreased bilateral. There are no hyperkeratosis, ulcerations, scars, verruca or other lesions noted. Ortho: Muscle strength is 5/5 for all pedal groups tested. Ankle joint DF is full with the knee extended with no pain or crepitus noted. 1st MPJ ROM is decreasd bilateral. Assessment: (B35.1) Onychomycosis (primary encounter diagnosis) (M79.674) Pain in toe of right foot (M79.675) Pain in toe of left foot (I73.9) PAD (peripheral artery disease) ([facility]) Plan: Patient was seen and evaluated. Nails 1-5 bilateral were debrided in length and thickness. Patient is to RTC in 3-4 months. Gabriel Jules DPM AMB ROOMING INTAKE FLOWSHEET DATA Risk Screening Do you have concerns about personal safety or safety in the home?: No Patient presents with: Left Foot - Established Patient, Debridement of Nail Right Foot - Established Patient, Debridement of Nail documented in this encounter [facility] 03-23-2022 Miscellaneous Notes Patient phones requesting refills as follows: Requested Prescriptions Pending Prescriptions Disp Refills montelukast (SINGULAIR) 10 mg tablet 30 tablet 5 Sig: Take 1 tablet by mouth daily at bedtime. Please review and advise. Martha Allen LPN documented in this encounter [facility] 03-13-2022 Miscellaneous Notes Attempted to call, vm is full. Amlodipine was discontinued, calling to review with Patient. Rose Rothman LPN Patients is calling in to get a refill of medication that I do not see listed. Alodidine 2.5 mg once daily; would like this to be sent to [facility]. Any questions please contact [phone]. Yamel Leyva Pss documented in this encounter [facility] 03-05-2022 Note HNO ID: [id number] Author: Maggie Goddard MD Service: ? Author Type: Physician Type: Progress Notes Filed: 03/05/2022 12:38 PM Note Text: . [facility] [place] Note Patient name: Dominique Garza PCP: Corbin Bai MD CC: Follow-up asthma HPI: Dominique Garza 81 year old female former 30 pack year smoker, quitting in 2005 with PMH significant for anxiety, CKD, GERD, HTN, CVA, PE, Parkinson's disease, osteoporosis, asthma former patient of Dr. Dodson. Current therapy with ICS as needed with flares of her asthma and albuterol as needed. Recent history notable for COVID infection in November. She states that she was not very ill at that time. She did not require hospitalization or any antiviral therapy. Her COVID infection did not flare her asthma. She did use her steroid inhaler and her albuterol when she was ill. Currently not on inhaled therapy. She denies any significant shortness of breath, cough, chest tightness or pain, wheezing. Updated pulmonary function test today show mild obstruction. DATA: PFT 02/2022: PFTs show mild obstruction SERVICE DATE: 06/01/2021 SERVICE TIME: 2:19 PM Oral Exhaled Nitric Oxide measurement: 14.0 (ppb) Labs: Component Ref Range AND Units 2 mo ago COVID 19 Result Not Detected SARS-CoV-2 (Agent of COVID-19) Detected by RT-PCR or equivalent method. Abnormal Imaging / Diagnostic Studies: Last CXR 2019 reviewed and shows no major abnormality PAST MEDICAL HISTORY Diagnosis Date Acute, but ill-defined, cerebrovascular disease 08/06/2005 TIA; Anemia, unspecified 04/2019 Anxiety state 05/28/2006 ANXIETY STATE NOS 05/28/2006 Arrhythmia Asthma, moderate persistent, well-controlled 12/04/2013 Benign neoplasm of colon CKD (chronic kidney disease) stage 3, GFR 30-59 ml/min ([facility]) 08/14/2016 Closed fracture of right foot 08/05/2015 Closed nondisplaced fracture of pelvis ([facility]) 01/14/2017 Depressive disorder, not elsewhere classified Esophageal reflux with hoarseness. 11/10/2011 Laryngoscopy by ENT 2011. 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 Allen Suárez, rheumatology. 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 End 2021. Parkinson disease ([facility]) 03/01/2017 Patient diagnosed during hospital admission 03/10/17. Started on Sinemet. Will be managed by Dr. Perez with [facility] neurology. 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 Sulfabenzamide Intolerance Pt does not remember why she's been told to put on allergy list fluticasone (FLOVENT HFA) 220 mcg/actuation inhaler Inhale 1 Puff as instructed twice daily. (Patient taking differently: Inhale 1 Puff as instructed twice daily. Using as needed/flare ups) montelukast (SINGULAIR) 10 mg tablet TAKE 1 TABLET BY MOUTH ONCE DAILY AT BEDTIME apixaban (ELIQUIS) 5 mg tab(s) Take 1 tablet by mouth twice daily. fluticasone (FLONASE) 50 mcg/actuation nasal spray Use 1 Avoca in each nostril once daily. benzonatate (TESSALON PERLE) 100 mg capsule Take 2 capsules by mouth three times daily as needed. mirabegron (MYRBETRIQ) 50 mg Tb24 Take 1 tablet by mouth once daily as needed. LORazepam (ATIVAN) 0.5 mg Take 1 tablet by mouth twice daily as needed (anxiety) for up to 90 days. Do not start before January 31, 2022. triamterene-hydroCHLOROthiazide (MAXZIDE-25MG) 37.5-25 mg per tablet Take 1 tablet by mouth once daily. alendronate (FOSAMAX) 70 mg tablet Take 1 tablet by mouth one time a week. Take with a full glass of water, on an empty stomach; do NOT lie down for 30minutes. escitalopram oxalate (LEXAPRO) 20 mg tablet Take 1 tablet by mouth once daily. busPIRone (BUSPAR) 5 mg tablet Take 1 tablet by mouth twice daily. verapamil SR (CALAN SR, ISOPTIN SR) 120 mg CR tablet Take 1 tablet by mouth daily at bedtime. mirtazapine (REMERON) 30 mg tablet Take 1 tablet by mouth daily at bedtime. For appetite and sleep. lansoprazole (PREVACID) 30 mg capsule Take 1 capsule by mouth once daily. For acid indigestion. aspirin, enteric coated (ASPIRIN, ENTERIC COATED) 81 mg EC tablet Take 81 mg by mouth once daily. (more content not included)... [facility] 03-05-2022 Note HNO ID: [id number] Author: SILVINA Gutierrez Service: ? Author Type: Respiratory Therapist Type: Progress Notes Filed: 03/05/2022 10:06 AM Note Text: PULM FUNCTION SMARTBLOCK: Provider: Tierney Iglesias PA-C Assisting Tech: SILVINA Gutierrez Spirometry: 1 [facility] 03-05-2022 History of Presen t illness Narrative Images from the original note were not included. . [facility] [place] Note Patient name: Dominique Garza PCP: Corbin Bai MD CC: Follow-up asthma HPI: Dominique Garza 81 year old female former 30 pack year smoker, quitting in 2005 with PMH significant for anxiety, CKD, GERD, HTN, CVA, PE, Parkinson's disease, osteoporosis, asthma former patient of Dr. Dodson. Current therapy with ICS as needed with flares of her asthma and albuterol as needed. Recent history notable for COVID infection in November. She states that she was not very ill at that time. She did not require hospitalization or any antiviral therapy. Her COVID infection did not flare her asthma. She did use her steroid inhaler and her albuterol when she was ill. Currently not on inhaled therapy. She denies any significant shortness of breath, cough, chest tightness or pain, wheezing. Updated pulmonary function test today show mild obstruction. DATA: PFT 02/2022: PFTs show mild obstruction SERVICE DATE: 06/01/2021 SERVICE TIME: 2:19 PM Oral Exhaled Nitric Oxide measurement: 14.0 (ppb) Labs: Component Ref Range & Units 2 mo ago COVID 19 Result Not Detected SARS-CoV-2 (Agent of COVID-19) Detected by RT-PCR or equivalent method. Abnormal Imaging / Diagnostic Studies: Last CXR 2019 reviewed and shows no major abnormality PAST MEDICAL HISTORY Diagnosis Date Acute, but ill-defined, cerebrovascular disease 08/06/2005 TIA; Anemia, unspecified 04/2019 Anxiety state 05/28/2006 ANXIETY STATE NOS 05/28/2006 Arrhythmia Asthma, moderate persistent, well-controlled 12/04/2013 Benign neoplasm of colon CKD (chronic kidney disease) stage 3, GFR 30-59 ml/min ([facility]) 08/14/2016 Closed fracture of right foot 08/05/2015 Closed nondisplaced fracture of pelvis ([facility]) 01/14/2017 Depressive disorder, not elsewhere classified Esophageal reflux with hoarseness. 11/10/2011 Laryngoscopy by ENT 2011. 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 Allen Suárez, rheumatology. 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 End 2021. Parkinson disease ([facility]) 03/01/2017 Patient diagnosed during hospital admission 03/10/17. Started on Sinemet. Will be managed by Dr. Perez with [facility] neurology. 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 Sulfabenzamide Intolerance Pt does not remember why she's been told to put on allergy list fluticasone (FLOVENT HFA) 220 mcg/actuation inhaler Inhale 1 Puff as instructed twice daily. (Patient taking differently: Inhale 1 Puff as instructed twice daily. Using as needed/flare ups) montelukast (SINGULAIR) 10 mg tablet TAKE 1 TABLET BY MOUTH ONCE DAILY AT BEDTIME apixaban (ELIQUIS) 5 mg tab(s) Take 1 tablet by mouth twice daily. fluticasone (FLONASE) 50 mcg/actuation nasal spray Use 1 Avoca in each nostril once daily. benzonatate (TESSALON PERLE) 100 mg capsule Take 2 capsules by mouth three times daily as needed. mirabegron (MYRBETRIQ) 50 mg Tb24 Take 1 tablet by mouth once daily as needed. LORazepam (ATIVAN) 0.5 mg Take 1 tablet by mouth twice daily as needed (anxiety) for up to 90 days. Do not start before January 31, 2022. triamterene-hydroCHLOROthiazide (MAXZIDE-25MG) 37.5-25 mg per tablet Take 1 tablet by mouth once daily. alendronate (FOSAMAX) 70 mg tablet Take 1 tablet by mouth one time a week. Take with a full glass of water, on an empty stomach; do NOT lie down for 30minutes. escitalopram oxalate (LEXAPRO) 20 mg tablet Take 1 tablet by mouth once daily. busPIRone (BUSPAR) 5 mg tablet Take 1 tablet by mouth twice daily. verapamil SR (CALAN SR, ISOPTIN SR) 120 mg CR tablet Take 1 tablet by mouth daily at bedtime. mirtazapine (REMERON) 30 mg tablet Take 1 tablet by mouth daily at bedtime. For appetite and sleep. lansoprazole (PREVACID) 30 mg capsule Take 1 capsule by mouth once daily. For acid indigestion. aspirin, enteric coated (ASPIRIN, ENTERIC COATED) 81 mg EC tablet Take 81 mg by mouth once daily. carbidopa-levodopa (SINEMET 25-100) 25-100 mg per tablet Take 1 tablet by mouth three times daily. senna-docusate (SENNA-S) 8.6-50 mg per tablet Take 2 tablets by mouth twice daily. Constipation. albuterol HFA (PROVENTIL HFA, VENTOLIN HFA) 90 mcg/actuation inhaler Inhale 2 Puffs as instructed four times daily as needed. FOR WHEEZING AND SHORTNESS OF BREATH. Biotin 400 mcg ORAL Tab Take 1 tablet by mouth once daily. MIRALAX 100 % ORAL POWDER 1 capful in 8 oz fluid daily Social History Tobacco Use Smoking status: Former Packs/day: 1.00 Years: 30.00 Pack years: 30.00 Types: Cigarettes Quit date: 04/09/2005 Years since quittin.9 Smokeless tobacco: Never Tobacco comments: No hoousehold ETS. Vaping Use Vaping Use: Never used Substance Use Topics Alcohol use: Yes Alcohol/week: 14.0 standard drinks Types: 14 Glasses of Wine (5oz) per week Comment: 2 glass of wine daily Drug use: No Pets: cat FAMILY HISTORY Problem Relation Age of Onset other (CHF) Mother other (Lung Ca) Father Coronary Artery Disease Brother Cancer Brother lung Breast Cancer Maternal Aunt Breast Cancer Paternal Aunt PAST SURGICAL HISTORY Procedure Laterality Date ARTHRP KNE CONDYLE&PLATU MEDIAL&LAT COMPARTMENTS 12/04/09 bilateral total COLONOSCOPY FLX DX W/COLLJ SPEC WHEN PFRMD 06/07/2006 Colonoscopy COLONOSCOPY FLX DX W/COLLJ SPEC WHEN PFRMD 04/06/10 COLONOSCOPY FLX DX W/COLLJ SPEC WHEN PFRMD 12/17/2017 adenomatous polyps, large sessile polyp, tattooed-repeat in 1 year COLONOSCOPY FLX DX W/COLLJ SPEC WHEN PFRMD 12/23/2018 Colonoscopy EGD TRANSORAL BIOPSY SINGLE/MULTIPLE 04/20/2019 ESOPHAGOGASTRODUODENOSCOPY TRANSORAL DIAGNOSTIC 11/19 EGD PMH, Social history, family history and surgical history reviewed and updated in EMR REVIEW OF SYSTEMS: CONSTITUTIONAL: No fevers, chills, nightsweats, unintended weight loss or fatigue HEENT: Denies nasal congestion/sinus symptoms, current allergy problems. CARDIOVASCULAR: No chest pain, dyspnea, palpitations, orthopnea, PND. Mild edema PULM: See HPI GI: No dysphagia/odynophagia, problematic reflux PSY: Stressed due to 's illness INTEGUMENTARY: No new skin changes, rashes or bruising PHYSICAL EXAMINATION: BP 140/76 Pulse 72 Resp 12 Ht 5' 7.5 (1.72m) Wt 148 lb (67.1kg) SpO2 96% BMI 22.82 kg/(m^2). General Appearance: Frail elderly female, NAD Skin: Skin color, texture, turgor normal, no suspicious rashes or lesions. Head: Normocephalic, no masses, lesions, tenderness or abnormalities Eyes: Sclera, conjunctiva normal Oropharynx: Upper plate, no oral lesions or thrush Neck: No JVD, no masses, no adenopathy Lungs: Not labored, normal to percussion, no wheezes or crackles Heart: Intermittently irregular rhythm, no murmurs Extremities: Arthritis changes in hands, no clubbing, mild edema Assessment/Plan: Mild asthma, intermittent -Symptoms currently controlled. Continue ICS and albuterol as needed -RTC 6 months or sooner if problems History of COVID -No obvious long-term sequelae Maggie Goddard MD [facility] [place] documented in this encounter [facility] 03-05-2022 History of Presen t illness Narrative PULM FUNCTION SMARTBLOCK: Provider: Tierney Iglesias PA-C Assisting Tech: SILVINA Gutierrez Spirometry: 1 documented in this encounter [facility] 02-02-2022 Miscellaneous Notes Pts son notified. Mailed per request. Address confirmed. Patient's son, Barney, phoned in stating mother asked him to call doctor, and let doctor know her handicap placard is expiring soon. Reports she received a notice from [facility]. Asking pcp to renew her handicap placard and phone patient for corn picker. documented in this encounter [facility] 01-03-2022 Miscellaneous Notes PDMP website checked and validated. All prescriptions have been APPROPRIATELY filled. No suspicious activity was identified. 01/03/2022 by Rosita Paredes APRN.BOUBACAR Patient has been identified by name and date of : Yes Last office visit in this department: 09/21/2021 RX INSTRUCTIONS: Patient aware RX will be sent to pharmacy. No need to notify patient. Patient phones requesting refills as follows: Requested Prescriptions Pending Prescriptions Disp Refills LORazepam (ATIVAN) 0.5 mg 30 tablet 2 Sig: Take 1 tablet by mouth twice daily as needed (anxiety) for up to 90 days. Please review and advise. Tierney Hauser documented in this encounter [facility] 01-01-2022 Miscellaneous Notes ALESIA: 09/21/2021 Last refill: 01/25/2021 QTY: 12 Refills: 3 Patient's request for medication is as follows: Requested Prescriptions Pending Prescriptions Disp Refills alendronate (FOSAMAX) 70 mg tablet 12 tablet 3 Sig: Take 1 tablet by mouth one time a week. Take with a full glass of water, on an empty stomach; do NOT lie down for 30minutes. Please approve the above prescription(s) to electronically send to pharmacy. Mauro Patel Ma Patient has been identified by name and date of : Yes Requested Prescriptions Pending Prescriptions Disp Refills alendronate (FOSAMAX) 70 mg tablet 12 tablet 3 Sig: Take 1 tablet by mouth one time a week. Take with a full glass of water, on an empty stomach; do NOT lie down for 30minutes. RX INSTRUCTIONS: Patient aware RX will be sent to pharmacy. No need to notify patient. Nancy Cid documented in this encounter [facility] 12-23-2021 Miscellaneous Notes Patient given results and verbalized understanding of instructions given. Eugenie Alva Positive for COVID-negative for flu please notify patient should quarantine for 5 days from start of symptoms and then mask for another 5 days. documented in this encounter [facility] 12-22-2021 Instructions Jenny Cali APRN.BOUBACAR - 12/22/2021 10:31 AM EDT Beginning Home Isolation Isolation is used to separate people infected with SARS-CoV-2, the virus that causes COVID-19, from people who are not infected. People who are in isolation should stay home until it s safe for them to be around others. In the home, anyone sick or infected should separate themselves from others by staying in a specific sick room or area and using a separate bathroom (if available). Isolation or Quarantine: What's the difference? Quarantine keeps someone who might have been exposed to the virus away from others. Isolation keeps someone who is infected with the virus away from others, even in their home. Who needs to isolate People who have COVID-19 People who have symptoms of COVID-19 and are able to recover at home People who have no symptoms (are asymptomatic) but have tested positive for infection with SARS-CoV-2 Steps to take Stay home except to get medical care Monitor your symptoms. Stay in a separate room from other household members, if possible Use a separate bathroom, if possible Avoid contact with other members of the household and pets Don t share personal household items, like cups, towels, and utensils Wear a mask when around other people, if you are able to When to seek emergency medical attention Look for emergency warning signs* for COVID-19. If someone is showing any of these signs, seek emergency medical care immediately: Trouble breathing Persistent pain or pressure in the chest New confusion Inability to wake or stay awake Bluish lips or face *This list is not all possible symptoms. Please call your medical provider for any other symptoms that are severe or concerning to you. Call 911 or call ahead to your local emergency facility: Notify the bullet slug casting machine operator that you are seeking care for someone who has or may have COVID-19. Ending Home Isolation - When you can be around others after you had or likely had COVID-19 When you can be around others after you had or likely had COVID-19 If You Test Positive for COVID-19 (Isolation) Everyone, regardless of vaccination status: Stay home for 5 days. Note: Day 0 is your first day of symptoms or the date of collection of a positive viral test if no symptoms. Day 1 is the first full day after symptoms developed or test specimen was collected. If you have no symptoms or your symptoms are resolving after 5 days, you can leave your house. Continue to wear a mask around others for 5 additional days. If you have a fever, continue to stay home until your fever resolves, even if it is longer than 5 days. If You Were Exposed to Someone with COVID-19 (Quarantine) If you: 1. Have been boosted OR 2. Completed the primary series of Pfizer or Moderna vaccine within the last 6 months OR 3. Completed the primary series of J&J vaccine within the last 2 months THEN: 1. Wear a mask around others for 10 days. 2. Test on day 5, if possible. If you develop symptoms get a test and stay home. If You Were Exposed to Someone with COVID-19 (Quarantine) If you: 1. Completed the primary series of Pfizer or Moderna vaccine over 6 months ago and are not boosted OR 2. Completed the primary series of J&J over 2 months ago and are not boosted OR 3. Are unvaccinated THEN: 1. Stay home for 5 days. After that continue to wear a mask around others for 5 additional days. 2. If you can't quarantine you must wear a mask for 10 days. 3. Test on day 5 if possible. If you develop symptoms get a test and stay home. I had COVID-19 or I tested positive for COVID-19 and I have a weakened immune system If you have a weakened immune system (immunocompromised) due to a health condition or medication, you might need to stay home and isolate longer than 10 days. Talk to your healthcare provider for more information. Your doctor may work with an infectious disease expert at your local health department to determine when you can be around others. documented in this encounter [facility] 12-22-2021 History of Presen t illness Narrative This note was created using [employer]. Subjective Dominique Garza is a 81 year old female. 81 year old female with PMH insomnia, Parkinson, PAD, HTN, asthma, chronic bronchitis and GERD presents requesting COVID testing. Endorses that her had tested positive for COVID about 10 days ago. States she has had a cough for 2 weeks, but assumed was her bronchitis or allergies. Denies accompanying URI sx. Denies fever or chills Denies fatigue. Denies SOB or dyspnea Denies N/V/D Denies skin rash or lesions. Denies COVID in past, states she has had COVID vaccines. The history is provided by the patient. No speech and language clinician was used. Cough This is a new problem. The current episode started more than 1 week ago. The problem occurs constantly. The problem has not changed since onset.The cough is Non-productive. There has been no fever. Pertinent negatives include no chest pain, no chills, no sweats, no weight loss, no ear congestion, no ear pain, no headaches, no rhinorrhea, no sore throat, no myalgias, no shortness of breath, no wheezing and no eye redness. She has tried nothing for the symptoms. She is not a smoker. Her past medical history is significant for bronchitis and asthma. Her past medical history does not include pneumonia, bronchiectasis, COPD or emphysema. PAST MEDICAL HISTORY Diagnosis Date Acute, but ill-defined, cerebrovascular disease 08/06/2005 TIA; Anemia, unspecified 04/2019 Anxiety state 05/28/2006 ANXIETY STATE NOS 05/28/2006 Arrhythmia Asthma, moderate persistent, well-controlled 12/04/2013 Benign neoplasm of colon CKD (chronic kidney disease) stage 3, GFR 30-59 ml/min ([facility]) 08/14/2016 Closed fracture of right foot 08/05/2015 Closed nondisplaced fracture of pelvis ([facility]) 01/14/2017 Depressive disorder, not elsewhere classified Esophageal reflux with hoarseness. 11/10/2011 Laryngoscopy by ENT 2011. 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 Allen Suárez, rheumatology. 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 Started on Sinemet. Will be managed by Dr. Perez with [facility] neurology. 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 Unspecified constipation Urge incontinence 05/03/2010 PAST SURGICAL HISTORY Procedure Laterality Date ARTHRP KNE CONDYLE&PLATU MEDIAL&LAT COMPARTMENTS 12/04/09 bilateral total COLONOSCOPY FLX DX W/COLLJ SPEC WHEN PFRMD 06/07/2006 Colonoscopy COLONOSCOPY FLX DX W/COLLJ SPEC WHEN PFRMD 04/06/10 COLONOSCOPY FLX DX W/COLLJ SPEC WHEN PFRMD 12/17/2017 adenomatous polyps, large sessile polyp, tattooed-repeat in 1 year COLONOSCOPY FLX DX W/COLLJ SPEC WHEN PFRMD 12/23/2018 Colonoscopy EGD TRANSORAL BIOPSY SINGLE/MULTIPLE 04/20/2019 ESOPHAGOGASTRODUODENOSCOPY TRANSORAL DIAGNOSTIC 11/19 EGD ALLERGIES Amoxicillin, Celebrex [Celecoxib], Relafen [Nabumetone], Adhesive Tape (Rosins), Cymbalta [Duloxetine], Iodine, Norvasc [Amlodipine], and Sulfabenzamide MEDICATIONS fluticasone (FLOVENT HFA) 220 mcg/actuation inhaler Inhale 1 Puff as instructed twice daily. escitalopram oxalate (LEXAPRO) 20 mg tablet Take 1 tablet by mouth once daily. busPIRone (BUSPAR) 5 mg tablet Take 1 tablet by mouth twice daily. verapamil SR (CALAN SR, ISOPTIN SR) 120 mg CR tablet Take 1 tablet by mouth daily at bedtime. montelukast (SINGULAIR) 10 mg tablet Take 1 tablet by mouth daily at bedtime. mirtazapine (REMERON) 30 mg tablet Take 1 tablet by mouth daily at bedtime. For appetite and sleep. apixaban (ELIQUIS) 5 mg tab(s) Take 1 tablet by mouth twice daily. lansoprazole (PREVACID) 30 mg capsule Take 1 capsule by mouth once daily. For acid indigestion. mirabegron (MYRBETRIQ) 50 mg Tb24 Take 1 tablet by mouth once daily as needed. triamterene-hydroCHLOROthiazide (MAXZIDE-25MG) 37.5-25 mg per tablet Take 1 tablet by mouth once daily as needed (edema). fluticasone (FLONASE) 50 mcg/actuation nasal spray Use 1 [place] in each nostril once daily. benzonatate (TESSALON PERLE) 100 mg capsule Take 2 capsules by mouth three times daily as needed. alendronate (FOSAMAX) 70 mg tablet Take 1 tablet by mouth one time a week. Take with a full glass of water, on an empty stomach; do NOT lie down for 30minutes. aspirin, enteric coated (ASPIRIN, ENTERIC COATED) 81 mg EC tablet Take 81 mg by mouth once daily. carbidopa-levodopa (SINEMET 25-100) 25-100 mg per tablet Take 1 tablet by mouth three times daily. senna-docusate (SENNA-S) 8.6-50 mg per tablet Take 2 tablets by mouth twice daily. Constipation. albuterol HFA (PROVENTIL HFA, VENTOLIN HFA) 90 mcg/actuation inhaler Inhale 2 Puffs as instructed four times daily as needed. FOR WHEEZING AND SHORTNESS OF BREATH. Biotin 400 mcg ORAL Tab Take 1 tablet by mouth once daily. MIRALAX 100 % ORAL POWDER 1 capful in 8 oz fluid daily LORazepam (ATIVAN) 0.5 mg Take 1 tablet by mouth twice daily as needed (anxiety) for up to 90 days. FAMILY HISTORY Problem Relation Age of Onset other (CHF) Mother other (Lung Ca) Father Coronary Artery Disease Brother Cancer Brother lung Breast Cancer Maternal Aunt Breast Cancer Paternal Aunt Social History Tobacco Use Smoking status: Former Packs/day: 1.00 Years: 30.00 Pack years: 30.00 Types: Cigarettes Quit date: 04/09/2005 Years since quittin.7 Smokeless tobacco: Never Tobacco comments: No hoousehold ETS. Vaping Use Vaping Use: Never used Substance Use Topics Alcohol use: Yes Alcohol/week: 17.5 standard drinks Types: 7 Glasses of Wine (5oz) per week Comment: glass of wine daily Drug use: No Review of Systems Constitutional: Negative for chills, fatigue and weight loss. HENT: Negative for ear pain, rhinorrhea and sore throat. Eyes: Negative for discharge, redness and itching. Respiratory: Positive for cough. Negative for shortness of breath and wheezing. Cardiovascular: Negative for chest pain. Gastrointestinal: Negative for abdominal pain, diarrhea, nausea and vomiting. Musculoskeletal: Negative for arthralgias, gait problem and myalgias. Skin: Negative for color change, pallor and rash. Allergic/Immunologic: Positive for environmental allergies. Negative for food allergies and immunocompromised state. Neurological: Negative for dizziness, facial asymmetry and headaches. Hematological: Negative for adenopathy. Does not bruise/bleed easily. Psychiatric/Behavioral: Negative for agitation and behavioral problems. Objective BP 124/70 Pulse 76 Temp 37 C (98.6 F) Resp 18 SpO2 96% Physical Exam Vitals and nursing note reviewed. Constitutional: General: She is not in acute distress. Appearance: Normal appearance. She is normal weight. She is not ill-appearing, toxic-appearing or diaphoretic. Comments: Elderly appearing. HENT: Head: Normocephalic and atraumatic. Right Ear: Ear canal and external ear normal. Left Ear: Ear canal and external ear normal. Nose: Nose normal. No congestion or rhinorrhea. Mouth/Throat: Mouth: Mucous membranes are moist. Pharynx: No oropharyngeal exudate or posterior oropharyngeal erythema. Eyes: General: Right eye: No discharge. Left eye: No discharge. Extraocular Movements: Extraocular movements intact. Conjunctiva/sclera: Conjunctivae normal. Pupils: Pupils are equal, round, and reactive to light. Cardiovascular: Rate and Rhythm: Normal rate and regular rhythm. Pulses: Normal pulses. Heart sounds: Normal heart sounds. No murmur heard. No friction rub. Pulmonary: Effort: Pulmonary effort is normal. No respiratory distress. Breath sounds: Normal breath sounds. No stridor. No wheezing, rhonchi or rales. Chest: Chest wall: No tenderness. Abdominal: General: Abdomen is flat. There is no distension. Palpations: Abdomen is soft. There is no mass. Tenderness: There is no abdominal tenderness. There is no right CVA tenderness, left CVA tenderness, guarding or rebound. Hernia: No hernia is present. Musculoskeletal: General: No swelling, tenderness, deformity or signs of injury. Normal range of motion. Cervical back: Normal range of motion and neck supple. No rigidity. Right lower leg: No edema. Left lower leg: No edema. Lymphadenopathy: Cervical: No cervical adenopathy. Skin: General: Skin is warm and dry. Coloration: Skin is not jaundiced or pale. Findings: No bruising, erythema, lesion or rash. Neurological: General: No focal deficit present. Mental Status: She is alert and oriented to person, place, and time. Cranial Nerves: No cranial nerve deficit. Sensory: No sensory deficit. Motor: No weakness. Coordination: Coordination normal. Gait: Gait normal. Psychiatric: Mood and Affect: Mood normal. Behavior: Behavior normal. Thought Content: Thought content normal. Judgment: Judgment normal. Assessment and Plan ASSESSMENT/PLAN: 1. Exposure to COVID-19 virus - ICD9: V01.79, ICD10: Z20.822 (primary diagnosis) tested positive. She declares she is asymptomatic, but endorses a cough for 2 weeks - COVID WITH FLUA+B, ROUTINE-obtained and pending 2. Other cough - ICD9: 786.2, ICD10: R05.8 X 2 weeks COVID positive 10 days ago Declines CXR Declines medicines Just want to know if I have COVID No red flags Hemodynamically stable. Jenny Cali APRN.CNP documented in this encounter [facility] 12-08-2021 History of Presen t illness Narrative Radiology Service Progress Note PATIENT NAME: Dominique Garza DATE OF SERVICE: December 08, 2021 TIME: 1:40 PM PATIENT IDENTITY VERIFICATION COMPLETED USING TWO (2) IDENTIFIERS: Name and Date of confirmed by patient verbally. FALL SCREENING: Has the patient had 2 falls in the last year or 1 fall with injury or currently using an Ambulatory Assistive Device (Walker, Cane, Wheelchair, Crutches, etc.)? Yes, Patient High Risk for Falls What interventions were put in place to prevent falls during this visit? Offered Assistance with Transfers/Clothing and Increased Observations by Caregivers PATIENT GENDER DATA: Female. status: : No status: NO. PATIENT RELEVANT IMPLANT DATA REVIEWED: Not Applicable RADIOLOGY DEPARTMENT: Ultrasound PERIPHERAL IV DATA: Not applicable SIGNED BY: RT Esha(Ru) December 08, 2021 1:40 PM documented in this encounter [facility] 11-27-2021 History of Presen t illness Narrative [facility] [place], 11/27/2021: Name: Dominique Garza : 1940 The patient is here today with Froilan, spouse, who attends the entire visit, exam and discussion. HPI: Dominique Garza is a 81 yo female with pmh significant for TIA, anemia, CKD, GERD, HTN, inflammatory arthropathy, OA, Parkinsons, CVA, SVT, PE 2017 on Eliquis, and asthma. Former smoker, quit 2005. 30 pack years. The patient is here for follow up of asthma. Since the last Pulmonary Clinic visit 06/01/2021, the patient states she is not using Flovent and Singulair. There have been no ED visit(s) for the management of asthma exacerbation. No hospitalization(s) for management of asthma exacerbation. Has used no prednisone for the management of exacerbation. Very rarely using rescue bronchodilator. Has noticed increased coughing at night. Non-productive. Occasionally coughs during the day. States, I am not sure why I am coughing at night. No wheezing. Exertional dyspnea with minimal activity. Chronic lower extremity edema. PMH: Updated with patient today. FAMH: Updated with patient today. SOCH: Updated with patient today. ROS: General: Generally feels well. Appetite good. Eyes, Ears, nose, throat: No post nasal drip, rhinorrhea, purulent nasal discharge, epistaxis. No hoarseness. Vision stable. Cardiac: No angina, edema, orthopnea. Resp: See HPI. GI: No heartburn, dysphagia. Musculoskeletal: Chronic joint pain. Neuro: No headache, focal weakness, tremor. Skin: No rash. Otherwise negative. IMMUNIZATIONS Prevnar - 07/06/2015 Pneumovax - 01/19/2016, 01/18/2006 Influenza - 01/05/2021 COVID-19 - 07/15/2021, 12/20/2020, 05/11/2020, 04/10/2020 Allergies were verified and updated, and medications were reconciled with the patient at this visit. PHYSICAL EXAMINATION: BP (P) 104/62 Pulse (P) 72 Resp (P) 14 Wt 68 kg (150 lb) SpO2 (P) 99% BMI 22.81 kg/m Gen: No acute distress. Cooperative with examination. ENT: Nares clear. Oral hygeine good. Pharynx clear. Resp: No stridor, accessory respiratory muscle use. No crackles, wheezes. CV: Regular rythm. Heart tones normal. Radial pulses normal. Abd: Non distended. MSK: No kyphoscoliosis. Ext: Warm and well perfused. No cyanosis. Skin: No rash, eczema, urticaria. Neuro: Mental status normal. No tremor. DATA REVIEW: DATE: 10/24/2017 01/27/2015 FVC 2.94, 93% 2.95, 93% FEV1 2.04, 86% 2.07, 87% FEV1/FVC 0.69 0.70 Exhaled nitric oxide (Natty), 06/01/2021: 14 (normal < 20). ASSESSMENT/PLAN: 1. Moderate persistent asthma, unspecified whether complicated - ICD9: 493.90, ICD10: J45.40 (primary diagnosis) Discussed with patient that cough is most likely bronchospasm from asthma and using her Flovent inhaler as directed would be beneficial. Flovent 1 inhalation twice daily. Rinse mouth after each use to help prevent oral thrush. Albuterol HFA inhaler, 2 inhalations 10-15 minutes prior to activities associated with shortness of breath, and as needed for rescue relief of shortness of breath or wheezing, up to 4 times daily. Obtain current PFT at next office visit. - FLUTICASONE PROPIONATE 220 MCG/ACTUATION HFA AEROSOL INHALER - SPIROMETRY BASELINE ONLY 2. History of tobacco use - ICD9: V15.82, ICD10: Z87.891 Not a candidate for lung cancer screening. I addressed the questions of the patient and spouse, and they expressed understanding and acceptance of my answers. Tierney Iglesias PA-C documented in this encounter [facility] 11-16-2021 Miscellaneous Notes Called to check on patient and discuss labs. No answer. Left voicemail documented in this encounter [facility] 11-07-2021 History of Presen t illness Narrative Subjective: Patient presents to clinic c/o painful toenails. They state that the nails are especially painful with shoe gear and pressure. Patient states that nails 1-5 b/l are painful. No other pedal complaints at this time. Patient states no change in medications or medical history since last visit. Objective: Patient presents to clinic ambulating in dress shoes Vasc: DP and PT pulses are faintly palpable bilateral. CFT is less than 5 seconds bilateral. Skin temperature is warm to cool proximal to distal bilateral. There is mild edema or varicosities noted. Neuro: Protective sensation is intact to the foot and toes when tested with the 5.07 SWM bilateral. Vibratory sensation is decreased at the hallux IPJ bilateral. The hallux is downgoing bilateral. Derm: Nails 1-5 b/l are painful, discolored-yellow, thick, crumbly, dystrophic and with subungal debris. Skin is of normal turgor, texture and hair growth is present bilateral. There are no hyperkeratosis, ulcerations, scars, verruca or other lesions noted. Ortho: Muscle strength is 5/5 for all pedal groups tested. Ankle joint DF is decreased with the knee extended with no pain or crepitus noted. 1st MPJ ROM is decreased bilateral. Assessment: (B35.1) Onychomycosis (primary encounter diagnosis) (M79.674) Pain in toe of right foot (M79.675) Pain in toe of left foot Plan: Patient was seen and evaluated. Nails 1-5 bilateral were debrided in length and thickness. Patient is to RTC in 3-4 months. Gabriel Jules DPM Patient presents with: Left Foot - Established Patient Right Foot - Established Patient Nail Care documented in this encounter [facility] 11-02-2021 History of Presen t illness Narrative Patient came in with complaints of feeling dizzy all day. Said she feels very off in the head but could not be specific. When I asked her to smile the left side had a slight droop. She was unsure if that was her normal. is taking to the ER. Denies 911. documented in this encounter [facility] 10-18-2021 Miscellaneous Notes Called to discuss labs and x-rays Thinking this is most likely pseudogout vs. PMR variant/RS3PE Trial of prednisone 20 mg with taper over 12 days then call me with an update Rafaela Moscoso DO October 18, 2021 documented in this encounter [facility] 10-17-2021 History of Presen t illness Narrative Radiology Service Progress Note PATIENT NAME: Dominique Garza DATE OF SERVICE: October 17, 2021 TIME: 2:14 PM PATIENT IDENTITY VERIFICATION COMPLETED USING TWO (2) IDENTIFIERS: Name and Date of confirmed by patient verbally. FALL SCREENING: Has the patient had 2 falls in the last year or 1 fall with injury or currently using an Ambulatory Assistive Device (Walker, Cane, Wheelchair, Crutches, etc.)? No PATIENT GENDER DATA: Female. status: : No status: NO. PATIENT RELEVANT IMPLANT DATA REVIEWED: Not Applicable RADIOLOGY DEPARTMENT: General X-ray: Exam(s) Completed: Upper Extremity X-Ray(s): Wrist, bilateral and Hand, bilateral PERIPHERAL IV DATA: Not applicable SIGNED BY: RT Tiffanie(R) October 17, 2021 2:14 PM documented in this encounter [facility] 10-17-2021 History of Presen t illness Narrative RHEUMATOLOGY NEW PATIENT NOTE 81 year old female with PMH significant for osteoporosis, anxiety, depression, hypertension, asthma and depression who presents for evaluation of joint pain and swelling Consultation requested by Robert Osullivan for an opinion regarding joint pain. My final recommendations will be communicated back to the requesting physician by way of shared Medical record or letter to requesting physician via [place] mail. 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 In these fingers she has some chronic joint pain and loss of sensation History of frozen shoulder S/p bilateral TKAs - went well Was in her usual state of health until 6 weeks ago, insidious onset of pain and swelling of both hands and wrists. The swelling was big and centered around the wrists, going up the dorsum of the hands, with pain and swelling in the knuckles and fingers as well, bilaterally. Couldn't even corn picker a coffee cup or hold a fork Also pain in the neck and shoulders, could not Turn her head without pain She went on like this for 2-3 weeks. The pain was severe No preceding infection including no fevers, URI or diarrheal illness No new medications No other symptoms including rashes, headache, vision loss, jaw pain with chewing, numbness or tingling No pain anywhere else On 09/13 she went to [facility] care. Prescribed prednisone 30 mg to taper over 9 days. Within a few days she started feeling much better, within several days felt 80% better but within 1-2 weeks the pain returned however the swelling has not recurred but has aching pain in the MCPs that is worse in the morning. The pain in the neck and shoulders did not really return. The pain is worse in the morning. Right now she feels ok. voltaren gel and heat helps, also taking extra strength tylenol 08/2016: BARBARA 1:640 nucleolar, negative LISBETH, dsDNA, RF, normal CK PAST MEDICAL HISTORY Diagnosis Date Acute, but ill-defined, cerebrovascular disease 08/06/2005 TIA; Anemia, unspecified 04/2019 Anxiety state 05/28/2006 ANXIETY STATE NOS 05/28/2006 Arrhythmia Asthma, moderate persistent, well-controlled 12/04/2013 Benign neoplasm of colon CKD (chronic kidney disease) stage 3, GFR 30-59 ml/min ([facility]) 08/14/2016 Closed fracture of right foot 08/05/2015 Closed nondisplaced fracture of pelvis (HCC) 01/14/2017 Depressive disorder, not elsewhere classified Esophageal reflux with hoarseness. 11/10/2011 Laryngoscopy by ENT 2011. 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 Allen Suárez, rheumatology. 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 Started on Sinemet. Will be managed by Dr. Perez with [facility] neurology. 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 Unspecified constipation Urge incontinence 05/03/2010 PAST SURGICAL HISTORY Procedure Laterality Date ARTHRP KNE CONDYLE&PLATU MEDIAL&LAT COMPARTMENTS 12/04/09 bilateral total COLONOSCOPY FLX DX W/COLLJ SPEC WHEN PFRMD 06/07/2006 Colonoscopy COLONOSCOPY FLX DX W/COLLJ SPEC WHEN PFRMD 04/06/10 COLONOSCOPY FLX DX W/COLLJ SPEC WHEN PFRMD 12/17/2017 adenomatous polyps, large sessile polyp, tattooed-repeat in 1 year COLONOSCOPY FLX DX W/COLLJ SPEC WHEN PFRMD 12/23/2018 Colonoscopy EGD TRANSORAL BIOPSY SINGLE/MULTIPLE 04/20/2019 ESOPHAGOGASTRODUODENOSCOPY TRANSORAL DIAGNOSTIC 11/19 EGD FAMILY HISTORY Problem Relation Age of Onset other (CHF) Mother other (Lung Ca) Father Coronary Artery Disease Brother Cancer Brother lung Breast Cancer Maternal Aunt Breast Cancer Paternal Aunt no family history of RA Social History Tobacco Use Smoking status: Former Smoker Packs/day: 1.00 Years: 30.00 Pack years: 30.00 Types: Cigarettes Quit date: 04/09/2005 Years since quittin.5 Smokeless tobacco: Never Used Tobacco comment: No hoousehold ETS. Vaping Use Vaping Use: Never used Substance Use Topics Alcohol use: Yes Alcohol/week: 17.5 standard drinks Types: 7 Glasses of Wine (5oz) per week Comment: glass of wine daily Drug use: No Current Outpatient Medications Medication Sig escitalopram oxalate (LEXAPRO) 20 mg tablet Take 1 tablet by mouth once daily. LORazepam (ATIVAN) 0.5 mg Take 1 tablet by mouth twice daily as needed (anxiety) for up to 90 days. busPIRone (BUSPAR) 5 mg tablet Take 1 tablet by mouth twice daily. verapamil SR (CALAN SR, ISOPTIN SR) 120 mg CR tablet Take 1 tablet by mouth daily at bedtime. montelukast (SINGULAIR) 10 mg tablet Take 1 tablet by mouth daily at bedtime. mirtazapine (REMERON) 30 mg tablet Take 1 tablet by mouth daily at bedtime. For appetite and sleep. apixaban (ELIQUIS) 5 mg tab(s) Take 1 tablet by mouth twice daily. lansoprazole (PREVACID) 30 mg capsule Take 1 capsule by mouth once daily. For acid indigestion. mirabegron (MYRBETRIQ) 50 mg Tb24 Take 1 tablet by mouth once daily as needed. triamterene-hydroCHLOROthiazide (MAXZIDE-25MG) 37.5-25 mg per tablet Take 1 tablet by mouth once daily as needed (edema). fluticasone (FLOVENT HFA) 220 mcg/actuation inhaler Inhale 1 Puff as instructed twice daily. fluticasone (FLONASE) 50 mcg/actuation nasal spray Use 1 [place] in each nostril once daily. benzonatate (TESSALON PERLE) 100 mg capsule Take 2 capsules by mouth three times daily as needed. alendronate (FOSAMAX) 70 mg tablet Take 1 tablet by mouth one time a week. Take with a full glass of water, on an empty stomach; do NOT lie down for 30minutes. aspirin, enteric coated (ASPIRIN, ENTERIC COATED) 81 mg EC tablet Take 81 mg by mouth once daily. carbidopa-levodopa (SINEMET) 25-100 mg per tablet Take 1 tablet by mouth three times daily. senna-docusate (SENNA LAXATIVE-STOOL SOFTENER) 8.6-50 mg per tablet Take 2 tablets by mouth twice daily. Constipation. albuterol HFA (PROVENTIL HFA, VENTOLIN HFA) 90 mcg/actuation inhaler Inhale 2 Puffs as instructed four times daily as needed. FOR WHEEZING AND SHORTNESS OF BREATH. Biotin 400 mcg ORAL Tab Take 1 tablet by mouth once daily. MIRALAX 100 % ORAL POWDER 1 capful in 8 oz fluid daily No current facility-administered medications for this visit. Review Of Systems See HPI for full ROS No history of thyroid disease No known renal disease No history of gout Remainder of 10 pt ROS is negative Physical Exam BP 139/85 Pulse 68 Temp 36.8 C (98.2 F) (Oral) Ht 172.7 cm (5' 8 ) Wt 69.4 kg (153 lb) BMI 23.26 kg/m General appearance: well-appearing, alert, no distress, pleasant affect Eyes: no scleral icterus or erythema Neck: no swelling or tenderness Resp: clear to auscultation bilaterally CV: regular rate and rhythm, no murmurs, no leg swelling Lymphatic: no cervical or supraclavicular lymphadenopathy Skin: no rashes, nodules or ulcers Musculoskeletal: the right hand has chronic deformities of the 2nd-4th Fingers and she is s/p 5th Finger amputation above the MCP. Both wrists are slightly boggy but non-tender to palpation. The right 2nd and 3rd MCPs bilaterally are slightly full but non-tender to palpation. Normal elbow, shoulder and neck exam. Normal knee and ankle exams Neuro: no focal deficits. Cautious gait. Walks with cane at baseline due to parkinson's Peripheral pulses: 2+ radial pulses bilateralyl Extremities are warm and well perfused Component Latest Ref Rng & Units 08/24/2016 Sm Antibody <1.0 AI <0.2 RESTAURANT RECRUITER Antibody <1.0 AI <0.2 SSA Antibody <1.0 AI <0.2 SSB Antibody <1.0 AI <0.2 Centromere Ab <1.0 AI <0.2 Scleroderma Ab, IgG <1.0 AI <0.2 An 1 Antibody <1.0 AI <0.2 Ribosomal RESTAURANT RECRUITER <1.0 AI <0.2 Chromatin Antibody <1.0 AI <0.2 BARBARA Negative Positive (A) BARBARA Titer Negative 1:640 (A) BARBARA Pattern Nucleolar BARBARA by EIA, Qual Negative Positive (A) BARBARA by EIA OD Ratio 1.3 Rheumatoid Factor <16 IU/mL <10 CK 42 - 196 U/L 192 DNA Antibody w/Confirmation <30 IU/mL <12 Assessment: 81 year old female with PMH significant for osteoporosis, anxiety, depression, hypertension, asthma and depression who presents for evaluation of joint pain and swelling Bilateral hand and wrist pain and swelling onset ~ 6 weeks ago, reports wrists were very swollen, interfering with ADLs, finger joints painful and swollen, as well as bilateral shoulder and neck pain and stiffness. No lower extremity involvement. No labs or imaging. Near-complete resolution with prednisone 30 mg started 09/13 and Tapered over 9 days. Pain in the fingers/wrists has recurred but not the swelling and not the neck or shoulder pain. She is relatively comfortable now, stating pain is worse in the morning and feels better throughout the day and with tylenol/diclofenac gel. Differential includes pseudogout, gout, rheumatoid arthritis, PMR (atypical), RS3PE variant. She does have chronic joint deformities of the right hand from an accident when she was young. No GCA symptoms. No other symptoms. CBCd and CMP from within the past 6 months are normal. No clear precipitating factors Osteoporosis - managed by her PCP, on weekly alendronate. Most recent vitamin D level wnl Plan: Hand and wrist x-rays CRP, ESR, RF, ACPA, uric acid, TSH, PTH (for pseudogout), uric acid Will review and touch base tomorrow- plan for repeat prednisone course Follow up TBD Rafaela Moscoso DO October 17, 2021 documented in this encounter [facility] 10-02-2021 Miscellaneous Notes Patient notified, verbalized understanding. Mauro Patel Ma Take Tylenol ES 500 mg 1 cap every 6 hours as needed. Patient calls and states that hands are still swollen, right hand is worse than left. Right hand is very sore. Patient asking what she could take for the pain? Patient asking if she she should be taking more tylenol? Patient has been taking 1 tablet of tylenol extra strength, twice a day. Patient states that this seems to help some. Patient's appointment with boat carpenter mechanic is 10/17/2021. Please review and advise, Isabel Garza RN documented in this encounter [facility] 09-21-2021 History of Presen t illness Narrative This note was created using [employer]. Subjective Patient complains of new onset and daily neck, bilateral shoulder, bilateral wrist and hand pain with swelling of the hands and fingers, and stiffness. Symptoms started 3 weeks ago and progressively got worse to 10/10 pain so [facility] Pain is described as aching. It is worse with any activity. Previous treatments have included topical analgesics with little relief. She was prescribed prednisone taper on 09/13, and pain dropped to 3/10 in 3 days. She finished prednisone yesterday and joint pains were staying controlled. Review of Systems Constitutional: Negative for appetite change, chills and fever. HENT: Negative for trouble swallowing. No jaw pain. Eyes: Negative for visual disturbance. Neurological: Negative for headaches. ACTIVE PROBLEM LIST Osteoporosis Depression Esophageal reflux with hoarseness. Insomnia Anxiety State Benign neoplasm of colon Constipation Osteoarthritis Mixed Stress and Urge Urinary Incontinence Inflammatory Arthropathy Varicose Vein of Leg Vitamin D Deficiency Neuropathy (HCC) Asthma, Moderate Persistent, Well-Controlled Essential Hypertension Unsteady Gait Ckd (Chronic Kidney Disease) Stage 3, Gfr 30-59 Ml/Min (Hcc) History of pulmonary embolism, on chronic anticoagulation. Parkinson Disease (Hcc) Pulmonary Hypertension (Hcc) Muscle Weakness Pad (Peripheral Artery Disease) ([facility]) Current Outpatient Medications Medication Sig escitalopram oxalate (LEXAPRO) 20 mg tablet Take 1 tablet by mouth once daily. LORazepam (ATIVAN) 0.5 mg Take 1 tablet by mouth twice daily as needed (anxiety) for up to 90 days. busPIRone (BUSPAR) 5 mg tablet Take 1 tablet by mouth twice daily. verapamil SR (CALAN SR, ISOPTIN SR) 120 mg CR tablet Take 1 tablet by mouth daily at bedtime. montelukast (SINGULAIR) 10 mg tablet Take 1 tablet by mouth daily at bedtime. mirtazapine (REMERON) 30 mg tablet Take 1 tablet by mouth daily at bedtime. For appetite and sleep. apixaban (ELIQUIS) 5 mg tab(s) Take 1 tablet by mouth twice daily. lansoprazole (PREVACID) 30 mg capsule Take 1 capsule by mouth once daily. For acid indigestion. mirabegron (MYRBETRIQ) 50 mg Tb24 Take 1 tablet by mouth once daily as needed. triamterene-hydroCHLOROthiazide (MAXZIDE-25MG) 37.5-25 mg per tablet Take 1 tablet by mouth once daily as needed (edema). fluticasone (FLOVENT HFA) 220 mcg/actuation inhaler Inhale 1 Puff as instructed twice daily. fluticasone (FLONASE) 50 mcg/actuation nasal spray Use 1 [place] in each nostril once daily. benzonatate (TESSALON PERLE) 100 mg capsule Take 2 capsules by mouth three times daily as needed. alendronate (FOSAMAX) 70 mg tablet Take 1 tablet by mouth one time a week. Take with a full glass of water, on an empty stomach; do NOT lie down for 30minutes. aspirin, enteric coated (ASPIRIN, ENTERIC COATED) 81 mg EC tablet Take 81 mg by mouth once daily. carbidopa-levodopa (SINEMET) 25-100 mg per tablet Take 1 tablet by mouth three times daily. senna-docusate (SENNA LAXATIVE-STOOL SOFTENER) 8.6-50 mg per tablet Take 2 tablets by mouth twice daily. Constipation. albuterol HFA (PROVENTIL HFA, VENTOLIN HFA) 90 mcg/actuation inhaler Inhale 2 Puffs as instructed four times daily as needed. FOR WHEEZING AND SHORTNESS OF BREATH. Biotin 400 mcg ORAL Tab Take 1 tablet by mouth once daily. MIRALAX 100 % ORAL POWDER 1 capful in 8 oz fluid daily predniSONE (DELTASONE) 10 mg tablet Take 3 tabs daily for 3 days, then 2 tabs daily for 3 days, then 1 tab daily for 3 days with food. (Patient not taking: Reported on 09/21/2021 ) 0.9 % sodium chloride (NACL 0.9%) infusion Administer at rate defined per CT contrast administration specifications. To be provided with radiology test. (Patient not taking: Reported on 09/21/2021 ) calcium carbonate 600 mg-cholecalciferol 200 units (CALCIUM 600 + D,3,) 600 mg(1,500mg) -200 unit tab Take 1 tablet by mouth once daily. (Patient not taking: Reported on 09/21/2021 ) No current facility-administered medications for this visit. Objective BP 134/70 (BP Site: Left Arm, BP Position: Sitting, BP Cuff Size: Large Adult) Pulse 72 Temp 36.2 C (97.1 F) (Temporal Artery) Resp 18 Wt 70.5 kg (155 lb 6.4 oz) BMI 23.63 kg/m Physical Exam Constitutional: General: She is not in acute distress. Eyes: Extraocular Movements: Extraocular movements intact. Musculoskeletal: Right shoulder: No tenderness or crepitus. Normal range of motion. Normal strength. Left shoulder: No tenderness or crepitus. Normal range of motion. Normal strength. Right elbow: Normal. Left elbow: Normal. Right wrist: Swelling and deformity present. No tenderness. Left wrist: Swelling and deformity present. No tenderness. Right hand: Swelling, deformity and tenderness present. Left hand: Swelling, deformity and tenderness present. Cervical back: No spinous process tenderness or muscular tenderness. Decreased range of motion. Neurological: Mental Status: She is alert. Assessment and Plan 1. Polyarthralgia - ICD9: 719.49, ICD10: M25.50 (primary diagnosis) Improved. Observe off prednisone. Call for pain /10, and I'll consider labs. Otherwise keep rheumatology consult. 2. Anxiety state - ICD9: 300.00, ICD10: F41.1 Controlled. - LORAZEPAM 0.5 MG TABLET - BUSPIRONE 5 MG TABLET 3. Depression, unspecified depression type - ICD9: 311, ICD10: F32.A Controlled. 4. Essential hypertension - ICD9: 401.9, ICD10: I10 - fair control Corbin Bai MD documented in this encounter [facility] 09-13-2021 History of Presen t illness Narrative Subjective HPI Nontoxic-appearing female presents urgent care chief complaint bilateral hand pain. Patient states duration of symptoms have been approximately 1 week. States pain is starting to affect quality of life. States pain has since moved from her hands to her shoulders neck and back. Patient states she is currently under care of rheumatology for osteoarthritis. Was on Plaquenil was instructed to discontinue use due to complications. States she has been having eye issues when she was on Plaquenil. She discontinued Plaquenil approximately June of this year. Has been using Tylenol this is helped some. States overall she feels well other than joint pain. Denies any trauma. Denies any fever body aches chills nausea vomiting abdominal pain change in bowel or bladder habit or rashes. Past medical history prescription medication use allergies reviewed. .Patient presents with: Pain: joint pain and swelling in hands, into neck and spine x 1 week-taken off plaquenil for eye issues PAST MEDICAL HISTORY Diagnosis Date Acute, but ill-defined, cerebrovascular disease 08/06/2005 TIA; Anemia, unspecified 04/2019 Anxiety state 05/28/2006 ANXIETY STATE NOS 05/28/2006 Arrhythmia Asthma, moderate persistent, well-controlled 12/04/2013 Benign neoplasm of colon CKD (chronic kidney disease) stage 3, GFR 30-59 ml/min ([facility]) 08/14/2016 Closed fracture of right foot 08/05/2015 Closed nondisplaced fracture of pelvis ([facility]) 01/14/2017 Depressive disorder, not elsewhere classified Esophageal reflux with hoarseness. 11/10/2011 Laryngoscopy by ENT 2011. 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 Allen Suárez, rheumatology. 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 Started on Sinemet. Will be managed by Dr. Perez with [facility] neurology. 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 Unspecified constipation Urge incontinence 05/03/2010 PAST SURGICAL HISTORY Procedure Laterality Date ARTHRP KNE CONDYLE&PLATU MEDIAL&LAT COMPARTMENTS 12/04/09 bilateral total COLONOSCOPY FLX DX W/COLLJ SPEC WHEN PFRMD 06/07/2006 Colonoscopy COLONOSCOPY FLX DX W/COLLJ SPEC WHEN PFRMD 04/06/10 COLONOSCOPY FLX DX W/COLLJ SPEC WHEN PFRMD 12/17/2017 adenomatous polyps, large sessile polyp, tattooed-repeat in 1 year COLONOSCOPY FLX DX W/COLLJ SPEC WHEN PFRMD 12/23/2018 Colonoscopy EGD TRANSORAL BIOPSY SINGLE/MULTIPLE 04/20/2019 ESOPHAGOGASTRODUODENOSCOPY TRANSORAL DIAGNOSTIC 11/19 EGD ALLERGIES Amoxicillin, Celebrex [Celecoxib], Relafen [Nabumetone], Adhesive Tape (Rosins), Cymbalta [Duloxetine], Iodine, Norvasc [Amlodipine], and Sulfabenzamide MEDICATIONS montelukast (SINGULAIR) 10 mg tablet Take 1 tablet by mouth daily at bedtime. mirtazapine (REMERON) 30 mg tablet Take 1 tablet by mouth daily at bedtime. For appetite and sleep. apixaban (ELIQUIS) 5 mg tab(s) Take 1 tablet by mouth twice daily. LORazepam (ATIVAN) 0.5 mg Take 1 tablet by mouth twice daily as needed (anxiety) for up to 90 days. 0.9 % sodium chloride (NACL 0.9%) infusion Administer at rate defined per CT contrast administration specifications. To be provided with radiology test. diphenhydrAMINE (BENADRYL) 50 mg capsule Take 1 capsule by mouth as directed for 1 dose. one (1) hour prior to exam. lansoprazole (PREVACID) 30 mg capsule Take 1 capsule by mouth once daily. For acid indigestion. mirabegron (MYRBETRIQ) 50 mg Tb24 Take 1 tablet by mouth once daily as needed. triamterene-hydroCHLOROthiazide (MAXZIDE-25MG) 37.5-25 mg per tablet Take 1 tablet by mouth once daily as needed (edema). escitalopram oxalate (LEXAPRO) 20 mg tablet Take 1 tablet by mouth once daily. fluticasone (FLOVENT HFA) 220 mcg/actuation inhaler Inhale 1 Puff as instructed twice daily. fluticasone (FLONASE) 50 mcg/actuation nasal spray Use 1 [place] in each nostril once daily. benzonatate (TESSALON PERLE) 100 mg capsule Take 2 capsules by mouth three times daily as needed. alendronate (FOSAMAX) 70 mg tablet Take 1 tablet by mouth one time a week. Take with a full glass of water, on an empty stomach; do NOT lie down for 30minutes. busPIRone (BUSPAR) 5 mg tablet Take 1 tablet by mouth twice daily. verapamil SR (CALAN SR, ISOPTIN SR) 120 mg CR tablet Take 1 tablet by mouth daily at bedtime. aspirin, enteric coated (ASPIRIN, ENTERIC COATED) 81 mg EC tablet Take 81 mg by mouth once daily. carbidopa-levodopa (SINEMET) 25-100 mg per tablet Take 1 tablet by mouth three times daily. calcium carbonate 600 mg-cholecalciferol 200 units (CALCIUM 600 + D,3,) 600 mg(1,500mg) -200 unit tab Take 1 tablet by mouth once daily. senna-docusate (SENNA LAXATIVE-STOOL SOFTENER) 8.6-50 mg per tablet Take 2 tablets by mouth twice daily. Constipation. albuterol HFA (PROVENTIL HFA, VENTOLIN HFA) 90 mcg/actuation inhaler Inhale 2 Puffs as instructed four times daily as needed. FOR WHEEZING AND SHORTNESS OF BREATH. Biotin 400 mcg ORAL Tab Take 1 tablet by mouth once daily. MIRALAX 100 % ORAL POWDER 1 capful in 8 oz fluid daily predniSONE (DELTASONE) 10 mg tablet Take 3 tabs daily for 3 days, then 2 tabs daily for 3 days, then 1 tab daily for 3 days with food. FAMILY HISTORY Problem Relation Age of Onset other (CHF) Mother other (Lung Ca) Father Coronary Artery Disease Brother Cancer Brother lung Breast Cancer Maternal Aunt Breast Cancer Paternal Aunt Social History Tobacco Use Smoking status: Former Smoker Packs/day: 1.00 Years: 30.00 Pack years: 30.00 Types: Cigarettes Quit date: 04/09/2005 Years since quittin.4 Smokeless tobacco: Never Used Tobacco comment: No hoousehold ETS. Vaping Use Vaping Use: Never used Substance Use Topics Alcohol use: Yes Alcohol/week: 17.5 standard drinks Types: 7 Glasses of Wine (5oz) per week Comment: glass of wine daily Drug use: No .Patient presents with: Pain: joint pain and swelling in hands, into neck and spine x 1 week-taken off plaquenil for eye issues PAST MEDICAL HISTORY Diagnosis Date Acute, but ill-defined, cerebrovascular disease 08/06/2005 TIA; Anemia, unspecified 04/2019 Anxiety state 05/28/2006 ANXIETY STATE NOS 05/28/2006 Arrhythmia Asthma, moderate persistent, well-controlled 12/04/2013 Benign neoplasm of colon CKD (chronic kidney disease) stage 3, GFR 30-59 ml/min ([facility]) 08/14/2016 Closed fracture of right foot 08/05/2015 Closed nondisplaced fracture of pelvis ([facility]) 01/14/2017 Depressive disorder, not elsewhere classified Esophageal reflux with hoarseness. 11/10/2011 Laryngoscopy by ENT 2011. 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 Allen Suárez, rheumatology. 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 Started on Sinemet. Will be managed by Dr. Perez with [facility] neurology. 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 Unspecified constipation Urge incontinence 05/03/2010 PAST SURGICAL HISTORY Procedure Laterality Date ARTHRP KNE CONDYLE&PLATU MEDIAL&LAT COMPARTMENTS 12/04/09 bilateral total COLONOSCOPY FLX DX W/COLLJ SPEC WHEN PFRMD 06/07/2006 Colonoscopy COLONOSCOPY FLX DX W/COLLJ SPEC WHEN PFRMD 04/06/10 COLONOSCOPY FLX DX W/COLLJ SPEC WHEN PFRMD 12/17/2017 adenomatous polyps, large sessile polyp, tattooed-repeat in 1 year COLONOSCOPY FLX DX W/COLLJ SPEC WHEN PFRMD 12/23/2018 Colonoscopy EGD TRANSORAL BIOPSY SINGLE/MULTIPLE 04/20/2019 ESOPHAGOGASTRODUODENOSCOPY TRANSORAL DIAGNOSTIC 11/19 EGD ALLERGIES Amoxicillin, Celebrex [Celecoxib], Relafen [Nabumetone], Adhesive Tape (Rosins), Cymbalta [Duloxetine], Iodine, Norvasc [Amlodipine], and Sulfabenzamide MEDICATIONS montelukast (SINGULAIR) 10 mg tablet Take 1 tablet by mouth daily at bedtime. mirtazapine (REMERON) 30 mg tablet Take 1 tablet by mouth daily at bedtime. For appetite and sleep. apixaban (ELIQUIS) 5 mg tab(s) Take 1 tablet by mouth twice daily. LORazepam (ATIVAN) 0.5 mg Take 1 tablet by mouth twice daily as needed (anxiety) for up to 90 days. 0.9 % sodium chloride (NACL 0.9%) infusion Administer at rate defined per CT contrast administration specifications. To be provided with radiology test. diphenhydrAMINE (BENADRYL) 50 mg capsule Take 1 capsule by mouth as directed for 1 dose. one (1) hour prior to exam. lansoprazole (PREVACID) 30 mg capsule Take 1 capsule by mouth once daily. For acid indigestion. mirabegron (MYRBETRIQ) 50 mg Tb24 Take 1 tablet by mouth once daily as needed. triamterene-hydroCHLOROthiazide (MAXZIDE-25MG) 37.5-25 mg per tablet Take 1 tablet by mouth once daily as needed (edema). escitalopram oxalate (LEXAPRO) 20 mg tablet Take 1 tablet by mouth once daily. fluticasone (FLOVENT HFA) 220 mcg/actuation inhaler Inhale 1 Puff as instructed twice daily. fluticasone (FLONASE) 50 mcg/actuation nasal spray Use 1 [place] in each nostril once daily. benzonatate (TESSALON PERLE) 100 mg capsule Take 2 capsules by mouth three times daily as needed. alendronate (FOSAMAX) 70 mg tablet Take 1 tablet by mouth one time a week. Take with a full glass of water, on an empty stomach; do NOT lie down for 30minutes. busPIRone (BUSPAR) 5 mg tablet Take 1 tablet by mouth twice daily. verapamil SR (CALAN SR, ISOPTIN SR) 120 mg CR tablet Take 1 tablet by mouth daily at bedtime. aspirin, enteric coated (ASPIRIN, ENTERIC COATED) 81 mg EC tablet Take 81 mg by mouth once daily. carbidopa-levodopa (SINEMET) 25-100 mg per tablet Take 1 tablet by mouth three times daily. calcium carbonate 600 mg-cholecalciferol 200 units (CALCIUM 600 + D,3,) 600 mg(1,500mg) -200 unit tab Take 1 tablet by mouth once daily. senna-docusate (SENNA LAXATIVE-STOOL SOFTENER) 8.6-50 mg per tablet Take 2 tablets by mouth twice daily. Constipation. albuterol HFA (PROVENTIL HFA, VENTOLIN HFA) 90 mcg/actuation inhaler Inhale 2 Puffs as instructed four times daily as needed. FOR WHEEZING AND SHORTNESS OF BREATH. Biotin 400 mcg ORAL Tab Take 1 tablet by mouth once daily. MIRALAX 100 % ORAL POWDER 1 capful in 8 oz fluid daily FAMILY HISTORY Problem Relation Age of Onset other (CHF) Mother other (Lung Ca) Father Coronary Artery Disease Brother Cancer Brother lung Breast Cancer Maternal Aunt Breast Cancer Paternal Aunt Social History Tobacco Use Smoking status: Former Smoker Packs/day: 1.00 Years: 30.00 Pack years: 30.00 Types: Cigarettes Quit date: 04/09/2005 Years since quittin.4 Smokeless tobacco: Never Used Tobacco comment: No hoousehold ETS. Vaping Use Vaping Use: Never used Substance Use Topics Alcohol use: Yes Alcohol/week: 17.5 standard drinks Types: 7 Glasses of Wine (5oz) per week Comment: glass of wine daily Drug use: No BP 132/78 Pulse 76 Temp 36.4 C (97.5 F) Resp 16 Wt 70.3 kg (155 lb) SpO2 94% BMI 23.57 kg/m Review of Systems Constitutional: Negative for chills, fever and malaise/fatigue. HENT: Negative for congestion, ear discharge, ear pain, sinus pain and sore throat. Eyes: Negative for blurred vision, pain, discharge and redness. Respiratory: Negative for cough, hemoptysis, sputum production, shortness of breath, wheezing and stridor. Cardiovascular: Negative for chest pain. Gastrointestinal: Negative for abdominal pain, diarrhea, nausea and vomiting. Musculoskeletal: Positive for back pain, joint pain and neck pain. Negative for falls and myalgias. Skin: Negative for itching and rash. Neurological: Negative for dizziness and headaches. Objective Physical Exam Constitutional: General: She is not in acute distress. Appearance: She is not diaphoretic. HENT: Head: Normocephalic. Mouth/Throat: Mouth: Mucous membranes are moist. Pharynx: Oropharynx is clear. No oropharyngeal exudate or posterior oropharyngeal erythema. Eyes: Conjunctiva/sclera: Conjunctivae normal. Pupils: Pupils are equal, round, and reactive to light. Cardiovascular: Rate and Rhythm: Normal rate and regular rhythm. Heart sounds: Normal heart sounds. Pulmonary: Effort: Pulmonary effort is normal. No tachypnea, accessory muscle usage or respiratory distress. Breath sounds: Normal breath sounds. No stridor. Abdominal: Palpations: Abdomen is soft. Tenderness: There is no abdominal tenderness. Musculoskeletal: Cervical back: Normal range of motion and neck supple. No rigidity or tenderness. Comments: Edema noted over MCP and PIP joints bilateral greater and right than left. Erythema noted. Pain with palpation to this area. Decreased range of motion to right hand noted. Weakness noted. No breaks in skin. No drainage. No evidence of bacterial infection. Neurovascular intact. Lymphadenopathy: Cervical: No cervical adenopathy. Skin: General: Skin is warm and dry. Neurological: Mental Status: She is alert and oriented to person, place, and time. ASSESSMENT/PLAN: 1. Arthralgia, unspecified joint - ICD9: 719.40, ICD10: M25.50 Patient diagnosed with arthralgia. History of osteoporosis and osteoarthritis. We discussed treatment options. Patient is having significant pain today. Did discuss patient with PCP. Prednisone taper will be started. Patient will be referred to rheumatology. Patient was educated on supportive therapies. Patient will follow up with primary care provider as needed. Patient was instructed to immediately proceed to emergency room for any new, worsening, or symptoms lasting longer than anticipated. The patient's clinical presentation is otherwise unremarkable at this time. Based on exam and clinical finding, the patient is stable for discharge. Plan of care was discussed with patient. Patient verbalizes understanding and agrees to plan of care. This note was generated using [employer] software. It may contain errors in wording, punctuation, or spelling. Robert Osullivan APRN.BOUBACAR documented in this encounter [facility] 09-05-2021 Miscellaneous Notes Patient phones requesting refills as follows: Pending Prescriptions Disp Refills MONTELUKAST 10 MG TABLET 30 tablet 5 Sig: Take 1 tablet by mouth daily at bedtime. JB: No Please review and advise. Yola Arzate RN documented in this encounter [facility] 08-03-2021 Miscellaneous Notes Patient has been identified by name and date of : Yes Patient phones for refill(s): Pending Prescriptions Disp Refills MIRTAZAPINE 30 MG TABLET 90 tablet 3 Sig: Take 1 tablet by mouth daily at bedtime. For appetite and sleep. JB: No Date of last office visit in primary care: 05/12/2021 Medicare Wellness: 11/10/2021 Last 2 Encounter Wt Readings: Date: Wt: 06/09/2021 68.9 kg (152 lb) 06/01/2021 69.9 kg (154 lb) Previous labs/tests for medication: Not applicable Please advise. Thank you. Rose Rothman LPN Patient has been identified by name and date of : Yes Pending Prescriptions Disp Refills MIRTAZAPINE 30 MG TABLET 90 tablet 3 Sig: Take 1 tablet by mouth daily at bedtime. For appetite and sleep. JB: No RX INSTRUCTIONS: Patient aware RX will be sent to pharmacy. No need to notify patient. [employer] documented in this encounter [facility] 07-21-2021 History of Presen t illness Narrative Last saw Dr. Bai: 05/12/21 Subjective: Patient presents to clinic c/o painful toenails. They state that the nails are especially painful with shoe gear and pressure. Patient states that nails 1-5 b/l are painful. Patient complains of neuropathy. No other pedal complaints at this time. Patient states no change in medications or medical history since last visit. Objective: Patient presents to [facility] Vasc: DP pulses nonpalpable b/l. Posterior tibial pulses decreased bilateral. CFT is less than 5 seconds bilateral. Skin temperature is warm to cool proximal to distal bilateral. There is mild edema or varicosities noted. Neuro: Protective sensation is intact to the foot and toes when tested with the 5.07 SWM bilateral. Vibratory sensation is absent at the hallux IPJ bilateral. The hallux is downgoing bilateral. Derm: Nails 1-5 b/l are painful, discolored-yellow, thick, crumbly, dystrophic and with subungal debris. Skin is of normal turgor, texture and hair growth is absent bilateral. There are no hyperkeratosis, ulcerations, scars, verruca or other lesions noted. Ortho: Muscle strength is 5/5 for all pedal groups tested. Ankle joint DF is decreased with the knee extended with no pain or crepitus noted. 1st MPJ ROM is decreased bilateral. Assessment: (B35.1) Onychomycosis (primary encounter diagnosis) (M79.674) Pain in toe of right foot (M79.675) Pain in toe of left foot (I73.9) PAD (peripheral artery disease) ([facility]) neuropathy Plan: Patient was seen and evaluated. Nails 1-5 bilateral were debrided in length and thickness. Will call in topical cream for neuropathy. Discussed neurontin. She declined. Patient is to RTC in 3-4 months. Gabriel Jules DPM Pt presents for Nail Care. No complaints. documented in this encounter [facility] 07-11-2021 Miscellaneous Notes Patient has been identified by name and date of : Yes Patient phones for refill(s): Pending Prescriptions Disp Refills APIXABAN 5 MG TABLET 60 tablet 5 Sig: Take 1 tablet by mouth twice daily. JB: No Date of last office visit in primary care: 05/12/2021 Medicare Wellness: 11/10/2021 Last 2 Encounter Wt Readings: Date: Wt: 06/09/2021 68.9 kg (152 lb) 06/01/2021 69.9 kg (154 lb) Previous labs/tests for medication: Not applicable Please advise. Thank you. Rose Rothman LPN Patient has been identified by name and date of : Yes Pending Prescriptions Disp Refills APIXABAN 5 MG TABLET 60 tablet 5 Sig: Take 1 tablet by mouth twice daily. JB: No RX INSTRUCTIONS: Patient aware RX will be sent to pharmacy. No need to notify patient. Manda Rogers Pss documented in this encounter [facility] 06-26-2021 Miscellaneous Notes PDMP website checked and validated. All prescriptions have been APPROPRIATELY filled. No suspicious activity was identified. 06/26/2021 by Rosita Paredes APRN.STEELSCOPE OPERATOR Last seen pcp 05/12/21. Patient has been identified by name and date of : Yes Pending Prescriptions Disp Refills LORAZEPAM 0.5 MG TABLET 30 tablet 2 Sig: Take 1 tablet by mouth twice daily as needed (anxiety) for up to 90 days. DEEPTI Class: C-IV JB: No RX INSTRUCTIONS: Patient aware RX will be sent to pharmacy. No need to notify patient. Nacny Cid documented in this encounter [facility] 06-06-2021 Note HNO ID: [id number] Author: ROWENA Carreon Service: Radiology Author Type: Hazard Mitigation Officer Type: Progress Notes Filed: 06/06/2021 8:43 AM Note Text: Radiology Service Progress Note DATE OF SERVICE: June 06, 2021 TIME: 8:41 AM PATIENT IDENTITY VERIFICATION COMPLETED USING TWO (2) STANDARD IDENTIFIERS: Name and Date of confirmed by patient verbally. FALL SCREENING: Has the patient had 2 falls in the last year or 1 fall with injury or currently using an Ambulatory Assistive Device (Walker, Cane, Wheelchair, Crutches, etc.)? No PATIENT GENDER DATA: Female. status: : No status: NO. PATIENT RELEVANT IMPLANT DATA REVIEWED: Not Applicable ALLERGIES: Reviewed and unchanged Pt allergic to contrast prepped EXAM: CT -CONTRAST INDUCED NEPHROPATHY RISK FACTORS: Patient age > 60 years CREATININE: Creatinine Date Value Ref Range Status 05/05/2021 0.78 0.58 - 0.96 mg/dL Final 09/16/2020 0.80 0.58 - 0.96 mg/dL Final 05/12/2020 0.96 0.58 - 0.96 mg/dL Final eGFR-All Other Races Date Value Ref Range Status 05/05/2021 >60 . Final Comment: eGFR (Estimated GFR) Units of measure: mL/min/1.73 meters squared eGFR is derived from the reexpressed MDRD Study equation using the following parameters: serum creatinine, age, gender and race. The creatinine assay has been calibrated to be traceable to IDMS. An eGFR <60 mL/min/1.73m2 for >3 months is consistent with chronic kidney disease. Refer to KDOQI guidelines for clinical interpretation. In patients with unstable renal function, e.g. those with acute kidney injury, the eGFR may not accurately reflect actual GFR. Note: On 05/13/2021, the eGFR calculation will be updated to the NKF-ASN Task Force recommended 2020 CKD-EPI creatinine equation which does not include a race variable. For more information or to access a 2020 CKD-EPI calculator, visit the [employer] website at kidney.org/professionals/kdoqi/g fr_calculator. eGFR- Date Value Ref Range Status 05/05/2021 >60 Final P.O.C.T. RESULTS: POC done: Yes, See Lab Tab June 06, 2021 TREATMENT: N/A PERIPHERAL IV DATA: Ambulatory: A peripheral IV was started in the Left antecubital site with a Angio cath: 22 gauge. RADIOLOGY DEPARTMENT: CT; Exam(s) Completed: Abdomen/Pelvis SIGNATURE: ROWENA Carreon PATIENT NAME: Dominique Garza DATE: June 06, 2021 TIME: 8:41 AM [facility] documented as of this encounter (statuses as of 06/26/2021) 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 Stress echo was not revealing. Symptoms are better Stress incontinence in female 06/06/2015 Knee pain 10/04/2009 12/02/2012 Overview: 12/04/09 Bilateral total knee arthroplasty - Dr. 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 Stress echo was not revealing. Symptoms are better Stress incontinence in female 06/06/2015 Knee pain 10/04/2009 12/02/2012 Overview: 12/04/09 Bilateral total knee arthroplasty - Dr. 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 Stress echo was not revealing. Symptoms are better Stress incontinence in female 06/06/2015 Knee pain 10/04/2009 12/02/2012 Overview: 12/04/09 Bilateral total knee arthroplasty - Dr. 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 Stress echo was not revealing. Symptoms are better Stress incontinence in female 06/06/2015 Knee pain 10/04/2009 12/02/2012 Overview: 12/04/09 Bilateral total knee arthroplasty - Dr. 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 Stress echo was not revealing. Symptoms are better Stress incontinence in female 06/06/2015 Knee pain 10/04/2009 12/02/2012 Overview: 12/04/09 Bilateral total knee arthroplasty - Dr. 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 Stress echo was not revealing. Symptoms are better Stress incontinence in female 06/06/2015 Knee pain 10/04/2009 12/02/2012 Overview: 12/04/09 Bilateral total knee arthroplasty - Dr. 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 Stress echo was not revealing. Symptoms are better Stress incontinence in female 06/06/2015 Knee pain 10/04/2009 12/02/2012 Overview: 12/04/09 Bilateral total knee arthroplasty - Dr. Knapic Hypokalemia 12/01/2008 08/06/2018 Scalp lesion 12/01/2008 07/06/2015 Dermatitis 12/01/2008 05/03/2010 Neutropenia, unspecified 03/01/2006 013 Thrombotic microangiopathy 05/01/200512/02 documented as of this encounter (statuses as of 10/02/2021) 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 Stress echo was not revealing. Symptoms are better Stress incontinence in female 06/06/2015 Knee pain 10/04/2009 12/02/2012 Overview: 12/04/09 Bilateral total knee arthroplasty - Dr. 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 Stress echo was not revealing. Symptoms are better Stress incontinence in female 06/06/2015 Knee pain 10/04/2009 12/02/2012 Overview: 12/04/09 Bilateral total knee arthroplasty - Dr. 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 Stress echo was not revealing. Symptoms are better Stress incontinence in female 06/06/2015 Knee pain 10/04/2009 12/02/2012 Overview: 12/04/09 Bilateral total knee arthroplasty - Dr. 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 Stress echo was not revealing. Symptoms are better Stress incontinence in female 06/06/2015 Knee pain 10/04/2009 12/02/2012 Overview: 12/04/09 Bilateral total knee arthroplasty - Dr. 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 Stress echo was not revealing. Symptoms are better Stress incontinence in female 06/06/2015 Knee pain 10/04/2009 12/02/2012 Overview: 12/04/09 Bilateral total knee arthroplasty - Dr. 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 Stress echo was not revealing. Symptoms are better Stress incontinence in female 06/06/2015 Knee pain 10/04/2009 12/02/2012 Overview: 12/04/09 Bilateral total knee arthroplasty - Dr. 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 Stress echo was not revealing. Symptoms are better Stress incontinence in female 06/06/2015 Knee pain 10/04/2009 12/02/2012 Overview: 12/04/09 Bilateral total knee arthroplasty - Dr. 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 Stress echo was not revealing. Symptoms are better Stress incontinence in female 06/06/2015 Knee pain 10/04/2009 12/02/2012 Overview: 12/04/09 Bilateral total knee arthroplasty - Dr. 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 Stress echo was not revealing. Symptoms are better Stress incontinence in female 06/06/2015 Knee pain 10/04/2009 12/02/2012 Overview: 12/04/09 Bilateral total knee arthroplasty - Dr. Luo Hypokalemia 12/01/2008 08/06/2018 Scalp lesion 12/01/2008 07/06/2015 Dermatitis 12/01/2008 05/03/2010 Neutropenia, unspecified 03/01/2006 013 Thrombotic microangiopathy 05/01/200512/02 documented as of this encounter (statuses as of 12/22/2021) 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 Stress echo was not revealing. Symptoms are better Stress incontinence in female 06/06/2015 Knee pain 10/04/2009 12/02/2012 Overview: 12/04/09 Bilateral total knee arthroplasty - Dr. 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 Stress echo was not revealing. Symptoms are better Stress incontinence in female 06/06/2015 Knee pain 10/04/2009 12/02/2012 Overview: 12/04/09 Bilateral total knee arthroplasty - Dr. 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 Stress echo was not revealing. Symptoms are better Stress incontinence in female 06/06/2015 Knee pain 10/04/2009 12/02/2012 Overview: 12/04/09 Bilateral total knee arthroplasty - Dr. 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 Stress echo was not revealing. Symptoms are better Stress incontinence in female 06/06/2015 Knee pain 10/04/2009 12/02/2012 Overview: 12/04/09 Bilateral total knee arthroplasty - Dr. 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 Stress echo was not revealing. Symptoms are better Stress incontinence in female 06/06/2015 Knee pain 10/04/2009 12/02/2012 Overview: 12/04/09 Bilateral total knee arthroplasty - Dr. 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 Stress echo was not revealing. Symptoms are better Stress incontinence in female 06/06/2015 Knee pain 10/04/2009 12/02/2012 Overview: 12/04/09 Bilateral total knee arthroplasty - Dr. 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 Stress echo was not revealing. Symptoms are better Stress incontinence in female 06/06/2015 Knee pain 10/04/2009 12/02/2012 Overview: 12/04/09 Bilateral total knee arthroplasty - Dr. 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 Stress echo was not revealing. Symptoms are better Stress incontinence in female 06/06/2015 Knee pain 10/04/2009 12/02/2012 Overview: 12/04/09 Bilateral total knee arthroplasty - Dr. 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 Stress echo was not revealing. Symptoms are better Stress incontinence in female 06/06/2015 Knee pain 10/04/2009 12/02/2012 Overview: 12/04/09 Bilateral total knee arthroplasty - Dr. 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 Stress echo was not revealing. Symptoms are better Stress incontinence in female 06/06/2015 Knee pain 10/04/2009 12/02/2012 Overview: 12/04/09 Bilateral total knee arthroplasty - Dr. 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 Stress echo was not revealing. Symptoms are better Stress incontinence in female 06/06/2015 Knee pain 10/04/2009 12/02/2012 Overview: 12/04/09 Bilateral total knee arthroplasty - Dr. 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 Stress echo was not revealing. Symptoms are better Stress incontinence in female 06/06/2015 Knee pain 10/04/2009 12/02/2012 Overview: 12/04/09 Bilateral total knee arthroplasty - Dr. 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 Stress echo was not revealing. Symptoms are better Stress incontinence in female 06/06/2015 Knee pain 10/04/2009 12/02/2012 Overview: 12/04/09 Bilateral total knee arthroplasty - Dr. 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 Stress echo was not revealing. Symptoms are better Stress incontinence in female 06/06/2015 Knee pain 10/04/2009 12/02/2012 Overview: 12/04/09 Bilateral total knee arthroplasty - Dr. 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 Stress echo was not revealing. Symptoms are better Stress incontinence in female 06/06/2015 Knee pain 10/04/2009 12/02/2012 Overview: 12/04/09 Bilateral total knee arthroplasty - Dr. 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 Stress echo was not revealing. Symptoms are better Stress incontinence in female 06/06/2015 Knee pain 10/04/2009 12/02/2012 Overview: 12/04/09 Bilateral total knee arthroplasty - Dr. 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 Stress echo was not revealing. Symptoms are better Stress incontinence in female 06/06/2015 Knee pain 10/04/2009 12/02/2012 Overview: 12/04/09 Bilateral total knee arthroplasty - Dr. 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 Stress echo was not revealing. Symptoms are better Stress incontinence in female 06/06/2015 Knee pain 10/04/2009 12/02/2012 Overview: 12/04/09 Bilateral total knee arthroplasty - Dr. 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 Stress echo was not revealing. Symptoms are better Stress incontinence in female 06/06/2015 Knee pain 10/04/2009 12/02/2012 Overview: 12/04/09 Bilateral total knee arthroplasty - Dr. 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 Stress echo was not revealing. Symptoms are better Stress incontinence in female 06/06/2015 Knee pain 10/04/2009 12/02/2012 Overview: 12/04/09 Bilateral total knee arthroplasty - Dr. 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 Stress echo was not revealing. Symptoms are better Stress incontinence in female 06/06/2015 Knee pain 10/04/2009 12/02/2012 Overview: 12/04/09 Bilateral total knee arthroplasty - Dr. 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 Stress echo was not revealing. Symptoms are better Stress incontinence in female 06/06/2015 Knee pain 10/04/2009 12/02/2012 Overview: 12/04/09 Bilateral total knee arthroplasty - Dr. 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 Stress echo was not revealing. Symptoms are better Stress incontinence in female 06/06/2015 Knee pain 10/04/2009 12/02/2012 Overview: 12/04/09 Bilateral total knee arthroplasty - Dr. 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 Stress echo was not revealing. Symptoms are better Stress incontinence in female 06/06/2015 Knee pain 10/04/2009 12/02/2012 Overview: 12/04/09 Bilateral total knee arthroplasty - Dr. 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 Stress echo was not revealing. Symptoms are better Stress incontinence in female 06/06/2015 Knee pain 10/04/2009 12/02/2012 Overview: 12/04/09 Bilateral total knee arthroplasty - Dr. 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 of Past illness Narrative* Problem Noted Date Diagnosed Date Resolved Date Iron deficiency anemia due t o chronic blood loss 04/02/2019 11/09/2020 Iron malabsorption 04/02/2019 1 Paroxysmal SVT (supraventricular tachycardia) 04/18/19 18 11/09/2020 Closed nondisplaced fracture of pelvis 01/14/2017 10/24/2017 Retention of urine 11/07/2016 9 Dyspnea on exertion 09/12/2016 04/18/19 Overview: Patient was evaluated by cardiology. Stress echo was not revealing. Symptoms are better Stress incontinence in female 06/06/2015 11/09/2020 Knee pain 10/04/2009 12/02/2012 Overview: 12/04/09 Bilateral total knee arthroplasty - Dr. 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 History of Past illness Narrative* Problem Noted Date Diagnosed Date Resolved Date Iron deficiency anemia due t o chronic blood loss 04/02/2019 11/09/2020 Iron malabsorption 04/02/2019 1 Paroxysmal SVT (supraventricular tachycardia) 04/18/19 18 11/09/2020 Closed nondisplaced fracture of pelvis 01/14/2017 10/24/2017 Retention of urine 11/07/2016 9 Dyspnea on exertion 09/12/2016 04/18/19 18 Overview: Patient was evaluated by cardiology. Stress echo was not revealing. Symptoms are better Stress incontinence in female 06/06/2015 11/09/2020 Knee pain 10/04/2009 12/02/2012 Overview: 12/04/09 Bilateral total knee arthroplasty - Dr. 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 History of Past illness Narrative* Problem Noted Date Diagnosed Date Resolved Date Iron deficiency anemia due t o chronic blood loss 04/02/2019 11/09/2020 Iron malabsorption 04/02/2019 1 Paroxysmal SVT (supraventricular tachycardia) 04/18/19 18 11/09/2020 Closed nondisplaced fracture of pelvis 01/14/2017 10/24/2017 Retention of urine 11/07/2016 9 Dyspnea on exertion 09/12/2016 04/18/19 18 Overview: Patient was evaluated by cardiology. Stress echo was not revealing. Symptoms are better Stress incontinence in female 06/06/2015 11/09/2020 Knee pain 10/04/2009 12/02/2012 Overview: 12/04/09 Bilateral total knee arthroplasty - Dr. 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 History of Past illness Narrative* Problem Noted Date Diagnosed Date Resolved Date Iron deficiency anemia due t o chronic blood loss 04/02/2019 11/09/2020 Iron malabsorption 04/02/2019 1 Paroxysmal SVT (supraventricular tachycardia) 04/18/19 18 11/09/2020 Closed nondisplaced fracture of pelvis 01/14/2017 10/24/2017 Retention of urine 11/07/2016 9 Dyspnea on exertion 09/12/2016 04/18/19 18 Overview: Patient was evaluated by cardiology. Stress echo was not revealing. Symptoms are better Stress incontinence in female 06/06/2015 11/09/2020 Knee pain 10/04/2009 12/02/2012 Overview: 12/04/09 Bilateral total knee arthroplasty - Dr. 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 History of Past illness Narrative* Problem Noted Date Diagnosed Date Resolved Date Iron deficiency anemia due t o chronic blood loss 04/02/2019 11/09/2020 Iron malabsorption 04/02/2019 1 Paroxysmal SVT (supraventricular tachycardia) 04/18/19 18 11/09/2020 Closed nondisplaced fracture of pelvis 01/14/2017 10/24/2017 Retention of urine 11/07/2016 9 Dyspnea on exertion 09/12/2016 04/18/19 18 Overview: Patient was evaluated by cardiology. Stress echo was not revealing. Symptoms are better Stress incontinence in female 06/06/2015 11/09/2020 Knee pain 10/04/2009 12/02/2012 Overview: 12/04/09 Bilateral total knee arthroplasty - Dr. 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 History of Past illness Narrative* Problem Noted Date Diagnosed Date Resolved Date Iron deficiency anemia due t o chronic blood loss 04/02/2019 11/09/2020 Iron malabsorption 04/02/2019 Paroxysmal SVT (supraventricular tachycardia) 04/18/19 18 11/09/2020 Closed nondisplaced fracture of pelvis 01/14/2017 10/24/2017 Retention of urine 11/07/2016 9 Dyspnea on exertion 09/12/2016 04/18/19 18 Overview: Patient was evaluated by cardiology. Stress echo was not revealing. Symptoms are better Stress incontinence in female 06/06/2015 11/09/2020 Knee pain 10/04/2009 12/02/2012 Overview: 12/04/09 Bilateral total knee arthroplasty - Dr. 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 History of Past illness Narrative* Problem Noted Date Diagnosed Date Resolved Date Iron deficiency anemia due t o chronic blood loss 04/02/2019 11/09/2020 Iron malabsorption 04/02/2019 1 Paroxysmal SVT (supraventricular tachycardia) 04/18/19 18 11/09/2020 Closed nondisplaced fracture of pelvis 01/14/2017 10/24/2017 Retention of urine 11/07/2016 9 Dyspnea on exertion 09/12/2016 04/18/19 18 Overview: Patient was evaluated by cardiology. Stress echo was not revealing. Symptoms are better Stress incontinence in female 06/06/2015 11/09/2020 Knee pain 10/04/2009 12/02/2012 Overview: 12/04/09 Bilateral total knee arthroplasty - Dr. 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 History of Past illness Narrative* Problem Noted Date Diagnosed Date Resolved Date Iron deficiency anemia due t o chronic blood loss 04/02/2019 11/09/2020 Iron malabsorption 04/02/2019 1 Paroxysmal SVT (supraventricular tachycardia) 04/18/19 18 11/09/2020 Closed nondisplaced fracture of pelvis 01/14/2017 10/24/2017 Retention of urine 11/07/2016 9 Dyspnea on exertion 09/12/2016 04/18/19 18 Overview: Patient was evaluated by cardiology. Stress echo was not revealing. Symptoms are better Stress incontinence in female 06/06/2015 11/09/2020 Knee pain 10/04/2009 12/02/2012 Overview: 12/04/09 Bilateral total knee arthroplasty - Dr. 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 History of Past illness Narrative* Problem Noted Date Diagnosed Date Resolved Date Iron deficiency anemia due t o chronic blood loss 04/02/2019 11/09/2020 Iron malabsorption 04/02/2019 1 Paroxysmal SVT (supraventricular tachycardia) 04/18/19 18 11/09/2020 Closed nondisplaced fracture of pelvis 01/14/2017 10/24/2017 Retention of urine 11/07/2016 9 Dyspnea on exertion 09/12/2016 04/18/19 18 Overview: Patient was evaluated by cardiology. Stress echo was not revealing. Symptoms are better Stress incontinence in female 06/06/2015 11/09/2020 Knee pain 10/04/2009 12/02/2012 Overview: 12/04/09 Bilateral total knee arthroplasty - Dr. 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 History of Past illness Narrative* Problem Noted Date Diagnosed Date Resolved Date Iron deficiency anemia due t o chronic blood loss 04/02/2019 11/09/2020 Iron malabsorption 04/02/2019 1 Paroxysmal SVT (supraventricular tachycardia) 04/18/19 18 11/09/2020 Closed nondisplaced fracture of pelvis 01/14/2017 10/24/2017 Retention of urine 11/07/2016 9 Dyspnea on exertion 09/12/2016 04/18/19 18 Overview: Patient was evaluated by cardiology. Stress echo was not revealing. Symptoms are better Stress incontinence in female 06/06/2015 11/09/2020 Knee pain 10/04/2009 12/02/2012 Overview: 12/04/09 Bilateral total knee arthroplasty - Dr. 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 History of Past illness Narrative* Problem Noted Date Diagnosed Date Resolved Date Iron deficiency anemia due t o chronic blood loss 04/02/2019 11/09/2020 Iron malabsorption 04/02/2019 Paroxysmal SVT (supraventricular tachycardia) 04/18/19 18 11/09/2020 Closed nondisplaced fracture of pelvis 01/14/2017 10/24/2017 Retention of urine 11/07/2016 9 Dyspnea on exertion 09/12/2016 04/18/19 Overview: Patient was evaluated by cardiology. Stress echo was not revealing. Symptoms are better Stress incontinence in female 06/06/2015 11/09/2020 Knee pain 10/04/2009 12/02/2012 Overview: 12/04/09 Bilateral total knee arthroplasty - Dr. 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 Anxiety state Anxiety state, unspecified [facility] Diagnosis History of pulmonary embolism, on chronic anticoagulation. Personal history of pulmonary embolism [facility] Diagnosis Onychomycosis- Primary Dermatophytosis of nail Pain in toe of right foot Pain in limb Pain in toe of left foot Pain in limb PAD (peripheral artery disease) ([facility]) Peripheral vascular disease, unspecified [facility] Diagnosis Depression, unspecified depression type [facility] Diagnosis Moderate persistent asthma, unspecified whether complicated [facility] Diagnosis Arthralgia, unspecified joint- Primary Osteoarthritis of multiple joints, unspecified osteoarthritis type Osteoporosis, unspecified osteoporosis type, unspecified pathological fracture presence [facility] Diagnosis Polyarthralgia- Primary Pain in joint, multiple sites Anxiety state Anxiety state, unspecified Depression, unspecified depression type Essential hypertension Unspecified essential hypertension [facility] Diagnosis Bilateral wrist pain- Primary Pain in joint, forearm Pain in finger joint on movement Swelling of both wrists Pseudogout Other disorder of calcium metabolism Abnormal results of thyroid function studies Nonspecific abnormal results of thyroid function study History of osteoporosis Personal history of other musculoskeletal disorders [facility] Diagnosis Bilateral wrist pain Pain in joint, forearm Pain in finger joint on movement [facility] Diagnosis Pseudogout- Primary Other disorder of calcium metabolism [facility] Diagnosis Facial droop- Primary Facial weakness [facility] Diagnosis Onychomycosis- Primary Dermatophytosis of nail Pain in toe of right foot Pain in limb Pain in toe of left foot Pain in limb [facility] Diagnosis Moderate persistent asthma, unspecified whether complicated- Primary History of tobacco use Personal history of tobacco use, presenting hazards to health [facility] Diagnosis Acquired complex renal cyst [facility] Diagnosis Exposure to COVID-19 virus- Primary Other cough [facility] Diagnosis Osteoporosis, unspecified osteoporosis type, unspecified pathological fracture presence [facility] Diagnosis Anxiety state Anxiety state, unspecified [facility] Diagnosis Moderate persistent asthma, unspecified whether complicated [facility] Diagnosis Moderate persistent asthma, unspecified whether complicated [facility] Diagnosis Mild intermittent asthma without complication- Primary Unspecified asthma History of COVID-19 [facility] Diagnosis Moderate persistent asthma, unspecified whether complicated [facility] Diagnosis Onychomycosis- Primary Dermatophytosis of nail Pain in toe of right foot Pain in limb Pain in toe of left foot Pain in limb PAD (peripheral artery disease) (HCC) Peripheral vascular disease, unspecified [facility] Diagnosis Need for vaccination- Primary Need for prophylactic vaccination and inoculation against unspecified single disease [facility] Diagnosis On continuous oral anticoagulation- Primary Long-term (current) use of anticoagulants Black tarry stools Blood in stool Occult blood positive stool Nonspecific abnormal finding in stool contents History of colonic polyps Personal history of colonic polyps [facility] Diagnosis Parkinson disease (HCC)- Primary Paralysis agitans Abnormality of gait [facility] Diagnosis Essential hypertension- Primary Unspecified essential hypertension Asthma, moderate persistent, well-controlled Unspecified asthma Depression, unspecified depression type Parkinson disease (HCC) Paralysis agitans Unsteady gait Abnormality of gait Stage 3a chronic kidney disease (HCC) Pulmonary hypertension (HCC) Other chronic pulmonary heart diseases [facility] Diagnosis Headache, unspecified headache type- Primary Nasal drainage Other diseases of nasal cavity and sinuses [facility] Diagnosis Tubular adenoma- Primary Benign neoplasm of unspecified site Diverticulosis Diverticulosis of colon (without mention of hemorrhage) [facility] Diagnosis Onychomycosis- Primary Dermatophytosis of nail Pain in toe of right foot Pain in limb Pain in toe of left foot Pain in limb PAD (peripheral artery disease) (HCC) Peripheral vascular disease, unspecified Severe malnutrition (HCC) Nutritional marasmus [facility] Diagnosis Mild intermittent asthma without complication- Primary Unspecified asthma Dyspnea and respiratory abnormalities Other dyspnea and respiratory abnormality Pulmonary hypertension (HCC) Other chronic pulmonary heart diseases History of tobacco use Personal history of tobacco use, presenting hazards to health History of COVID-19 [facility] Diagnosis Moderate persistent asthma, unspecified whether complicated [facility] Diagnosis Moderate persistent asthma, unspecified whether complicated [facility] Diagnosis Osteoporosis, unspecified osteoporosis type, unspecified pathological fracture presence Anxiety state Anxiety state, unspecified [facility] Diagnosis Onychomycosis- Primary Dermatophytosis of nail Pain in toe of right foot Pain in limb Pain in toe of left foot Pain in limb PAD (peripheral artery disease) (HCC) Peripheral vascular disease, unspecified [facility] Diagnosis Anxiety state Anxiety state, unspecified [facility] Diagnosis Mild persistent asthma, unspecified whether complicated- Primary History of COVID-19 [facility]* Diagnosis History of pulmonary embolism, on chronic anticoagulation. Personal history of pulmonary embolism [facility]* Diagnosis Medicare annual wellness visit, subsequent- Primary Routine general medical examination at a health care facility Asthma, moderate persistent, well-controlled Unspecified asthma Mixed stress and urge urinary incontinence Mixed incontinence urge and stress (male)(female) Edema of both legs Edema Essential hypertension Unspecified essential hypertension Depression, unspecified depression type documented in this encounter [facility]* Diagnosis Edema of both legs- Primary Edema documented in this encounter [facility] for referral (narrative)* Diagnostic Procedure Only (Routine) - Closed Specialty Diagnoses / Procedures Referred By Chu gold Referred To Contact XR IMAGING Diagnoses Bilateral wrist pain Procedures XR WRIST GENERAL 3V PA/LAT/OBL BILATERAL RADEX WRIST COMPLETE MINIMUM 3 VIEWS Rafaela Moscoso DO [address] [place] [address] Xr Imaging Referral ID Status Reason Start Date Expiration Date V isits Requested Visits Authorized [id number] Closed Auto-Generate d Referral 10/17/2021 11/16/2022 1 1 * Diagnostic Procedure Only (Routine) - Closed Specialty Diagnoses / Procedures Referred By Contjohny t Referred To Contact XR IMAGING Diagnoses Pain in finger joint on movement Procedures XR HAND GENERAL 3V PA/LAT/OBL BILATERAL RADEX HAND MINIMUM 3 VIEWS Rafaela Moscoso DO [address] [place] [address] Xr Imaging Referral ID Status Reason Start Date Expiration Date V isits Requested Visits Authorized [id number] Closed Auto-Generate d Referral 10/17/2021 11/16/2022 1 1 [facility] for referral (narrative)* Diagnostic Procedure Only (Routine) - Closed Specialty Diagnoses / Procedures Referred By Contac t Referred To Contact XR IMAGING Diagnoses Pain in finger joint on movement Procedures XR HAND GENERAL 3V PA/LAT/OBL BILATERAL RADEX HAND MINIMUM 3 VIEWS Rafaela Moscoso DO [address] [place] [address] Xr Imaging Referral ID Status Reason Start Date Expiration Date V isits Requested Visits Authorized [id number] Closed Auto-Generate d Referral 10/17/2021 11/16/2022 1 1 * Diagnostic Procedure Only (Routine) - Closed Specialty Diagnoses / Procedures Referred By Contac t Referred To Contact XR IMAGING Diagnoses Bilateral wrist pain Procedures XR WRIST GENERAL 3V PA/LAT/OBL BILATERAL RADEX WRIST COMPLETE MINIMUM 3 VIEWS Rafaela Moscsoo DO [address] [place] [address] Xr Imaging Referral ID Status Reason Start Date Expiration Date V isits Requested Visits Authorized [id number] Closed Auto-Generate d Referral 10/17/2021 11/16/2022 1 1 [facility] for referral (narrative)* Outpatient Procedure (Routine) - Authorized Specialty Diagnoses / Procedures Referred By Contac t Referred To Contact [facility] Diagnoses Moderate persistent asthma, unspecified whether complicated Procedures SPIROMETRY BASELINE ONLY SPMTRY W/VC EXPIRATORY SARAH W/WO MXML VOL VNTJ Tierney Iglesias, PA-C [address] [place] [address] Res[facility] [place] [address] Referral ID Status Reason Start Date Expiration Date Visits Requested Visits Authorized [id number] Authorized Auto-Generat ed Referral 11/27/2021 12/27/2022 1 1 [facility] for referral (narrative)* Diagnostic Procedure Only (Routine) - Closed Specialty Diagnoses / Procedures Referred By Contac t Referred To Contact US IMAGING Diagnoses Acquired complex renal cyst Procedures US KIDNEY/BLADDER US RETROPERITONEAL REAL TIME W/IMAGE COMPLETE Jodie Miller, SERVICE DELIVERY ANALYST.STEELSCOPE OPERATOR [address] [place] [address] Us Imaging Referral ID Status Reason Start Date Expiration Date V isits Requested Visits Authorized [id number] Closed Auto-Generate d Referral 12/08/2021 07/07/2022 1 1 [facility] for referral (narrative)* Outpatient Procedure (Routine) - Authorized Specialty Diagnoses / Procedures Referred By Contac t Referred To Contact [facility] Diagnoses Dyspnea and respiratory abnormalities Pulmonary hypertension (HCC) Procedures ECHO ECHO TTHRC R-T 2D W/WOM-MODE COMPL SPEC&COLR Tierney Loja PA-C [address] [place] [address] [facility] [address] [place] [id number] Referral ID Status Reason Start Date Expiration Date Visits Requested Visits Authorized [id number] Authorized Auto-Generat ed Referral 09/03/2022 09/03/2023 [address] 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 Advance Directive(s) 05/08/2021 10:19 AM Advance Directive(s) 12/23/2018 6:50 AM Advance Directive(s) 12/17/2017 5:47 AM Advance Directive(s) 11/27/2017 4:23 PM Reason for Referral Specialty Diagnoses / Procedures Referred By Contac t Referred To Contact Rheumatology Diagnoses Arthralgia, unspecified joint Osteoarthritis of multiple joints, unspecified osteoarthritis type Osteoporosis, unspecified osteoporosis type, unspecified pathological fracture presence Procedures CONSULT TO RHEUM/IMMUN DISEASE OFFICE/OUTPATIENT [facility] 60-74 MINUTES Robert Osullivan APRN.STEELSCOPE OPERATOR [address] [place] [address] Referral ID Status Reason Start Date Expiration Date Visits Requested Visits Authorized [id number] Authorized PCP Requested Referral 09/13/2021 09/13/2022 1 1 Specialty Diagnoses / Procedures Referred By Contac t Referred To Contact [facility] Diagnoses Parkinson disease (HCC) Abnormality of gait Procedures CONSULT TO METAL COATER OCCUPATIONAL THERAPY EVAL HIGH COMPLEX 60 MINS Danilo Guido Jr., [facility] [address] [id number] [address] Referral ID Status Reason Start Date Expiration Date Visits Requested Visits Authorized [id number] Authorized PCP Requested Referral Auto-Generate d Referral 06/18/2022 06/18/2023 99 99 Specialty Diagnoses / Procedures Referred By Contac t Referred To Contact [facility] Diagnoses Parkinson disease (HCC) Abnormality of gait Procedures CONSULT TO PHYSICAL THERAPY PHYSICAL THERAPY EVALUATION HIGH COMPLEX 45 MINS Danilo Guido Jr., MD [facility] [facility] [address] [place] [address] [facility] [address] [address] Referral ID Status Reason Start Date Expiration Date Visits Requested Visits Authorized [id number] Authorized PCP Requested Referral Auto-Generate d Referral 06/18/2022 06/18/2023 99 99 Health Concerns Infection Onset Date Last Indicated Resolved Time COVID-19 Rule-Out 12/22/2021 12/22/2021 Infection Onset Date Last Indicated Resolved Time COVID-19 Confirmed 12/22/2021 12/22/2021 Infection Onset Date Last Indicated Resolved Time COVID-19 Rule-Out 07/15/2022 07/15/2022 Additional Source Comments INFORMATION SOURCE (unrecogn ized section and content) DATE CREATED AUTHOR AUTHOR'S ORGANIZ ATION 02/01/2023 [facility] Source Comments (unrecognize d section and content) In the event this informatio n is protected by the Federal Confidentiality of Alcohol and Drug Abuse Patient Records regulations: The Federal rules restrict any use of the information to criminally investigate or prosecute any alcohol or drug abuse patient.[facility] HospitalIn the event this information is protected by the Federal Confidentiality of Alcohol and Drug Abuse Patient Records regulations: The Federal rules restrict any use of the information to criminally investigate or prosecute any alcohol or drug abuse patient.[facility] HospitalIn the event this information is protected by the Federal Confidentiality of Alcohol and Drug Abuse Patient Records regulations: The Federal rules restrict any use of the information to criminally investigate or prosecute any alcohol or drug abuse patient.[facility] HospitalIn the event this information is protected by the Federal Confidentiality of Alcohol and Drug Abuse Patient Records regulations: The Federal rules restrict any use of the information to criminally investigate or prosecute any alcohol or drug abuse patient.[facility] HospitalIn the event this information is protected by the Federal Confidentiality of Alcohol and Drug Abuse Patient Records regulations: The Federal rules restrict any use of the information to criminally investigate or prosecute any alcohol or drug abuse patient.[facility] HospitalIn the event this information is protected by the Federal Confidentiality of Alcohol and Drug Abuse Patient Records regulations: The Federal rules restrict any use of the information to criminally investigate or prosecute any alcohol or drug abuse patient.[facility] HospitalIn the event this information is protected by the Federal Confidentiality of Alcohol and Drug Abuse Patient Records regulations: The Federal rules restrict any use of the information to criminally investigate or prosecute any alcohol or drug abuse patient.[facility] HospitalIn the event this information is protected by the Federal Confidentiality of Alcohol and Drug Abuse Patient Records regulations: The Federal rules restrict any use of the information to criminally investigate or prosecute any alcohol or drug abuse patient.[facility] HospitalIn the event this information is protected by the Federal Confidentiality of Alcohol and Drug Abuse Patient Records regulations: The Federal rules restrict any use of the information to criminally investigate or prosecute any alcohol or drug abuse patient.[facility] HospitalIn the event this information is protected by the Federal Confidentiality of Alcohol and Drug Abuse Patient Records regulations: The Federal rules restrict any use of the information to criminally investigate or prosecute any alcohol or drug abuse patient.[facility] HospitalIn the event this information is protected by the Federal Confidentiality of Alcohol and Drug Abuse Patient Records regulations: The Federal rules restrict any use of the information to criminally investigate or prosecute any alcohol or drug abuse patient.[facility] HospitalIn the event this information is protected by the Federal Confidentiality of Alcohol and Drug Abuse Patient Records regulations: The Federal rules restrict any use of the information to criminally investigate or prosecute any alcohol or drug abuse patient.[facility] HospitalIn the event this information is protected by the Federal Confidentiality of Alcohol and Drug Abuse Patient Records regulations: The Federal rules restrict any use of the information to criminally investigate or prosecute any alcohol or drug abuse patient.[facility] HospitalIn the event this information is protected by the Federal Confidentiality of Alcohol and Drug Abuse Patient Records regulations: The Federal rules restrict any use of the information to criminally investigate or prosecute any alcohol or drug abuse patient.[facility] HospitalIn the event this information is protected by the Federal Confidentiality of Alcohol and Drug Abuse Patient Records regulations: The Federal rules restrict any use of the information to criminally investigate or prosecute any alcohol or drug abuse patient.[facility] HospitalIn the event this information is protected by the Federal Confidentiality of Alcohol and Drug Abuse Patient Records regulations: The Federal rules restrict any use of the information to criminally investigate or prosecute any alcohol or drug abuse patient.[facility] HospitalIn the event this information is protected by the Federal Confidentiality of Alcohol and Drug Abuse Patient Records regulations: The Federal rules restrict any use of the information to criminally investigate or prosecute any alcohol or drug abuse patient.[facility] HospitalIn the event this information is protected by the Federal Confidentiality of Alcohol and Drug Abuse Patient Records regulations: The Federal rules restrict any use of the information to criminally investigate or prosecute any alcohol or drug abuse patient.[facility] HospitalIn the event this information is protected by the Federal Confidentiality of Alcohol and Drug Abuse Patient Records regulations: The Federal rules restrict any use of the information to criminally investigate or prosecute any alcohol or drug abuse patient.[facility] HospitalIn the event this information is protected by the Federal Confidentiality of Alcohol and Drug Abuse Patient Records regulations: The Federal rules restrict any use of the information to criminally investigate or prosecute any alcohol or drug abuse patient.[facility] HospitalIn the event this information is protected by the Federal Confidentiality of Alcohol and Drug Abuse Patient Records regulations: The Federal rules restrict any use of the information to criminally investigate or prosecute any alcohol or drug abuse patient.[facility] HospitalIn the event this information is protected by the Federal Confidentiality of Alcohol and Drug Abuse Patient Records regulations: The Federal rules restrict any use of the information to criminally investigate or prosecute any alcohol or drug abuse patient.[facility] HospitalIn the event this information is protected by the Federal Confidentiality of Alcohol and Drug Abuse Patient Records regulations: The Federal rules restrict any use of the information to criminally investigate or prosecute any alcohol or drug abuse patient.[facility] HospitalIn the event this information is protected by the Federal Confidentiality of Alcohol and Drug Abuse Patient Records regulations: The Federal rules restrict any use of the information to criminally investigate or prosecute any alcohol or drug abuse patient.[facility] HospitalIn the event this information is protected by the Federal Confidentiality of Alcohol and Drug Abuse Patient Records regulations: The Federal rules restrict any use of the information to criminally investigate or prosecute any alcohol or drug abuse patient.[facility] HospitalIn the event this information is protected by the Federal Confidentiality of Alcohol and Drug Abuse Patient Records regulations: The Federal rules restrict any use of the information to criminally investigate or prosecute any alcohol or drug abuse patient.[facility] HospitalIn the event this information is protected by the Federal Confidentiality of Alcohol and Drug Abuse Patient Records regulations: The Federal rules restrict any use of the information to criminally investigate or prosecute any alcohol or drug abuse patient.[facility] HospitalIn the event this information is protected by the Federal Confidentiality of Alcohol and Drug Abuse Patient Records regulations: The Federal rules restrict any use of the information to criminally investigate or prosecute any alcohol or drug abuse patient.[facility] HospitalIn the event this information is protected by the Federal Confidentiality of Alcohol and Drug Abuse Patient Records regulations: The Federal rules restrict any use of the information to criminally investigate or prosecute any alcohol or drug abuse patient.[facility] HospitalIn the event this information is protected by the Federal Confidentiality of Alcohol and Drug Abuse Patient Records regulations: The Federal rules restrict any use of the information to criminally investigate or prosecute any alcohol or drug abuse patient.[facility] HospitalIn the event this information is protected by the Federal Confidentiality of Alcohol and Drug Abuse Patient Records regulations: The Federal rules restrict any use of the information to criminally investigate or prosecute any alcohol or drug abuse patient.[facility] HospitalIn the event this information is protected by the Federal Confidentiality of Alcohol and Drug Abuse Patient Records regulations: The Federal rules restrict any use of the information to criminally investigate or prosecute any alcohol or drug abuse patient.[facility] HospitalIn the event this information is protected by the Federal Confidentiality of Alcohol and Drug Abuse Patient Records regulations: The Federal rules restrict any use of the information to criminally investigate or prosecute any alcohol or drug abuse patient.[facility] HospitalIn the event this information is protected by the Federal Confidentiality of Alcohol and Drug Abuse Patient Records regulations: The Federal rules restrict any use of the information to criminally investigate or prosecute any alcohol or drug abuse patient.[facility] HospitalIn the event this information is protected by the Federal Confidentiality of Alcohol and Drug Abuse Patient Records regulations: The Federal rules restrict any use of the information to criminally investigate or prosecute any alcohol or drug abuse patient.[facility] HospitalIn the event this information is protected by the Federal Confidentiality of Alcohol and Drug Abuse Patient Records regulations: The Federal rules restrict any use of the information to criminally investigate or prosecute any alcohol or drug abuse patient.[facility] HospitalIn the event this information is protected by the Federal Confidentiality of Alcohol and Drug Abuse Patient Records regulations: The Federal rules restrict any use of the information to criminally investigate or prosecute any alcohol or drug abuse patient.[facility] HospitalIn the event this information is protected by the Federal Confidentiality of Alcohol and Drug Abuse Patient Records regulations: The Federal rules restrict any use of the information to criminally investigate or prosecute any alcohol or drug abuse patient.[facility] HospitalIn the event this information is protected by the Federal Confidentiality of Alcohol and Drug Abuse Patient Records regulations: The Federal rules restrict any use of the information to criminally investigate or prosecute any alcohol or drug abuse patient.[facility] HospitalIn the event this information is protected by the Federal Confidentiality of Alcohol and Drug Abuse Patient Records regulations: The Federal rules restrict any use of the information to criminally investigate or prosecute any alcohol or drug abuse patient.[facility] HospitalIn the event this information is protected by the Federal Confidentiality of Alcohol and Drug Abuse Patient Records regulations: The Federal rules restrict any use of the information to criminally investigate or prosecute any alcohol or drug abuse patient.[facility] HospitalIn the event this information is protected by the Federal Confidentiality of Alcohol and Drug Abuse Patient Records regulations: The Federal rules restrict any use of the information to criminally investigate or prosecute any alcohol or drug abuse patient.[facility] HospitalIn the event this information is protected by the Federal Confidentiality of Alcohol and Drug Abuse Patient Records regulations: The Federal rules restrict any use of the information to criminally investigate or prosecute any alcohol or drug abuse patient.[facility] HospitalIn the event this information is protected by the Federal Confidentiality of Alcohol and Drug Abuse Patient Records regulations: The Federal rules restrict any use of the information to criminally investigate or prosecute any alcohol or drug abuse patient.[facility] HospitalIn the event this information is protected by the Federal Confidentiality of Alcohol and Drug Abuse Patient Records regulations: The Federal rules restrict any use of the information to criminally investigate or prosecute any alcohol or drug abuse patient.[facility] HospitalIn the event this information is protected by the Federal Confidentiality of Alcohol and Drug Abuse Patient Records regulations: The Federal rules restrict any use of the information to criminally investigate or prosecute any alcohol or drug abuse patient.[facility] HospitalIn the event this information is protected by the Federal Confidentiality of Alcohol and Drug Abuse Patient Records regulations: The Federal rules restrict any use of the information to criminally investigate or prosecute any alcohol or drug abuse patient.[facility] HospitalIn the event this information is protected by the Federal Confidentiality of Alcohol and Drug Abuse Patient Records regulations: The Federal rules restrict any use of the information to criminally investigate or prosecute any alcohol or drug abuse patient.[facility] HospitalIn the event this information is protected by the Federal Confidentiality of Alcohol and Drug Abuse Patient Records regulations: The Federal rules restrict any use of the information to criminally investigate or prosecute any alcohol or drug abuse patient.[facility] HospitalIn the event this information is protected by the Federal Confidentiality of Alcohol and Drug Abuse Patient Records regulations: The Federal rules restrict any use of the information to criminally investigate or prosecute any alcohol or drug abuse patient.[facility] HospitalIn the event this information is protected by the Federal Confidentiality of Alcohol and Drug Abuse Patient Records regulations: The Federal rules restrict any use of the information to criminally investigate or prosecute any alcohol or drug abuse patient.[facility] HospitalIn the event this information is protected by the Federal Confidentiality of Alcohol and Drug Abuse Patient Records regulations: The Federal rules restrict any use of the information to criminally investigate or prosecute any alcohol or drug abuse patient.[facility] HospitalIn the event this information is protected by the Federal Confidentiality of Alcohol and Drug Abuse Patient Records regulations: The Federal rules restrict any use of the information to criminally investigate or prosecute any alcohol or drug abuse patient.[facility] Reason for Visit (unrecogniz ed section and content) Reason Onset Date Comments Refill Request 07/11/2021 Reason Comments Nail care Follow Up Reason Comments Refill Request Reason Onset Date Comments Refill Request 09/05/2021 Reason Comments Pain joint pain and swell ing in hands, into neck and spine x 1 week-taken off plaquenil for eye issues Reason Comments Urgent Care follow-up Reason Comments Patient Update Reason Comments Radio Gen A21 Specialty Diagnoses / Procedures Referred By Contac t Referred To Contact XR IMAGING Diagnoses Bilateral wrist pain Procedures XR WRIST GENERAL 3V PA/LAT/OBL BILATERAL RADEX WRIST COMPLETE MINIMUM 3 VIEWS Rafaela Moscoso, [address] [place] [address] Xr Imaging Referral ID Status Reason Start Date Expiration Date V isits Requested Visits Authorized [id number] Closed Auto-Generate d Referral 10/17/2021 11/16/2022 1 1 Reason Comments Established Patient Nail Care Reason Comments Results Reason Comments Established Patient 6 month follow up Reason Comments Radiology US Specialty Diagnoses / Procedures Referred By Contac t Referred To Contact US IMAGING Diagnoses Acquired complex renal cyst Procedures US KIDNEY/BLADDER US RETROPERITONEAL REAL TIME W/IMAGE COMPLETE Jodie Miller, SERVICE DELIVERY ANALYST.[employer] [address] [place] [address] Us Imaging Referral ID Status Reason Start Date Expiration Date V isits Requested Visits Authorized [id number] Closed Auto-Generate d Referral 12/08/2021 07/07/2022 1 1 Reason Comments Cough Pt reported +Covid e xposure x2 wks prior, denied increased SOB, chest pain. Reason Comments Results Reason Onset Date Comments Refill Request 01/01/2022 Reason Comments Handicap Placard Reason Comments Spirometry Specialty Diagnoses / Procedures Referred By Contac t Referred To Contact [facility] Diagnoses Moderate persistent asthma, unspecified whether complicated Procedures SPIROMETRY BASELINE ONLY SPMTRY W/VC EXPIRATORY SARAH W/WO MXML VOL VNTJ Tierney Iglesias, PA-C [address] [place] [address] [facility] [place] [address] [place] [address] Referral ID Status Reason Start Date Expiration Date V isits Requested Visits Authorized [id number] Closed Auto-Generate d Referral 11/27/2021 12/27/2022 1 1 Reason Comments Established Patient 3-6 month follow up asthma Reason Comments Refill Request Medication Request Reason Onset Date Comments Refill Request 03/23/2022 Reason Comments Established Patient Debridement of Nail Reason Comments Imm/Inj Reason Comments Patient Question Reason Comments Consult Black tarry stool, p ositive occult Specialty Diagnoses / Procedures Referred By Contac t Referred To Contact General Surgery Diagnoses Black tarry stools Occult blood positive stool Procedures CONSULT TO GENERAL SURGERY OFFICE/OUTPATIENT NEW HIGH MDM 60-74 MINUTES Older, CHER Becker.[employer] O[employer]ATOR [address] [place] [address] Referral ID Status Reason Start Date Expiration Date V isits Requested Visits Authorized [id number] Closed PCP Requested Referral 05/29/2022 05/29/2023 1 1 Reason Comments New Patient Reason Comments Follow Up Reason Comments Headache Swollen eyes x4 days Reason Comments Orders Reason Comments Follow Up Colon & EGD Reason Comments Established Patient 6 month follow up as thma Reason Onset Date Comments Refill Request 10/29/2022 Reason Onset Date Comments Refill Request 11/01/2022 Reason Onset Date Comments Refill Request 11/12/2022 Reason Comments Established Patient nail care Reason Onset Date Comments Refill Request 12/10/2022 Reason Comments Established Patient 4 month follow up as thma Reason Comments 8 month follow-up Medicare Wellness Exam Reason Comments Medication Problem Need more medication Care Teams (unrecognized sec tion and content) Software Development Leader Relationship Specialty Start Date End Date Corbin Bai MD [address] [place], [place] [address] PCP - General Internal Medicine 05/03/10 Software Development Leader Relationship Specialty Start Date End Date Corbin Bai MD [address] [place], [place] [id number] PCP - General Internal Medicine 05/03/10 Software Development Leader Relationship Specialty Start Date End Date Corbin Bai MD [address] [facility] [place] [address] PCP - General Internal Medicine 05/03/10 Software Development Leader Relationship Specialty Start Date End Date Corbin Bai MD [address] [facility] [place] [address] PCP - General Internal Medicine 05/03/10 Software Development Leader Relationship Specialty Start Date End Date Corbin Bai MD [address] [facility] [place] [address] PCP - General Internal Medicine 05/03/10 Software Development Leader Relationship Specialty Start Date End Date Corbin Bai MD [address] [facility] [place] [address] PCP - General Internal Medicine 05/03/10 Software Development Leader Relationship Specialty Start Date End Date Corbin Bai MD [address] [facility] [place] [address] PCP - General Internal Medicine 05/03/10 Software Development Leader Relationship Specialty Start Date End Date Corbin Bai MD [address] [facility] [place] [address] PCP - General Internal Medicine 05/03/10 Software Development Leader Relationship Specialty Start Date End Date Corbin Bai MD [address] [facility] [place] [address] PCP - General Internal Medicine 05/03/10 Software Development Leader Relationship Specialty Start Date End Date Corbin Bai MD [address] [facility] [place] [address] PCP - General Internal Medicine 05/03/10 Software Development Leader Relationship Specialty Start Date End Date Corbin Bai MD [address] [facility] [place] [address] PCP - General Internal Medicine 05/03/10 Software Development Leader Relationship Specialty Start Date End Date Corbin Bai MD [address] [facility] [place] [address] PCP - General Internal Medicine 05/03/10 Software Development Leader Relationship Specialty Start Date End Date Corbin Bai MD [address] [facility] [place] [address] PCP - General Internal Medicine 05/03/10 Software Development Leader Relationship Specialty Start Date End Date Corbin Bai MD [address] [facility] [place] [address] PCP - General Internal Medicine 05/03/10 Software Development Leader Relationship Specialty Start Date End Date Corbin Bai MD [facility] [place] [address] PCP - General Internal Medicine 05/03/10 Software Development Leader Relationship Specialty Start Date End Date Corbin Bai MD [address] [facility] [place] [address] PCP - General Internal Medicine 05/03/10 Software Development Leader Relationship Specialty Start Date End Date Corbin Bai MD [address] [facility] [place] [address] PCP - General Internal Medicine 05/03/10 Software Development Leader Relationship Specialty Start Date End Date Corbin Bai MD [address] [facility] [place] [address] PCP - General Internal Medicine 05/03/10 Software Development Leader Relationship Specialty Start Date End Date Corbin Bai MD [address] [facility] [place] [address] PCP - General Internal Medicine 05/03/10 Software Development Leader Relationship Specialty Start Date End Date Corbin Bai MD [address] [facility] [place] [address] PCP - General Internal Medicine 05/03/10 Software Development Leader Relationship Specialty Start Date End Date Corbin Bai MD [address] [facility] [place] [address] PCP - General Internal Medicine 05/03/10 Software Development Leader Relationship Specialty Start Date End Date Corbin Bai MD [address] [facility] [place] [address] PCP - General Internal Medicine 05/03/10 Software Development Leader Relationship Specialty Start Date End Date Corbin Bai MD [address] [facility] [place] [address] PCP - General Internal Medicine 05/03/10 Software Development Leader Relationship Specialty Start Date End Date Corbin Bai MD [address] [facility] [place] [address] PCP - General Internal Medicine 05/03/10 Software Development Leader Relationship Specialty Start Date End Date Corbin Bai MD [address] [facility] [place] [address] PCP - General Internal Medicine 05/03/10 Software Development Leader Relationship Specialty Start Date End Date Corbin Bai MD [address] [facility] [place] [address] PCP - General Internal Medicine 05/03/10 Software Development Leader Relationship Specialty Start Date End Date Corbin Bai MD [address] [facility] [place] [address] PCP - General Internal Medicine 05/03/10 Software Development Leader Relationship Specialty Start Date End Date Corbin Bai MD [address] [place], [place] [address] PCP - General Internal Medicine 05/03/10 Software Development Leader Relationship Specialty Start Date End Date Corbin Bai MD [address] [place], [place] [id number] PCP - General Internal Medicine 05/03/10 Software Development Leader Relationship Specialty Start Date End Date Corbin Bai MD [address] [place], [place] [id number] PCP - General Internal Medicine 05/03/10 Software Development Leader Relationship Specialty Start Date End Date Corbin Bai MD [address] [place], [place] [id number] PCP - General Internal Medicine 05/03/10 FOR RECORDS PERTAINING TO PATIENTS WHO ARE OR HAVE BEEN ENROLLED IN A CHEMICAL DEPENDENCY/SUBSTANCEABUSE PROGRAM, SOME INFORMATION MAY BE OMITTED. This clinical summary was aggregated from multiple sources. Caution should be exercised in using it in the provision of clinical care. This summary normalizes information from multiple sources, and as a consequence, information in this document may materially change the coding, format and clinical context of patient data. In addition, data may be omitted in some cases. CLINICAL DECISIONS SHOULD BE BASED ON THE PRIMARY CLINICAL RECORDS. [facility] [employer] [facility]. provides no warranty or guarantee of the accuracy or completeness of information in this document.
[2023-03-13] MEDS: Mirtazapine 30 MG Tablet PO (21:20)
[2023-03-13] MEDS: MELATONIN 3 MG TABLET PO (21:20)
[2023-03-14] VITALS (7 sets, daily range): BP systolic 101–159; BP diastolic 66–78; PULSE 73–86; RESP 15–18; TEMP 36.6–37.3; O2SAT 85–96
[2023-03-14] MEDS: Carbidopa/Levodopa 25/100 Tablet PO ×2 (05:56→11:38)
--- NOTE | 2023-03-14 05:58 | NURSING ---
Pt requesting Sinemet to be given now
[2023-03-14 06:06] LABS: Absolute Neutrophil Count 4.2 X10^3/uL (2.0-7.7); Basophil# 0.04 X10^3/uL; Basophil% 0.7 % (0-1); Eosinophil# 0.26 X10^3/uL; Eosinophils% 4.3 % (0-5); Hematocrit 27.3 % (37-47); Hemoglobin 7.9 g/dL (12.0-15.0); Lymphocyte % 13.2 % (19-41); Mean Corp Hgb Conc 28.9 g/dL (32-36); Mean Corpuscular Hgb 21.6 pg (27.0-32.0); Mean Corpuscular Volume 74.6 fL (81-99); Mean Platelet Vol. 10.6 fl (6.2-12.0); Monocyte# 0.71 X10^3/uL; Monocyte% 11.7 % (0-10); NRBC Flagged by Analyzer 0.3 % (0-5); Neutrophil # 4.22 X10^3/uL (2.7-7.7); Neutrophil % 69.6 % (47-70); POSITIVE MORPHOLOGY YES; Platelet Count 170 K/mm3 (150-450); RBC Distribution Width CV 26.5 % (11.6-14.6); Red Blood Count 3.66 M/mm3 (4.2-5.4); White Blood Count 6.1 K/mm3 (4.4-11.0)
[2023-03-14 06:49] LABS: Anion Gap 3 (5-15); BUN 16 mg/dL (7-18); BUN/Creat Ratio 21.9 RATIO (10-20); Calcium,Total 8.2 mg/dL (8.5-10.1); Chloride 109 mmol/L (98-107); Creatinine, Serum 0.73 mg/dL (0.55-1.02); EST Glomerular Filtration Rate 81 mL/min (>60); Est Glom Filt Rate - Afr Amer 98 mL/min (>60); Glucose 88 mg/dL (74-106); Potassium 3.2 mmol/L (3.5-5.1); Sodium Level 140 mmol/L (136-145)
[2023-03-14 06:53] LABS: Differential Indicated SCAN CRITERIA MET
[2023-03-14 08:52] LABS: Differential Comment SCANNED
[2023-03-14 08:53] LABS: Anisocytosis 3+; Hypochromasia 1+; Macrocytosis 1+; Microcytosis 2+
[2023-03-14] MEDS: Pantoprazole Sodium 40 MG in 0.9% Normal Saline (100mL MB+) 100 ML 330 MG IV (09:57)
[2023-03-14] MEDS: busPIRone 5 MG Tablet PO (10:02)
[2023-03-14] MEDS: Escitalopram Oxalate 20 MG Tablet PO (10:02)
[2023-03-14] MEDS: 0.9% Saline Lock 10 ML Syringe IV (10:03)
[2023-03-14] MEDS: guaiFENesin/D-Methorphan TAB.SR.12H 1 TABLET PO (10:03)
[2023-03-14] MEDS: Polyethylene Glycol 3350 17 GM PACKET PO (10:03)
[2023-03-14 10:08] LABS: Anti-Centromere B Ab <0.2 AI (0.0-0.9); Anti-Chromatin <0.2 AI (0.0-0.9); Anti-Jo <0.2 AI (0.0-0.9); Anti-Scleroderma-70 AB <0.2 AI (0.0-0.9); Anti-dsDNA Ab 1 IU/mL (0-9); RNP Ab <0.2 AI (0.0-0.9); SJOGREN'S Anti-SS-A test 0.2 AI (0.0-0.9); SJOGREN'S Anti-SS-B test < 0.2 AI (0.0-0.9); Smith Ab <0.2 AI (0.0-0.9)
--- NOTE | 2023-03-14 10:31 | CASEMGMT ---
Discharge Planning A list of HH and SNF providers including quality and resource use data and consistent with the patient's preferred geographic region, medical needs, and insurance network was created in [employer] Guide.? Lists provided to the RN CELIO. Toma Billingsley, Discharge Planning Asst.
--- NOTE | 2023-03-14 10:47 | PCM.DC ---
Discharge Instructions Diet Discharge Diet: No restrictions Activity Discharge Activity: Return to Normal Activity Weight Bearing Status: Weight bearing as tolerated Dressing / Incision Call your doctor if you observe: Fever of 101 or Higher, Coldness, Increased Pain, Numbness or Tingling, Change in Color, Inability to urinate, Inability to have a bowel movement, Using more than 1 pad per hour, Shortness of breath, Dizziness, Fainting spells, Swelling in the ankles, Chest pain, Prolonged hiccupping, Increased palpitations (irregular heartbeat) and Calf discomfort Follow Up Care When: IN 2 WEEKS Test Results: Test results from this visit will be discussed in further detail at your follow-up appointment, if applicable. Discharge Plan Admission Admit Date/Time: 03/12/23 15:28 Primary Reason for Your Visit: COVID-19 bronchitis. Acute upper GI bleed. Attending Provider: Horace Marmolejo Primary Care Provider: Corbin Bai Consulting Providers: Mariano Hart; Conrad Lares Instructions Additional Instructions / Restrictions: Advised repeat CBC in 1 week and follow with PCP Home quarantine for 2 more days. Discharge Orders/Prescriptions Prescriptions: New dextromethorphan-guaifenesin [Mucinex DM] 60-1,200 mg tablet extended release 12 hr 1 tab PO Q12H 7 Days Qty: 14 0RF pantoprazole [Protonix] 40 mg tablet,delayed release (DR/EC) 40 mg PO BID Qty: 60 2RF Rx Instructions: advised TWICE DAILY FOR 2 MONTHS THEN ONCE DAILY Continued buspirone 5 MG tablet 5 mg PO BID biotin 800 MCG tablet 5,000 mcg PO DAILY polyethylene glycol 3350 17 GM powder in packet 17 g PO DAILY alendronate [Fosamax] 70 MG tablet 70 mg PO QWEEK calcium carbonate-vitamin D3 1 EACH tablet 1 ea PO BID mirtazapine 30 MG tablet 30 mg PO QHS triamterene-hydrochlorothiazid [Maxzide-25mg] 1 EACH tablet 1 tab PO DAILY hydroxychloroquine 200 MG tablet 200 mg PO DAILYCM albuterol sulfate [ProAir HFA] 1 PUFF inhaler 2 puff inhalation Q4H PRN PRN (Reason: SOB/COUGH) carbidopa-levodopa 1 TABLET tablet 2 tab PO TIDAC escitalopram oxalate 20 MG tablet 20 mg PO DAILY Myrbetriq 50 MG tablet extended release 24 hr 50 mg PO DAILY PRN (Reason: Bladder Spasm) Fluticasone 220 Mcg [Flovent 220 Mcg] 1 INHALER inhaler 1 puff inhalation BID PRN (Reason: Asthma) Held aspirin 81 MG tablet 81 mg PO DAILY@0800 Hold Instructions: Hold for 1 week. Patient Comments: stopped for procedure Eliquis 5 MG tablet 5 mg PO DAILY Hold Instructions: Hold for 5 days. Repeat CBC. Discontinue if platelet count drops less than 50,000 or hemoglobin less than 8 g%. Advised to decrease Eliquis dose to 2.5 mg twice daily after hemoglobin stabilized around 8 g%. Patient Comments: stopped for procedure Discontinued lansoprazole [Prevacid] 30 MG capsule 30 mg PO DAILY Referrals / Follow Up: Jose Eaton DO [Med Staff - Active Staff] - Within 1 Month Corbin Bai MD [Primary Care Provider] - Within 1 Week Disposition Disposition (needs filled in before D/C Order can be placed): Home Health Service
--- NOTE | 2023-03-14 10:47 | DCINST_ITS ---
Discharge Instructions Diet Discharge Diet: No restrictions Activity Discharge Activity: Return to Normal Activity Weight Bearing Status: Weight bearing as tolerated Dressing / Incision Call your doctor if you observe: Fever of 101 or Higher, Coldness, Increased Pain, Numbness or Tingling, Change in Color, Inability to urinate, Inability to have a bowel movement, Using more than 1 pad per hour, Shortness of breath, Dizziness, Fainting spells, Swelling in the ankles, Chest pain, Prolonged hiccupping, Increased palpitations (irregular heartbeat) and Calf discomfort Follow Up Care When: IN 2 WEEKS Test Results: Test results from this visit will be discussed in further detail at your follow- up appointment, if applicable. Discharge Plan Admission Admit Date/Time: 03/12/23 15:28 Primary Reason for Your Visit: COVID-19 bronchitis. Acute upper GI bleed. Attending Provider: Horace Marmolejo Primary Care Provider: Corbin Bai Consulting Providers: Mariano Hart; Conrad Lares Discharge Orders/Prescriptions Prescriptions: No Action buspirone 5 MG tablet 5 mg PO BID biotin 800 MCG tablet 5,000 mcg PO DAILY polyethylene glycol 3350 17 GM powder in packet 17 g PO DAILY alendronate [Fosamax] 70 MG tablet 70 mg PO QWEEK calcium carbonate-vitamin D3 1 EACH tablet 1 ea PO BID aspirin 81 MG tablet 81 mg PO DAILY@0800 Patient Comments: stopped for procedure mirtazapine 30 MG tablet 30 mg PO QHS lansoprazole [Prevacid] 30 MG capsule 30 mg PO DAILY triamterene-hydrochlorothiazid [Maxzide-25mg] 1 EACH tablet 1 tab PO DAILY hydroxychloroquine 200 MG tablet 200 mg PO DAILYCM albuterol sulfate [ProAir HFA] 1 PUFF inhaler 2 puff inhalation Q4H PRN PRN (Reason: SOB/COUGH) carbidopa-levodopa 1 TABLET tablet 2 tab PO TIDAC escitalopram oxalate 20 MG tablet 20 mg PO DAILY Myrbetriq 50 MG tablet extended release 24 hr 50 mg PO DAILY PRN (Reason: Bladder Spasm) Eliquis 5 MG tablet 5 mg PO DAILY Patient Comments: stopped for procedure Fluticasone 220 Mcg [Flovent 220 Mcg] 1 INHALER inhaler 1 puff inhalation BID PRN (Reason: Asthma) Referrals / Follow Up: Corbin Bai MD [Primary Care Provider] - Disposition Disposition (needs filled in before D/C Order can be placed): Home Health Service
--- NOTE | 2023-03-14 12:57 | DS.PCM_ITS ---
Providers Date of Admission: 03/12/23 Date of Discharge: 03/14/23 Primary Care Physician: Dr. Corbin Bai MD Consultations 03/12/23 17:09 Consult: Gastroenterology Routine Consulting Provider: [facility] Reason for Consult: Acute anemia, suspected GI bleed EMERGENT Consult: No MD Notified: Yes Date Notified: 03/12/23 Time Notified: 17:10 Method of Notification: Text Reason For Visit: ACUTE ANEMIA SUSPECTED GI BLEED Diagnosis Discharge Diagnosis (1) Anemia: Status: Acute Code(s): D64.9 - Anemia, unspecified Qualifiers: Anemia type: iron deficiency Iron deficiency anemia type: other iron deficiency Qualified Code(s): D50.8 - Other iron deficiency anemias (2) GI bleed: Status: Acute Code(s): K92.2 - Gastrointestinal hemorrhage, unspecified Qualifiers: GI bleed type/associated pathology: unspecified gastrointestinal hemorrhage type Qualified Code(s): K92.2 - Gastrointestinal hemorrhage, unspecified (3) COVID-19: Status: Acute Code(s): U07.1 - COVID-19 Plan 82-year-old female is being admitted for shortness of breath and leg swelling for 5 to 6 days, could not walk feeling too weak. Mild temperature 99.6 ?F on last Saturday but no fever since then. Patient hemoglobin was found low therefore admitted with acute blood loss anemia 1. Acute blood loss anemia secondary to GI bleed/history of DVT and PE ? She received 3 units of blood and corrected from 5.1-7.6 hide hemoglobin went to 8.6 and then again 7.9. Baby aspirin and Eliquis on hold. Patient does not have dyspnea on exertion but mild cough. No chest pain. ? She has significant anxiety about being in the hospital so we will give her as needed Xanax to help cope she is extremely hopeful about being discharged tomorrow morning if possible ? Continue with PPI, pantoprazole 40 mg twice daily. Patient had been on 03/13/2023 Impressions : - LA Grade A chronic esophagitis with no bleeding. - Medium-sized hiatal hernia. - A few gastric polyps. - No gross lesions in the fourth portion of the duodenum. 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 Injected. Clips were placed. 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 Treated with a heater probe. - No specimens collected. Patient is discharged on pantoprazole 40 mg twice daily. Advised to follow-up in GI clinic in 1 month. ? Appreciate gastroenterology's assistance 2. COVID-19 No pneumonia but mild cough suggestive of bronchitis. Conservative treatment incentive spirometry, PEP and Mucinex DM. 3. HTN/CAD ? Can resume her home blood pressure medications ? Will hold her home aspirin given the GI bleed 03/15: Continue to hold aspirin and Eliquis as mentioned above 4. Parkinson's disease/anxiety/depression/mild cognitive impairment ? Stable ? Can resume her home medications 5. Rheumatoid arthritis ? Stable ? Continue with hydroxychloroquine DVT: SCDs Patient is ambulatory in home and in the community and requires home oxygen with portability. Patient found to have hypoxia due to COVID-19 Pulse ox 85% at rest on room air, 94% on 2 L of oxygen at rest and 92% on 2 L of oxygen ambulating. Discharge medication reconciliation done. Discharge follow-up instructions completed. Discharge process discussed with the patient and all questions were answered to patient's satisfaction. Follow with PCP in 1 to 2 weeks Total time spent, exact 35 minutes on discharge meds reconciliation, examination, coordination of care with nurses and ancillary staff, review of imaging and blood test and discussion with the patient on follow-up instructions. Medications at Discharge Home Medications Fluticasone 220 Mcg [Flovent 220 Mcg] 1 puff inhalation BID PRN Asthma 07/28/18 albuterol sulfate 90 mcg/actuation aerosol inhaler (ProAir HFA) 2 puff inhalation Q4H PRN PRN SOB/COUGH 07/28/18 alendronate 70 mg tablet (Fosamax) 70 mg PO QWEEK bones 07/28/18 apixaban 5 mg tablet (Eliquis) 5 mg PO DAILY thinner 07/28/18 aspirin 81 mg tablet,delayed release 81 mg PO DAILY@0800 supplement 07/28/18 biotin 800 mcg tablet 5,000 mcg PO DAILY supplement 07/28/18 buspirone 5 mg tablet 5 mg PO BID anxiety 07/28/18 calcium carbonate 600 mg-vitamin D3 5 mcg (200 unit) tablet 1 ea PO BID supp 07/28/18 carbidopa 25 mg-levodopa 100 mg tablet 2 tab PO TIDAC parkinsons 07/28/18 escitalopram oxalate 20 mg tablet 20 mg PO DAILY depression 07/28/18 hydroxychloroquine 200 mg tablet 200 mg PO DAILYCM arthritis 07/28/18 mirabegron 50 mg tablet,extended release 24 hr (Myrbetriq) 50 mg PO DAILY PRN Bladder Spasm 07/28/18 mirtazapine 30 mg tablet 30 mg PO QHS bladde 07/28/18 polyethylene glycol 3350 17 gram oral powder packet 17 g PO DAILY constipation 07/28/18 triamterene 37.5 mg-hydrochlorothiazide 25 mg tablet (Maxzide-25mg) 1 tab PO DAILY bp 07/28/18 dextromethorphan-guaifenesin ER 60 mg-1,200 mg tab,extend release,12hr (Mucinex DM) 1 tab PO Q12H 7 days #14 tabs 03/14/23 pantoprazole 40 mg tablet,delayed release (Protonix) 40 mg PO BID #60 tabs 03/14/23 Physical Exam Narrative Seen and examined. Patient on 2 L of oxygen.Patient still has mild cough and is not doing incentive spirometry and PEP. Denies shortness of breath. Physical exam General: Alert, Oriented x3, Cooperative HEENT: Atraumatic, PERRLA, EOMI, Normocephalic Oral: Oral mucosa moist no Gingival or Mucosal Lesions/ Ulcerations Neck: Supple, No JVD, Negative Carotid Bruits Lungs: Air entry diminished in bilateral lung bases. Mild coarse crepitations present. Cardiovascular: Regular rate, Regular Rhythm, Normal S1, Normal S2, No murmurs Abdomen: Bowel Sounds Present, Soft, Non Tender, Non-Distended : No renal angle tenderness. No suprapubic tenderness. Extremities: No edema, Capillary Refill Less than 3 Seconds Skin: No rashes, No breakdown Musculoskeletal: No Tenderness to Palpation of Joints or Extremities. Mild stiffness in ROM. Neurological: Cranial nerves II-XII grossly intact, DTR 2+/4. Parkinson's disease. No acute focal neurological deficit. Psych/Mental Status: Normal Affect, Appropriate. Weight / BMI Weight Weight: 149 lb 14.629 oz Body Mass Index (BMI) 22.8 ABG / Lab / Microbiology Data 03/14/23 05:05 03/14/23 05:05 Laboratory: Laboratory Results - last 24 hr 03/12/23 10:45: Diff Path Review Reviewed 03/13/23 05:10: BHAVESH-1 Antibody <0.2, SS-A/Ro IgG Antibody 0.2, SS-B/La IgG Antibody < 0.2, Sm (Long) Antibody <0.2, KRAFT MILL OPERATOR Antibody <0.2, Scl-70 Scleroderma Ab <0.2, Double Strand DNA Ab 1, Centromere B Antibody <0.2 03/13/23 15:48: Hgb 8.6 L, Hct 29.8 L 03/14/23 05:05: WBC 6.1, RBC 3.66 L, Hgb 7.9 L, Hct 27.3 L, MCV 74.6 L, MCH 21.6 L, MCHC 28.9 L, RDW Std Deviation 69.0 H, RDW Coeff of Yodit 26.5 H, Plt Count 170, MPV 10.6, Immature Gran % (Auto) 0.500, Neut % (Auto) 69.6, Lymph % (Auto) 13.2 L, [place] % (Auto) 11.7 H, Eos % (Auto) 4.3, Baso % (Auto) 0.7, Absolute Neuts (auto) 4.2, Absolute Lymphs (auto) 0.80 L, Nucleated RBC % 0.3, Diffe rential Comment SCANNED, Hypochromasia 1+, Anisocytosis 3+, Microcytosis 2+, Macrocytosis 1+, Sodium 140, Potassium 3.2 L, Chloride 109 H, Carbon Dioxide 28.0, Anion Gap 3 L, BUN 16, Creatinine 0.73, Estim Creat Clear Calc 43.00, Est GFR (MDRD) Af Amer 98, Est GFR (MDRD) Non-Af 81, BUN/Creatinine Ratio 21.9 H, Glucose 88, Calcium 8.2 L Microbiology: Microbiology 03/12/23 14:20 Stool Stool Occult Blood (ALANA) - Final Occult Blood Positive 03/12/23 11:04 Nasal Secretion SARS-CoV-2 & FLU Antigen (Rapid) - Final SARS-CoV-2 (COVID 19) D/C Instructions Discharge Diet: No restrictions Weight Bearing Status: Weight bearing as tolerated Call your doctor if you observe: Fever of 101 or Higher, Coldness, Increased Pain, Numbness or Tingling, Change in Color, Inability to urinate, Inability to have a bowel movement, Using more than 1 pad per hour, Shortness of breath, Dizziness, Fainting spells, Swelling in the ankles, Chest pain, Prolonged h iccupping, Increased palpitations (irregular heartbeat) and Calf discomfort When: IN 2 WEEKS Meaningful Use Info Meaningful Use Diagnoses (Choose all that apply): None applicable Discharge Plan Admission Admit Date/Time: 03/12/23 15:28 Primary Reason for Your Visit: COVID-19 bronchitis. Acute upper GI bleed. Attending Provider: Horace Marmolejo Primary Care Provider: Corbin Bai Consulting Providers: Mariano Hart; Conrad Lares Instructions Additional Instructions / Restrictions: Advised repeat CBC in 1 week and follow with PCP Home quarantine for 2 more days. Discharge Orders/Prescriptions Prescriptions: New dextromethorphan-guaifenesin [Mucinex DM] 60-1,200 mg tablet extended release 12 hr 1 tab PO Q12H 7 Days Qty: 14 0RF pantoprazole [Protonix] 40 mg tablet,delayed release (DR/EC) 40 mg PO BID Qty: 60 2RF Rx Instructions: advised TWICE DAILY FOR 2 MONTHS THEN ONCE DAILY Continued buspirone 5 MG tablet 5 mg PO BID biotin 800 MCG tablet 5,000 mcg PO DAILY polyethylene glycol 3350 17 GM powder in packet 17 g PO DAILY alendronate [Fosamax] 70 MG tablet 70 mg PO QWEEK calcium carbonate-vitamin D3 1 EACH tablet 1 ea PO BID mirtazapine 30 MG tablet 30 mg PO QHS triamterene-hydrochlorothiazid [Maxzide-25mg] 1 EACH tablet 1 tab PO DAILY hydroxychloroquine 200 MG tablet 200 mg PO DAILYCM albuterol sulfate [ProAir HFA] 1 PUFF inhaler 2 puff inhalation Q4H PRN PRN (Reason: SOB/COUGH) carbidopa-levodopa 1 TABLET tablet 2 tab PO TIDAC escitalopram oxalate 20 MG tablet 20 mg PO DAILY Myrbetriq 50 MG tablet extended release 24 hr 50 mg PO DAILY PRN (Reason: Bladder Spasm) Fluticasone 220 Mcg [Flovent 220 Mcg] 1 INHALER inhaler 1 puff inhalation BID PRN (Reason: Asthma) Held aspirin 81 MG tablet 81 mg PO DAILY@0800 Hold Instructions: Hold for 1 week. Patient Comments: stopped for procedure Eliquis 5 MG tablet 5 mg PO DAILY Hold Instructions: Hold for 5 days. Repeat CBC. Discontinue if platelet count drops less than 50,000 or hemoglobin less than 8 g%. Advised to decrease Eliquis dose to 2.5 mg twice daily after hemoglobin stabilized around 8 g%. Patient Comments: stopped for procedure Discontinued lansoprazole [Prevacid] 30 MG capsule 30 mg PO DAILY Referrals / Follow Up: Jose Eaton DO [Med Staff - Active Staff] - Within 1 Month Corbin Bai MD [Primary Care Provider] - Within 1 Week Disposition Disposition (needs filled in before D/C Order can be placed): Home Health Service Charges/Coding Visit Charges Inpatient E&M: 66572 Disch Hosp >30min
--- NOTE | 2023-03-14 14:12 | PHA.DC.MC.R ---
Pharmacy [facility] has performed discharge medication reconciliation and counseling for this patient. Counseled via telephone due to COVID precautions. Spoke to patient's , Herrera. 1. PANTOPRAZOLE 40MG PO BID X 2 MONTHS, THEN DAILY 2. MUCINEX DM 1T PO Q12 X 7 DAYS The patient's discharge medication list was reviewed for discrepancies and discrepancies were resolved. The patient was counseled on the following discharge medications and changes in medications for homegoing were reviewed. The Reason for Use, instructions for use, and potential side effects were reviewed for all new medications. The patient's questions regarding all of their medications were answered. The patient was able to verbally demonstrate an understanding of their discharge medications. Medications at Discharge Home Medications Fluticasone 220 Mcg [Flovent 220 Mcg] 1 puff inhalation BID PRN Asthma 07/28/18 albuterol sulfate 90 mcg/actuation aerosol inhaler (ProAir HFA) 2 puff inhalation Q4H PRN PRN SOB/COUGH 07/28/18 alendronate 70 mg tablet (Fosamax) 70 mg PO QWEEK bones 07/28/18 apixaban 5 mg tablet (Eliquis) 5 mg PO DAILY thinner 07/28/18 aspirin 81 mg tablet,delayed release 81 mg PO DAILY@0800 supplement 07/28/18 biotin 800 mcg tablet 5,000 mcg PO DAILY supplement 07/28/18 buspirone 5 mg tablet 5 mg PO BID anxiety 07/28/18 calcium carbonate 600 mg-vitamin D3 5 mcg (200 unit) tablet 1 ea PO BID supp 07/28/18 carbidopa 25 mg-levodopa 100 mg tablet 2 tab PO TIDAC parkinsons 07/28/18 escitalopram oxalate 20 mg tablet 20 mg PO DAILY depression 07/28/18 hydroxychloroquine 200 mg tablet 200 mg PO DAILYCM arthritis 07/28/18 mirabegron 50 mg tablet,extended release 24 hr (Myrbetriq) 50 mg PO DAILY PRN Bladder Spasm 07/28/18 mirtazapine 30 mg tablet 30 mg PO QHS bladde 07/28/18 polyethylene glycol 3350 17 gram oral powder packet 17 g PO DAILY constipation 07/28/18 triamterene 37.5 mg-hydrochlorothiazide 25 mg tablet (Maxzide-25mg) 1 tab PO DAILY bp 07/28/18 dextromethorphan-guaifenesin ER 60 mg-1,200 mg tab,extend release,12hr (Mucinex DM) 1 tab PO Q12H 7 days #14 tabs 03/14/23 pantoprazole 40 mg tablet,delayed release (Protonix) 40 mg PO BID #60 tabs 03/14/23
--- NOTE | 2023-03-14 14:31 | CASEMGMT ---
LENNY PICKENS NOTE: Pt being discharged home. Home O2 testing completed. Pt qualifies for 2l/m O2 contin. LENNY PICKENS spoke w/pt's . He states they have no preference of DME co, made aware [facility] is affiliated w/[facility] and states to use [employer]. He states they do have a pulse ox. Script obtained from Dr Marmolejo and sent to [facility] via [employer] RN, Umair, to take portable O2 tank from [facility] supply. Discussed home O2 set up process w/ and he was made aware to call [facility] prior to leaving [facility] to arrange for home O2 delivery. He also had declined a list of HHC options. Referral made w/[facility] @ [facility] and they are able to accept pt w/SOC slated for tomorrow. made aware and DC plan updated in [facility]. Angel [employer]CE[employer] LENNY PICKENS
[2023-03-19 17:06] LABS: Albumin 3.1 g/dL (2.9-4.4); Alpha-1-Globulins 0.3 g/dL (0.0-0.4); Alpha-2-Globulins 0.7 g/dL (0.4-1.0); Anti-Parietal Cell AB, QN 2.2 Units (0.0-20.0); Cytoplasmic Ab (C-ANCA) <1:20 titer (Neg:<1:20); Deamidated Gliadin IgA 6 units (0-19); Deamidated Gliadin IgG 2 units (0-19); Endomysial Antibody IgA Negative (Negative); Gamma Globulin 0.7 g/dL (0.4-1.8); Gastrin, Serum 41 pg/mL (0-115); Immunoglobulin A 349 mg/dL (64-422); Immunoglobulin E 5 IU/mL (6-495); Immunoglobulin G 664 mg/dL (586-1602); Immunoglobulin M 31 mg/dL (26-217); PROEL- TOTAL PROTEIN 5.6 g/dL (6.0-8.5); Perinuclear Ab (P-ANCA) <1:20 titer (Neg:<1:20); t-Transglutaminase IgA <2 U/mL (0-3)
== END 2023-03-14 14:47 | disposition home health service (06) | DRG 377 ==
LOC: ED 14:55 → PCU 15:46
PROVIDERS: Anesthesiology; Family Medicine; Internal Medicine Gastroenterology; Admitting Provider Hospitalist; Emergency Provider Emergency Medicine; PCP Internal Medicine; Visit Provider Internal Medicine
PROC: 0DJ08ZZ Inspection of Upper Intestinal Tract, Via Natural or Artificial Opening Endoscopic (ICD-10-PCS; CPT 43235; principal; 2023-03-13 11:55)
DX: K31.811 Angiodysplasia of stomach and duodenum with bleeding (principal); U07.1 COVID-19; D62 Acute posthemorrhagic anemia; M06.9 Rheumatoid arthritis, unspecified; I10 Essential (primary) hypertension; F32.A Depression, unspecified; E87.6 Hypokalemia; K21.00 Gastro-esophageal reflux disease with esophagitis, without bleeding; I25.10 Atherosclerotic heart disease of native coronary artery without angina pectoris; K31.7 Polyp of stomach and duodenum; K44.9 Diaphragmatic hernia without obstruction or gangrene; F41.9 Anxiety disorder, unspecified; J20.8 Acute bronchitis due to other specified organisms; G20.A1 Parkinson's disease without dyskinesia, without mention of fluctuations; R09.02 Hypoxemia; Z66 Do not resuscitate; Z79.01 Long term (current) use of anticoagulants; Z79.51 Long term (current) use of inhaled steroids; Z79.82 Long term (current) use of aspirin; Z79.899 Other long term (current) drug therapy; Z86.711 Personal history of pulmonary embolism; Z86.718 Personal history of other venous thrombosis and embolism; Z86.73 Personal history of transient ischemic attack (TIA), and cerebral infarction without residual deficits; Z87.891 Personal history of nicotine dependence
CPT/HCPCS: 36415; 71045; 80048; 82274; 82607; 82728; 82746; 82784; 82785; 82941; 83516; 83540; 83550; 83735; 83880; 84165; 84484; 85014; 85018; 85025; 85027; 85379; 85610; 85730; 86225; 86235; 86255; 86256; 86334; 86340; 86850; 86900; 86901; 86920; 86922; 87428; 93005; 97162; 97166; 99282; J7040; J7120; P9016; A4216; J2405

== ENCOUNTER 2023-03-29 09:25 | Emergency (ER) | payer MEDICARE, BC, SELFPAY ==
[2023-03-29 09:27] VITALS: BP 144/75; PULSE 79; RESP 16; TEMP 36.2; O2SAT 100; BMI 22.4
--- NOTE | 2023-03-29 09:45 | EDS_ITS ---
HPI History of Present Illness Chief Complaint: Diarrhea Informant: patient Narrative Narrative: Patient presents secondary to diarrhea for the past week. Patient was admitted to the hospital on March 12 with a month of dark diarrhea, GI bleed, hemoglobin of 5.1. She states that she has restarted her blood thinner, Eliquis. Over the past week she has had recurrent diarrhea but states it is not dark in color. She took Imodium yesterday that did seem to slow things down. states he has noticed her getting weaker again and wanted to have her checked. During her last hospitalization she did have an EGD that showed 2 bleeding telangiectasias in the jejunum that were treated. [facility] Medical History Alcohol abuse Alzheimers disease Anemia Anxiety Asthma Bilateral pulmonary embolism Chronic anticoagulation DVT, bilateral lower limbs Former smoker GERD (gastroesophageal reflux disease) GI bleed HTN (hypertension) Parkinson's disease Rheumatoid arthritis Seizures Stroke/cerebrovascular accident SVT (supraventricular tachycardia) Home Medications Fluticasone 220 Mcg [Flovent 220 Mcg] 1 puff inhalation BID PRN Asthma 07/28/18 [History Last Taken Unknown] albuterol sulfate 90 mcg/actuation aerosol inhaler (ProAir HFA) 2 puff inhalation Q4H PRN PRN SOB/COUGH 07/28/18 [History Last Taken Unknown] alendronate 70 mg tablet (Fosamax) 70 mg PO QWEEK bones 07/28/18 [History Last Taken Unknown] apixaban 5 mg tablet (Eliquis) 5 mg PO DAILY thinner 07/28/18 [History Last Taken 04/07/19] aspirin 81 mg tablet,delayed release 81 mg PO DAILY@0800 supplement 07/28/18 [History Last Taken 04/07/19] biotin 800 mcg tablet 5,000 mcg PO DAILY supplement 07/28/18 [History Last Taken Unknown] buspirone 5 mg tablet 5 mg PO BID anxiety 07/28/18 [History Last Taken Unknown] calcium carbonate 600 mg-vitamin D3 5 mcg (200 unit) tablet 1 ea PO BID supp 07/28/18 [History Last Taken Unknown] carbidopa 25 mg-levodopa 100 mg tablet 2 tab PO TIDAC parkinsons 07/28/18 [History Last Taken 04/20/19 08:45] escitalopram oxalate 20 mg tablet 20 mg PO DAILY depression 07/28/18 [History Last Taken Unknown] hydroxychloroquine 200 mg tablet 200 mg PO DAILYCM arthritis 07/28/18 [History Last Taken Unknown] mirabegron 50 mg tablet,extended release 24 hr (Myrbetriq) 50 mg PO DAILY PRN Bladder Spasm 07/28/18 [History Last Taken 04/20/19 08:45] mirtazapine 30 mg tablet 30 mg PO QHS bladde 07/28/18 [History Last Taken Unknown] polyethylene glycol 3350 17 gram oral powder packet 17 g PO DAILY constipation 07/28/18 [History Last Taken Unknown] triamterene 37.5 mg-hydrochlorothiazide 25 mg tablet (Maxzide-25mg) 1 tab PO DAILY bp 07/28/18 [History Last Taken Unknown] dextromethorphan-guaifenesin ER 60 mg-1,200 mg tab,extend release,12hr (Mucinex DM) 1 tab PO Q12H 7 days #14 tabs 03/14/23 [Rx Last Taken Unknown] pantoprazole 40 mg tablet,delayed release (Protonix) 40 mg PO BID #60 tabs 03/14/23 [Rx Last Taken Unknown] Allergy/AdvReac Type Severity Reaction Status Date / Time amlodipine [From Norvasc] Allergy Unknown Verified 03/29/23 09:29 amoxicillin Allergy Unknown Verified 03/29/23 09:29 duloxetine [From Cymbalta] Allergy Unknown Verified 03/29/23 09:29 iodine Allergy Unknown Verified 03/29/23 09:29 nabumetone [From Relafen] Allergy Unknown Verified 03/29/23 09:29 sulfabenzamide Allergy Unknown Verified 03/29/23 09:29 adhesive tape AdvReac Rash Verified 03/29/23 09:29 celecoxib [From Celebrex] AdvReac Nausea/Vom/ Verified 03/29/23 09:29 Diarrhea Surgical History History of bilateral knee replacement Social History Smoking Status: Former smoker ROS ROS ED Constitutional Constitutional ED: Denies chills or fever(s) Eyes Eyes: Denies change in vision or discharge from eye(s) ENT ENT ED: Denies discharge from eye(s), rhinorrhea or sore throat Cardiovascular Cardiovascular: Denies chest pain or palpitations Respiratory/Chest Respiratory/Chest: Denies cough or dyspnea Gastrointestinal Gastrointestinal: Reports diarrhea; Denies abdominal pain, nausea or vomiting Genitourinary Genitourinary ED: Denies dysuria Musculoskeletal Musculoskeletal: Denies back pain or extremity pain Integumentary Denies Abrasions or rash Neurologic Neurologic: Reports weakness; Denies headache(s) Psychiatric Psychiatric: Denies anxiety or depression Allergic/Immunologic Allergic/Immunologic ED: Denies lip swelling or urticaria EXAM Physical Exam Const Vital Signs: 03/29/23 09:27 03/29/23 11:48 Temperature 97.1 F L Temperature Source Temporal Pulse Rate 79 73 Respiratory Rate 16 16 Blood Pressure 144/75 H 148/88 H Blood Pressure Mean 98 108 Pulse Ox 100 98 Oxygen Delivery Method Room Air Room Air Positive well nourished and well developed General Appearance ED: well developed HEENT Reports moist mucous membranes Chest Wall inspection of chest normal and palpation of chest normal Resp normal respiratory effort and clear to auscultation bilaterally Cardio regular rate and regular rhythm GI non-tender Auscultation: hypoactive bowel sounds Palpation: soft Extremity normal to inspection Neuro oriented x3 Neuro Narrative: No focal neurologic deficit. Psych mental status grossly normal Skin no rashes or lesions noted MDM MDM MDM Narrative Medical decision making narrative: IV line established. Patient given IV fluids. Labwork obtained to evaluate for leukocytosis, anemia, and electrolyte derangement. Stool studies ordered to evaluate for infectious cause of diarrhea. History & Record Review Discussion w/independent historian: Patient and Family Additional record(s) reviewed:: Prior inpatient record, Prior ED visit and Prior labs Lab Data Attestation: I reviewed the patient's lab results. Labs: Laboratory Results - last 24 hr 03/29/23 03/29/23 09:55 11:34 WBC 4.5 RBC 4.10 L Hgb 8.8 L Hct 30.1 L MCV 73.4 L MCH 21.5 L MCHC 29.2 L RDW Std Deviation 72.0 H RDW Coeff of Yodit 28.4 H Plt Count 270 MPV 9.4 Immature Gran % (Auto) 0.200 Neut % (Auto) 70.5 H Lymph % (Auto) 11.0 L [place] % (Auto) 16.0 H Eos % (Auto) 1.6 Baso % (Auto) 0.7 Absolute Neuts (auto) 3.1 Absolute Lymphs (auto) 0.49 L Nucleated RBC % 0 Differential Comment SCANNED Hypochromasia 1+ Anisocytosis 3+ Microcytosis 2+ Macrocytosis 1+ Sodium 142 Potassium 3.9 Chloride 109 H Carbon Dioxide 28.0 Anion Gap 5 BUN 22 H Creatinine 1.07 H Estim Creat Clear Calc 40.19 Est GFR (MDRD) Af Amer 63 Est GFR (MDRD) Non-Af 52 L BUN/Creatinine Ratio 20.6 H Glucose 108 H Calcium 8.7 Total Bilirubin 0.60 Direct Bilirubin 0.19 AST 17 ALT < 6 L Alkaline Phosphatase 57 Total Protein 6.6 Albumin 3.4 Globulin 3.2 Urine Color Yellow Urine Clarity Clear Urine pH 6.5 Ur Specific [place] 1.015 Urine Protein Negative Urine Glucose (UA) Normal Urine Ketones 5 H Urine Occult Blood 10 H Urine Nitrite Negative Urine Bilirubin Negative Urine Urobilinogen 1 H Ur Leukocyte Esterase 25 H Urine RBC 0-5 SEEN Urine WBC 0-5 SEEN Ur Squamous Epith Cells 0 SEEN Urine Bacteria RARE Urine Mucus 0 SEEN Treatment and Re-Evaluation :: CBC reveals normal white count 4.5 with 70% neutrophils. Hemoglobin is 8.8 which is improved over her prior labs. Chemistry studies reveal mild dehydration with a BUN of 22 and a creatinine 1.07. This is slightly above her baseline. Glucose is 108. LFTs are unremarkable. Urinalysis shows 5 ketones but no sign of acute infection. Stool studies were ordered, however patient has not had diarrhea here. She was advised to follow a bland diet and watch for any signs of bleeding. Return instructions provided. Discharge Plan Triage Chief Complaint: Diarrhea ED Provider: Tierney Simon Dx/Rx/DC Orders Clinical Impression: Diarrhea Instructions: ED Diarrhea, Unknown Cause Prescriptions: No Action buspirone 5 MG tablet 5 mg PO BID biotin 800 MCG tablet 5,000 mcg PO DAILY polyethylene glycol 3350 17 GM powder in packet 17 g PO DAILY alendronate [Fosamax] 70 MG tablet 70 mg PO QWEEK calcium carbonate-vitamin D3 1 EACH tablet 1 ea PO BID aspirin 81 MG tablet 81 mg PO DAILY@0800 Hold Instructions: Hold for 1 week. Patient Comments: stopped for procedure mirtazapine 30 MG tablet 30 mg PO QHS triamterene-hydrochlorothiazid [Maxzide-25mg] 1 EACH tablet 1 tab PO DAILY hydroxychloroquine 200 MG tablet 200 mg PO DAILYCM albuterol sulfate [ProAir HFA] 1 PUFF inhaler 2 puff inhalation Q4H PRN PRN (Reason: SOB/COUGH) carbidopa-levodopa 1 TABLET tablet 2 tab PO TIDAC escitalopram oxalate 20 MG tablet 20 mg PO DAILY Myrbetriq 50 MG tablet extended release 24 hr 50 mg PO DAILY PRN (Reason: Bladder Spasm) Eliquis 5 MG tablet 5 mg PO DAILY Hold Instructions: Hold for 5 days. Repeat CBC. Discontinue if platelet count drops less than 50,000 or hemoglobin less than 8 g%. Advised to decrease Eliquis dose to 2.5 mg twice daily after hemoglobin stabilized around 8 g%. Patient Comments: stopped for procedure Fluticasone 220 Mcg [Flovent 220 Mcg] 1 INHALER inhaler 1 puff inhalation BID PRN (Reason: Asthma) dextromethorphan-guaifenesin [Mucinex DM] 60-1,200 mg tablet extended release 12 hr 1 tab PO Q12H 7 Days Qty: 14 0RF pantoprazole [Protonix] 40 mg tablet,delayed release (DR/EC) 40 mg PO BID Qty: 60 2RF Rx Instructions: advised TWICE DAILY FOR 2 MONTHS THEN ONCE DAILY Primary Care Provider: Corbin Bai Referrals: Corbin Bai MD [Primary Care Provider] - 1 Week if not improving Disposition Disposition: Home, Self Care
[2023-03-29] MEDS: 0.9% Normal Saline (1000mL) 1,000 ML 150 ML IV (09:58)
[2023-03-29] MEDS: 0.9% Normal Saline (500mL Bag) 500 ML 1000 ML IV (09:59)
[2023-03-29 10:06] LABS: Absolute Lymphocyte Count 0.49 X10^3/uL (0.83-4.51); Absolute Neutrophil Count 3.1 X10^3/uL (2.0-7.7); Basophil# 0.03 X10^3/uL; Basophil% 0.7 % (0-1); Eosinophil# 0.07 X10^3/uL; Eosinophils% 1.6 % (0-5); Hematocrit 30.1 % (37-47); Hemoglobin 8.8 g/dL (12.0-15.0); Lymphocyte # 0.49 X10^3/ul (0.83-4.51); Mean Corp Hgb Conc 29.2 g/dL (32-36); Mean Corpuscular Hgb 21.5 pg (27.0-32.0); Mean Corpuscular Volume 73.4 fL (81-99); Mean Platelet Vol. 9.4 fl (6.2-12.0); Monocyte# 0.71 X10^3/uL; NRBC Flagged by Analyzer 0 % (0-5); Neutrophil # 3.14 X10^3/uL (2.7-7.7); Neutrophil % 70.5 % (47-70); POSITIVE DIFFERENTIAL YES; POSITIVE MORPHOLOGY YES; Platelet Count 270 K/mm3 (150-450); RBC Distribution Width CV 28.4 % (11.6-14.6); White Blood Count 4.5 K/mm3 (4.4-11.0)
[2023-03-29 10:14] LABS: Differential Indicated SCAN CRITERIA MET
--- OUTSIDE RECORDS SUMMARY | 2023-03-29 10:17 | XMS RPT_ITS | CCD ---
Author Name Unknown Address [address] [place] [address] Organization [facility] Care Team Providers Care Band Lining Bander Name Role Phone Corbin Bai MD Primary Care Provider [phone] CORBIN BAI Referring Unavailable ADRIAN, GINETTE Primary Care Unavailable ADRIAN, GINETTE Attending Unavailable ADRIAN, GINETTE Primary Care Unavailable ADRIAN, GINETTE Primary Care Unavailable ANETA JORDAN Attending Unavailable ROSITA SOSA Referring Unavailable ADRIAN, CORBIN Alonzo Primary Care Unavailable DANILO GUIDO JR Attending Unavailable ADRIAN, CORBIN Alonzo Primary Care Unavailable ADRIAN, CORBIN Alonzo Primary Care Unavailable ADRIAN, CORBIN Alonzo Primary Care Unavailable GABRIEL JULES Attending Unavailable TIERNEY IGLESIAS Attending Unavailable ADRIAN, CORBIN Alonzo Primary Care Unavailable TIERNEY IGLESIAS Referring Unavailable ADRIAN, CORBIN Alonzo Primary Care Unavailable ADRIAN, CORBIN Alonzo Primary Care Unavailable ROSITA SOSA Attending Unavailable DANILO GUIDO JR Attending Unavailable ADRIAN, CORBIN Alonzo Primary Care Unavailable ANETA JORDAN Referring Unavailable VI OSUNA Attending Unavailable ADRIAN, GINETTE Primary Care Unavailable ANETA JORDAN Attending Unavailable ADRIAN, CORBIN Alonzo Primary Care Unavailable ADRIAN, CORBIN Alonzo Primary Care Unavailable DANILO GUIDO JR Attending Unavailable ADRIAN, CORBIN Alonzo Primary Care Unavailable ADRIAN, GINETTE Primary Care Unavailable BAI, GINETTE Referring Unavailable BAI, GINETTE Primary Care Unavailable GABRIEL JULES Referring Unavailable GABRIEL JULES Attending Unavailable ADRIAN, CORBIN Alonzo Primary Care Unavailable TIERNEY IGLESIAS Attending Unavailable BAI, GINETTE Primary Care Unavailable BAI, GINETTE Primary Care Unavailable ANETA JORDAN Referring Unavailable ISABEL THORNE Attending Unavailable CORBIN BAI Primary Care Unavailable CORBIN BAI Attending Unavailable CORBIN BAI Primary Care Unavailable CORBIN BAI Referring Unavailable CORBIN BAI Attending Unavailable CORBIN BAI Primary Care Unavailable Allergies Allergy Classification Reported Allergen(s) Allergy Type Date of Onset Reaction(s) Facility (20 sources) Adhesive Tape; Translations: [ADHESIVE TAPE (ROSINS)] Propensity to adverse reactions 6 Itching [facility] Work Phone: (20 sources) amLODIPine; Translations: [AMLODIPINE] Drug Allergy 5 Other: See Comments [facility] (20 sources) Amoxicillin; Translations: [AMOXICILLIN] Drug Allergy 5 [facility] Work Phone: (20 sources) celecoxib; Translations: [CELECOXIB] Drug Allergy 5 Vomiting [facility] Work Phone: (20 sources) DULoxetine; Translations: [DULOXETINE] Drug Allergy 7 Mental Status Change [facility] Work Phone: (20 sources) Iodine; Translations: [IODINE] Drug Allergy 5 [facility] Work Phone: (20 sources) nabumetone; Translations: [NABUMETONE] Drug Allergy 5 Vomiting [facility] Work Phone: (20 sources) sulfabenzamide; Translations: [SULFABENZAMIDE ] Drug Allergy 5 Intolerance [facility] Work Phone: Medications Current Medications Medication Drug [...] Drug Class(es) Dates Sig (Normalized) Sig (Original) [id number] 200 actuat albuterol 0.09 mg/actuat metered dose [...] GFR 30-59 ml/min] Onset: 7 2017 Chronic Deficiency and other anemia (1 source) Iron deficiency anemia secondary to blood loss (chronic); Translations: [Iron deficiency anemia due to chronic blood loss] Onset: 4 Chronic Diverticulosis and diverticulitis (2 sources) Diverticular disease; Translations: [Diverticulosis of intestine, part unspecified, without perforation or abscess without bleeding] Onset: 3 Chronic Esophageal disorders (20 sources) Gastroesophageal reflux disease; Translations: [Gastro-esophageal reflux disease without esophagitis] Onset: 2 03-13-2021 Chronic Essential hypertension (20 sources) Essential hypertension; Translations: [Essential (primary) hypertension] Onset: 4 10-24-2017 Chronic Gastrointestinal hemorrhage (4 sources) Feces color: tarry; Translations: [Melena] Onset: 3 Episodic Genitourinary symptoms and ill-defined conditions (20 sources) [...] aftercare (1 source) Drug therapy finding; 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] Episodic Other and [...] Classification Problem Date Documented Da te Episodic/Chronic Other and unspecified benign neoplasm (20 sources) [...] Date Time Vital Sign Value Performing Clinician Waldemar price 01-03-2023 09:11-0400 Diastolic blood pressure 70 mm[Hg] Tierney Iglesias PA-C Work Phone: [facility] 01-03-2023 09:11-0400 Heart rate 81 /min Tierney Iglesias PA-C Work Phone: [facility] 01-03-2023 09:11-0400 Respiratory rate 17 /min Tierney Roperone PA-C Work Phone: [facility] 01-03-2023 09:11-0400 SaO2% (BldA) [Mass fraction] 96 % Tierney Sofiya PA-C Work Phone: [facility] 01-03-2023 09:11-0400 Systolic blood pressure 120 mm[Hg] Tierney Sofiya PA-C Work Phone: [facility] 09-03-2022 12:58-0400 Body weight 69.4 kg Tierney Sofiya PA-C Work Phone: [facility] 07-24-2022 13:56-0400 Body height 167.6 cm Aneta Ventura PA-C Work Phone: [facility] 07-24-2022 13:56-0400 Body temperature 97.81 [degF] Aneta Colleen PA-C Work Phone: [facility] 07-24-2022 13:56-0400 Body weight 68.49 kg Aneta Colleen PA-C Work Phone: [facility] 07-24-2022 13:56-0400 Diastolic blood pressure 88 mm[Hg] Aneta Colleen PA-C Work Phone: [facility] 07-24-2022 13:56-0400 Heart rate 82 /min Aneta Colleen PA-C Work Phone: [facility] 07-24-2022 13:56-0400 SaO2% (BldA) [Mass fraction] 94 % Aneta Ventura PA-C Work Phone: [facility] 07-24-2022 13:56-0400 Systolic blood pressure 130 mm[Hg] Aneta Colleen PA-C Work Phone: [facility] 07-15-2022 10:51-0400 Body temperature 97.59 [degF] Sherin Bentley APRN.CNP Work Phone: [facility] 07-15-2022 10:51-0400 Body weight 70.94 kg Sherin Bentley CNC LASER OPERATOR.SIDING APPLICATOR Work Phone: [facility] 07-15-2022 10:51-0400 Diastolic blood pressure 76 mm[Hg] Sherin Sheree CNC LASER OPERATOR.SIDING APPLICATOR Work Phone: [facility] 07-15-2022 10:51-0400 Heart rate 77 /min Sherin Sheree CNC LASER OPERATOR.SIDING APPLICATOR Work Phone: [facility] 07-15-2022 10:51-0400 Respiratory rate 18 /min Sherinshagufta Craink CNC LASER OPERATOR.SIDING APPLICATOR Work Phone: [facility] 07-15-2022 10:51-0400 SaO2% (BldA) [Mass fraction] 98 % Sherinshagufta Craink CNC LASER OPERATOR.SIDING APPLICATOR Work Phone: [facility] 07-15-2022 10:51-0400 Systolic blood pressure 128 mm[Hg] Sherin Bentley CNC LASER OPERATOR.SIDING APPLICATOR Work Phone: [facility] 06-25-2022 11:01-0400 Body height 168.9 cm Rosita Older CNC LASER OPERATOR.SIDING APPLICATOR Work Phone: [facility] 06-25-2022 11:01-0400 Body weight 68.95 kg Rosita Older CNC LASER OPERATOR.SIDING APPLICATOR Work Phone: [facility] 06-25-2022 11:01-0400 Diastolic blood pressure 76 mm[Hg] Rosita Older CNC LASER OPERATOR.SIDING APPLICATOR Work Phone: [facility] 06-25-2022 11:01-0400 Heart rate 69 /min Rosita Older CNC LASER OPERATOR.SIDING APPLICATOR Work Phone: [facility] 06-25-2022 11:01-0400 Respiratory rate 16 /min Rosita Older CNC LASER OPERATOR.SIDING APPLICATOR Work Phone: [facility] 06-25-2022 11:01-0400 Systolic blood pressure 128 mm[Hg] Rosita Older CNC LASER OPERATOR.SIDING APPLICATOR Work Phone: [facility] 06-18-2022 15:53-0400 Body temperature 98.4 [degF] Danilo Guido Jr., MD Work Phone: [facility] 06-18-2022 15:53-0400 Body weight 68.22 kg Danilo Guido Jr., MD Work Phone: [facility] 06-18-2022 15:53-0400 Diastolic blood pressure 79 mm[Hg] Danilo Guido Jr., MD Work Phone: [facility] 06-18-2022 15:53-0400 Heart rate 83 /min Danilo Guido Jr., MD Work Phone: [facility] 06-18-2022 15:53-0400 Respiratory rate 16 /min Danilo Guido Jr., MD Work Phone: [facility] 06-18-2022 15:53-0400 SaO2% (BldA) [Mass fraction] 95 % Danilo Guido Jr., MD Work Phone: [facility] 06-18-2022 15:53-0400 Systolic blood pressure 151 mm[Hg] Danilo Guido Jr., MD Work Phone: [facility] 06-11-2022 09:24-0400 Body height 172.7 cm Aneta Ventura PA-C Work Phone: [facility] 06-11-2022 09:24-0400 Body temperature 96.8 [degF] Aneta Colleen PA-C Work Phone: [facility] 06-11-2022 09:24-0400 Body weight 68.95 kg Aneta Colleen PA-C Work Phone: [facility] 06-11-2022 09:24-0400 Diastolic blood pressure 72 mm[Hg] Aneta Ventura PA-C Work Phone: [facility] 06-11-2022 09:24-0400 Heart rate 82 /min Aneta Ventura PA-C Work Phone: [facility] 06-11-2022 09:24-0400 SaO2% (BldA) [Mass fraction] 97 % Aneta Colleen PA-C Work Phone: [facility] 06-11-2022 09:24-0400 Systolic blood pressure 110 mm[Hg] Aneta Jordan PA-C Work Phone: [facility] 03-05-2022 10:14-0500 Body height 171.5 cm Pulm Wstr Work Phone: [facility] 03-05-2022 10:14-0500 Body weight 67.13 kg Pulm Wstr Work Phone: [facility] 03-05-2022 10:14-0500 Diastolic blood pressure 76 mm[Hg] Maggie Rodrigez MD Work Phone: [facility] 03-05-2022 10:14-0500 Heart rate 72 /min Pulm Wstr Work Phone: [facility] 03-05-2022 10:14-0500 Respiratory rate 12 /min Pulm Wstr Work Phone: [facility] 03-05-2022 10:14-0500 SaO2% (BldA) [Mass fraction] 96 % Pulm Wstr Work Phone: [facility] 03-05-2022 10:14-0500 Systolic blood pressure 140 mm[Hg] Maggie Rodrigez MD Work Phone: [facility] 12-22-2021 10:19-0400 Body temperature 98.6 [degF] Jenny Cali CNC LASER OPERATOR.SIDING APPLICATOR Work Phone: [facility] 12-22-2021 10:19-0400 Diastolic blood pressure 70 mm[Hg] Jenny Cali CNC LASER OPERATOR.SIDING APPLICATOR Work Phone: [facility] 12-22-2021 10:19-0400 Heart rate 76 /min Jenny Cali CNC LASER OPERATOR.SIDING APPLICATOR Work Phone: [facility] 12-22-2021 10:19-0400 Respiratory rate 18 /min Jenny Cali CNC LASER OPERATOR.SIDING APPLICATOR Work Phone: [facility] 12-22-2021 10:19-0400 SaO2% (BldA) [Mass fraction] 96 % Jenny Eliasgs CNC LASER OPERATOR.SIDING APPLICATOR Work Phone: [facility] 12-22-2021 10:19-0400 Systolic blood pressure 124 mm[Hg] Jenny Eliasgs CNC LASER OPERATOR.SIDING APPLICATOR Work Phone: [facility] 11-27-2021 09:13-0400 Body weight 68.04 kg Tierney Iglesias PA-C Work Phone: [facility] 10-17-2021 12:57-0400 Body height 172.7 cm Rafaela Danis DO Work Phone: [facility] 10-17-2021 12:57-0400 Body temperature 98.2 [degF] Rafaela Danis DO Work Phone: [facility] 10-17-2021 12:57-0400 Body weight 69.4 kg Rafaela Danis DO Work Phone: [facility] 10-17-2021 12:57-0400 Diastolic blood pressure 85 mm[Hg] Rafaela Danis DO Work Phone: [facility] 10-17-2021 12:57-0400 Heart rate 68 /min Rafaela Danis DO Work Phone: [facility] 10-17-2021 12:57-0400 Systolic blood pressure 139 mm[Hg] Rafaela Danis DO Work Phone: [facility] 09-21-2021 11:12-0400 Body temperature 97.11 [degF] Corbin Bai MD Work Phone: [facility] 09-21-2021 11:12-0400 Body weight 70.49 kg Corbin Bai MD Work Phone: [facility] 09-21-2021 11:12-0400 Diastolic blood pressure 70 mm[Hg] Corbin Bai MD Work Phone: [facility] 09-21-2021 11:12-0400 Heart rate 72 /min Corbin Bai MD Work Phone: [facility] 09-21-2021 11:12-0400 Respiratory rate 18 /min Corbin Bai MD Work Phone: [facility] 09-21-2021 11:12-0400 Systolic blood pressure 134 mm[Hg] Corbin Bai MD Work Phone: [facility] 09-13-2021 10:54-0400 Body temperature 97.5 [degF] Robert Shi CNC LASER OPERATOR.SIDING APPLICATOR Work Phone: [facility] 09-13-2021 10:54-0400 Body weight 70.31 kg Robert Shi CNC LASER OPERATOR.SIDING APPLICATOR Work Phone: [facility] 09-13-2021 10:54-0400 Diastolic blood pressure 78 mm[Hg] Robert Osullivan CNC LASER OPERATOR.SIDING APPLICATOR Work Phone: [facility] 09-13-2021 10:54-0400 Heart rate 76 /min Robert Osullivan CNC LASER OPERATOR.SIDING APPLICATOR Work Phone: [facility] 09-13-2021 10:54-0400 Respiratory rate 16 /min Robert Pendjaya CNC LASER OPERATOR.SIDING APPLICATOR Work Phone: [facility] 09-13-2021 10:54-0400 SaO2% (BldA) [Mass fraction] 94 % Robert Osullivan CNC LASER OPERATOR.SIDING APPLICATOR Work Phone: [facility] 09-13-2021 10:54-0400 Systolic blood pressure 132 mm[Hg] Robert Osullivan CNC LASER OPERATOR.SIDING APPLICATOR Work Phone: [facility] Encounters Encounter Date Encounter Type Care Provider Facility Start: 03-25-2023 End: 03-25-2023 ambulatory DANILO GUIDO JR Facility:[facility] Start: 03-19-2023 End: 03-20-2023 ambulatory CORBIN BAI Facility:[facility] Start: 03-12-2023 End: 03-12-2023 ambulatory CORBIN BAI Facility:[facility] Start: 01-30-2023 Telephone encounter Tierney Iglesias PA-C Work Phone: Pulmonary Medicine Procedures Date Procedure Procedure Detail Performing Clinician Start: 12-21-2022 INFLUENZA VACCINE, P RSV FREE, AGE 65+ YR, HIGH DOSE, QUADRIVALENT (FLUZONE HIGH-DOSE) Jessy Skinner MD Work Phone: Start: 07-17-2022 Colonoscopy Danilo dooley Jr., MD Work Phone: Start: 03-28-2022 [id number] Displays COVI D-19 BIVALENT BOOSTER VACCINE, AGE 12+ YR Corbin Bai MD Work Phone: Start: 03-05-2022 Spmtry w/vc expirato ry sarah w/wo mxml vol vntj Tierney Iglesias PA-C Work Phone: Start: 10-17-2021 Radex hand minimum 3 views Rafaela Moscoso DO Work Phone: Start: 12-23-2018 Colonoscopy Aneta shepherd PA-C Work Phone: Plan of Treatment Date Care Activity Detail Author Start: 07-17-2025 Colonoscopy COLONOSCOPY [facility] Start: 07-17-2025 COLORECTAL CANCER SCREENING COLORECTAL CANCER SCREENING [facility] Start: 05-17-2025 DIABETES SCREEN DIABETES SCREEN [facility] Start: 05-17-2025 Diabetes Screening Diabetes Screening [facility] Start: 05-05-2024 DIABETES SCREEN DIABETES SCREEN [facility] Start: 07-18-2023 Colonoscopy COLONOSCOPY [facility] Start: 07-18-2023 COLORECTAL CANCER SCREENING COLORECTAL CANCER SCREENING [facility] Start: 07-16-2023 End: 10-15-2023 CBC panel - Blood by Automated count CBC Lab Routine Essential hypertension Expected: 07/16/2023, Expires: 10/15/2023 [facility] Work Phone: Immunizations Immunization Date Immunization Notes Care Provider Maged knight 12-21-2022 influenza (HD-IIV4) vaccine, age 65+ yr, high dose, quadrivalent, PF (FLUZONE HIGH-DOSE) Immunization [place] Work Phone: [facility] Work Phone: 03-28-2022 COVID-19 booster vaccine, age 12+ yr, bivalent (PFIZER-BIONTECH) Nv Nurse Work Phone: [facility] Work Phone: 01-15-2022 influenza, high-dose , quadrivalent vaccine (FLUZONE HIGH DOSE QUADRIVALENT) Corbin Bai MD Work Phone: [facility] Work Phone: 01-15-2022 influenza virus vaccine, unspecified formulation Corbin Bai MD Work Phone: [facility] 01-05-2021 influenza, high-dose , quadrivalent vaccine (FLUZONE HIGH DOSE QUADRIVALENT) Corbin Bai MD Work Phone: [facility] 05-11-2020 COVID-19 vaccine, ag e 12+ yr (PFIZER-BIONTECH - PURPLE TOP) Corbin Bai MD Work Phone: [facility] Work Phone: 04-10-2020 COVID-19 vaccine, ag e 12+ yr (PFIZER-BIONTECH - PURPLE TOP) Corbin Bai MD Work Phone: [facility] 12-31-2019 zoster vaccine recombinant Corbin Bai MD Work Phone: [facility] 12-25-2019 influenza, high-dose , quadrivalent vaccine (FLUZONE HIGH DOSE QUADRIVALENT) Corbni Bai MD Work Phone: [facility] 11-02-2019 zoster vaccine recombinant Corbin Bai MD Work Phone: [facility] 12-23-2018 influenza, high dose seasonal, preservative-free Corbin Bai MD Work Phone: [facility] 12-14-2017 influenza, high dose seasonal, preservative-free Corbin Bai MD Work Phone: [facility] 12-12-2016 influenza, high dose seasonal, preservative-free Corbin Bai MD Work Phone: [facility] Work Phone: 12-12-2016 influenza, seasonal, injectable, preservative free Corbin Bai MD Work Phone: [facility] Work Phone: 01-19-2016 pneumococcal polysaccharide vaccine, 23 valent Corbin Bai MD Work Phone: [facility] Work Phone: 01-16-2016 influenza, high dose seasonal, preservative-free Corbin Bai MD Work Phone: [facility] 07-06-2015 pneumococcal conjuga te vaccine, 13 valent Corbin Bai MD Work Phone: [facility] 12-16-2014 influenza, high dose seasonal, preservative-free Corbin Bai MD Work Phone: [facility] Work Phone: 01-14-2014 influenza, seasonal, injectable Corbin Bai MD Work Phone: [facility] Work Phone: 01-24-2013 influenza virus vaccine, unspecified formulation Corbin Bai MD Work Phone: [facility] 01-21-2012 influenza virus vaccine, unspecified formulation Corbin Bai MD Work Phone: [facility] Work Phone: 01-06-2011 influenza virus vaccine, unspecified formulation Cobrin Bai MD Work Phone: [facility] Work Phone: 05-03-2010 tetanus and diphther ia toxoids, adsorbed, preservative free, for adult use (2 Lf of tetanus toxoid and 2 Lf of diphtheria toxoid) Corbin Bai MD Work Phone: [facility] Work Phone: 12-16-2009 influenza virus vaccine, unspecified formulation Corbin Bai MD Work Phone: [facility] Work Phone: 12-28-2008 influenza virus vaccine, unspecified formulation Corbin Bai MD Work Phone: [facility] Work Phone: 01-29-2008 influenza virus vaccine, unspecified formulation Corbin Bai MD Work Phone: [facility] Work Phone: 01-18-2006 influenza virus vaccine, unspecified formulation Corbin Bai MD Work Phone: [facility] 01-18-2006 pneumococcal polysaccharide vaccine, 23 valent Corbin Bai MD Work Phone: [facility] Payers Date Payer Category Payer Medicare [id number] 2016 Unknown LARISA PERES ME DICARE SUPPLEMENT [id number] 2016-Present [phone] [place] [address] Indemnity [id number].[facility] 2016 Unknown LARISA PERES [place] DICARE SUPPLEMENT [id number] 2016-Present [phone] [place] [address] Indemnity [id number] 2004 Medicare MEDICARE MEDICAR E A AND B [id number] 2004-Present [phone] [id number] [place] [address] Medicare [id number] 2004 Medicare MEDICARE MEDICAR E A AND B [id number] 2004-Present [phone] [place] [address] Medicare [id number] 2004 Medicare [id number] Social History Date Type Detail Facility Start: 06-01-2021 End: 03-05-2022 Tobacco smoking status NHIS Ex-smoker [facility] End: 04-09-2005 History of tobacco use Current smoker [facility] End: 04-09-2005 History of tobacco use Cigarette Smoker [facility] Start: 06-09-2021 End: 01-15-2023 Alcohol intake Current drinker of alcohol (finding) [facility] Start: 06-09-2021 End: 04-02-2022 Alcohol intake [facility] Work Phone: Start: 12-17-2017 History SDOH Alcohol Comment glass of wine daily [facility] Start: 06-01-2021 End: 11-27-2021 Tobacco Comment No hoousehold ETS. [facility] Start: 1940 Sex Assigned At Not on file [facility] Start: 05-30-2021 End: 01-15-2022 Exposure to SARS-CoV-2 (event) Not sure [facility] Start: 08-12-2021 End: 08-22-2021 Exposure to SARS-CoV-2 (event) Unable to assess [facility] Work Phone: Start: 06-01-2021 End: 03-05-2022 Tobacco use and exposure Smokeless tobacco non-user [facility] Work Phone: Start: 01-15-2022 History SDOH Alcohol Frequency 5 [facility] Start: 01-15-2022 History SDOH Alcohol Std Drinks 1 [facility] Start: 01-15-2022 Alcohol Comment 2 glass of wine daily [facility] Start: 01-15-2022 End: 04-02-2022 Alcohol Use Disorder Identification Test - Consumption [AUDIT-C] [facility] Work Phone: How often to you hav e a drink containing alcohol? 4 or more times a week [facility] Work Phone: How many standard dr inks containing alcohol do you have on a typical day? 1 or 2 [facility] Work Phone: How often do you hav e 6 or more drinks on 1 occasion? Never [facility] Work Phone: Adult Depression Scr eening Assessment 0 [facility] Clinical Notes 04-02-2019 to 03-25-2023 Addendum Note - Corbin Bai MD - 01/30/2023 1:06 PM ESTTelephone Encounter - Corbin Bai MD - 01/30/2023 1:05 PM ESTPatient Gabriel Sweeney - 11/16/2022 9:19 AM EDT Note Date & Type Note Facility 03-25-2023 Note HNO ID: [id number] Author: DANILO GUIDO JR, MD Service: ? Author Type: Physician Type: Progress Notes Filed: 03/25/2023 21:12 Note Text: ESTABLISHED PATIENT VISIT CHIEF COMPLAINT: Follow Up HISTORY OF PRESENT ILLNESS: Dominique Wheeler is a 82 year old female, BMI 23.08 kg/m2 with a PMH significant for and per last office visit note of 09/21/22: 1. Parkinson disease (HCC) - ICD9: 332.0, ICD10: G20 (primary diagnosis) 2. Abnormality of gait - ICD9: 781.2, ICD10: R26.9 Overall exam stable on current dose of Sinemet as above. Would not recommend changing current dosing or adding medications at this time. Gait is only significant impairment on exam and this in fact is improving with exercise. Pt is no longer in PT but would like to get her back in a Stop The Disease program as she felt it helped. Encouraged exercise. Follow up 6 months. 3. Memory loss - ICD9: 780.93, ICD10: R41.3 No issues during MOCA testing today, but reported concern in past (prior neurologist) resulting in pt being on Aricept. Will continue for now as uncertain to what extent this med may have improved prior symptoms. Concern is if med is stopped then possible dementia (risk with PD) if present will progress and then will need to struggle to get back to prior baseline. Pt and agree. 4. Insomnia, unspecified type - ICD9: 780.52, ICD10: G47.00 Likely secondary to known anxiety. Already on Remeron, Buspar, lexapro. Feel adding meds including sleep aids will only increase risk of fall or possibly impair memory. As symptoms are not nightly but maybe couple nights every few weeks, would recommend follow up with those treating anxiety. May consider CBTi if symptoms become more frequent. Would avoid additional sedatives. Patient during interim was hospitalized for COVID and also required PRBC tx due to nodules in intestine per pt - seeing GI for EGD next week. Anxiety was elevated during hospital stay, but states doing better now. Insomnia not worse since being out of the hospital. However still present. Advised pt against sleep aids given history. See anxiety meds. Explained ok to take melatonin up to 5 mg nightly. Feels memory stable. Patient wonders if she needs to be on Aricept. Feels Parkinson's stable. Still on Sinemet 25/100mg TID (2 tabs each dose and with meals). No decline in fine motor function. No decline gait. MODIFIED MOCA: Orientation: 03/25/2023, Bennett Garcia 08/21 Abstract thought: 04/19 Namin/3 Serial 7s: 100-93-16 03/20 Number and sentence repeat: 06/19 Clock Drawin/3 Delayed recall: 05/20 Pt has not been back for PD therapy sessions. No falls. REVIEW OF SYSTEMS GENERAL:No weight loss, malaise or fevers. HEENT:Negative for frequent or significant headaches, No changes in hearing or vision, no nose bleeds or other nasal problems RESPIRATORY: Negative for cough, wheezing or shortness [...] have been reviewed. WBC (k/uL) Date Value 03/19/2023 6.00 RBC (m/uL) Date Value 03/19/2023 4.29 Hemoglobin (g/dL) Date Value 03/19/2023 9.2 (L) Hematocrit (%) Date Value 03/19/2023 32.5 (L) MCV (fL) Date Value 03/19/2023 75.8 (L) MCH (pg) Date Value 03/19/2023 21.4 (L) MCHC (g/dL) Date Value 03/19/2023 28.3 (L) RDW-CV (%) Date Value 03/19/2023 29.5 (H) Platelet Count (k/uL) Date Value 03/19/2023 261 MPV (fL) Date Value 03/19/2023 10.5 Glucose (mg/dL) Date Value 03/19/2023 92 BUN (mg/dL) Date Value 03/19/2023 18 Creatinine (mg/dL) Date Value 03/19/2023 0.92 Sodium (mmol/L) Date Value 03/19/2023 139 Potassium (mmol/L) Date Value 03/19/2023 4.3 Chloride (mmol/L) Date Value 03/19/2023 102 CO2 (mmol/L) Date Value 03/19/2023 26 Protein, Total (g/dL) Date Value 05/17/2022 6.8 Albumin (g/dL) Date Value 05/17/2022 4.2 Calcium, Total (mg/dL) Date Value 03/19/2023 9.2 Alkaline Phosphatase (U/L) Date Value 05/17/2022 69 Bilirubin, Total (mg/dL) Date Value 05/17/2022 0.4 AST (U/L) Date Value 05/17/2022 25 ALT (U/L) Date Value 05/17/2022 8 BARBARA (no units) Date Value 10/17/2021 Positive (A) SSA Antibody IgG (AI) Date Value 10/17/2021 <0.2 SSB Antibody (AI) Date Value 10/17/2021 <0.2 Rheuma (more content not included)... [facility] 03-22-2023 Note HNO ID: [id number] Author: CORBIN BAI MD Service: ? Author Type: Physician Type: Progress Notes Filed: 03/22/2023 09:53 Note Text: ASSESSMENT/PLAN: 1. Iron deficiency anemia due to chronic blood loss - ICD9: 280.0, ICD10: D50.0 (primary diagnosis) See result message. - CBC + DIFF 2. History of pulmonary embolism, on chronic anticoagulation. - ICD9: V12.55, ICD10: Z86.711 Restart. - APIXABAN 5 MG TABLET Corbin Bai MD [facility] 03-19-2023 Note HNO ID: [id number] Author: Corbin Bai MD Service: ? Author Type: Physician Type: Progress Notes Filed: 03/19/2023 1:17 PM Note Text: This note was created using [employer]. Subjective Transitional Care Management Progress Note The patients TCM visit was performed within the 7 days of discharge. Patient's Date of discharge: 03/14/23 Date of initial coordinator contact after discharge: NA Discharge diagnosis: Acute blood loss anemia. Medication review completed Yes Corbin Bai MD Provider Documentation: In follow-up of hospitalization, Dominique Wheeler is a 82 year old female with the chief complaint of transition of care. I have reviewed the patient?s last hospital course including diagnostic testing performed during this hospitalization, their discharge medications, and my assessment and plan with the patient and any family members present at today?s visit. Dominique was admitted 03/12 with fatigue, dyspnea, acute anemia, and Covid 19. She was found to have profound anemia and needed 3 units of PRBC transfused. EGD was done and two angiodysplasias in the jejunum were clipped. Aspirin and apixiban were held, as was esomeprazole. Pantoprazole was prescribed. Repeat CBC recommended in one week. Discharge Hgb 7.9, Hct 27.3. Home Health and home PT was being processed. Dominique felt better. Review of Systems Constitutional: Negative for chills, fatigue and fever. HENT: Negative for congestion. Respiratory: Negative for cough and shortness of breath. Cardiovascular: Negative for chest pain, palpitations and leg swelling. Gastrointestinal: Negative for abdominal pain, blood in stool, diarrhea, nausea and vomiting. Musculoskeletal: Positive for gait problem. Neurological: Positive for weakness. ACTIVE PROBLEM LIST Osteoporosis Depression Esophageal reflux with hoarseness. Insomnia Anxiety State Benign neoplasm of colon Constipation Osteoarthritis Mixed Stress and Urge Urinary Incontinence Inflammatory Arthropathy Varicose Vein of Leg Vitamin D Deficiency Neuropathy (HCC) Asthma, Moderate Persistent, Well-Controlled Essential Hypertension Unsteady Gait Ckd (Chronic Kidney Disease) Stage 3, Gfr 30-59 Ml/Min ([facility]) History of pulmonary embolism, on chronic anticoagulation. Parkinson Disease Pulmonary Hypertension (Hcc) Muscle Weakness Pad (Peripheral Artery Disease) (Hcc) Severe Malnutrition (Hcc) Edema of Both Legs Social History Tobacco Use Smoking status: Former Packs/day: 1.00 Years: 30.00 Additional pack years: 0.00 Total pack years: 30.00 Types: Cigarettes Quit date: 04/09/2005 Years since quittin.9 Smokeless tobacco: Never Vaping Use Vaping Use: Never used Substance Use Topics Alcohol use: Yes Alcohol/week: 14.0 standard drinks of alcohol Types: 14 Glasses of Wine (5oz) per week Comment: 2 glass of wine daily Drug use: No Current Outpatient Medications Medication Sig dextromethorphan-guaiFENesin (MUCINEX DM) 30-600 mg per tablet Take 1 tablet by mouth two times a day. pantoprazole DR (PROTONIX) 40 mg tablet Take 40 mg by mouth two times a day. For 2 months then once daily fluticasone (FLONASE) 50 mcg/actuation nasal spray Use 1 Lysite in each nostril once daily. mirabegron (MYRBETRIQ) 50 mg Tb24 Take 1 tablet by mouth once daily as needed. triamterene-hydroCHLOROthiazide (MAXZIDE-25MG) 37.5-25 mg per tablet Take 1 tablet by mouth once daily. fluticasone (FLOVENT HFA) 220 mcg/actuation inhaler Inhale 1 Puff as instructed two times a day. alendronate (FOSAMAX) 70 mg tablet Take 1 [...] 1 tablet by mouth daily at bedtime. carbidopa-levodopa (SINEMET 25-100) 25-100 mg per tablet Take 2 tablets by mouth three times daily. (breakfast or waking; lunch or noon; and dinner or about 5PM). mirtazapine (REMERON) 30 mg tablet Take 1 tablet by mouth daily at bedtime. For appetite and sleep. senna-docusate (SENNA-S) 8.6-50 mg per tablet Take 2 tablets by mouth twice daily. Constipation. albuterol HFA (PROVENTIL HFA, VENTOLIN HFA) 90 mcg/actuation inhaler Inhale 2 Puffs as instructed four times daily as needed. FOR WHEEZING AND SHORTNESS OF BREATH. Biotin 400 mcg ORAL Tab Take 1 tablet by mouth once daily. MIRALAX 100 % ORAL POWDER 1 capful in 8 oz fluid daily furosemide (LASIX) 20 mg tablet Take 1 tablet by mouth once daily as needed (Take for 3 days as needed.). (Patient not taking: Reported on 03/19/2023) LORazepam (ATIVAN) 0.5 mg Take 1 tablet by mouth twice d (more content not included)... [facility] 03-12-2023 Note HNO ID: [id number] Author: Temi Henson APRN.SIDING APPLICATOR Service: ? Author Type: Nurse Practitioner Type: Progress Notes Filed: 03/12/2023 10:28 AM Note Text: Subjective Cough Associated symptoms include shortness of breath. Pertinent negatives include no chills. Dominique Wheeler is a 82 year old female who presents with cough for the past 5 days, feeling short of breath, having weakness and swelling of bilateral legs/ankles. She states it's very bad and states it is hard for her to walk due to weakness and shortness of breath. No fever today. NO medications taken at home today. Review of Systems Constitutional: Positive for malaise/fatigue. Negative for chills and fever. Respiratory: Positive for cough and shortness of breath. Cardiovascular: Positive for leg swelling. Neurological: Positive for weakness. BP 102/60 Pulse 88 Temp 37.2 ?C (98.9 ?F) Resp 16 Wt 68.9 kg (152 lb) SpO2 93% BMI 24.53 kg/m? PAST MEDICAL HISTORY Diagnosis Date Acute, but ill-defined, cerebrovascular disease 08/06/2005 TIA; Anemia, unspecified 04/2019 Anxiety state 05/28/2006 ANXIETY STATE NOS 05/28/2006 Arrhythmia Asthma, moderate persistent, well-controlled 12/04/2013 Benign neoplasm of colon CKD (chronic kidney disease) stage 3, GFR 30-59 ml/min ([facility]) 08/14/2016 Closed fracture of right foot 08/05/2015 Closed nondisplaced fracture of pelvis ([facility]) 01/14/2017 Depressive disorder, not elsewhere classified Esophageal [...] Fosamax start 2016. End 2021. Parkinson disease 03/01/2017 Patient diagnosed during hospital admission 03/10/17. Started on Sinemet. Will be managed by Dr. Perez with [facility] neurology. 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 Unspecified constipation Urge incontinence [...] SINGLE/MULTIPLE 04/20/2019 ESOPHAGOGASTRODUODENOSCOPY TRANSORAL DIAGNOSTIC 11/2003 EGD ALLERGIES Amoxicillin, Celebrex [Celecoxib], Relafen [Nabumetone], Adhesive Tape (Rosins), Cymbalta [Duloxetine], Iodine, Norvasc [Amlodipine], and Sulfabenzamide MEDICATIONS furosemide (LASIX) 20 mg tabletTake 1 tablet by mouth once daily as needed (Take for 3 days as needed.).Disp: 12 tabletRfl: 1 fluticasone (FLONASE) 50 mcg/actuation nasal sprayUse 1 Lysite in each nostril once daily.Disp: 1 EachRfl: 5 mirabegron (MYRBETRIQ) 50 mg [id number] 1 tablet by mouth once daily as needed.Disp: 90 tabletRfl: 3 triamterene-hydroCHLOROthiazide (MAXZIDE-25MG) 37.5-25 mg per tabletTake 1 tablet by mouth once daily.Disp: 90 tabletRfl: 1 apixaban (ELIQUIS) 5 mg tab(s)Take 1 tablet by mouth two times a day.Disp: 60 tabletRfl: 5 fluticasone (FLOVENT HFA) 220 mcg/actuation inhalerInhale 1 Puff as instructed two times a day.Disp: 1 EachRfl: 5 alendronate (FOSAMAX) 70 mg tabletTake 1 tablet [...] gentamicin (GENTAK) 0.3 % ophthalmic solutionDisp: Rfl: verapamil SR (CALAN SR) 120 mg CR tabletTake 1 tablet by mouth daily at bedtime.Disp: 90 tabletRfl: 3 donepezil (ARICEPT) 10 mg tabletTake 10 mg by mouth once daily.Disp: Rfl: carbidopa-levodopa (SINEMET 25-100) 25-100 mg per tabletTake 2 tablets by mouth three times daily. (breakfast or waking; lunch or noon; and dinner or about 5PM).Disp: 540 tabletRfl: 3 mirtazapine (REMERON) 30 mg tabletTake 1 tablet by mouth daily at bedtime. For appetite and sleep.Disp: 90 tabletRfl: 3 lansoprazole (more content not included)... [facility] 01-30-2023 Miscellaneous Notes Addended by: CORBIN BAI [...] Would like PCP to address. Routed to [facility]. Martha Allen LPN I did a 3 [...] Garcia. Please advise patient and spouse. Rosalie Rodrigez LPN documented in this encounter [facility] 01-15-2023 Note HNO ID: [id number] Author: Corbin Bai MD Service: ? Author Type: Physician Type: Progress Notes Filed: 01/16/2023 8:45 AM Note Text: Dominique Wheeler is a 82 year old female here [...] Brady, retinal specialist. [facility] pulmonary, Dr. Lauren Rodrigez. Dr. Jules, DPM. Medical/Family history review Reviewed [...] information provided - Personalized prevention plan provided [facility] 01-15-2023 Note HNO ID: [id number] Author: Corbin Bai MD Service: ? Author Type: Physician Type: Progress Notes Filed: 01/16/2023 8:45 AM Note Text: This note was created using ZYBriter. Subjective Dominique Wheeler is a 82 year old female here [...] on chronic anticoagulation. Parkinson Disease Pulmonary Hypertension (Hcc) Muscle Weakness Pad (Peripheral Artery Disease) (Hcc) Severe Malnutrition ([facility]) Current Outpatient Medications Medication Sig [...] (FLONASE) 50 mcg/actuation nasal spray Use 1 Lysite in each nostril once daily. mirabegron (MYRBETRIQ) [...] legs - I (more content not included)... [facility] 01-15-2023 Instructions Corbin Bai MD - 01/15/2023 11:24 AM EDT Have you ever planned for future healthcare decisions with a power of associate attorney, living will, or advance directives? Yes. Have you shared those records with your doctor? No and No. Please bring a copy to your next appointment or email to [email or web address] Get RSV vaccine from pharmacy. documented in this encounter [facility] 01-15-2023 History of Presen t illness Narrative Dominique Wheeler is a 82 year old female here [...] Brady, retinal specialist. [facility] pulmonary, Dr. Lauren Rodrigez. Dr. Jules, DPM. Medical/Family history review Reviewed [...] plan provided This note was created using [employer]. Subjective Dominique Wheeler is a 82 year old female here [...] Vein of Leg Vitamin D Deficiency Neuropathy ([facility]) Asthma, Moderate Persistent, Well-Controlled Essential Hypertension Unsteady Gait Ckd (Chronic Kidney Disease) Stage 3, Gfr 30-59 Ml/Min ([facility]) History of pulmonary embolism, on chronic anticoagulation. Parkinson Disease Pulmonary Hypertension ([facility]) Muscle Weakness Pad (Peripheral Artery Disease) ([facility]) Severe Malnutrition ([facility]) Current Outpatient Medications Medication Sig [...] (FLONASE) 50 mcg/actuation nasal spray Use 1 Lysite in each nostril once daily. mirabegron (MYRBETRIQ) [...] Corbin Bai MD documented in this encounter [facility] 01-08-2023 Miscellaneous Notes Patient has been identified by name and date of : Yes Requested Prescriptions Pending Prescriptions Disp Refills apixaban (ELIQUIS) 5 mg tab(s) 60 tablet 5 Sig: Take 1 tablet by mouth two times a day. RX INSTRUCTIONS: Patient aware RX will be sent to pharmacy. No need to notify patient. Melinda Ramsey documented in this encounter [facility] 01-03-2023 Note HNO ID: [id number] Author: Tierney Iglesias PA-C Service: ? Author Type: Physician Fabric Normalizer Type: Progress Notes Filed: 01/03/2023 9:49 AM Note Text: Patient: Dominique Wheeler PCP: Corbin Bai MD CC: follow up HPI: Dominique Wheeler 82 year old female former 30 pack [...] months ago. She continues to walk at [facility]. She does become SOB during her walk. Some lower extremity edema at the end of the day. PAST MEDICAL HISTORY Diagnosis Date Acute, but ill-defined, cerebrovascular disease 08/06/2005 TIA; Anemia, unspecified 04/2019 Anxiety state 05/28/2006 ANXIETY STATE NOS 05/28/2006 Arrhythmia Asthma, moderate persistent, well-controlled 12/04/2013 Benign neoplasm of colon CKD (chronic kidney disease) stage 3, GFR 30-59 ml/min ([facility]) 08/14/2016 Closed fracture of right foot 08/05/2015 Closed nondisplaced fracture of pelvis ([facility]) 01/14/2017 Depressive disorder, not elsewhere classified Esophageal [...] Fosamax start 2016. End 2021. Parkinson disease ([facility]) 03/01/2017 Patient diagnosed during hospital admission 03/10/17. Started on Sinemet. Will be managed by Dr. Perez with [facility] neurology. 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 [facility] 01-03-2023 History of Presen t illness Narrative Images from the original note were not included. Patient: Dominique Wheeler PCP: Corbin Bai MD CC: follow up HPI: Dominique Wheeler 82 year old female former 30 pack [...] months ago. She continues to walk at [employer]. She does become SOB during her walk. Some lower extremity edema at the end of the day. PAST MEDICAL HISTORY Diagnosis Date Acute, but ill-defined, cerebrovascular disease 08/06/2005 TIA; Anemia, unspecified 04/2019 Anxiety state 05/28/2006 ANXIETY STATE NOS 05/28/2006 Arrhythmia Asthma, moderate persistent, well-controlled 12/04/2013 Benign neoplasm of colon CKD (chronic kidney disease) stage 3, GFR 30-59 ml/min ([facility]) 08/14/2016 Closed fracture of right foot 08/05/2015 Closed nondisplaced fracture of pelvis ([facility]) 01/14/2017 Depressive disorder, not elsewhere classified Esophageal [...] managed by Dr. Perez with [facility] neurology. 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 Order scanned into chart. Brigitte Leyva LPN documented in this encounter [facility] 12-10-2022 Miscellaneous Notes Last office visit: 06/25/22 [...] medication - must be call in. Aretha Reyes documented in this encounter [facility] 11-16-2022 Note HNO ID: [id number] Author: Gabriel Jules Service: ? Author Type: [...] Objective: [facility] pulses are palpable bilateral. [...] left foot (I73.9) PAD (peripheral artery disease) ([facility]) Plan: Patient was seen and evaluated. Nails 1-5 bilateral were debrided in length and thickness. Patient is to RTC in 3-4 months. Gabriel Jules DPM [facility] 11-16-2022 Note HNO ID: [id number] Author: Nina Long LPN Service: ? Author Type: LICENSED NURSE Type: Progress Notes Filed: 11/17/2022 6:49 AM Note Text: AMB ROOMING INTAKE FLOWSHEET DATA Patient presents with: Left Foot - Established Patient, nail care Right Foot - Established Patient, nail care Nina Long LPN [facility] 11-16-2022 History of Presen t illness Narrative [...] left foot (I73.9) PAD (peripheral artery disease) ([facility]) Plan: Patient was seen and evaluated. Nails 1-5 bilateral were debrided in length and thickness. Patient is to RTC in 3-4 months. Gabriel Jules DPM AMB ROOMING INTAKE FLOWSHEET DATA Patient presents with: Left Foot - Established Patient, nail care Right Foot - Established Patient, nail care Nina Long LPN documented in this encounter [facility] 11-12-2022 Miscellaneous Notes Last seen PEDIATRIC DERMATOLOGIST 06/25/22. Next appt with pcp 01/15/23. Patient [...] to pharmacy. No need to notify patient. Manad Reyes documented in this encounter [facility] 11-05-2022 Miscellaneous Notes Prescribed by pulmonology Rosita Paredes APRN.SIDING APPLICATOR Patient has been identified by name and [...] you. Rose Rothman LPN Pharmacy verified in [facility] Patient has been identified by name and [...] Tierney Sarabia Pss documented in this encounter [facility] 10-29-2022 Miscellaneous Notes Patient has been identified [...] advise. Toma Reyes documented in this encounter [facility] 09-21-2022 Note HNO ID: [id number] Author: Danilo Guido Jr., MD Service: ? Author Type: Physician Type: Progress Notes Filed: 09/21/2022 12:27 PM Note Text: ESTABLISHED PATIENT VISIT CHIEF COMPLAINT: Follow Up HISTORY OF PRESENT ILLNESS: Dominique Wheeler is a 82 year old female, BMI [...] if instability noted through the nighttime and geographic information scientist hours. Pt and her agree with plan. [...] AT BEDTIMEDisp: 30 (more content not included)... [facility] 09-19-2022 Miscellaneous Notes Reviewed Tierney Iglesias's note [...] Martha Allen LPN documented in this encounter [facility] 09-10-2022 Note HNO ID: [id number] Author: Isabel Londono PA-C Service: ? Author Type: Physician Fabric Normalizer Type: Progress Notes Filed: 09/10/2022 12:30 PM [...] for internal providers or letter via the [employer] [place] Postal Service for external providers. HPI: Dominique Wheeelr is a 82 year old female who [...] Continue present medications. - Return to physician carpenter assistant in 1 week. Colonoscopy 07/17/2022: Impression: - [...] on pathology results. - Return to physician carpenter assistant in 1 week. - Resume Eliquis (apixaban) [...] kidney disease) stage 3, GFR 30-59 ml/min ([facility]) 08/14/2016 Closed fracture of right foot 08/05/2015 Closed nondisplaced fracture of pelvis ([facility]) 01/14/2017 Depressive disorder, not elsewhere classified Esophageal [...] Fosamax start 2016. End 2021. Parkinson disease ([facility]) 03/01/2017 Patient diagnosed during hospital admission 03/10/17. Started on Sinemet. Will be managed by Dr. Perez with [facility] neurology. 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 [facility] 09-03-2022 Note HNO ID: [id number] Author: Tierney Iglesias PA-C Service: ? Author Type: Physician Fabric Normalizer Type: Progress Notes Filed: 09/03/2022 1:56 PM Note Text: Patient: Dominique Wheeler PCP: Corbin Bai MD CC: Asthma HPI: Dominique Wheeler 82 year old female former 30 pack year smoker, quitting in 2005 with PMH significant for anxiety, CKD, GERD, HTN, CVA, PE, Parkinson's disease, osteoporosis, and asthma. Current therapy consists of Flovent, Singulair and as needed albuterol. Today, patient states that she is not taking Flovent on a daily basis. Daily cough that wakes her in the geographic information scientist hours. Non-productive. No hemoptysis. Frequent wheezing. Exertional dyspnea with minimal effort. She feels it is progressively worse. Reports lower extremity edema. PAST MEDICAL HISTORY Diagnosis Date Acute, but ill-defined, cerebrovascular disease 08/06/2005 TIA; Anemia, unspecified 04/2019 Anxiety state 05/28/2006 ANXIETY STATE NOS 05/28/2006 Arrhythmia Asthma, moderate persistent, well-controlled 12/04/2013 Benign neoplasm of colon CKD (chronic kidney disease) stage 3, GFR 30-59 ml/min ([facility]) 08/14/2016 Closed fracture of right foot 08/05/2015 Closed nondisplaced fracture of pelvis ([facility]) 01/14/2017 Depressive disorder, not elsewhere classified Esophageal [...] Fosamax start 2016. End 2021. Parkinson disease ([facility]) 03/01/2017 Patient diagnosed during hospital admission 03/10/17. Started on Sinemet. Will be managed by Dr. Perez with [facility] neurology. Paroxysmal SVT (supraventricular tachycardia) ([facility]) 2017 Personal history of colonic polyps Pulmonary embolism, bilateral ([facility]) 02/03/2017 Stress incontinence in female 06/06/2015 Stroke [...] (FLONASE) 50 mcg/actuation nasal spray Use 1 Lysite in each nostril once daily. mirabegron (MYRBETRIQ) [...] Smokeless tobacco: Nev (more content not included)... [facility] 09-03-2022 History of Presen t illness Narrative Images from the original note were not included. Patient: Dominique Wheeler PCP: Corbin Bai MD CC: Asthma HPI: Dominique Wheeler 82 year old female former 30 pack year smoker, quitting in 2005 with PMH significant for anxiety, CKD, GERD, HTN, CVA, PE, Parkinson's disease, osteoporosis, and asthma. Current therapy consists of Flovent, Singulair and as needed albuterol. Today, patient states that she is not taking Flovent on a daily basis. Daily cough that wakes her in the geographic information scientist hours. Non-productive. No hemoptysis. Frequent wheezing. Exertional dyspnea with minimal effort. She feels it is progressively worse. Reports lower extremity edema. PAST MEDICAL HISTORY Diagnosis Date Acute, but ill-defined, cerebrovascular disease 08/06/2005 TIA; Anemia, unspecified 04/2019 Anxiety state 05/28/2006 ANXIETY STATE NOS 05/28/2006 Arrhythmia Asthma, moderate persistent, well-controlled 12/04/2013 Benign neoplasm of colon CKD (chronic kidney disease) stage 3, GFR 30-59 ml/min ([facility]) 08/14/2016 Closed fracture of right foot 08/05/2015 Closed nondisplaced fracture of pelvis ([facility]) 01/14/2017 Depressive disorder, not elsewhere classified Esophageal [...] Fosamax start 2016. End 2021. Parkinson disease ([facility]) 03/01/2017 Patient diagnosed during hospital admission 03/10/17. Started on Sinemet. Will be managed by Dr. Perez with [facility] neurology. 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 mirabegron (MYRBETRIQ) [...] and updated in EMR. IMMUNIZATIONS Prevnar - 07/06/2015 Pneumovax 23 - 01/19/2016, 01/18/2006 [...] Tierney Iglesias PA-C documented in this encounter [facility] 08-28-2022 Miscellaneous Notes Patient's , Froilan, called in stating that the patient started having dark stools again today and states that he is very concerned. Froilan denies noticing any other symptoms of blood loss at this time. Asking if she would be able to get an earlier appointment with Dr. Kuo or be seen in [place]. Currently scheduled in [place] 10/25/22. Magui Edmondson RN documented in this encounter [facility] 07-31-2022 Note HNO ID: [id number] Author: Gabriel Jules Service: ? Author Type: [...] Objective: Patient presents to clinic ambulating in [facility] Vasc: DP and PT pulses [...] left foot (I73.9) PAD (peripheral artery disease) ([facility]) Plan: Patient was seen and evaluated. Nails 1-5 bilateral were debrided in length and thickness. Patient is to RTC in 3-4 months. Gabriel Jules DPM [facility] 07-31-2022 Note HNO ID: [id number] Author: Gypsy Linares RN Service: ? Author Type: ? Type: Progress Notes Filed: 07/31/2022 8:28 AM Note Text: Patient presents with: Left Foot - Established Patient, Debridement of Nail Right Foot - Established Patient, Debridement of Nail [facility] 07-31-2022 History of Presen t illness Narrative Subjective: Patient presents to clinic c/o painful toenails. They state that the nails are especially painful with shoe gear and pressure. Patient states that nails 1-5 b/l are painful. No other pedal complaints at this time. Patient states no change in medications or medical history since last visit. Objective: [facility] V[facility]: DP and PT pulses are nonpalpable [...] left foot (I73.9) PAD (peripheral artery disease) ([facility]) Plan: Patient was seen and evaluated. Nails 1-5 bilateral were debrided in length and thickness. Patient is to RTC in 3-4 months. Gabriel Jules DPM Patient presents with: Left Foot - Established Patient, Debridement of Nail Right Foot - Established Patient, Debridement of Nail documented in this encounter [facility] 07-27-2022 Miscellaneous Notes Orders signed and faxed [...] name: JULIEN Cm documented in this encounter [facility] 07-24-2022 Note HNO ID: [id number] Author: Aneta Jordan PA-C Service: ? Author Type: Physician Fabric Normalizer Type: Progress Notes Filed: 07/30/2022 12:05 AM Note Text: FOLLOW UP VISIT - ENDOSCOPY NAME: Dominique Jean [facility] NO.: [id number] DATE OF SERVICE: 07/24/2022 : 1940 REFERRING [...] which included preparing to see the patient, [id number] patient care, completing clinical documentation, obtaining and/or reviewing separately obtained history, counseling and educating the patient/family/caregiver, independently interpreting results (not separately reported), and communicating results to the patient/family/caregiver. Aneta Jordan PA-C [facility] 07-24-2022 Instructions Aneta Jordan PA-C - 07/24/2022 2:29 PM EDT The following instructions are important for you related to your office visit today with the [facility] General Surgeons. INSTRUCTIONS FOLLOWING A POLYP [...] you should contact our office immediately @ [phone] and ask to be transferred to the General Surgery department. documented in this encounter [facility] 07-24-2022 History of Presen t illness Narrative FOLLOW UP VISIT - ENDOSCOPY NAME: Dominique Wheeler [facility] NO.: [id number] DATE OF SERVICE: 07/24/2022 : 1940 REFERRING [...] which included preparing to see the patient, [id number] patient care, completing clinical documentation, obtaining and/or reviewing separately obtained history, counseling and educating the patient/family/caregiver, independently interpreting results (not separately reported), and communicating results to the patient/family/caregiver. Aneta Jordan PA-C documented in this encounter [facility] 07-16-2022 Miscellaneous Notes Patient's calling asking about COVID results. notified that patient is negative for Covid. voiced understanding. Isabel Wheeler RN documented in this encounter [facility] 07-15-2022 Note HNO ID: [id number] Author: Sherin Bentley APRN.SIDING APPLICATOR Service: ? Author Type: Nurse Practitioner Type: Progress Notes Filed: 07/15/2022 11:10 AM Note Text: Subjective The history is provided by the patient and the spouse. No american sign language teacher was used. HPI Dominique Wheeler is a 82 year old female who [...] kidney disease) stage 3, GFR 30-59 ml/min ([facility]) 08/14/2016 Closed fracture of right foot 08/05/2015 Closed nondisplaced fracture of pelvis ([facility]) 01/14/2017 Depressive disorder, not elsewhere classified Esophageal [...] Fosamax start 2016. End 2021. Parkinson disease ([facility]) 03/01/2017 Patient diagnosed during hospital admission 03/10/17. Started on Sinemet. Will be managed by Dr. Perez with [facility] neurology. 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 [facility] 07-15-2022 Instructions Sherin Bentley APRN.BOUBACAR - 07/15/2022 [...] inability to swallow. documented in this encounter [facility] 07-15-2022 History of Presen t illness Narrative Subjective The history is provided by the patient and the spouse. No american sign language teacher was used. HPI Dominique Wheeler is a 82 year old female who [...] kidney disease) stage 3, GFR 30-59 ml/min ([facility]) 08/14/2016 Closed fracture of right foot 08/05/2015 Closed nondisplaced fracture of pelvis ([facility]) 01/14/2017 Depressive disorder, not elsewhere classified Esophageal [...] Fosamax start 2016. End 2021. Parkinson disease ([facility]) 03/01/2017 Patient diagnosed during hospital admission 03/10/17. Started on Sinemet. Will be managed by Dr. Perez with [facility] neurology. 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 Nasal drainage - [...] Sherin Bentley APRN.BOUBACAR documented in this encounter [facility] 06-25-2022 Note HNO ID: [id number] Author: Rosita Paredes APRN.CNP Service: ? Author Type: Nurse Practitioner Type: Progress Notes Filed: 06/25/2022 11:36 AM Note Text: CC: Patient presents with: Follow Up HPI Dominique Wheeler is a 82 year old female who [...] kidney disease) stage 3, GFR 30-59 ml/min ([facility]) 08/14/2016 Closed fracture of right foot 08/05/2015 Closed nondisplaced fracture of pelvis ([facility]) 01/14/2017 Depressive disorder, not elsewhere classified Esophageal [...] Fosamax start 2016. End 2021. Parkinson disease ([facility]) 03/01/2017 Patient diagnosed during hospital admission 03/10/17. Started on Sinemet. Will be managed by Dr. Perez with [facility] neurology. 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 mirabegron (MYRBETRIQ) [...] tablet Take 2 (more content not included)... [facility] 06-25-2022 Instructions Rositaalbin Paredes APRN.CNP - 06/25/2022 11:10 AM EDT WHAT YOU [...] review all the medicines you take, even [id number] medicines. As you get older, the way [...] certain medical conditions. documented in this encounter [facility] 06-25-2022 History of Presen t illness Narrative CC: Patient presents with: Follow Up HPI Dominique Wheeler is a 82 year old female who presents today for above. Parkinson disease ([facility]) Recently transferred care to Dr. Guido. Taking [...] kidney disease) stage 3, GFR 30-59 ml/min ([facility]) 08/14/2016 Closed fracture of right foot 08/05/2015 Closed nondisplaced fracture of pelvis ([facility]) 01/14/2017 Depressive disorder, not elsewhere classified Esophageal [...] managed by Dr. Perez with [facility] neurology. 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 mirabegron (MYRBETRIQ) [...] Patient agreeable to treatment plan. Rosita Paredes APRN.CNP documented in this encounter [facility] 06-18-2022 Note HNO ID: [id number] Author: Danilo Guido Jr., MD Service: ? Author Type: Physician Type: Progress Notes Filed: 06/18/2022 5:29 PM Note Text: NEW PATIENT (CONSULT) HISTORY AND PHYSICAL EXAM PRIMARY CARE PHYSICIAN: Corbin Bai MD REASON FOR CONSULT: Parkinson's REFERRING PHYSICIAN: No ref. provider found CHIEF COMPLAINT: Needs to follow somewhere closer to home. HISTORY OF PRESENT ILLNESS: Dominique Wheeler is a 82 year old female, with a PMH significant for PD followed by outside neurologists - attempts made to get those records, but unsuccessful (listed in CareEverywhere). States I have PD, and they have followed me, but I am not having problems now. was seen by [facility] in 2017 at [facility] and told after she fell it was [...] around during the late night. When asked, states dinner is about 5PM. No loss of [...] (FLONASE) 50 mcg/actuation nasal spray Use 1 Lysite in each nostril once daily. benzonatate (TESSALON [...] glass of bel (more content not included)... [facility] 06-18-2022 History of Presen t illness Narrative NEW PATIENT (CONSULT) HISTORY AND PHYSICAL EXAM PRIMARY CARE PHYSICIAN: Corbin Bai MD REASON FOR CONSULT: Parkinson's REFERRING PHYSICIAN: No ref. provider found CHIEF COMPLAINT: Needs to follow somewhere closer to home. HISTORY OF PRESENT ILLNESS: Dominique Wheeler is a 82 year old female, with a PMH significant for PD followed by outside neurologists - attempts made to get those records, but unsuccessful (listed in CareEverywhere). States I have PD, and they have followed me, but I am not having problems now. was seen by [facility] in 2017 at [facility] and told after she fell it was [...] (FLONASE) 50 mcg/actuation nasal spray Use 1 Lysite in each nostril once daily. benzonatate (TESSALON [...] kidney disease) stage 3, GFR 30-59 ml/min ([facility]) 08/14/2016 Closed fracture of right foot 08/05/2015 Closed nondisplaced fracture of pelvis ([facility]) 01/14/2017 Depressive disorder, not elsewhere classified Esophageal [...] Fosamax start 2016. End 2021. Parkinson disease ([facility]) 03/01/2017 Patient diagnosed during hospital admission 03/10/17. Started on Sinemet. Will be managed by Dr. Perez with [facility] neurology. 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 Pt and her agree with plan. Dx, etiology, physiology, treatment and prognosis d/w pt and her in detail. Danilo Guido MD I spent a total of 45+ minutes on the date of the service which included preparing to see the patient, [id number] patient care, completing clinical documentation, obtaining and/or reviewing separately obtained history, performing a medically appropriate examination, counseling and educating the patient/family/caregiver, ordering medications, tests, or procedures, independently interpreting results (not separately reported), and communicating results to the patient/family/caregiver. documented in this encounter [facility] 06-11-2022 Note HNO ID: [id number] Author: Aneta Jordan PA-C Service: ? Author Type: Physician Fabric Normalizer Type: Progress Notes Filed: 06/11/2022 12:07 PM Note Text: HISTORY AND PHYSICAL Dominique Wheeler 1940 REFERRING PHYSICIAN: Rosita Paredes APRN.CNP CHIEF [...] colonoscopy 12/23/[address] Osuna in the [facility] under conscious sedation, with removal of multiple [...] kidney disease) stage 3, GFR 30-59 ml/min ([facility]) 08/14/2016 Closed fracture of right foot 08/05/2015 Closed nondisplaced fracture of pelvis ([facility]) 01/14/2017 Depressive disorder, not elsewhere classified Esophageal [...] Fosamax start 2016. End 2021. Parkinson disease ([facility]) 03/01/2017 Patient diagnosed during hospital admission 03/10/17. Started on Sinemet. Will be managed by Dr. Perez with [facility] neurology. 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 benzonatate (TESSALON [...] twice daily. (Patient (more content not included)... [facility] 06-11-2022 History of Presen t illness Narrative HISTORY AND PHYSICAL Dominique Wheeler 1940 REFERRING PHYSICIAN: Rosita Paredes APRN.SIDING APPLICATOR CHIEF COMPLAINT: Consult (Black tarry stool, positive [...] colonoscopy 12/23/[address] Osuna in the [facility] under conscious sedation, with removal of multiple [...] kidney disease) stage 3, GFR 30-59 ml/min ([facility]) 08/14/2016 Closed fracture of right foot 08/05/2015 Closed nondisplaced fracture of pelvis ([facility]) 01/14/2017 Depressive disorder, not elsewhere classified Esophageal [...] Fosamax start 2016. End 2021. Parkinson disease ([facility]) 03/01/2017 Patient diagnosed during hospital admission 03/10/17. Started on Sinemet. Will be managed by Dr. Perez with [facility] neurology. Paroxysmal SVT (supraventricular tachycardia) ([facility]) 2017 Personal history of colonic polyps Pulmonary [...] (FLONASE) 50 mcg/actuation nasal spray Use 1 Lysite in each nostril once daily. benzonatate (TESSALON [...] entered by the nurse and reviewed by az Nursing Notes: Mirtha Burton LPN 06/11/2022 9:27 [...] patient was offered a surgery/procedure at a [facility] facility. I have counseled the patient regarding [...] Aneta Jordan PA-C documented in this encounter [facility] 06-11-2022 Nurse Note REVIEW OF SYSTEMS: General: [...] Mirtha Burton LPN documented in this encounter [facility] 05-28-2022 Miscellaneous Notes Patient notified. Rose Rothman LPN ----- Message from Corbin Bai MD sent at 05/26/2022 7:54 PM EST ----- Test results are okay. documented in this encounter [facility] 05-17-2022 Note HNO ID: [id number] Author: Corbin Bai MD Service: ? Author Type: Physician Type: Progress Notes Filed: 05/17/2022 10:34 AM Note Text: This note was created using [employer]. Subjective Dominique Wheeler is a 82 year old female. She [...] Vein of Leg Vitamin D Deficiency Neuropathy ([facility]) Asthma, Moderate Persistent, Well-Controlled Essential Hypertension Unsteady Gait Ckd (Chronic Kidney Disease) Stage 3, Gfr 30-59 Ml/Min ([facility]) History of pulmonary embolism, on chronic anticoagulation. Parkinson Disease ([facility]) Pulmonary Hypertension ([facility]) Muscle Weakness Pad (Peripheral Artery Disease) ([facility]) Social History Tobacco Use Smoking [...] (FLONASE) 50 mcg/actuation nasal spray Use 1 Lysite in each nostril once daily. benzonatate (TESSALON [...] No edema. Neurolog (more content not included)... [facility] 04-25-2022 Miscellaneous Notes Spoke w/el Mcgovern scheduled w/Dr. Bai, 04/26/2022 for follow-up, review medications. Patients to bring meds they are taking. Rose Rothman LPN Recommend either in office med review or virtual visit, phone call is also acceptable. Schedule both the patient and the for this. Make sure they have all of their bottles of medications with them Rosita Paredes APRN.CNP Called Pts son and he states that [...] has not been discontinued. Patient son Abebe Wheeler calling he found bottle of generic Remeron [...] changed. Please advise documented in this encounter [facility] 04-23-2022 Miscellaneous Notes Spoke with pt and information listed below given. Pt verbalizes understanding. Apt booked. Farhana Leyva LPN Patient due for follow-up in June Rosita Paredes APRN.BOUBACAR Patient has been identified [...] Yamel Leyva Pss documented in this encounter [facility] 03-28-2022 Note HNO ID: [id number] Author: Terri Francis LPN Service: ? Author Type: ? Type: Progress Notes Filed: 03/28/2022 9:35 AM Note Text: Patient presents for COVID vaccine. Denies any problems at this time. Tolerated injection well. Terri Francis LPN [facility] 03-28-2022 History of Presen t illness Narrative Patient presents for COVID vaccine. Denies any problems at this time. Tolerated injection well. Terri Francis LPN documented in this encounter [facility] 03-23-2022 History of Presen t illness Narrative Subjective: Patient presents to clinic c/o painful toenails. They state that the nails are especially painful with shoe gear and pressure. No other pedal complaints at this time. Patient states no change in medications or medical history since last visit. Objective: Patient presents to clinic ambulating in [facility] Vasc: DP and PT pulses [...] left foot (I73.9) PAD (peripheral artery disease) (HCC) Plan: Patient was seen and evaluated. Nails [...] Debridement of Nail documented in this encounter [facility] 03-23-2022 Miscellaneous Notes Patient phones requesting refills as follows: Requested Prescriptions Pending Prescriptions Disp Refills montelukast (SINGULAIR) 10 mg tablet 30 tablet 5 Sig: Take 1 tablet by mouth daily at bedtime. Please review and advise. Martha Allen LPN documented in this encounter [facility] 03-13-2022 Miscellaneous Notes Attempted to call, vm is full. Amlodipine was discontinued, calling to review with Patient. Rose Rothman LPN Patients is calling in to get a refill of medication that I do not see listed. Alodidine 2.5 mg once daily; would like this to be sent to [facility]. Any questions please contact [phone]. Yamel Leyva Pss documented in this encounter [facility] 03-05-2022 History of Presen t illness Narrative Images from the original note were not included. . [facility] Note Patient name: Dominique Wheeler PCP: Corbin Bai MD CC: Follow-up asthma HPI: Dominique Wheeler 81 year old female former 30 pack [...] kidney disease) stage 3, GFR 30-59 ml/min ([facility]) 08/14/2016 Closed fracture of right foot 08/05/2015 Closed nondisplaced fracture of pelvis ([facility]) 01/14/2017 Depressive disorder, not elsewhere classified Esophageal [...] managed by Dr. Perez with [facility] neurology. 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 benzonatate (TESSALON [...] of COVID -No obvious long-term sequelae Maggie Rodrigez MD [facility] documented in this encounter [facility] 03-05-2022 History of Presen t illness Narrative PULM FUNCTION SMARTBLOCK: Provider: Tierney Iglesias PA-C Assisting Tech: SILVINA Gutierrez Spirometry: 1 documented in this encounter [facility] 02-02-2022 Miscellaneous Notes Pts son notified. Mailed per request. Address confirmed. Patient's son, Barney, phoned in stating mother asked him to call doctor, and let doctor know her handicap placard is expiring soon. Reports she received a notice from [facility]. Asking pcp to renew her handicap placard and phone patient for picking tech. documented in this encounter [facility] 01-03-2022 Miscellaneous Notes PDMP website checked and [...] advise. Tierney Hauser documented in this encounter [facility] 01-01-2022 Miscellaneous Notes ALESIA: 09/21/2021 Last refill: [...] patient. Nancy Cid documented in this encounter [facility] 12-23-2021 Miscellaneous Notes Patient given results and verbalized understanding of instructions given. Eugenie Alva Positive for COVID-negative for flu please notify patient should quarantine for 5 days from start of symptoms and then mask for another 5 days. documented in this encounter [facility] 12-22-2021 Instructions Jenny Cali APRN.BOUBACAR - 12/22/2021 [...] to your local emergency facility: Notify the packing machine operator that you are seeking care [...] be around others. documented in this encounter [facility] 12-22-2021 History of Presen t illness Narrative This note was created using [employer]. Subjective Dominique Wheeler is a 81 year old female. 81 [...] history is provided by the patient. No american sign language teacher was used. Cough This is a new [...] kidney disease) stage 3, GFR 30-59 ml/min ([facility]) 08/14/2016 Closed fracture of right foot 08/05/2015 Closed nondisplaced fracture of pelvis ([facility]) 01/14/2017 Depressive disorder, not elsewhere classified Esophageal [...] managed by Dr. Perez with [facility] neurology. 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 benzonatate (TESSALON [...] No red flags Hemodynamically stable. Jenny Cali APRN.BOUBACAR documented in this encounter [facility] 12-08-2021 History of Presen t illness Narrative Radiology Service Progress Note PATIENT NAME: Dominique Wheeler DATE OF SERVICE: December 08, 2021 TIME: [...] IV DATA: Not applicable SIGNED BY: RT Esha(R) December 08, 2021 1:40 PM documented in this encounter [facility] 11-27-2021 History of Presen t illness Narrative [facility], 11/27/2021: Name: Dominique Wheeler : 1940 The patient is here today with Froilan, spouse, who attends the entire visit, exam and discussion. HPI: Dominique Wheeler is a 81 yo female with pmh [...] Tierney Iglesias PA-C documented in this encounter [facility] 11-16-2021 Miscellaneous Notes Called to check on patient and discuss labs. No answer. Left voicemail documented in this encounter [facility] 11-07-2021 History of Presen t illness Narrative [...] Patient Nail Care documented in this encounter [facility] 11-02-2021 History of Presen t illness Narrative Patient came in with complaints of feeling dizzy all day. Said she feels very off in the head but could not be specific. When I asked her to smile the left side had a slight droop. She was unsure if that was her normal. is taking to the ER. Denies 911. documented in this encounter [facility] 10-18-2021 Miscellaneous Notes Called to discuss labs and x-rays Thinking this is most likely pseudogout vs. PMR variant/RS3PE Trial of prednisone 20 mg with taper over 12 days then call me with an update Rafaela Moscoso DO October 18, 2021 documented in this encounter [facility] 10-17-2021 History of Presen t illness Narrative Radiology Service Progress Note PATIENT NAME: Dominique Wheeler DATE OF SERVICE: October 17, 2021 TIME: [...] 2021 2:14 PM documented in this encounter [facility] 10-17-2021 History of Presen t illness Narrative [...] got her hand stuck in an electric furnace mechanic helper and has chronic deformities of the right [...] and fingers as well, bilaterally. Couldn't even picking tech a coffee cup or hold a fork [...] anywhere else On 09/13 she went to express care. Prescribed prednisone 30 mg to taper [...] kidney disease) stage 3, GFR 30-59 ml/min ([facility]) 08/14/2016 Closed fracture of right foot 08/05/2015 Closed nondisplaced fracture of pelvis ([facility]) 01/14/2017 Depressive disorder, not elsewhere classified Esophageal reflux with hoarseness. 11/10/2011 Laryngoscopy by ENT 2011. 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 Allen Suárez, rheumatology. 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 Started on Sinemet. Will be managed by Dr. Perez with [facility] neurology. 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 benzonatate (TESSALON [...] Units 08/24/2016 Sm Antibody <1.0 AI <0.2 CIGARETTE INSPECTOR Antibody <1.0 AI <0.2 SSA Antibody <1.0 AI <0.2 SSB Antibody <1.0 AI <0.2 Centromere Ab <1.0 AI <0.2 Scleroderma Ab, IgG <1.0 AI <0.2 An 1 Antibody <1.0 AI <0.2 Ribosomal CIGARETTE INSPECTOR <1.0 AI <0.2 Chromatin Antibody <1.0 AI [...] October 17, 2021 documented in this encounter [facility] 10-02-2021 Miscellaneous Notes Patient notified, verbalized understanding. [...] seems to help some. Patient's appointment with tile layer is 10/17/2021. Please review and advise, Isabel Wheeler RN documented in this encounter [facility] 09-21-2021 History of Presen t illness Narrative This note was created using [employer]. Subjective Patient complains of new onset and [...] Vein of Leg Vitamin D Deficiency Neuropathy ([facility]) Asthma, Moderate Persistent, Well-Controlled Essential Hypertension Unsteady Gait Ckd (Chronic Kidney Disease) Stage 3, Gfr 30-59 Ml/Min ([facility]) History of pulmonary embolism, on chronic anticoagulation. Parkinson Disease ([facility]) Pulmonary Hypertension ([facility]) Muscle Weakness Pad (Peripheral Artery Disease) ([facility]) Current Outpatient Medications Medication Sig [...] (FLONASE) 50 mcg/actuation nasal spray Use 1 Lysite in each nostril once daily. benzonatate (TESSALON [...] Improved. Observe off prednisone. Call for pain 07/25, and I'll consider labs. Otherwise keep rheumatology consult. 2. Anxiety state - ICD9: 300.00, ICD10: F41.1 Controlled. - LORAZEPAM 0.5 MG TABLET - BUSPIRONE 5 MG TABLET 3. Depression, unspecified depression type - ICD9: 311, ICD10: F32.A Controlled. 4. Essential hypertension - ICD9: 401.9, ICD10: I10 - fair control Corbin Bai MD documented in this encounter [facility] 09-13-2021 History of Presen t illness Narrative [...] kidney disease) stage 3, GFR 30-59 ml/min ([facility]) 08/14/2016 Closed fracture of right foot 08/05/2015 [...] managed by Dr. Perez with [facility] neurology. 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 benzonatate (TESSALON [...] kidney disease) stage 3, GFR 30-59 ml/min ([facility]) 08/14/2016 Closed fracture of right foot 08/05/2015 Closed nondisplaced fracture of pelvis ([facility]) 01/14/2017 Depressive disorder, not elsewhere classified Esophageal [...] managed by Dr. Perez with [facility] neurology. 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 benzonatate (TESSALON [...] of care. This note was generated using [employer] software. It may contain errors in wording, punctuation, or spelling. Robert Osullivan APRN.BOUBACAR documented in this encounter [facility] 09-05-2021 Miscellaneous Notes Patient phones requesting refills as follows: Pending Prescriptions Disp Refills MONTELUKAST 10 MG TABLET 30 tablet 5 Sig: Take 1 tablet by mouth daily at bedtime. JB: No Please review and advise. Yola Arzate RN documented in this encounter [facility] 08-03-2021 Miscellaneous Notes Patient has been identified [...] pharmacy. No need to notify patient. Melinda [employer]pp [employer] documented in this encounter [facility] 07-21-2021 History of Presen t illness Narrative [...] Objective: Patient presents to clinic ambulating in [facility] Vasc: DP pulses nonpalpable b/l. [...] left foot (I73.9) PAD (peripheral artery disease) ([facility]) neuropathy Plan: Patient was seen and evaluated. Nails 1-5 bilateral were debrided in length and thickness. Will call in topical cream for neuropathy. Discussed neurontin. She declined. Patient is to RTC in 3-4 months. Gabriel Jules DPM Pt presents for Nail Care. No complaints. documented in this encounter [facility] 07-11-2021 Miscellaneous Notes Patient has been identified [...] Manda Rogers Pss documented in this encounter [facility] 06-26-2021 Miscellaneous Notes PDMP website checked and validated. All prescriptions have been APPROPRIATELY filled. No suspicious activity was identified. 06/26/2021 by Rosita Paredes APRN.BOUBACAR Last seen pcp 05/12/21. Patient has been [...] patient. Nancy Cid documented in this encounter [facility] 06-06-2021 Note HNO ID: [id number] Author: ROWENA Carreon Service: Radiology Author Type: Psychometric Examiner Type: Progress Notes Filed: 06/06/2021 8:43 AM [...] Abdomen/Pelvis SIGNATURE: ROWENA Carreon PATIENT NAME: Dominique Wheeler DATE: June 06, 2021 TIME: 8:41 AM [facility] documented as of this encounter (statuses as of 06/26/2021) [facility] History of Past illness Narrative* Problem Noted [...] of this encounter (statuses as of 07/11/2021) [facility] History of Past illness Narrative* Problem Noted [...] of this encounter (statuses as of 07/21/2021) [facility] History of Past illness Narrative* Problem Noted [...] of this encounter (statuses as of 08/04/2021) [facility] History of Past illness Narrative* Problem Noted [...] of this encounter (statuses as of 09/11/2021) [facility] History of Past illness Narrative* Problem Noted [...] of this encounter (statuses as of 09/13/2021) [facility] History of Past illness Narrative* Problem Noted [...] of this encounter (statuses as of 09/21/2021) [facility] History of Past illness Narrative* Problem Noted [...] of this encounter (statuses as of 10/02/2021) [facility] History of Past illness Narrative* Problem Noted [...] of this encounter (statuses as of 10/17/2021) [facility] History of Past illness Narrative* Problem Noted [...] of this encounter (statuses as of 10/18/2021) [facility] History of Past illness Narrative* Problem Noted [...] of this encounter (statuses as of 10/18/2021) [facility] History of Past illness Narrative* Problem Noted [...] of this encounter (statuses as of 11/02/2021) [facility] of Past illness Narrative* Problem Noted [...] of this encounter (statuses as of 11/07/2021) [facility] of Past illness Narrative* Problem Noted [...] of this encounter (statuses as of 11/16/2021) [facility] of Past illness Narrative* Problem Noted [...] of this encounter (statuses as of 11/27/2021) [facility] of Past illness Narrative* Problem Noted [...] of this encounter (statuses as of 12/09/2021) [facility] History of Past illness Narrative* Problem Noted [...] of this encounter (statuses as of 12/22/2021) [facility] of Past illness Narrative* Problem Noted [...] of this encounter (statuses as of 12/23/2021) [facility] of Past illness Narrative* Problem Noted [...] of this encounter (statuses as of 01/02/2022) [facility] of Past illness Narrative* Problem Noted [...] of this encounter (statuses as of 01/03/2022) [facility] of Past illness Narrative* Problem Noted [...] of this encounter (statuses as of 02/02/2022) [facility] Past [facility] Narrative* Problem Noted [...] of this encounter (statuses as of 02/09/2022) [facility] of Past illness Narrative* Problem Noted [...] of this encounter (statuses as of 03/05/2022) [facility] of Past illness Narrative* Problem Noted [...] of this encounter (statuses as of 03/05/2022) [facility] of Past illness Narrative* Problem Noted [...] of this encounter (statuses as of 03/20/2022) [facility] of Past illness Narrative* Problem Noted [...] of this encounter (statuses as of 03/24/2022) [facility] of Past illness Narrative* Problem Noted [...] of this encounter (statuses as of 03/25/2022) [facility] of Past [facility] Narrative* Problem Noted [...] of this encounter (statuses as of 03/28/2022) [facility] Past [facility] Narrative* Problem Noted [...] 12/04/09 Bilateral total knee arthroplasty - Dr. 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 documented as of this encounter (statuses as of 04/24/2022) [facility] of Past illness Narrative* Problem Noted [...] of this encounter (statuses as of 04/25/2022) [facility] of Past illness Narrative* Problem Noted [...] of this encounter (statuses as of 05/28/2022) [facility] of Past illness Narrative* Problem Noted [...] of this encounter (statuses as of 06/11/2022) [facility] Past [facility] Narrative* Problem Noted [...] of this encounter (statuses as of 06/19/2022) [facility] Past [facility] Narrative* Problem Noted [...] of this encounter (statuses as of 06/25/2022) [facility] of Past illness Narrative* Problem Noted [...] of this encounter (statuses as of 07/15/2022) [facility] Past [facility] Narrative* Problem Noted [...] of this encounter (statuses as of 07/16/2022) [facility] of Past illness Narrative* Problem Noted [...] of this encounter (statuses as of 07/27/2022) [facility] Past [facility] Narrative* Problem Noted [...] of this encounter (statuses as of 07/30/2022) [facility] Past [facility] Narrative* Problem Noted [...] of this encounter (statuses as of 07/31/2022) [facility] Past [facility] Narrative* Problem Noted [...] of this encounter (statuses as of 08/29/2022) [facility] Past [facility] Narrative* Problem Noted [...] of this encounter (statuses as of 09/03/2022) [facility] Past [facility] Narrative* Problem Noted [...] of this encounter (statuses as of 09/20/2022) [facility] Past [facility] Narrative* Problem Noted [...] of this encounter (statuses as of 10/31/2022) [facility] Past [facility] Narrative* Problem Noted [...] of this encounter (statuses as of 11/05/2022) [facility] Narrative* Problem Noted [...] of this encounter (statuses as of 11/12/2022) [facility] Narrative* Problem Noted [...] of this encounter (statuses as of 11/17/2022) [facility] Narrative* Problem Noted [...] of this encounter (statuses as of 12/10/2022) [facility] Narrative* Problem Noted [...] of this encounter (statuses as of 12/11/2022) [facility] Narrative* Problem Noted [...] of this encounter (statuses as of 12/22/2022) [facility] Narrative* Problem Noted [...] of this encounter (statuses as of 01/03/2023) [facility] Narrative* Problem Noted [...] of this encounter (statuses as of 01/09/2023) [facility] Narrative* Problem Noted [...] of this encounter (statuses as of 01/16/2023) [facility] Narrative* Problem Noted [...] of this encounter (statuses as of 01/30/2023) [facility] Diagnosis Anxiety state Anxiety state, unspecified [facility] Diagnosis History of pulmonary embolism, on chronic anticoagulation. Personal history of pulmonary embolism [facility] Diagnosis Onychomycosis- Primary Dermatophytosis of nail Pain in toe of right foot Pain in limb Pain in toe of left foot Pain in limb PAD (peripheral artery disease) ([facility]) Peripheral vascular disease, unspecified [facility] Depression, unspecified depression type [facility] Moderate persistent asthma, unspecified whether complicated [facility] Diagnosis Arthralgia, unspecified joint- Primary Osteoarthritis of multiple joints, unspecified osteoarthritis type Osteoporosis, unspecified osteoporosis type, unspecified pathological fracture presence [facility] Diagnosis Polyarthralgia- Primary Pain in joint, multiple sites Anxiety state Anxiety state, unspecified Depression, unspecified depression type Essential hypertension Unspecified essential hypertension documented [facility] Bilateral wrist pain- Primary Pain in joint, forearm Pain in finger joint on movement Swelling of both wrists Pseudogout Other disorder of calcium metabolism Abnormal results of thyroid function studies Nonspecific abnormal results of thyroid function study History of osteoporosis Personal history of other musculoskeletal disorders [facility] Diagnosis Bilateral wrist pain Pain in joint, forearm Pain in finger joint on movement [facility] Diagnosis Pseudogout- Primary Other disorder of calcium metabolism [facility] Diagnosis Facial droop- Primary Facial weakness [facility] Diagnosis Onychomycosis- Primary Dermatophytosis of nail Pain in toe of right foot Pain in limb Pain in toe of left foot Pain in limb [facility] Diagnosis Moderate persistent asthma, unspecified whether complicated- Primary History of tobacco use Personal history of tobacco use, presenting hazards to health [facility] Diagnosis Acquired complex renal cyst [facility] Diagnosis Exposure to COVID-19 virus- Primary Other cough [facility] Diagnosis Osteoporosis, unspecified osteoporosis type, unspecified pathological fracture presence [facility] Diagnosis Anxiety state Anxiety state, unspecified [facility] Diagnosis Moderate persistent asthma, unspecified whether complicated [facility] Diagnosis Moderate persistent asthma, unspecified whether complicated [facility] Diagnosis Mild intermittent asthma without complication- Primary Unspecified asthma History of COVID-19 documented [facility] Diagnosis Moderate persistent asthma, unspecified whether complicated [facility] Diagnosis Onychomycosis- Primary Dermatophytosis of nail Pain in toe of right foot Pain in limb Pain in toe of left foot Pain in limb PAD (peripheral artery disease) (HCC) Peripheral vascular disease, unspecified [facility] Diagnosis Need for vaccination- Primary Need for prophylactic vaccination and inoculation against unspecified single disease [facility] Diagnosis On continuous oral anticoagulation- Primary Long-term (current) use of anticoagulants Black tarry stools Blood in stool Occult blood positive stool Nonspecific abnormal finding in stool contents History of colonic polyps Personal history of colonic polyps documented [facility] Diagnosis Parkinson disease (HCC)- Primary Paralysis agitans Abnormality of gait [facility] Diagnosis Essential hypertension- Primary Unspecified essential hypertension Asthma, moderate persistent, well-controlled Unspecified asthma Depression, unspecified depression type Parkinson disease (HCC) Paralysis agitans Unsteady gait Abnormality of gait Stage 3a chronic kidney disease (HCC) Pulmonary hypertension (HCC) Other chronic pulmonary heart diseases [facility] Diagnosis Headache, unspecified headache type- Primary Nasal drainage Other diseases of nasal cavity and sinuses [facility] Diagnosis Tubular adenoma- Primary Benign neoplasm of unspecified site Diverticulosis Diverticulosis of colon (without mention of hemorrhage) documented [facility] Diagnosis Onychomycosis- Primary Dermatophytosis of nail Pain in toe of right foot Pain in limb Pain in toe of left foot Pain in limb PAD (peripheral artery disease) (HCC) Peripheral vascular disease, unspecified Severe malnutrition (HCC) Nutritional marasmus documented [facility] Diagnosis Mild intermittent asthma without complication- Primary Unspecified asthma Dyspnea and respiratory abnormalities Other dyspnea and respiratory abnormality Pulmonary hypertension (HCC) Other chronic pulmonary heart diseases History of tobacco use Personal history of tobacco use, presenting hazards to health History of COVID-19 [facility] Diagnosis Moderate persistent asthma, unspecified whether complicated [facility] Diagnosis Moderate persistent asthma, unspecified whether complicated [facility] Diagnosis Osteoporosis, unspecified osteoporosis type, unspecified pathological fracture presence Anxiety state Anxiety state, unspecified [facility] Diagnosis Onychomycosis- Primary Dermatophytosis of nail Pain in toe of right foot Pain in limb Pain in toe of left foot Pain in limb PAD (peripheral artery disease) (HCC) Peripheral vascular disease, unspecified [facility] Diagnosis Anxiety state Anxiety state, unspecified [facility] Diagnosis Mild persistent asthma, unspecified whether complicated- Primary History of COVID-19 [facility] Diagnosis History of pulmonary embolism, on chronic anticoagulation. Personal history of pulmonary embolism [facility] Diagnosis Medicare annual wellness visit, subsequent- Primary Routine general medical examination at a health care facility Asthma, moderate persistent, well-controlled Unspecified asthma Mixed stress and urge urinary incontinence Mixed incontinence urge and stress (male)(female) Edema of both legs Edema Essential hypertension Unspecified essential hypertension Depression, unspecified depression type [facility] Diagnosis Edema of both legs- Primary Edema documented in this encounter [facility] for referral (narrative)* Diagnostic Procedure Only (Routine) - Closed Specialty Diagnoses / Procedures Referred By Contac t Referred To Contact XR IMAGING Diagnoses Bilateral wrist pain Procedures XR WRIST GENERAL 3V PA/LAT/OBL BILATERAL RADEX WRIST COMPLETE MINIMUM 3 VIEWS Rafaela Moscoso DO [address] [place] [address] Xr Imaging Referral ID Status Reason Start Date Expiration Date V isits Requested Visits Authorized [id number] Closed Auto-Generate d Referral 10/17/2021 11/16/2022 1 1 * Diagnostic Procedure Only (Routine) - Closed Specialty Diagnoses / Procedures Referred By Contac t Referred To Contact XR IMAGING Diagnoses Pain in finger joint on movement Procedures XR HAND GENERAL 3V PA/LAT/OBL BILATERAL RADEX HAND MINIMUM 3 VIEWS Rafaela Moscoso DO [address] [place] [address] Xr Imaging Referral ID Status Reason Start Date Expiration Date V isits Requested Visits Authorized [id number] Closed Auto-Generate d Referral 10/17/2021 11/16/2022 1 1 [facility] for referral (narrative)* Diagnostic Procedure Only (Routine) - Closed Specialty Diagnoses / Procedures Referred By Contac t Referred To Contact XR IMAGING Diagnoses Pain in finger joint on movement Procedures XR HAND GENERAL 3V PA/LAT/OBL BILATERAL RADEX HAND MINIMUM 3 VIEWS Rafaela Moscoso DO [address] [place] [address] Xr Imaging Referral ID Status Reason Start Date Expiration Date V isits Requested Visits Authorized [id number] Closed Auto-Generate d Referral 10/17/2021 11/16/2022 1 1 * Diagnostic Procedure Only (Routine) - Closed Specialty Diagnoses / Procedures [facility] Referred To Contact XR IMAGING Diagnoses Bilateral wrist pain Procedures XR WRIST GENERAL 3V PA/LAT/OBL BILATERAL RADEX WRIST COMPLETE MINIMUM 3 VIEWS Rafaela Moscoso DO [address] [place] [address] Xr Imaging Referral ID Status Reason Start Date Expiration Date V isits Requested Visits Authorized [id number] Closed Auto-Generate d Referral 10/17/2021 11/16/2022 1 1 [facility] for referral (narrative)* Outpatient Procedure (Routine) - Authorized Specialty Diagnoses / Procedures [facility] To [facility] Diagnoses Moderate persistent asthma, unspecified whether complicated Procedures SPIROMETRY BASELINE ONLY SPMTRY W/VC EXPIRATORY SARAH W/WO MXML VOL VNTJ Tierney Iglesias PA-C [address] [place] [address] [facility] [address] [place] [id number] Referral ID Status Reason Start Date Expiration Date Visits Requested Visits Authorized [id number] Authorized Auto-Generat ed Referral 11/27/2021 12/27/2022 1 1 [facility] for referral (narrative)* Diagnostic Procedure Only (Routine) - Closed Specialty Diagnoses / Procedures Referred By [facility] Referred To Contact US IMAGING Diagnoses Acquired complex renal cyst Procedures US KIDNEY/BLADDER US RETROPERITONEAL REAL TIME W/IMAGE COMPLETE Jodie Miller, CNC LASER OPERATOR.SIDING APPLICATOR [address] [place] [address] Us Imaging Referral ID Status Reason Start Date Expiration Date V isits Requested Visits Authorized [id number] Closed Auto-Generate d Referral 12/08/2021 07/07/2022 1 1 [facility] for referral (narrative)* Outpatient Procedure (Routine) - Authorized Specialty Diagnoses / Procedures Referred By Vanessaac t Referred To Contact [facility] Diagnoses Dyspnea and respiratory abnormalities Pulmonary hypertension (HCC) Procedures ECHO ECHO TTHRC R-T 2D W/WOM-MODE COMPL SPEC&COLR Tierney Loja PA-C [address] [place] [address] [facility] [address] [place] [address] Referral ID Status Reason Start Date Expiration Date Visits Requested Visits Authorized [id number] Authorized Auto-Generat ed Referral 09/03/2022 09/03/2023 1 1 [facility] Summary Purpose Family History No Family History Records FoundNo Family History Records Found Advance Directives No Advanced Directives Records FoundDocuments on File Type Date Recorded 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 Referred To Contact Rheumatology Diagnoses Arthralgia, unspecified joint Osteoarthritis of multiple joints, unspecified osteoarthritis type Osteoporosis, unspecified osteoporosis type, unspecified pathological fracture presence Procedures CONSULT TO RHEUM/IMMUN DISEASE OFFICE/OUTPATIENT NEW HIGH MDM 60-74 MINUTES Robert Osullivan APRN.SIDING APPLICATOR [address] [place] [address] Referral ID Status Reason Start Date Expiration Date Visits Requested Visits Authorized [id number] Authorized PCP Requested Referral 09/13/2021 09/13/2022 1 1 Specialty Diagnoses / Procedures [facility]erred To [facility] Diagnoses Parkinson disease (HCC) Abnormality of gait Procedures CONSULT TO ELEMENTARY PRINCIPAL OCCUPATIONAL THERAPY EVAL HIGH COMPLEX 60 MINS Danilo Guido Jr., MD [address] [place] [address] [address] Referral ID Status Reason Start Date Expiration Date Visits Requested Visits Authorized [id number] Authorized PCP Requested Referral Auto-Generate d Referral 06/18/2022 06/18/2023 99 99 Specialty Diagnoses / Procedures Referred By Contac t Referred To Contact [facility] Diagnoses Parkinson disease (HCC) Abnormality of gait Procedures CONSULT TO PHYSICAL THERAPY PHYSICAL THERAPY EVALUATION HIGH COMPLEX 45 MINS Danilo Guido Jr., MD [address] [place] [address] [address] Referral ID Status Reason Start Date Expiration Date Visits Requested Visits Authorized [id number] Authorized PCP Requested Referral Auto-Generate d Referral 06/18/2022 06/18/2023 99 99 Health Concerns Infection Onset Date Last Indicated Resolved Time COVID-19 Rule-Out 12/22/2021 12/22/2021 Infection Onset Date Last Indicated Resolved Time COVID-19 Confirmed 12/22/2021 12/22/2021 Infection Onset Date Last Indicated Resolved Time COVID-19 Rule-Out 07/15/2022 07/15/2022 Additional Source Comments INFORMATION SOURCE (unrecogn ized section and content) DATE CREATED AUTHOR AUTHOR'S ORGANIZ ATION 03/27/2023 [facility] Source Comments (unrecognize d section and content) In the event this informatio n is protected by the Federal Confidentiality of Alcohol and Drug Abuse Patient Records regulations: The Federal rules restrict any use of the information to criminally investigate or prosecute any alcohol or drug abuse patient.[facility] the event this information is protected by the Federal Confidentiality of Alcohol and Drug Abuse Patient Records regulations: The Federal rules restrict any use of the information to criminally investigate or prosecute any alcohol or drug abuse patient.[facility] the event this information is protected by the Federal Confidentiality of Alcohol and Drug Abuse Patient Records regulations: The Federal rules restrict any use of the information to criminally investigate or prosecute any alcohol or drug abuse patient.[facility] the event this information is protected by the Federal Confidentiality of Alcohol and Drug Abuse Patient Records regulations: The Federal rules restrict any use of the information to criminally investigate or prosecute any alcohol or drug abuse patient.[facility] the event this information is protected by the Federal Confidentiality of Alcohol and Drug Abuse Patient Records regulations: The Federal rules restrict any use of the information to criminally investigate or prosecute any alcohol or drug abuse patient.[facility] the event this information is protected by the Federal Confidentiality of Alcohol and Drug Abuse Patient Records regulations: The Federal rules restrict any use of the information to criminally investigate or prosecute any alcohol or drug abuse patient.[facility] the event this information is protected by the Federal Confidentiality of Alcohol and Drug Abuse Patient Records regulations: The Federal rules restrict any use of the information to criminally investigate or prosecute any alcohol or drug abuse patient.[facility] the event this information is protected by the Federal Confidentiality of Alcohol and Drug Abuse Patient Records regulations: The Federal rules restrict any use of the information to criminally investigate or prosecute any alcohol or drug abuse patient.[facility] the event this information is protected by the Federal Confidentiality of Alcohol and Drug Abuse Patient Records regulations: The Federal rules restrict any use of the information to criminally investigate or prosecute any alcohol or drug abuse patient.[facility] the event this information is protected by the Federal Confidentiality of Alcohol and Drug Abuse Patient Records regulations: The Federal rules restrict any use of the information to criminally investigate or prosecute any alcohol or drug abuse patient.[facility] the event this information is protected by the Federal Confidentiality of Alcohol and Drug Abuse Patient Records regulations: The Federal rules restrict any use of the information to criminally investigate or prosecute any alcohol or drug abuse patient.[facility] the event this information is protected by the Federal Confidentiality of Alcohol and Drug Abuse Patient Records regulations: The Federal rules restrict any use of the information to criminally investigate or prosecute any alcohol or drug abuse patient.[facility] the event this information is protected by the Federal Confidentiality of Alcohol and Drug Abuse Patient Records regulations: The Federal rules restrict any use of the information to criminally investigate or prosecute any alcohol or drug abuse patient.[facility] the event this information is protected by the Federal Confidentiality of Alcohol and Drug Abuse Patient Records regulations: The Federal rules restrict any use of the information to criminally investigate or prosecute any alcohol or drug abuse patient.[facility] the event this information is protected by the Federal Confidentiality of Alcohol and Drug Abuse Patient Records regulations: The Federal rules restrict any use of the information to criminally investigate or prosecute any alcohol or drug abuse patient.[facility] the event this information is protected by the Federal Confidentiality of Alcohol and Drug Abuse Patient Records regulations: The Federal rules restrict any use of the information to criminally investigate or prosecute any alcohol or drug abuse patient.[facility] the event this information is protected by the Federal Confidentiality of Alcohol and Drug Abuse Patient Records regulations: The Federal rules restrict any use of the information to criminally investigate or prosecute any alcohol or drug abuse patient.[facility] the event this information is protected by the Federal Confidentiality of Alcohol and Drug Abuse Patient Records regulations: The Federal rules restrict any use of the information to criminally investigate or prosecute any alcohol or drug abuse patient.[facility] the event this information is protected by the Federal Confidentiality of Alcohol and Drug Abuse Patient Records regulations: The Federal rules restrict any use of the information to criminally investigate or prosecute any alcohol or drug abuse patient.[facility] the event this information is protected by the Federal Confidentiality of Alcohol and Drug Abuse Patient Records regulations: The Federal rules restrict any use of the information to criminally investigate or prosecute any alcohol or drug abuse patient.[facility] the event this information is protected by the Federal Confidentiality of Alcohol and Drug Abuse Patient Records regulations: The Federal rules restrict any use of the information to criminally investigate or prosecute any alcohol or drug abuse patient.[facility] the event this information is protected by the Federal Confidentiality of Alcohol and Drug Abuse Patient Records regulations: The Federal rules restrict any use of the information to criminally investigate or prosecute any alcohol or drug abuse patient.[facility] the event this information is protected by the Federal Confidentiality of Alcohol and Drug Abuse Patient Records regulations: The Federal rules restrict any use of the information to criminally investigate or prosecute any alcohol or drug abuse patient.[facility] the event this information is protected by the Federal Confidentiality of Alcohol and Drug Abuse Patient Records regulations: The Federal rules restrict any use of the information to criminally investigate or prosecute any alcohol or drug abuse patient.[facility] the event this information is protected by the Federal Confidentiality of Alcohol and Drug Abuse Patient Records regulations: The Federal rules restrict any use of the information to criminally investigate or prosecute any alcohol or drug abuse patient.[facility] the event this information is protected by the Federal Confidentiality of Alcohol and Drug Abuse Patient Records regulations: The Federal rules restrict any use of the information to criminally investigate or prosecute any alcohol or drug abuse patient.[facility] the event this information is protected by the Federal Confidentiality of Alcohol and Drug Abuse Patient Records regulations: The Federal rules restrict any use of the information to criminally investigate or prosecute any alcohol or drug abuse patient.[facility] the event this information is protected by the Federal Confidentiality of Alcohol and Drug Abuse Patient Records regulations: The Federal rules restrict any use of the information to criminally investigate or prosecute any alcohol or drug abuse patient.[facility] the event this information is protected by the Federal Confidentiality of Alcohol and Drug Abuse Patient Records regulations: The Federal rules restrict any use of the information to criminally investigate or prosecute any alcohol or drug abuse patient.[facility] the event this information is protected by the Federal Confidentiality of Alcohol and Drug Abuse Patient Records regulations: The Federal rules restrict any use of the information to criminally investigate or prosecute any alcohol or drug abuse patient.[facility] the event this information is protected by the Federal Confidentiality of Alcohol and Drug Abuse Patient Records regulations: The Federal rules restrict any use of the information to criminally investigate or prosecute any alcohol or drug abuse patient.[facility] the event this information is protected by the Federal Confidentiality of Alcohol and Drug Abuse Patient Records regulations: The Federal rules restrict any use of the information to criminally investigate or prosecute any alcohol or drug abuse patient.[facility] the event this information is protected by the Federal Confidentiality of Alcohol and Drug Abuse Patient Records regulations: The Federal rules restrict any use of the information to criminally investigate or prosecute any alcohol or drug abuse patient.[facility] the event this information is protected by the Federal Confidentiality of Alcohol and Drug Abuse Patient Records regulations: The Federal rules restrict any use of the information to criminally investigate or prosecute any alcohol or drug abuse patient.[facility]on[facility] the event this information is protected by the Federal Confidentiality of Alcohol and Drug Abuse Patient Records regulations: The Federal rules restrict any use of the information to criminally investigate or prosecute any alcohol or drug abuse patient.[facility]onIn the event this information is protected by the Federal Confidentiality of Alcohol and Drug Abuse Patient Records regulations: The Federal rules restrict any use of the information to criminally investigate or prosecute any alcohol or drug abuse patient.[facility]onIn the event this information is protected by the Federal Confidentiality of Alcohol and Drug Abuse Patient Records regulations: The Federal rules restrict any use of the information to criminally investigate or prosecute any alcohol or drug abuse patient.[facility]onIn the event this information is protected by the Federal Confidentiality of Alcohol and Drug Abuse Patient Records regulations: The Federal rules restrict any use of the information to criminally investigate or prosecute any alcohol or drug abuse patient.[facility]onIn the event this information is protected by the Federal Confidentiality of Alcohol and Drug Abuse Patient Records regulations: The Federal rules restrict any use of the information to criminally investigate or prosecute any alcohol or drug abuse patient.[facility]onIn the event this information is protected by the Federal Confidentiality of Alcohol and Drug Abuse Patient Records regulations: The Federal rules restrict any use of the information to criminally investigate or prosecute any alcohol or drug abuse patient.[facility]onIn the event this information is protected by the Federal Confidentiality of Alcohol and Drug Abuse Patient Records regulations: The Federal rules restrict any use of the information to criminally investigate or prosecute any alcohol or drug abuse patient.[facility]onIn the event this information is protected by the Federal Confidentiality of Alcohol and Drug Abuse Patient Records regulations: The Federal rules restrict any use of the information to criminally investigate or prosecute any alcohol or drug abuse patient.[facility]onIn the event this information is protected by the Federal Confidentiality of Alcohol and Drug Abuse Patient Records regulations: The Federal rules restrict any use of the information to criminally investigate or prosecute any alcohol or drug abuse patient.[facility]onIn the event this information is protected by the Federal Confidentiality of Alcohol and Drug Abuse Patient Records regulations: The Federal rules restrict any use of the information to criminally investigate or prosecute any alcohol or drug abuse patient.[facility]onIn the event this information is protected by the Federal Confidentiality of Alcohol and Drug Abuse Patient Records regulations: The Federal rules restrict any use of the information to criminally investigate or prosecute any alcohol or drug abuse patient.[facility]onIn the event this information is protected by the Federal Confidentiality of Alcohol and Drug Abuse Patient Records regulations: The Federal rules restrict any use of the information to criminally investigate or prosecute any alcohol or drug abuse patient.[facility]onIn the event this information is protected by the Federal Confidentiality of Alcohol and Drug Abuse Patient Records regulations: The Federal rules restrict any use of the information to criminally investigate or prosecute any alcohol or drug abuse patient.[facility]onIn the event this information is protected by the Federal Confidentiality of Alcohol and Drug Abuse Patient Records regulations: The Federal rules restrict any use of the information to criminally investigate or prosecute any alcohol or drug abuse patient.[facility]onIn the event this information is protected by the Federal Confidentiality of Alcohol and Drug Abuse Patient Records regulations: The Federal rules restrict any use of the information to criminally investigate or prosecute any alcohol or drug abuse patient.[facility]onIn the event this information is protected by the Federal Confidentiality of Alcohol and Drug Abuse Patient Records regulations: The Federal rules restrict any use of the information to criminally investigate or prosecute any alcohol or drug abuse patient.[facility]onIn the event this information is protected by the Federal Confidentiality of Alcohol and Drug Abuse Patient Records regulations: The Federal rules restrict any use of the information to criminally investigate or prosecute any alcohol or drug abuse patient.[facility]onIn the event this information is protected by the Federal Confidentiality of Alcohol and Drug Abuse Patient Records regulations: The Federal rules restrict any use of the information to criminally investigate or prosecute any alcohol or drug abuse patient.[facility]onIn the event this information is protected by the Federal Confidentiality of Alcohol and Drug Abuse Patient Records regulations: The Federal rules restrict any use of the information to criminally investigate or prosecute any alcohol or drug abuse patient.[facility] Reason for Visit (unrecogniz ed section and [...] COMPLETE MINIMUM 3 VIEWS Rafaela Moscoso DO [address] [place] [address] Xr Imaging Referral ID Status Reason Start Date Expiration Date V isits Requested Visits Authorized [id number] Closed Auto-Generate d Referral 10/17/2021 11/16/2022 1 1 Reason Comments Established Patient Nail Care Reason Comments Results Reason Comments Established Patient 6 month follow up Reason Comments Radiology US Specialty Diagnoses / Procedures Referred By Contac t Referred To Contact US IMAGING Diagnoses Acquired complex renal cyst Procedures US KIDNEY/BLADDER US RETROPERITONEAL REAL TIME W/IMAGE COMPLETE Jodie Miller APRN.SIDING APPLICATOR [address] [place] [address] Us Imaging Referral ID Status Reason Start Date Expiration Date V isits Requested Visits Authorized [id number] Closed Auto-Generate d Referral 12/08/2021 07/07/2022 1 [...] SARAH W/WO MXML VOL VNTJ Tierney Iglesias, DEAN [address] [place] [address] Respiratory [place] [address] [place] [address] Referral ID Status Reason Start Date Expiration Date V isits Requested Visits Authorized [id number] Closed Auto-Generate d Referral 11/27/2021 12/27/2022 1 [...] NEW HIGH MDM 60-74 MINUTES Older, CHER Becker.SIDING APPLICATOR [address] [place] [address] Referral ID Status Reason Start Date Expiration Date V isits Requested Visits Authorized [id number] Closed PCP Requested Referral 05/29/2022 05/29/2023 1 [...] Care Teams (unrecognized sec tion and content) Band Lining Bander Relationship Specialty Start Date End Date Corbin Bai MD [address] [facility] [place] [address] PCP - General Internal Medicine 05/03/10 Band Lining Bander Relationship Specialty Start Date End Date Corbin Bai MD [address] [facility] [place] [address] PCP - General Internal Medicine 05/03/10 Band Lining Bander Relationship Specialty Start Date End Date Corbin Bai MD [address] [facility] [place] [address] PCP - General Internal Medicine 05/03/10 Band Lining Bander Relationship Specialty Start Date End Date Corbin Bai MD [address] [facility] [place] [address] PCP - General Internal Medicine 05/03/10 Band Lining Bander Relationship Specialty Start Date End Date Corbin Bai MD [address] [facility] [place] [address] PCP - General Internal Medicine 05/03/10 Band Lining Bander Relationship Specialty Start Date End Date Corbin Bai MD [address] [facility] [place] [address] PCP - General Internal Medicine 05/03/10 Band Lining Bander Relationship Specialty Start Date End Date Corbin Bai MD [address] [facility] [place] [address] PCP - General Internal Medicine 05/03/10 Band Lining Bander Relationship Specialty Start Date End Date Corbin Bai MD [address] [facility] [place] [address] PCP - General Internal Medicine 05/03/10 Band Lining Bander Relationship Specialty Start Date End Date Corbin Bai MD [address] [facility] [place] [address] PCP - General Internal Medicine 05/03/10 Band Lining Bander Relationship Specialty Start Date End Date Corbin Bai MD [facility] [place] [address] PCP - General Internal Medicine 05/03/10 Band Lining Bander Relationship Specialty Start Date End Date Corbin Bai MD [facility] [place] [address] PCP - General Internal Medicine 05/03/10 Band Lining Bander Relationship Specialty Start Date End Date Corbin Bai MD [facility] [place] [address] PCP - General Internal Medicine 05/03/10 Band Lining Bander Relationship Specialty Start Date End Date Corbin Bai MD [facility] [place] [address] PCP - General Internal Medicine 05/03/10 Band Lining Bander Relationship Specialty Start Date End Date Corbin Bai MD [facility] [place] [address] PCP - General Internal Medicine 05/03/10 Band Lining Bander Relationship Specialty Start Date End Date Corbin Bai MD [facility] [place] [address] PCP - General Internal Medicine 05/03/10 Band Lining Bander Relationship Specialty Start Date End Date Corbin Bai MD [address] [facility] [place] [address] PCP - General Internal Medicine 05/03/10 Band Lining Bander Relationship Specialty Start Date End Date Corbin Bai MD [address] [facility] [place] [address] PCP - General Internal Medicine 05/03/10 Band Lining Bander Relationship Specialty Start Date End Date Corbin Bai MD [address] [facility] [place] [address] PCP - General Internal Medicine 05/03/10 Band Lining Bander Relationship Specialty Start Date End Date Corbin Bai MD [address] [facility] [place] [address] PCP - General Internal Medicine 05/03/10 Band Lining Bander Relationship Specialty Start Date End Date Corbin Bai MD [address] [facility] [place] [address] PCP - General Internal Medicine 05/03/10 Band Lining Bander Relationship Specialty Start Date End Date Corbin Bai MD [address] [facility] [place] [address] PCP - General Internal Medicine 05/03/10 Band Lining Bander Relationship Specialty Start Date End Date Corbin Bai MD [address] [facility] [place] [address] PCP - General Internal Medicine 05/03/10 Band Lining Bander Relationship Specialty Start Date End Date Corbin Bai MD [address] [facility] [place] [address] PCP - General Internal Medicine 05/03/10 Band Lining Bander Relationship Specialty Start Date End Date Corbin Bai MD [address] [facility] [place] [address] PCP - General Internal Medicine 05/03/10 Band Lining Bander Relationship Specialty Start Date End Date Corbin Bai MD [address] [facility] [place] [address] PCP - General Internal Medicine 05/03/10 Band Lining Bander Relationship Specialty Start Date End Date Corbin Bai MD [address] [facility] [place] [address] PCP - General Internal Medicine 05/03/10 Band Lining Bander Relationship Specialty Start Date End Date Corbin Bai MD [address] [facility] [place] [address] PCP - General Internal Medicine 05/03/10 Band Lining Bander Relationship Specialty Start Date End Date Corbin Bai MD [address] [facility] [place] [address] PCP - General Internal Medicine 05/03/10 Band Lining Bander Relationship Specialty Start Date End Date Corbin Bai MD [address] [facility] [place] [address] PCP - General Internal Medicine 05/03/10 Band Lining Bander Relationship Specialty Start Date End Date Corbin Bai MD [address] [facility] [place] [address] PCP - General Internal Medicine 05/03/10 Band Lining Bander Relationship Specialty Start Date End Date Corbin Bai MD [address] [place] [address] PCP - General Internal Medicine 05/03/10 FOR [...] BE BASED ON THE PRIMARY CLINICAL RECORDS. [facility] [employer] [facility]. provides no warranty or guarantee of the accuracy or completeness of information in this document.
[2023-03-29 10:25] LABS: Anisocytosis 3+; Differential Comment SCANNED; Hypochromasia 1+; Macrocytosis 1+
[2023-03-29 10:26] LABS: AST(SGOT) 17 U/L (15-37); Alanine Aminotransfer ALT/SGPT < 6 U/L (13-56); Albumin, Serum 3.4 g/dL (3.2-5.0); Alkaline Phosphatase 57 U/L (45-117); Anion Gap 5 (5-15); BUN 22 mg/dL (7-18); BUN/Creat Ratio 20.6 RATIO (10-20); Bilirubin, Direct 0.19 mg/dL (0.00-0.30); Calcium,Total 8.7 mg/dL (8.5-10.1); Chloride 109 mmol/L (98-107); Creatinine, Serum 1.07 mg/dL (0.55-1.02); EST Glomerular Filtration Rate 52 mL/min (>60); Est Glom Filt Rate - Afr Amer 63 mL/min (>60); Estimated Creatinine Clearance 40.19 ml/min; Globulin 3.2 g/dL (2.2-4.2); Glucose 108 mg/dL (74-106); Microcytosis 2+; Potassium 3.9 mmol/L (3.5-5.1); Protein, Total 6.6 g/dL (6.4-8.2); Sodium Level 142 mmol/L (136-145)
[2023-03-29 11:48] VITALS: BP 148/88; PULSE 73; RESP 16; O2SAT 98
[2023-03-29 11:50] LABS: Mucous, Urine 0 SEEN /hpf (<or=2+); Squamous Epithelial Cells - UA 0 SEEN /hpf (5-10)
[2023-03-29 11:55] LABS: Color, Urine Yellow (Yellow); Glucose, Dipstick Normal (Normal); Ketone-Dipstick 5 mg/dl (Negative); Leukocyte Esterase-Dipstick 25 /ul (Negative); Nitrite-Dipstick Negative (Negative); Occult Blood-Urine 10 /ul (Negative); Protein-Dipstick Negative (Negative); Specific Gravity, Urine 1.015 (1.002-1.030); Urine Bilirubin Dipstick Negative (Negative); Urine Clarity Clear (Clear); Urine Urobilinogen 1 mg/dl (Normal); Urine pH 6.5 (5.0 - 8.0)
[2023-03-29 12:10] LABS: Red Blood Cells-Urine 0-5 SEEN /hpf (0-5); White Blood Cells 0-5 SEEN /hpf (0-5)
[2023-03-29 12:11] LABS: Bacteria RARE /hpf (None Seen)
== END 2023-03-29 13:06 | disposition home or self-care (01) ==
PROVIDERS: Emergency Provider Emergency Medicine; PCP Internal Medicine; Visit Provider Emergency Medicine
DX: R19.7 Diarrhea, unspecified (principal); G30.9 Alzheimer's disease, unspecified; F02.80 Dementia in other diseases classified elsewhere, unspecified severity, without behavioral disturbance, psychotic disturbance, mood disturbance, and anxiety; Z87.891 Personal history of nicotine dependence; Z86.711 Personal history of pulmonary embolism; Z86.73 Personal history of transient ischemic attack (TIA), and cerebral infarction without residual deficits; Z86.718 Personal history of other venous thrombosis and embolism
CPT/HCPCS: 80048; 80076; 81001; 85025; 99284; A4216

== ENCOUNTER → 2023-08-21 | Outpatient (CLI) | payer MEDICARE, BC, SELFPAY ==
[2023-08-21 16:35] LABS: Absolute Lymphocyte Count 1.23 X10^3/uL (0.83-4.51); Absolute Neutrophil Count 3.4 X10^3/uL (2.0-7.7); Basophil# 0.05 X10^3/uL; Basophil% 0.9 % (0-1); Eosinophil# 0.12 X10^3/uL; Eosinophils% 2.2 % (0-5); Hemoglobin 10.3 g/dL (12.0-15.0); Lymphocyte # 1.23 X10^3/ul (0.83-4.51); Lymphocyte % 22.7 % (19-41); Mean Corp Hgb Conc 29.4 g/dL (32-36); Mean Corpuscular Hgb 22.2 pg (27.0-32.0); Mean Corpuscular Volume 75.3 fL (81-99); Mean Platelet Vol. 10.1 fl (6.2-12.0); Monocyte# 0.61 X10^3/uL; Monocyte% 11.2 % (0-10); NRBC Flagged by Analyzer 0 % (0-5); Neutrophil # 3.41 X10^3/uL (2.7-7.7); Neutrophil % 62.8 % (47-70); POSITIVE MORPHOLOGY YES; Platelet Count 209 K/mm3 (150-450); RBC Distribution Width CV 25.4 % (11.6-14.6); RBC Distribution Width SD 68.1 fl (35.1-43.9); RET-HE 28.3 pg (30-35); Red Blood Count 4.65 M/mm3 (4.2-5.4); Reticulocyte Count 0.84 % (0.5-1.5); White Blood Count 5.4 K/mm3 (4.4-11.0)
[2023-08-21 16:40] LABS: Differential Indicated SCAN CRITERIA MET
[2023-08-21 17:15] LABS: Anisocytosis 2+; Differential Comment SCANNED; Hypochromasia 1+
[2023-08-21 17:37] LABS: Ferritin 10 ng/mL (8-252); Iron 17 ug/dL (50-170); Iron Binding Capacity,Total 375 ug/dL (250-450); LDH 157 U/L (84-246)
[2023-08-23 15:08] LABS: Albumin 3.8 g/dL (2.9-4.4); Alpha-1-Globulins 0.2 g/dL (0.0-0.4); Alpha-2-Globulins 0.6 g/dL (0.4-1.0); Endomysial Antibody IgA Negative (Negative); Gamma Globulin 0.8 g/dL (0.4-1.8); Haptoglobin 117 mg/dL (41-333); Immunoglobulin A 387 mg/dL (64-422); Immunoglobulin G 990 mg/dL (586-1602); Immunoglobulin M 39 mg/dL (26-217); PROEL- TOTAL PROTEIN 6.4 g/dL (6.0-8.5); t-Transglutaminase IgA <2 U/mL (0-3)
== END | disposition home or self-care (01) ==
LOC: LAB 15:49
PROVIDERS: PCP Internal Medicine; Referring Provider Internal Medicine Gastroenterology; Visit Provider Internal Medicine Gastroenterology
DX: K92.2 Gastrointestinal hemorrhage, unspecified (principal); D64.9 Anemia, unspecified
CPT/HCPCS: 36415; 82728; 82784; 83010; 83516; 83540; 83550; 83615; 84165; 85025; 85045; 86255; 86334

== ENCOUNTER 2025-02-09 13:12 | Emergency (ER) | payer MEDICARE, BC, SELFPAY ==
[2025-02-09 13:12] VITALS: BP 169/79; PULSE 75; RESP 16; TEMP 36.6; O2SAT 97
[2025-02-09 13:25] VITALS: BMI 22.8
[2025-02-09 14:12] VITALS: BP 173/111; PULSE 63; RESP 16; O2SAT 95
--- NOTE | 2025-02-09 14:21 | CT_ITS ---
PROCEDURE: BRAIN/HEAD WITHOUT CONTRAST 02/09/2025 REASON FOR EXAM: FALL, HEAD INJURY TECHNIQUE: Procedure Code: CTBR Modality: CT Procedure: BRAIN/HEAD WITHOUT CONTRAST Coronal and Sagittal reconstruction series were provided. One or more dose reduction techniques were used (e.g., Automated exposure control, adjustment of the mA and/or kV according to patient size, use of iterative reconstruction technique. RADIATION DOSE SUMMARY: CTDlvol: 45 mGy DLP: 796 mGycm COMPARISON: July 28, 2018, November 02, 2021 FINDINGS: Brain: There is no evidence of hemorrhage, acute ischemia or mass. No extra- axial fluid collection, midline shift or mass effect. Severe low-density in the deep white matter, periventricular white matter and subcortical white matter. CSF Spaces: Advanced generalized cerebral atrophy Sinuses/Mastoids: Clear. Bones: No fracture Bilateral lens implants. CT/Brain/Head without Contrast IMPRESSION: 1. No evidence of intracranial hemorrhage or acute ischemia. 2. Changes of chronic microvascular ischemia and volume loss. Reading Location: [id number]
--- NOTE | 2025-02-09 14:22 | EDS_ITS ---
HPI History of Present Illness Chief Complaint: Fall Detail of Chief Complaint: Fall with head injury Informant: patient Narrative Narrative: Patient presents to the emergency department with complaint of a fall and head injury that occurred about a week ago. Referred by her primary care physician for evaluation as she continues to have a headache. Patient does not think she lost consciousness and she is not sure why she fell but she hit her head on the tile floor. Patient is on Eliquis. Currently rates her headache a 4 out of 10. She also hurt her tailbone but that is now feeling significantly improved. She has been up and ambulatory. Denies neck pain or paresthesias in the extremities. Denies chest or abdomen pain. [facility] Medical History Iron deficiency anemia due to chronic blood loss Anemia GI bleed Alcohol abuse Former smoker Anxiety Asthma Stroke/cerebrovascular accident Seizures Parkinson's disease Alzheimers disease SVT (supraventricular tachycardia) DVT, bilateral lower limbs Bilateral pulmonary embolism Chronic anticoagulation Rheumatoid arthritis GERD (gastroesophageal reflux disease) HTN (hypertension) Home Medications Medication Instructions Recorded Last Taken Type albuterol sulfate 90 mcg/actuation 2 puff inhalation Q 4H PRN PRN 07/28/18 Unknown History aerosol inhaler (ProAir HFA) SOB/COUGH alendronate 70 mg tablet (Fosamax) 70 mg PO QWEEK bone s 07/28/18 Unknown History apixaban 5 mg tablet (Eliquis) 5 mg PO DAILY thinner 0 07/28/18 04/07/19 History biotin 800 mcg tablet 5,000 mcg PO DAILY supplemen t 07/28/18 Unknown History buspirone 5 mg tablet 5 mg PO BID anxiety 07/28/18 Unknown History carbidopa 25 mg-levodopa 100 mg 2 tab PO TIDAC christie ons 07/28/18 04/20/19 08:45 History tablet escitalopram oxalate 20 mg tablet 20 mg PO DAILY depre ssion 07/28/18 Unknown History mirabegron 50 mg tablet,extended 50 mg PO DAILY PRN Bl adder Spasm 07/28/18 04/20/19 08:45 History release 24 hr (Myrbetriq) mirtazapine 30 mg tablet 30 mg PO QHS bladde 07/28/18 Unknown History polyethylene glycol 3350 17 gram 17 g PO DAILY constip ation 07/28/18 Unknown History oral powder packet dextromethorphan-guaifenesin ER 60 1 tab PO Q12H PRN c ongestion 09/04/23 Unknown History mg-1,200 mg tab,extend release,12hr (Mucinex DM) Allergy/AdvReac Type Severity Reaction Status Date / Time amlodipine (From Norvasc) Allergy Unknown Verified 02/09/25 13:15 amoxicillin Allergy Unknown Verified 02/09/25 13:15 duloxetine (From Cymbalta) Allergy Unknown Verified 02/09/25 13:15 iodine Allergy Unknown Verified 02/09/25 13:15 nabumetone (From Relafen) Allergy Unknown Verified 02/09/25 13:15 sulfabenzamide Allergy Unknown Verified 02/09/25 13:15 adhesive tape AdvReac Rash Verified 02/09/25 13:15 celecoxib (From Celebrex) AdvReac Nausea/Vom/ Verified 02/09/25 13:15 Diarrhea Family History Father Cancer Lung Brother Cancer Lung Surgical History History of bilateral knee replacement Social History Smoking Status: Former smoker quit date: 03/18/05 pack-years: 45 alcohol intake: current Alcohol type: wine substance use type: does not use ROS ROS ED ROS Narrative Fall Review of Systems ROS Unobtainable: other Constitutional Constitutional ED: Reports lethargy; Denies chills, fever(s), sweats or weight loss Eyes Eyes: Denies blurry vision, change in vision or diplopia ENT ENT ED: Denies rhinorrhea or sore throat Cardiovascular Cardiovascular: Denies chest pain, orthopnea or racing heartbeat Respiratory/Chest Respiratory/Chest: Denies cough, dyspnea, dyspnea on exertion, orthopnea or sputum Gastrointestinal Gastrointestinal: Denies abdominal pain, diarrhea, nausea or vomiting Genitourinary Genitourinary ED: Denies dysuria, hematuria or urinary frequency Musculoskeletal Musculoskeletal: Denies arthralgias, back pain, myalgias or neck pain Integumentary Denies abscess, Abrasions or rash Neurologic Neurologic: Reports headache(s); Denies weakness Psychiatric Psychiatric: Denies anxiety, depression or suicidal thoughts Endocrine Endocrinology: Denies polydipsia, polyphagia or polyuria Hematologic/Lymphatic Hematologic/Lymphatic: Denies easy bleeding, easy bruising or lymphadenopathy Allergic/Immunologic Allergic/Immunologic ED: Denies mouth swelling, tongue swelling or urticaria EXAM Physical Exam Const Vital Signs: 02/09/25 13:12 02/09/25 13:21 02/09/25 14:12 Temperature 98 F Temperature Source Oral Pulse Rate 75 63 Respiratory Rate 16 16 Respiratory Effort Normal Respiratory Depth Normal Respiratory Pattern Normal Blood Pressure 169/79 H 173/111 H Blood Pressure Mean 109 131 Pulse Ox 97 95 Oxygen Delivery Method Room Air Room Air Positive well nourished and well developed General Appearance ED: well developed and NAD HEENT Reports TM's clear and moist mucous membranes normocephalic and atraumatic; Negative for trauma or tenderness Tympanic Membrane ED: Yes TM's clear Eyes PERRL and EOMs intact bilaterally General Eye ED: Negative for pale conjunctiva or scleral icterus Neck no lymphadenopathy, supple and no JVD General: Negative for tenderness Chest Wall inspection of chest normal and palpation of chest normal Chest: Negative for tenderness Resp normal respiratory effort and clear to auscultation bilaterally Effort and Inspection: Negative for respiratory distress or pain with movement Auscultation: Negative for rhonchi, wheezes or diminished lung sounds Cardio regular rate, regular rhythm, S1 normal heart sound, S2 normal heart sound and no murmurs Peripheral Pulses: pulses 2+ throughout GI normal to inspection, nondistended, normoactive bowel sounds, soft to palpation, non-tender, non-distended and no masses Back/Spine no CVA tenderness and no thoracic nor lumbar tenderness Back/Spine Narrative: Mild tenderness over the coccyx. No tenderness over the hips or pelvis. Pelvis stable Extremity normal to inspection General Extremety ED: Negative for edema General Extremity: Negative for edema Neuro oriented x3, CN's II-XII intact bilaterally, no sensory deficits noted and gait normal Sensorium / Orientation: awake, alert, oriented to person, oriented to place and oriented to time Motor Exam: strength 5/5 throughout and strength abnormal Psych mental status grossly normal Skin no rashes or lesions noted and no wounds MDM MDM MDM Narrative Medical decision making narrative: Patient presents with a fall exactly 1 week ago striking the back of her head and ongoing headache. She is on Eliquis and was advised by her primary care physician to come in and get an evaluation and some brain imaging to rule out intracranial hemorrhage. Likely she looks well. CT scan of the brain without contrast obtained showed no intracranial hemorrhage or skull fracture or any other acute process. At this point she will be discharged to home. Advised to follow-up with primary care physician 3 to 5 days. Radiography Diagnostic Testing: Clinical Impression(s) from Imaging Studies Brain CT 02/09/25 14:21 IMPRESSION: 1. No evidence of intracranial hemorrhage or acute ischemia. 2. Changes of chronic microvascular ischemia and volume loss. Reading Location: [facility] Discharge Plan Triage Chief Complaint: Fall ED Provider: Chris Silva Dx/Rx/DC Orders Clinical Impression: Closed head injury Instructions: ED Head Injury (Adult) Prescriptions: No Action dextromethorphan-guaifenesin [Mucinex DM] 60-1,200 mg tablet extended release 12 hr 1 tab PO Q12H PRN (Reason: congestion) buspirone 5 MG tablet 5 mg PO BID biotin 800 MCG tablet 5,000 mcg PO DAILY polyethylene glycol 3350 17 GM powder in packet 17 g PO DAILY alendronate [Fosamax] 70 MG tablet 70 mg PO QWEEK mirtazapine 30 MG tablet 30 mg PO QHS albuterol sulfate [ProAir HFA] 1 PUFF inhaler 2 puff inhalation Q4H PRN PRN (Reason: SOB/COUGH) carbidopa-levodopa 1 TABLET tablet 2 tab PO TIDAC escitalopram oxalate 20 MG tablet 20 mg PO DAILY mirabegron [Myrbetriq] 50 MG tablet extended release 24 hr 50 mg PO DAILY PRN (Reason: Bladder Spasm) Eliquis 5 MG tablet 5 mg PO DAILY Patient Comments: stopped for procedure Primary Care Provider: Corbin Bai Referrals: Corbin Bai MD [Primary Care Provider, Internal Medicine] Print Language: Maltese Disposition Disposition: Home, Self Care
[2025-02-09 15:24] VITALS: BP 168/78; PULSE 63; RESP 16; TEMP 36.8; O2SAT 95
== END 2025-02-09 15:26 | disposition home or self-care (01) ==
PROVIDERS: Emergency Provider Emergency Medicine; PCP Internal Medicine; Visit Provider Emergency Medicine
DX: S09.90XA Unspecified injury of head, initial encounter (principal); G30.9 Alzheimer's disease, unspecified; F02.80 Dementia in other diseases classified elsewhere, unspecified severity, without behavioral disturbance, psychotic disturbance, mood disturbance, and anxiety; Z86.718 Personal history of other venous thrombosis and embolism; Z79.01 Long term (current) use of anticoagulants; Z87.891 Personal history of nicotine dependence; Z86.711 Personal history of pulmonary embolism; I10 Essential (primary) hypertension; J45.909 Unspecified asthma, uncomplicated; W19.XXXA Unspecified fall, initial encounter
CPT/HCPCS: 70450; 99282